=== PATIENT | female | born 1990 | race Caucasian/White ===

== ENCOUNTER 2016-07-22 22:10 | Emergency (ER) | payer OTHER ==
--- NOTE | 2016-07-22 22:43 | ED ---
General Adult HPI - General Chief complaint: Nausea/Vomiting/Diarrhea Stated complaint: 6 wks preg. Vomiting/Dizzy Time Seen by Provider: 07/22/16 22:36 Source: patient, family, RN notes reviewed Mode of arrival: ambulatory Limitations: no limitations - History of Present Illness Initial comments: This is a 25-year-old female who comes in with complaints of vomiting and diarrhea 1 day. Patient's is present in the room also. Patient states she has been constipated for the last few days and today had a bowel movement that was hard, but was followed by diarrhea. Patient denies any hematochezia or hematemesis. Patient states she had an episode of vomiting 2 days ago and also once today. Patient states she is 6 weeks . Patient complains of some abdominal pain and lower back pain. Patient denies any vaginal bleeding. Patient states she has had some vaginal discharge but this is normal for her. Patient also admits to some dysuria. Patient denies any fever/chills, cough, otalgia, sore throat, headache. Patient admits to some mild congestion. Patient states her son has been sick with diarrhea. Patient states she is a current smoker but denies alcohol or drug use. Patient states the only medication she is currently on are vitamins and albuterol inhaler as needed. Patient states she has had 5 pregnancies with 3 live births and one miscarriage. Patient is a A1. Patient states this is her fifth . Patient has had all 3 deliveries via . Patient denies any recent shortness breath, chest pain, numbness, tingling, hematuria, headache, or visual changes, or any other complaints. - Related Data Home Medications Medication Instructions Recorded Confirmed Albuterol Inhaler [Ventolin Hfa 1 puff INHALATION RT-Q6H PRN 07/06/16 07/22/16 Inhaler] Pnv with Ca,No.72/Iron/FA 1 tab PO DAILY 07/22/16 07/22/16 [ Plus Tablet] Allergies Allergy/AdvReac Type Severity Reaction Status Date / Time sumatriptan [From Imitrex] AdvReac Makes Verified 07/22/16 22:23 Migraine Worse/Dizziness sumatriptan succinate AdvReac Makes Verified 07/22/16 22:23 [From Imitrex] Migraine Worse/Dizziness Review of Systems ROS Statement: Those systems with pertinent positive or pertinent negative responses have been documented in the HPI. ROS Other: All systems not noted in ROS Statement are negative. Past Medical History Past Medical History: No Reported History Additional Past Medical History / Comment(s): migraine santos, frequent uti's History of Any Multi-Drug Resistant Organisms: None Reported Date of last positivie culture/infection: 2010 MDRO Source:: foot Past Surgical History: Section Past Psychological History: Anxiety, Depression, Panic Disorder Smoking Status: Current every day smoker Past Alcohol Use History: None Reported Past Drug Use History: None Reported General Exam - General Exam Comments Initial Comments: General: The patient is awake and alert, in no distress, and does not appear acutely ill. Eye: Pupils are equal, round and reactive to light, extra-ocular movements are intact. No nystagmus. There is normal conjunctiva bilaterally. No signs of icterus. Ears: TMs pink and pearly bilaterally with intact cone of light bilaterally. Normal external ear canals. Nose: Nasal turbinates slightly erythematous and edematous but clear of drainage. No tenderness to palpation of the frontal or maxillary sinuses. Mouth and throat: There are moist mucous membranes and no oral lesions. Neck: The neck is supple, there is no tenderness or JVD. Cardiovascular: There is a regular rate and rhythm. No murmur, rub or gallop is appreciated. Respiratory: Lungs are clear to auscultation, respirations are non-labored, breath sounds are equal. No wheezes, stridor, rales, or rhonchi. Gastrointestinal: Mild generalized tenderness to the left upper and lower quadrants. Mild right-sided CVA tenderness. Soft, non-distended, without masses or organomegaly noted. There is no rebound or guarding present. Bowel sounds are unremarkable. Musculoskeletal: Normal ROM, no tenderness. Strength 5/5. Sensation intact. Radial Pulses equal bilaterally 2+. Neurological: A&O x 3. CN II-XII intact, There are no obvious motor or sensory deficits. Coordination appears grossly intact. Speech is normal. Skin: Surgical scars from past C-sections present. Skin is warm and dry and no rashes or lesions are noted. Psychiatric: Cooperative, appropriate mood & affect, normal judgment. Limitations: no limitations External exam: Present: normal external exam. Absent: erythema, swelling, lesions Speculum exam: Present: normal speculum exam (No bleeding present in the vaginal vault.). Absent: erythema, vaginal bleeding (normal vaginal discharge present) By manual exam: Present: adnexal tenderness (left adnexal tenderness). Absent: cervical motion tenderness Course Vital Signs 07/22/16 22:13 Temperature 97 F L Pulse Rate 75 Respiratory 18 Rate Blood Pressure 109/70 O2 Sat by Pulse 98 Oximetry Medical Decision Making - Medical Decision Making This is a 25-year-old female with complaints of vomiting and diarrhea 1 day. Patient is a A1. Patient also complains of lower back pain. Physical exam there is mild generalized tenderness to the left upper and lower quadrants of the abdomen. Abdomen is soft, nondistended, with no guarding or rigidity. Bimanual exam with left adnexal tenderness. Normal speculum exam. No bleeding present in the vaginal vault. Patient is afebrile in the EC. Patient was offered STD testing but refused this stating she gets this done at her regular [facility] appointments. Patient was given fluids in the EC today. Labs and imaging were reviewed. UA negative for UTI but positive for . A transvaginal ultrasound was done and reviewed showing: Evidence of single live intrauterine of 6 weeks and 4 days with heart rate of 110 bpm. The heart rate is probably somewhat low. BREANNA by current ultrasound is 03/14/2017. Read by Dr. Blackwell. Discussed the results with patient. Discussed close follow up with [facility]. Discussed the importance of smoking cessation especially in . Discussed plenty of fluids. Discussed return parameters. Discussed that patient should follow up with PCP in one to 2 days or return to the EC for any worsening symptoms or for any further concerns. Patient was receptive to this plan and patient will be discharged home. I discussed his case with attending physician Dr. Oshea who agrees the plan as stated above. - Lab Data Result diagrams: 07/22/16 23:15 07/22/16 23:15 Lab Results 07/22/16 07/22/16 07/22/16 Range/Units 22:45 22:45 23:15 WBC (3.8-10.6) k/uL RBC (3.80-5.40) m/uL Hgb (11.4-16.0) gm/dL Hct (34.0-46.0) % MCV (80.0-100.0) fL MCH (25.0-35.0) pg MCHC (31.0-37.0) g/dL RDW (11.5-15.5) % Plt Count (150-450) k/uL Neutrophils % % Lymphocytes % % Monocytes % % Eosinophils % % Basophils % % Neutrophils # (1.3-7.7) k/uL Lymphocytes # (1.0-4.8) k/uL Monocytes # (0-1.0) k/uL Eosinophils # (0-0.7) k/uL Basophils # (0-0.2) k/uL Sodium (137-145) mmol/L Potassium (3.5-5.1) mmol/L Chloride (98-107) mmol/L Carbon Dioxide (22-30) mmol/L Anion Gap mmol/L BUN (7-17) mg/dL Creatinine (0.52-1.04) mg/dL Est GFR (MDRD) Af Amer (>60 ml/min/1.73 sqM) Est GFR (MDRD) Non-Af (>60 ml/min/1.73 sqM) Glucose (74-99) mg/dL Calcium (8.4-10.2) mg/dL Total Bilirubin (0.2-1.3) mg/dL AST (14-36) U/L ALT (9-52) U/L Alkaline Phosphatase (38-126) U/L Total Protein (6.3-8.2) g/dL Albumin (3.5-5.0) g/dL HCG, Quant mIU/mL Urine Color Yellow Urine Appearance Clear (Clear) Urine pH 6.0 (5.0-8.0) Ur Specific [place] 1.017 (1.001-1.035) Urine Protein Negative (Negative) Urine Glucose (UA) Negative (Negative) Urine Ketones Negative (Negative) Urine Blood Negative (Negative) Urine Nitrate Negative (Negative) Urine Bilirubin Negative (Negative) Urine Urobilinogen <2.0 (<2.0) mg/dL Ur Leukocyte Esterase Negative (Negative) Urine HCG, Qual Detected (Not Detectd) Blood Type O Positive Blood Type Recheck No 07/22/16 07/22/16 Range/Units 23:15 23:15 WBC 14.2 H (3.8-10.6) k/uL RBC 4.18 (3.80-5.40) m/uL Hgb 12.9 (11.4-16.0) gm/dL Hct 39.9 (34.0-46.0) % MCV 95.3 (80.0-100.0) fL MCH 30.9 (25.0-35.0) pg MCHC 32.5 (31.0-37.0) g/dL RDW 12.6 (11.5-15.5) % Plt Count 271 (150-450) k/uL Neutrophils % 82 % Lymphocytes % 12 % Monocytes % 4 % Eosinophils % 1 % Basophils % 0 % Neutrophils # 11.6 H (1.3-7.7) k/uL Lymphocytes # 1.7 (1.0-4.8) k/uL Monocytes # 0.6 (0-1.0) k/uL Eosinophils # 0.1 (0-0.7) k/uL Basophils # 0.0 (0-0.2) k/uL Sodium 140 (137-145) mmol/L Potassium 4.1 (3.5-5.1) mmol/L Chloride 106 (98-107) mmol/L Carbon Dioxide 23 (22-30) mmol/L Anion Gap 11 mmol/L BUN 15 (7-17) mg/dL Creatinine 0.70 (0.52-1.04) mg/dL Est GFR (MDRD) Af Amer >60 (>60 ml/min/1.73 sqM) Est GFR (MDRD) Non-Af >60 (>60 ml/min/1.73 sqM) Glucose 87 (74-99) mg/dL Calcium 9.1 (8.4-10.2) mg/dL Total Bilirubin 0.3 (0.2-1.3) mg/dL AST 23 (14-36) U/L ALT 40 (9-52) U/L Alkaline Phosphatase 74 (38-126) U/L Total Protein 6.7 (6.3-8.2) g/dL Albumin 4.0 (3.5-5.0) g/dL HCG, Quant 94567.6 mIU/mL Urine Color Urine Appearance (Clear) Urine pH (5.0-8.0) Ur Specific [place] (1.001-1.035) Urine Protein (Negative) Urine Glucose (UA) (Negative) Urine Ketones (Negative) Urine Blood (Negative) Urine Nitrate (Negative) Urine Bilirubin (Negative) Urine Urobilinogen (<2.0) mg/dL Ur Leukocyte Esterase (Negative) Urine HCG, Qual (Not Detectd) Blood Type Blood Type Recheck Disposition Clinical Impression: Nausea and vomiting during , Diarrhea, Disposition: HOME SELF-CARE Condition: Good Instructions: Acute Diarrhea (ED) Additional Instructions: Please follow-up with [facility]. Please stop smoking. Please drink plenty of fluids. Please follow-up with family doctor in the next 2 days of symptoms have not improved. Please return to emergency room if the symptoms increase or worsen or for any other concerns. Referrals: Tin Parson MD [Primary Care Provider] - 1-2 days Time of Disposition: 01:23
[2016-07-22] MEDS ORDERED: SODIUM CHLORIDE 0.9% 1,000 ML IV ONE (22:50)
[2016-07-22 22:59] LABS: Appearance,Urine Clear (Clear); Bilirubin,Urine Negative (Negative); Glucose,Urine (UA) Negative (Negative); Ketones,Urine Negative (Negative); Leukocyte Esterase,Urine Negative (Negative); Nitrite,Urine Negative (Negative); Protein,Urine Negative (Negative); Specific Gravity,Urine 1.017 (1.001-1.035); UA Billing (MACRO vs. MICRO) CHEM; Urobilinogen,Urine <2.0 mg/dL (<2.0)
[2016-07-22 23:31] LABS: Basophils % (A) 0 %; CH 32.1; CHCM 33.9; Eosinophils # (A) 0.1 k/uL (0-0.7); Eosinophils % (A) 1 %; HCT 39.9 % (34.0-46.0); HGB 12.9 gm/dL (11.4-16.0); Luc % (Auto) 1; Lymphocytes # (A) 1.7 k/uL (1.0-4.8); Lymphocytes % (A) 12 %; MCH 30.9 pg (25.0-35.0); MCHC 32.5 g/dL (31.0-37.0); MCV 95.3 fL (80.0-100.0); Mean Platelet Volume 7.7; Monocytes # (A) 0.6 k/uL (0-1.0); Monocytes % (A) 4 %; Neutrophils # (A) 11.6 k/uL (1.3-7.7); Neutrophils % (A) 82 %; RBC 4.18 m/uL (3.80-5.40); RDW 12.6 % (11.5-15.5); WBC 14.2 k/uL (3.8-10.6); WBC (Perox) 14.75
[2016-07-22 23:42] LABS: ALT 40 U/L (9-52); AST 23 U/L (14-36); Alkaline Phosphatase 74 U/L (38-126); Anion Gap 11 mmol/L; Blood Urea Nitrogen 15 mg/dL (7-17); Calcium 9.1 mg/dL (8.4-10.2); Carbon Dioxide 23 mmol/L (22-30); Chloride 106 mmol/L (98-107); Glucose 87 mg/dL (74-99); Non-African American GFR(MDRD) >60 (>60 ml/min/1.73 sqM); Potassium 4.1 mmol/L (3.5-5.1); Sodium 140 mmol/L (137-145); Total Bilirubin 0.3 mg/dL (0.2-1.3); Total Protein 6.7 g/dL (6.3-8.2)
[2016-07-23 00:51] LABS: HCG,Quantitative Serum 65647.6 mIU/mL
--- NOTE | 2016-07-23 01:17 | US ---
EXAMINATION TYPE: US OB <= 14 wk fetus DATE OF EXAM: 07/23/2016 12:50 AM COMPARISON: July 06, 2016 CLINICAL HISTORY: vomiting, dizziness, unknown dates, . EXAM PERFORMED: Transabdominal (TA) EXAM MEASUREMENTS: GESTATIONAL AGE / DATING Dates by First Scan: Too early to determine Dates by Current Scan: (6 weeks/4 days) EDC: 03/14/2017 MATERNAL ANATOMY Uterus: 10.1 x 5.9 x 4.5 cm Right Ovary: 3.5 x2.1 x 1.8 cm Left Ovary: 3.0 x 2.5 x 2.3 cm Post CDS / Adnexa: no free fluid Presence of corpus luteal cyst: left ovary= 2.5 x 1.8 x 2.2 cm Presence of subchorionic bleed: no Presence of two separate gestational sacs: no GESTATION / SURVEY CRL: 0.7 cm (6 weeks/4 days) Yolk Sac (normal less than 6mm): 2.7 mm Heart Rate: 110 bpm Rhythm: Normal, low IUP: Viable IUP Date of LMP: unknown IMPRESSION: 1. Evidence of single live intrauterine of 6 weeks and 4 days with heart rate of 110 bpm. The heart rate is probably somewhat low. BREANNA by current ultrasound is 03/14/2017.
[2016-07-23 01:31] VITALS: BP 114/59; PULSE 69; RESP 16; TEMP 97.8
== END 2016-07-23 01:33 | disposition home or self-care (01) ==
LOC: EC 22:10
DX: O26.891 Other specified pregnancy related conditions, first trimester (principal); O99.331 Smoking (tobacco) complicating pregnancy, first trimester; R11.2 Nausea with vomiting, unspecified; R19.7 Diarrhea, unspecified; M54.5 Low back pain; Z3A.01 Less than 8 weeks gestation of pregnancy; F17.200 Nicotine dependence, unspecified, uncomplicated; Z88.8 Allergy status to other drugs, medicaments and biological substances
CPT/HCPCS: 36415; 76801; 80053; 81003; 81025; 84702; 85025; 86900; 86901; 87086; 96360; 99284

== ENCOUNTER 2016-08-05 15:59 | Emergency (ER) | payer OTHER ==
[2016-08-05 16:12] VITALS: RESP 16
[2016-08-05] MEDS ORDERED: SODIUM CHLORIDE 0.9% 1,000 ML IV ONE (16:43)
--- NOTE | 2016-08-05 16:47 | ED ---
Abdominal Pain HPI - General Chief Complaint: Abdominal Pain Stated Complaint: 9 weeks /Spotting Time Seen by Provider: 08/05/16 16:34 Source: patient, RN notes reviewed Mode of arrival: ambulatory Limitations: no limitations - History of Present Illness Initial Comments: Vision is a 25-year-old female presenting to the with chief complaint of left lower quadrant abdominal pain for approximately 1 day. She reports that she is approximately 9 weeks . Patient reports that she's had a very rough with multiple vomiting episodes. Patient reports she's also had multiple episodes of vomiting and diarrhea for the past 2 days. Patient reports that yesterday she did have some vaginal spotting yesterday. Patient denies any fever or chills. Patient's past medical history significant for multiple urinary tract infections. Patient states that she also has asthma. Patient denies any recent fever, chills, shortness of breath, chest pain, back pain, abdominal pain, nausea vomiting, numbness or tingling, dysuria or hematuria, constipation or diarrhea, headaches or visual changes, or any other current symptoms - Related Data Home Medications Medication Instructions Recorded Confirmed Albuterol Inhaler [Ventolin Hfa 1 puff INHALATION RT-Q6H PRN 07/06/16 08/05/16 Inhaler] Pnv with Ca,No.72/Iron/FA 1 tab PO DAILY 07/22/16 08/05/16 [ Plus Tablet] Previous Rx's Medication Instructions Recorded Metoclopramide [Reglan] 5 mg PO TID 12 Days 08/05/16 Allergies Allergy/AdvReac Type Severity Reaction Status Date / Time sumatriptan [From Imitrex] AdvReac Makes Verified 08/05/16 16:47 Migraine Worse/Dizziness sumatriptan succinate AdvReac Makes Verified 08/05/16 16:47 [From Imitrex] Migraine Worse/Dizziness Review of Systems ROS Statement: Those systems with pertinent positive or pertinent negative responses have been documented in the HPI. ROS Other: All systems not noted in ROS Statement are negative. Past Medical History Past Medical History: No Reported History Additional Past Medical History / Comment(s): migraine santos, frequent uti's History of Any Multi-Drug Resistant Organisms: None Reported Date of last positivie culture/infection: 2010 MDRO Source:: foot Past Surgical History: Section Past Psychological History: Anxiety, Depression, Panic Disorder Smoking Status: Current every day smoker Past Alcohol Use History: None Reported Past Drug Use History: None Reported General Exam - General Exam Comments Initial Comments: Patient is a 25-year-old well-appearing female. She does not appear to be in any acute distress at this time. Limitations: no limitations General appearance: alert, in no apparent distress Head exam: Present: atraumatic, normocephalic, normal inspection Eye exam: Present: normal appearance, PERRL, EOMI. Absent: scleral icterus, conjunctival injection, periorbital swelling ENT exam: Present: normal exam, mucous membranes moist Neck exam: Present: normal inspection. Absent: tenderness, meningismus, lymphadenopathy Respiratory exam: Present: normal lung sounds bilaterally. Absent: respiratory distress, wheezes, rales, rhonchi, stridor Cardiovascular Exam: Present: regular rate, normal rhythm, normal heart sounds. Absent: systolic murmur, diastolic murmur, rubs, gallop, clicks GI/Abdominal exam: Present: soft, tenderness (Patient reports she has left lower quadrant tenderness.), normal bowel sounds. Absent: distended, guarding, rebound, rigid External exam: Present: normal external exam. Absent: erythema, swelling Speculum exam: Present: normal speculum exam, cervical discharge (Patient had mild white purulent cervical discharge. Nothing indicating signs this sexual transmitted infection. Cultures were obtained.). Absent: erythema, vaginal discharge, vaginal bleeding, foreign body By manual exam: Present: normal by manual exam. Absent: cervical motion tenderness, adnexal tenderness, adnexal mass, uterine enlargement, uterine tenderness Extremities exam: Present: normal inspection, full ROM, normal capillary refill. Absent: tenderness, pedal edema, joint swelling, calf tenderness Back exam: Present: normal inspection Neurological exam: Present: alert, oriented X3, CN II-XII intact Psychiatric exam: Present: normal affect, normal mood Skin exam: Present: warm, dry, intact, normal color. Absent: rash Course Vital Signs 08/05/16 08/05/16 16:07 20:15 Temperature 98.2 F 98.3 F Pulse Rate 62 72 Respiratory 16 16 Rate Blood Pressure 152/67 107/68 O2 Sat by Pulse 97 98 Oximetry Medical Decision Making - Medical Decision Making Patient is a 25-year-old female presenting to the with chief complaint of 3 days of vomiting, nausea, and 1 day of left lower quadrant abdominal pain. Patient also reports some spotting yesterday. Patient reports that she does have a history of chronic urinary tract infection she is concerned she has a UTI this time. All labs are reviewed to be negative. Pelvic exam did show some mild discharge however nothing consistent with a sexually transmitted infection. Cultures are obtained. Patient transvaginal ultrasound was obtained. Patient received Reglan for nausea vomiting EC. Patient be discharged with a prescription for Reglan and instructed to follow-up with her [facility] in regards to repeat beta hCG. Patient's O positive. She will also be given a repeat beta hCG. - Lab Data Result diagrams: 08/05/16 17:40 08/05/16 17:40 Lab Results 08/05/16 08/05/16 08/05/16 Range/Units 15:45 17:40 17:40 WBC 8.6 (3.8-10.6) k/uL RBC 4.12 (3.80-5.40) m/uL Hgb 13.0 (11.4-16.0) gm/dL Hct 38.7 (34.0-46.0) % MCV 94.0 (80.0-100.0) fL MCH 31.5 (25.0-35.0) pg MCHC 33.5 (31.0-37.0) g/dL RDW 12.5 (11.5-15.5) % Plt Count 255 (150-450) k/uL Neutrophils % 73 % Lymphocytes % 19 % Monocytes % 5 % Eosinophils % 1 % Basophils % 0 % Neutrophils # 6.3 (1.3-7.7) k/uL Lymphocytes # 1.6 (1.0-4.8) k/uL Monocytes # 0.4 (0-1.0) k/uL Eosinophils # 0.1 (0-0.7) k/uL Basophils # 0.0 (0-0.2) k/uL Sodium (137-145) mmol/L Potassium (3.5-5.1) mmol/L Chloride (98-107) mmol/L Carbon Dioxide (22-30) mmol/L Anion Gap mmol/L BUN (7-17) mg/dL Creatinine (0.52-1.04) mg/dL Est GFR (MDRD) Af Amer (>60 ml/min/1.73 sqM) Est GFR (MDRD) Non-Af (>60 ml/min/1.73 sqM) Glucose (74-99) mg/dL Calcium (8.4-10.2) mg/dL Total Bilirubin (0.2-1.3) mg/dL AST (14-36) U/L ALT (9-52) U/L Alkaline Phosphatase (38-126) U/L Total Protein (6.3-8.2) g/dL Albumin (3.5-5.0) g/dL HCG, Quant mIU/mL Urine Color Urine Appearance (Clear) Urine pH (5.0-8.0) Ur Specific [place] (1.001-1.035) Urine Protein (Negative) Urine Glucose (UA) (Negative) Urine Ketones (Negative) Urine Blood (Negative) Urine Nitrate (Negative) Urine Bilirubin (Negative) Urine Urobilinogen (<2.0) mg/dL Ur Leukocyte Esterase (Negative) Urine RBC (0-5) /hpf Ur Squamous Epith Cells (0-4) /hpf Amorphous Sediment (None) /hpf Urine Bacteria (None) /hpf Urine Mucus (None) /hpf Trichomonas Ag (Rapid) Negative (Negative) Blood Type O Positive Blood Type Recheck No 08/05/16 08/05/16 Range/Units 17:40 17:40 WBC (3.8-10.6) k/uL RBC (3.80-5.40) m/uL Hgb (11.4-16.0) gm/dL Hct (34.0-46.0) % MCV (80.0-100.0) fL MCH (25.0-35.0) pg MCHC (31.0-37.0) g/dL RDW (11.5-15.5) % Plt Count (150-450) k/uL Neutrophils % % Lymphocytes % % Monocytes % % Eosinophils % % Basophils % % Neutrophils # (1.3-7.7) k/uL Lymphocytes # (1.0-4.8) k/uL Monocytes # (0-1.0) k/uL Eosinophils # (0-0.7) k/uL Basophils # (0-0.2) k/uL Sodium 139 (137-145) mmol/L Potassium 4.3 (3.5-5.1) mmol/L Chloride 103 (98-107) mmol/L Carbon Dioxide 26 (22-30) mmol/L Anion Gap 10 mmol/L BUN 11 (7-17) mg/dL Creatinine 0.70 (0.52-1.04) mg/dL Est GFR (MDRD) Af Amer >60 (>60 ml/min/1.73 sqM) Est GFR (MDRD) Non-Af >60 (>60 ml/min/1.73 sqM) Glucose 89 (74-99) mg/dL Calcium 9.1 (8.4-10.2) mg/dL Total Bilirubin 0.3 (0.2-1.3) mg/dL AST 17 (14-36) U/L ALT 26 (9-52) U/L Alkaline Phosphatase 67 (38-126) U/L Total Protein 6.8 (6.3-8.2) g/dL Albumin 3.8 (3.5-5.0) g/dL HCG, Quant 943433.0 mIU/mL Urine Color Yellow Urine Appearance Cloudy H (Clear) Urine pH 6.5 (5.0-8.0) Ur Specific [place] 1.017 (1.001-1.035) Urine Protein Negative (Negative) Urine Glucose (UA) Negative (Negative) Urine Ketones Negative (Negative) Urine Blood Negative (Negative) Urine Nitrate Negative (Negative) Urine Bilirubin Negative (Negative) Urine Urobilinogen <2.0 (<2.0) mg/dL Ur Leukocyte Esterase Negative (Negative) Urine RBC 1 (0-5) /hpf Ur Squamous Epith Cells 11 H (0-4) /hpf Amorphous Sediment Rare H (None) /hpf Urine Bacteria Occasional H (None) /hpf Urine Mucus Rare H (None) /hpf Trichomonas Ag (Rapid) (Negative) Blood Type Blood Type Recheck - Radiology Data Radiology results: report reviewed Patient's transvaginal ultrasound shows a live IUP measuring 8 weeks and 3 days. There is evidence of a corpus luteal cyst in the left ovary measuring 2 x 2 x 2 cm. Disposition Clinical Impression: Nausea and vomiting during , Left ovarian cyst Disposition: HOME SELF-CARE Condition: Good Instructions: Nausea and Vomiting in (ED) Additional Instructions: Patient instructed to follow-up with [facility] in regards to repeat beta hCGs. Patient is to return to the EC if any alarming signs or symptoms occur. Prescriptions: Metoclopramide [Reglan] 5 mg PO TID 12 Days Referrals: Tin Parson MD [Primary Care Provider] - 1-2 days Time of Disposition: 19:37
[2016-08-05 18:13] LABS: Basophils % (A) 0 %; CHCM 34.2; Eosinophils # (A) 0.1 k/uL (0-0.7); Eosinophils % (A) 1 %; HCT 38.7 % (34.0-46.0); HDW 2.21; Luc # (Auto) 0.13; Luc % (Auto) 2; Lymphocytes # (A) 1.6 k/uL (1.0-4.8); Lymphocytes % (A) 19 %; MCH 31.5 pg (25.0-35.0); MCHC 33.5 g/dL (31.0-37.0); Monocytes # (A) 0.4 k/uL (0-1.0); Monocytes % (A) 5 %; Neutrophils # (A) 6.3 k/uL (1.3-7.7); Neutrophils % (A) 73 %; RBC 4.12 m/uL (3.80-5.40); RDW 12.5 % (11.5-15.5); WBC 8.6 k/uL (3.8-10.6); WBC (Perox) 8.62
[2016-08-05 18:16] LABS: ALT 26 U/L (9-52); AST 17 U/L (14-36); Alkaline Phosphatase 67 U/L (38-126); Anion Gap 10 mmol/L; Blood Urea Nitrogen 11 mg/dL (7-17); Calcium 9.1 mg/dL (8.4-10.2); Carbon Dioxide 26 mmol/L (22-30); Chloride 103 mmol/L (98-107); Glucose 89 mg/dL (74-99); Non-African American GFR(MDRD) >60 (>60 ml/min/1.73 sqM); Potassium 4.3 mmol/L (3.5-5.1); Sodium 139 mmol/L (137-145); Total Bilirubin 0.3 mg/dL (0.2-1.3); Total Protein 6.8 g/dL (6.3-8.2)
[2016-08-05 18:34] LABS: Amorphous Sediment,Urine Rare /hpf; Appearance,Urine Cloudy (Clear); Bacteria,Urine Occasional /hpf; Bilirubin,Urine Negative (Negative); Glucose,Urine (UA) Negative (Negative); Ketones,Urine Negative (Negative); Leukocyte Esterase,Urine Negative (Negative); Mucus,Urine Rare /hpf; Nitrite,Urine Negative (Negative); PH, Urine 6.5 (5.0-8.0); Particle Count 15424; Protein,Urine Negative (Negative); RBC,Urine 1 /hpf (0-5); Specific Gravity,Urine 1.017 (1.001-1.035); Squamous Epithelial Cell,Urine 11 /hpf (0-4); UA Billing (MACRO vs. MICRO) MICRO; Urobilinogen,Urine <2.0 mg/dL (<2.0)
[2016-08-05] MEDS ORDERED: METOCLOPRAMIDE 5 MG/ML 2 ML VIAL IVP STA (18:50)
--- NOTE | 2016-08-05 19:48 | US ---
EXAMINATION TYPE: US OB <= 14 wk fetus DATE OF EXAM: 08/05/2016 6:12 PM COMPARISON: on PACS CLINICAL HISTORY: pain, bleeding. EXAM PERFORMED: Transabdominal (TA) EXAM MEASUREMENTS: GESTATIONAL AGE / DATING Dates by First Scan: (8 weeks/4 days) EDC: 03/13/2017 Dates by Current Scan for: (8 weeks/3 days) EDC: 03/14/2017 MATERNAL ANATOMY Uterus: 10.5 x 6.7 x 5.8 cm Right Ovary: 3.2 x 2.0 x 2.1 cm Left Ovary: 3.2 x 2.2 x 2.1 cm Post CDS / Adnexa: no free fluid Presence of corpus luteal cyst: left ovary= 2.3 x 1.8 x 1.5 cm GESTATION / SURVEY CRL: 1.9 cm (8 weeks/3 days) MSD: not measured Yolk Sac (normal less than 6mm): 4.5 mm Heart Rate: 167 bpm Rhythm: Normal IUP: Viable IUP Date of LMP: unknown Beta HcG (if available): not available IMPRESSION: LIVE IUP MEASURING 8 WEEKS 3 DAYS
[2016-08-05 20:18] VITALS: BP 107/68; PULSE 72; TEMP 98.3
== END 2016-08-05 20:18 | disposition home or self-care (01) ==
LOC: EC 15:59
DX: O21.0 Mild hyperemesis gravidarum (principal); Z3A.08 8 weeks gestation of pregnancy; O34.81 Maternal care for other abnormalities of pelvic organs, first trimester; Z88.8 Allergy status to other drugs, medicaments and biological substances; O99.331 Smoking (tobacco) complicating pregnancy, first trimester
CPT/HCPCS: 36415; 86900; 86901; 80053; 87591; 87491; 85025; 81001; 84702; 87808; 87070; 76801; 96374; 96361; 99284; J2765; 87205

== ENCOUNTER 2016-08-09 23:12 | Emergency (ER) | payer OTHER ==
[2016-08-09 23:17] VITALS: BP 145/83; PULSE 80; RESP 20; TEMP 97.8
--- NOTE | 2016-08-09 23:43 | ED ---
Abdominal Pain HPI - General Chief Complaint: Abdominal Pain Stated Complaint: Back Pain Time Seen by Provider: 08/09/16 23:17 Source: patient, RN notes reviewed Mode of arrival: ambulatory Limitations: no limitations - History of Present Illness Initial Comments: 25-year-old female presents to emergency room chief complaint of concern about her . Patient states she was here a few days ago with some back pain. Patient states she continues to have this back pain however she also got her hCG checked lower. Patient is concerned about a miscarriage like an ultrasound to see how she is doing. Patient states her pain as mild it's just like it was before there is no changes or difference. Patient denies any fever chills nausea vomiting. Patient states that she hasn't had any other symptoms at this time. Patient was concerned due to the drop of the hCG and not associated like evaluated.Patient denies any recent fever, chills, shortness of breath, chest pain, abdominal pain, nausea vomiting, numbness or tingling, dysuria or hematuria, constipation or diarrhea, headaches or visual changes, or any other current symptoms. - Related Data Home Medications Medication Instructions Recorded Confirmed Albuterol Inhaler [Ventolin Hfa 1 puff INHALATION RT-Q6H PRN 07/06/16 08/09/16 Inhaler] Previous Rx's Medication Instructions Recorded Metoclopramide [Reglan] 5 mg PO TID 12 Days 08/05/16 Allergies Allergy/AdvReac Type Severity Reaction Status Date / Time sumatriptan [From Imitrex] AdvReac Makes Verified 08/09/16 23:32 Migraine Worse/Dizziness sumatriptan succinate AdvReac Makes Verified 08/09/16 23:32 [From Imitrex] Migraine Worse/Dizziness Review of Systems ROS Statement: Those systems with pertinent positive or pertinent negative responses have been documented in the HPI. ROS Other: All systems not noted in ROS Statement are negative. Past Medical History Past Medical History: No Reported History Additional Past Medical History / Comment(s): migraine santos, frequent uti's History of Any Multi-Drug Resistant Organisms: None Reported Date of last positivie culture/infection: 2010 MDRO Source:: foot Past Surgical History: Section Past Psychological History: Anxiety, Depression, Panic Disorder Smoking Status: Current every day smoker Past Alcohol Use History: None Reported Past Drug Use History: None Reported General Exam - General Exam Comments Initial Comments: General: The patient is awake and alert, in no distress, and does not appear acutely ill. Eye: Pupils are equal, round and reactive to light. Ears, nose, mouth and throat: There are moist mucous membranes. Neck: The neck is supple, there is no tenderness. Cardiovascular: There is a regular rate and rhythm. No murmur, rub or gallop is appreciated. Respiratory: Lungs are clear to auscultation, respirations are non-labored, breath sounds are equal. No wheezes, stridor, rales, or rhonchi. Gastrointestinal: Soft, non-distended, non-tender abdomen without masses or organomegaly noted. There is no rebound or guarding present. No CVA tenderness. Bowel sounds are unremarkable. Back: There is no tenderness to palpation in the midline. There is no obvious deformity. No rashes noted. Musculoskeletal: Normal ROM, no tenderness, There is no pedal edema. There is no calf tenderness or swelling. Sensation intact. Pulses equal bilaterally 2+. Neurological: CN II-XII intact, There are no obvious motor or sensory deficits. Coordination appears grossly intact. Speech is normal. Skin: Skin is warm and dry and no rashes or lesions are noted. Psychiatric: Cooperative, appropriate mood & affect, normal judgment. Limitations: no limitations Course Vital Signs 08/09/16 23:15 Temperature 97.8 F Pulse Rate 80 Respiratory 20 Rate Blood Pressure 145/83 O2 Sat by Pulse 98 Oximetry Medical Decision Making - Medical Decision Making 25-year-old female presents to the emergency department with a chief complaint of concern about a miscarriage. Patient states she is trending down. We did have a long discussion about what this means. We did have a long discussion about fine up with her TRAILER TANK TRUCK DRIVER. Patient is very concerned and tearful on exam. We did do an ultrasound to assess the current fetus. Patient has no vaginal bleeding per her history. Patient would just take pills or so. She states she' ll follow-up with her TRAILER TANK TRUCK DRIVER for additional care. We discussed the comparison follow-up discussed all the patient's questions. She states she understood. She is in agreement with the plan. Patient will be discharged. - Radiology Data Radiology results: report reviewed, image reviewed Disposition Clinical Impression: Threatened miscarriage Disposition: HOME SELF-CARE Condition: Stable Instructions: Threatened Miscarriage (ED) Additional Instructions: Please use medication as discussed. Please follow up with family doctor if symptoms have not improved over the next two days. Please return to the emergency room if your symptoms increase or worsen or for any other concerns. Referrals: Tin Parson MD [Primary Care Provider] - 1-2 days Time of Disposition: 00:08
--- NOTE | 2016-08-10 00:06 | US ---
EXAMINATION TYPE: US OB <= 14 wk fetus DATE OF EXAM: 08/09/2016 11:49 PM COMPARISON: on PACS CLINICAL HISTORY: Pain. Patients states HCG have dropped EXAM PERFORMED: Transabdominal (TA) EXAM MEASUREMENTS: GESTATIONAL AGE / DATING Dates by First Scan: (9 weeks/1 days) EDC: 03/13/2017 Dates by Current Scan for: (9 weeks/0 days) EDC: 03/14/2017 MATERNAL ANATOMY Uterus: 9.6 x 7.1 x 6.9 cm Right Ovary: 2.7 x 1.4 x 1.6 cm Left Ovary: 3.7 x 2.4 x 1.9 cm Post CDS / Adnexa: no free fluid Presence of corpus luteal cyst: left ovary= 2.2 x 1.9 x 1.8 cm Presence of subchorionic bleed: no GESTATION / SURVEY CRL: 2.3 cm (9 weeks/0 days) MSD: not measured Yolk Sac (normal less than 6mm): 4.5 mm Heart Rate: 172 bpm Rhythm: Normal IUP: Viable IUP Date of LMP: not available Beta HcG (if available): not available TECHNOLOGIST IMPRESSION: Live IUP measuring 9 weeks 0 days IMPRESSION: The ultrasound gestational age is 9 weeks. The BREANNA is 03/06/2017. I see no complicating process.
== END 2016-08-10 00:17 | disposition home or self-care (01) ==
LOC: EC 23:12
DX: O20.0 Threatened abortion (principal); Z3A.09 9 weeks gestation of pregnancy; Z88.8 Allergy status to other drugs, medicaments and biological substances
CPT/HCPCS: 36415; 76801; 84702; 99284

== ENCOUNTER → 2016-08-09 | Outpatient (CLI) | payer OTHER | END | disposition home or self-care (01) | LOC: LABWHC1 11:00 | PROVIDERS: ATTEND Physician Assistant Medical | DX: O20.0 Threatened abortion (principal) | CPT/HCPCS: 36415; 84702 ==

== ENCOUNTER 2016-08-30 20:48 | Emergency (ER) | payer OTHER ==
[2016-08-30 20:57] VITALS: TEMP 97.9
[2016-08-30] MEDS ORDERED: ALBUTEROL NEBULIZED 2.5 MG/3 ML INHALATION STA (21:14)
--- NOTE | 2016-08-30 21:30 | ED ---
General Adult HPI - General Chief complaint: Upper Respiratory Infection Stated complaint: JASWINDER Time Seen by Provider: 08/30/16 21:08 Source: patient, RN notes reviewed Mode of arrival: ambulatory Limitations: no limitations - History of Present Illness Initial comments: 25-year-old female presents to the emergency Department chief complaint of cough and shortness of breath. Patient has been continuously for the past few days. Patient does admit to a history of asthma patient does smoke. Patient is currently 13 weeks . Patient was unable to find her inhaler at home. Patient states she just feels very short of breath. Patient denies any fever chills with this. Patient sputum production with the cough. Patient states she just does not seem to be getting any better so she thought that she should be evaluated. Patient denies any chest pain with this patient denies any nausea vomiting patient denies abdominal pain any vaginal bleeding or discharge. Patient denies any recent fever, chills, chest pain, back pain, abdominal pain, nausea vomiting, numbness or tingling, dysuria or hematuria, constipation or diarrhea, headaches or visual changes, or any other current symptoms. - Related Data Previous Rx's Medication Instructions Recorded Albuterol Inhaler [Ventolin Hfa 1 - 2 puff INHALATION Q4-6H PRN #1 08/30/16 Inhaler] inhaler Allergies Allergy/AdvReac Type Severity Reaction Status Date / Time sumatriptan [From Imitrex] AdvReac Makes Verified 08/30/16 21:06 Migraine Worse/Dizziness sumatriptan succinate AdvReac Makes Verified 08/30/16 21:06 [From Imitrex] Migraine Worse/Dizziness Review of Systems ROS Statement: Those systems with pertinent positive or pertinent negative responses have been documented in the HPI. ROS Other: All systems not noted in ROS Statement are negative. Past Medical History Past Medical History: No Reported History Additional Past Medical History / Comment(s): migraine santos, frequent uti's History of Any Multi-Drug Resistant Organisms: None Reported Date of last positivie culture/infection: 2010 MDRO Source:: foot Past Surgical History: Section Past Psychological History: Anxiety, Depression, Panic Disorder Smoking Status: Current every day smoker Past Alcohol Use History: None Reported Past Drug Use History: None Reported General Exam - General Exam Comments Initial Comments: General: The patient is awake and alert, in no distress, and does not appear acutely ill. Eye: Pupils are equal, round and reactive to light, extra-ocular movements are intact; there is normal conjunctiva bilaterally. No signs of icterus. Ears, nose, mouth and throat: There are moist mucous membranes. Neck: The neck is supple, there is no tenderness. Cardiovascular: There is a regular rate and rhythm. No murmur, rub or gallop is appreciated. Respiratory: Lungs are clear to auscultation, respirations are non-labored, breath sounds are equal. No wheezes, stridor, rales, or rhonchi. Back: There is no tenderness to palpation in the midline. There is no obvious deformity. No rashes noted. Musculoskeletal: Normal ROM, no tenderness, There is no pedal edema. There is no calf tenderness or swelling. Sensation intact. Pulses equal bilaterally 2+. Neurological: CN II-XII intact, There are no obvious motor or sensory deficits. Coordination appears grossly intact. Speech is normal. Skin: Skin is warm and dry and no rashes or lesions are noted. Psychiatric: Cooperative, appropriate mood & affect, normal judgment. Limitations: no limitations Course Vital Signs 08/30/16 08/30/16 08/30/16 20:54 21:34 21:49 Temperature 97.9 F Pulse Rate 86 80 86 Respiratory 18 Rate Blood Pressure 114/75 O2 Sat by Pulse 100 Oximetry Medical Decision Making - Medical Decision Making 25-year-old female presents for shortness of breath. Patient does appear to have a diffuse wheeze on exam. Patient was given albuterol breathing treatment even though there is a slight risk in due to the fact patient's wheezing and this needing to be improved. Patient functioning. Patient at this time did improve with the wheezing. Discussed risks benefits to a chest x- ray. At this time is that they will hold off. This time we will set the patient on albuterol inhaler. She denies feeling better after the treatment. We did discuss follow-up with her FINGER BUFFS ASSEMBLER and family care doctor. Return parameters. Patient stated that she understood all her questions have been answered. This time she will be discharged home. Disposition Clinical Impression: Asthma exacerbation Disposition: HOME SELF-CARE Condition: Stable Instructions: Asthma (ED) Additional Instructions: Please use medication as discussed. Please follow up with family doctor if symptoms have not improved over the next two days. Please return to the emergency room if your symptoms increase or worsen or for any other concerns. Prescriptions: Albuterol Inhaler [Ventolin Hfa Inhaler] 1 - 2 puff INHALATION Q4-6H PRN #1 inhaler PRN Reason: Cough Referrals: Tin Parson MD [Primary Care Provider] - 1-2 days Time of Disposition: 21:55
[2016-08-30 22:13] VITALS: BP 116/64; PULSE 89; RESP 20
== END 2016-08-30 22:11 | disposition home or self-care (01) ==
LOC: EC 20:48
DX: O26.891 Other specified pregnancy related conditions, first trimester (principal); Z3A.13 13 weeks gestation of pregnancy; J45.901 Unspecified asthma with (acute) exacerbation; F17.200 Nicotine dependence, unspecified, uncomplicated; Z88.8 Allergy status to other drugs, medicaments and biological substances
CPT/HCPCS: 94640; 99283

== ENCOUNTER 2016-09-14 17:33 | Emergency (ER) | payer OTHER ==
[2016-09-14 17:45] VITALS: BP 116/58; PULSE 68; RESP 18; TEMP 97.9
--- NOTE | 2016-09-14 18:07 | ED ---
General Adult HPI - General Chief complaint: Back Pain/Injury Stated complaint: Back Pain Time Seen by Provider: 09/14/16 17:39 Source: patient, RN notes reviewed Mode of arrival: EMS Limitations: no limitations - History of Present Illness Initial comments: This is a 25-year-old female who presents with right-sided back pain 2 weeks. Patient states she was having some left-sided sciatica pain over the last 2 weeks as well and went to the chiropractor who adjusted her and caused her to have right side back pain. Patient states movement makes the pain worse. Patient is able to ambulate. Patient denies any change in bowel or bladder function or loss of sensation to the saddle area. Patient denies any numbness/ tingling or weakness to the bilateral lower extremities. Patient states she is 15 weeks . Patient denies any abdominal cramping, vaginal bleeding, vaginal discharge or abdominal pain. Patient states pain in right-sided back radiates down the right leg and resembles the pain she had on her left side. Patient denies any injury or fall. Patient denies any recent fever, chills, shortness breath, chest pain, nausea/vomiting/diarrhea, hematuria, headache, or visual changes, or any other complaints. - Related Data Home Medications Medication Instructions Recorded Confirmed Albuterol Inhaler [Ventolin Hfa 2 puff INHALATION Q4H PRN 09/14/16 09/14/16 Inhaler] Allergies Allergy/AdvReac Type Severity Reaction Status Date / Time sumatriptan [From Imitrex] AdvReac Makes Verified 09/14/16 18:05 Migraine Worse/Dizziness sumatriptan succinate AdvReac Makes Verified 09/14/16 18:05 [From Imitrex] Migraine Worse/Dizziness Review of Systems ROS Statement: Those systems with pertinent positive or pertinent negative responses have been documented in the HPI. ROS Other: All systems not noted in ROS Statement are negative. Past Medical History Past Medical History: No Reported History Additional Past Medical History / Comment(s): migraine santos, frequent uti's, preclampsia, gestational diabetes History of Any Multi-Drug Resistant Organisms: None Reported Date of last positivie culture/infection: 2010 MDRO Source:: foot Past Surgical History: Section Past Psychological History: Anxiety, Depression, Panic Disorder Smoking Status: Current every day smoker Past Alcohol Use History: None Reported Past Drug Use History: None Reported General Exam - General Exam Comments Initial Comments: General: The patient is awake and alert, in no distress, and does not appear acutely ill. Neck: The neck is supple, there is no tenderness or JVD. Cardiovascular: There is a regular rate and rhythm. No murmur, rub or gallop is appreciated. Respiratory: Lungs are clear to auscultation, respirations are non-labored, breath sounds are equal. No wheezes, stridor, rales, or rhonchi. Gastrointestinal: Soft, non-distended, non-tender abdomen without masses or organomegaly noted. There is no rebound or guarding present. No CVA tenderness. Bowel sounds are unremarkable. Musculoskeletal: There is tenderness to palpation to the right side paraspinal muscles. Negative straight leg raise. Normal ROM, Strength 5/5. Sensation intact. Posterior tibial pulses equal bilaterally 2+. Capillary refill is normal at less than 2 seconds. Neurological: A&O x 3. CN II-XII intact, There are no obvious motor or sensory deficits. Coordination appears grossly intact. Speech is normal. Skin: Skin is warm and dry and no rashes or lesions are noted. Psychiatric: Cooperative, appropriate mood & affect, normal judgment. Limitations: no limitations Course Vital Signs 09/14/16 17:42 Temperature 97.9 F Pulse Rate 68 Respiratory 18 Rate Blood Pressure 116/58 O2 Sat by Pulse 100 Oximetry Medical Decision Making - Medical Decision Making This is a 25-year-old female presents with right-sided back pain. Patient is currently 15 weeks . On physical exam the pain is reproducible to the right side paraspinal muscles and is worse with movement. Patient does not have any abdominal pain. Negative straight leg raise. I discussed this is most likely muscular back pain. I discussed symptoms of sciatica. I discussed this patient is the only medication available to her is Tylenol. I discussed heating pads to the area warm shower/baths. I discussed return parameters. Discussed the patient is follow-up with her primary care provider in one to 2 days and patient states she has an appointment with her PLASTIC SURGERY ASSISTANT in 3 days. Discussed that patient should return to the [facility] for any worsening symptoms or for any further concerns. Patient was receptive to this plan and patient will be discharged home. Disposition Clinical Impression: Mechanical back pain, Muscle spasm Disposition: HOME SELF-CARE Condition: Good Instructions: Acute Low Back Pain (ED) Additional Instructions: Please use Tylenol for the pain. Please use heat to the area. Please follow-up with family doctor in the next 2 days of symptoms have not improved. Please return to emergency room if the symptoms increase or worsen or for any other concerns. Referrals: None,Stated [Primary Care Provider] - 1-2 days Irlanda Cruz MD [STAFF PHYSICIAN] - 1-2 days Time of Disposition: 18:12
== END 2016-09-14 18:30 | disposition home or self-care (01) ==
LOC: EC 17:33
DX: O99.89 Other specified diseases and conditions complicating pregnancy, childbirth and the puerperium (principal); M62.830 Muscle spasm of back; Z3A.15 15 weeks gestation of pregnancy; F17.200 Nicotine dependence, unspecified, uncomplicated; Z88.8 Allergy status to other drugs, medicaments and biological substances
CPT/HCPCS: 99284

== ENCOUNTER 2016-10-05 01:05 | Emergency (ER) | payer OTHER ==
[2016-10-05] MEDS ORDERED: ACETAMINOPHEN TAB 500 MG TAB PO STA (01:27)
[2016-10-05] MEDS ORDERED: FAMOTIDINE 20 MG TAB PO STA (01:27)
--- NOTE | 2016-10-05 01:27 | ED ---
Abdominal Pain HPI - General Chief Complaint: Abdominal Pain Stated Complaint: 17 weeks,stomach pain Time Seen by Provider: 10/05/16 01:15 Source: patient, RN notes reviewed Mode of arrival: ambulatory Limitations: no limitations - History of Present Illness Initial Comments: 25-year-old female presents emergency department chief complaint abdominal pain. Patient states that her son jumped on her belly a few days ago now she is having abdominal pain. Patient denies any vaginal discharge or drainage. Patient states she's been seen her OB throughout the . Patient states she was concerned when she developed the abdominal pain so she thought she should have the baby checked out. Patient does admit to a mild headache with some acid reflux as well. Patient states that she hasn't had any fever or chills. Patient denies any cough cold runny nose. Patient states she just wanted a shaking was okay with the baby. Patient is denying any other symptoms at this time. Patient denies any recent fever, chills, shortness of breath, chest pain, back pain, nausea vomiting, numbness or tingling, dysuria or hematuria, constipation or diarrhea, visual changes, or any other current symptoms. - Related Data Home Medications Medication Instructions Recorded Confirmed Albuterol Inhaler [Ventolin Hfa 2 puff INHALATION Q4H PRN 09/14/16 10/05/16 Inhaler] Previous Rx's Medication Instructions Recorded Nitrofurantoin Macrocrystal 100 mg PO BID #10 cap 10/05/16 [Macrodantin] Allergies Allergy/AdvReac Type Severity Reaction Status Date / Time sumatriptan [From Imitrex] AdvReac Makes Verified 10/05/16 01:13 Migraine Worse/Dizziness sumatriptan succinate AdvReac Makes Verified 10/05/16 01:13 [From Imitrex] Migraine Worse/Dizziness Review of Systems ROS Statement: Those systems with pertinent positive or pertinent negative responses have been documented in the HPI. ROS Other: All systems not noted in ROS Statement are negative. Past Medical History Past Medical History: No Reported History Additional Past Medical History / Comment(s): migraine santos, frequent uti's History of Any Multi-Drug Resistant Organisms: None Reported Date of last positivie culture/infection: 2010 MDRO Source:: foot Past Surgical History: Section Additional Past Surgical History / Comment(s): c sect x 3 Past Psychological History: Anxiety, Depression, Panic Disorder Smoking Status: Former smoker Past Alcohol Use History: None Reported Past Drug Use History: None Reported General Exam - General Exam Comments Initial Comments: General: The patient is awake and alert, in no distress, and does not appear acutely ill. Eye: Pupils are equal, round and reactive to light, extra-ocular movements are intact; there is normal conjunctiva bilaterally. No signs of icterus. Ears, nose, mouth and throat: There are moist mucous membranes. Neck: The neck is supple, there is no tenderness. Cardiovascular: There is a regular rate and rhythm. No murmur, rub or gallop is appreciated. Respiratory: Lungs are clear to auscultation, respirations are non-labored, breath sounds are equal. No wheezes, stridor, rales, or rhonchi. Gastrointestinal: Soft, non-distended, non-tender abdomen without masses or organomegaly noted. There is no rebound or guarding present. No CVA tenderness. Bowel sounds are unremarkable. Back: There is no tenderness to palpation in the midline. There is no obvious deformity. No rashes noted. Musculoskeletal: Normal ROM, no tenderness, There is no pedal edema. There is no calf tenderness or swelling. Sensation intact. Pulses equal bilaterally 2+. Neurological: CN II-XII intact, There are no obvious motor or sensory deficits. Coordination appears grossly intact. Speech is normal. Skin: Skin is warm and dry and no rashes or lesions are noted. Psychiatric: Cooperative, appropriate mood & affect, normal judgment. Limitations: no limitations External exam: Present: normal external exam Speculum exam: Present: normal speculum exam Course Vital Signs 10/05/16 01:08 Temperature 99.3 F Pulse Rate 98 Respiratory 16 Rate Blood Pressure 123/81 O2 Sat by Pulse 99 Oximetry Medical Decision Making - Medical Decision Making 25-year-old female presents emergency Department chief complaint abdominal pain. There is tenderness under stable. Urine does show suspicion for UTI. Most likely causing the patient's abdominal pain. This time we discussed with nitro. Time. Discussed return questions. He stated that she understood the plan. Patient will be discharged. - Lab Data Lab Results 10/05/16 Range/Units 01:45 Urine Color Light Yellow Urine Appearance Cloudy H (Clear) Urine pH 6.5 (5.0-8.0) Ur Specific [place] 1.009 (1.001-1.035) Urine Protein Negative (Negative) Urine Glucose (UA) Negative (Negative) Urine Ketones Negative (Negative) Urine Blood Negative (Negative) Urine Nitrite Positive H (Negative) Urine Bilirubin Negative (Negative) Urine Urobilinogen <2.0 (<2.0) mg/dL Ur Leukocyte Esterase Trace H (Negative) Urine RBC 1 (0-5) /hpf Urine WBC 9 H (0-5) /hpf Ur Squamous Epith Cells 2 (0-4) /hpf Amorphous Sediment Rare H (None) /hpf Urine Bacteria Few H (None) /hpf Urine Mucus Rare H (None) /hpf Disposition Clinical Impression: UTI (urinary tract infection) Disposition: HOME SELF-CARE Condition: Stable Instructions: Urinary Tract Infection in Women (ED) Additional Instructions: Please use medication as discussed. Please follow up with family doctor if symptoms have not improved over the next two days. Please return to the emergency room if your symptoms increase or worsen or for any other concerns. Prescriptions: Nitrofurantoin Macrocrystal [Macrodantin] 100 mg PO BID #10 cap Referrals: None,Stated [Primary Care Provider] - 1-2 days Irlanda Cruz MD [STAFF PHYSICIAN] - 1-2 days Time of Disposition: 03:01
[2016-10-05 03:00] LABS: Amorphous Sediment,Urine Rare /hpf; Appearance,Urine Cloudy (Clear); Bacteria,Urine Few /hpf; Bilirubin,Urine Negative (Negative); Glucose,Urine (UA) Negative (Negative); Ketones,Urine Negative (Negative); Leukocyte Esterase,Urine Trace (Negative); Mucus,Urine Rare /hpf; Nitrite,Urine Positive (Negative); PH, Urine 6.5 (5.0-8.0); Particle Count 39899; Protein,Urine Negative (Negative); RBC,Urine 1 /hpf (0-5); Specific Gravity,Urine 1.009 (1.001-1.035); Squamous Epithelial Cell,Urine 2 /hpf (0-4); UA Billing (MACRO vs. MICRO) MICRO; Urobilinogen,Urine <2.0 mg/dL (<2.0); WBC,Urine 9 /hpf (0-5)
[2016-10-05] MEDS ORDERED: NITROFURANTOIN MONOHYD/M-CRYST 100 MG CAP PO STA (03:00)
[2016-10-05 03:17] VITALS: BP 100/62; PULSE 90; RESP 18; TEMP 97.7
== END 2016-10-05 03:19 | disposition home or self-care (01) ==
LOC: EC 01:05
DX: O23.42 Unspecified infection of urinary tract in pregnancy, second trimester (principal); O99.89 Other specified diseases and conditions complicating pregnancy, childbirth and the puerperium; R51 Headache; Z3A.17 17 weeks gestation of pregnancy; Z87.891 Personal history of nicotine dependence; Z88.8 Allergy status to other drugs, medicaments and biological substances
CPT/HCPCS: 81001; 87077; 87086; 87186; 99283

== ENCOUNTER 2017-01-02 10:42 | Emergency (ER) | payer OTHER ==
--- NOTE | 2017-01-02 12:29 | ED ---
General Adult HPI - General Chief complaint: Extremity Problem,Nontraumatic Stated complaint: leg pain, Time Seen by Provider: 01/02/17 12:17 Source: patient Mode of arrival: wheelchair Limitations: no limitations - History of Present Illness Initial comments: Patient's a 26-year-old female at 30 weeks presenting with right calf pain. Patient states this started this morning. Patient has not taken anything for the pain. Patient states it's worse with ambulation. Patient has no prior history of DVT/PE. Denies recent surgery/travel. Denies cancer or hemoptysis. Patient denies fever, chills, chest pain, shortness breath, nausea , vomiting, diarrhea, dysuria. Patient does admit to mildly traumatic injury to her right upper calf resulting in a bruise 10 days ago. Patient had an ultrasound at another hospital which was negative for DVT. - Related Data Home Medications Medication Instructions Recorded Confirmed Ibuprofen [Motrin] 200 - 400 mg PO Q6HR PRN 01/02/17 01/02/17 Previous Rx's Medication Instructions Recorded Magnesium Oxide [Mag-Ox] 400 mg PO BID #6 tablet 01/02/17 Allergies Allergy/AdvReac Type Severity Reaction Status Date / Time sumatriptan [From Imitrex] AdvReac Makes Verified 01/02/17 12:20 Migraine Worse/Dizziness sumatriptan succinate AdvReac Makes Verified 01/02/17 12:20 [From Imitrex] Migraine Worse/Dizziness Review of Systems ROS Statement: Those systems with pertinent positive or pertinent negative responses have been documented in the HPI. Constitutional: No fever and no chills. HENT: No congestion, no rhinorrhea and no sore throat. Eyes: No discharge and no redness. Respiratory: No cough and no shortness of breath. Cardiovascular: No chest pain and no palpitations. Gastrointestinal: No nausea, no vomiting, no abdominal pain and no diarrhea. Genitourinary: No dysuria and no hematuria. Musculoskeletal: No back pain and +myalgias. Skin: No pallor and no rash. Neurological: No dizziness and No headaches. ROS Other: All systems not noted in ROS Statement are negative. Past Medical History Past Medical History: No Reported History Additional Past Medical History / Comment(s): migraine santos, frequent uti's History of Any Multi-Drug Resistant Organisms: None Reported Date of last positivie culture/infection: 2010 MDRO Source:: foot Past Surgical History: Section Additional Past Surgical History / Comment(s): c sect x 3 Past Psychological History: Anxiety, Depression, Panic Disorder Smoking Status: Current every day smoker Past Alcohol Use History: None Reported Past Drug Use History: None Reported General Exam - General Exam Comments Initial Comments: Constitutional: Patient appears well-developed and well-nourished. No distress. Head: Normocephalic and atraumatic. Eyes: Conjunctivae and EOM are normal. Right eye exhibits no discharge. Left eye exhibits no discharge. No scleral icterus. Neck: Normal range of motion. Neck supple. Cardiovascular: Normal rate and regular rhythm. No murmur heard. Pulmonary/Chest: Effort normal and breath sounds normal. No respiratory distress. No wheezes. Abdominal: Soft. No distension. There is no tenderness. There is no rebound and no guarding. uterus. Musculoskeletal: Normal range of motion. Patient with bruise to right upper inner thigh. Patient with right calf tenderness worse with dorsiflexion of ankle. Neurological: Patient alert and oriented to person, place, and time. Skin: Skin is warm and dry. Not diaphoretic. Nursing notes and vitals reviewed. Limitations: no limitations Course Vital Signs 01/02/17 01/02/17 01/02/17 10:52 12:45 14:28 Temperature 98.2 F 97.8 F 98.6 F Pulse Rate 97 75 58 L Respiratory 20 18 16 Rate Blood Pressure 115/76 124/58 107/55 O2 Sat by Pulse 99 99 97 Oximetry 01/02/17 15:04 Temperature 98.6 F Pulse Rate 65 Respiratory 18 Rate Blood Pressure 129/78 O2 Sat by Pulse Oximetry - Reevaluation(s) Reevaluation #1: 01/02/17 15:49 Patient ambulatory to the hallway and restroom with calf pain which resolved and improved by the time she was walking back. Patient's magnesium level low and was replaced. Medical Decision Making - Medical Decision Making Patient's a 26-year-old at 30 weeks presenting with right calf pain. Duplex ultrasound was negative. Patient's magnesium was found to be 1.5 and replaced. Patient with improvement of symptoms with ambulation. Patient will be discharged with 3 day prescription for magnesium oxide. Prior to discharge, patient was resting comfortably in bed. Course of stay improved. Denies pain. Discussed physical exam and diagnostic tests with patient. Questions answered and patient is agreeable to discharge with close follow up with Primary Care Physician. Instructed to return to Emergency Department if symptoms worsen. - Lab Data Result diagrams: 01/02/17 13:10 01/02/17 13:10 Lab Results 01/02/17 01/02/17 01/02/17 Range/Units 13:10 13:10 13:10 WBC 11.9 H (3.8-10.6) k/uL RBC 3.69 L (3.80-5.40) m/uL Hgb 11.8 (11.4-16.0) gm/dL Hct 34.9 (34.0-46.0) % MCV 94.6 (80.0-100.0) fL MCH 32.1 (25.0-35.0) pg MCHC 33.9 (31.0-37.0) g/dL RDW 13.5 (11.5-15.5) % Plt Count 221 (150-450) k/uL Neutrophils % 80 % Lymphocytes % 11 % Monocytes % 6 % Eosinophils % 1 % Basophils % 0 % Neutrophils # 9.5 H (1.3-7.7) k/uL Lymphocytes # 1.4 (1.0-4.8) k/uL Monocytes # 0.7 (0-1.0) k/uL Eosinophils # 0.2 (0-0.7) k/uL Basophils # 0.0 (0-0.2) k/uL PT (9.0-12.0) sec INR (<1.1) APTT (22.0-30.0) sec Sodium 136 L (137-145) mmol/L Potassium 4.1 (3.5-5.1) mmol/L Chloride 106 (98-107) mmol/L Carbon Dioxide 22 (22-30) mmol/L Anion Gap 8 mmol/L BUN 10 (7-17) mg/dL Creatinine 0.52 (0.52-1.04) mg/dL Est GFR (MDRD) Af Amer >60 (>60 ml/min/1.73 sqM) Est GFR (MDRD) Non-Af >60 (>60 ml/min/1.73 sqM) Glucose 75 (74-99) mg/dL Calcium 9.1 (8.4-10.2) mg/dL Magnesium 1.5 L (1.6-2.3) mg/dL 01/02/17 Range/Units 13:10 WBC (3.8-10.6) k/uL RBC (3.80-5.40) m/uL Hgb (11.4-16.0) gm/dL Hct (34.0-46.0) % MCV (80.0-100.0) fL MCH (25.0-35.0) pg MCHC (31.0-37.0) g/dL RDW (11.5-15.5) % Plt Count (150-450) k/uL Neutrophils % % Lymphocytes % % Monocytes % % Eosinophils % % Basophils % % Neutrophils # (1.3-7.7) k/uL Lymphocytes # (1.0-4.8) k/uL Monocytes # (0-1.0) k/uL Eosinophils # (0-0.7) k/uL Basophils # (0-0.2) k/uL PT 10.3 (9.0-12.0) sec INR 1.0 (<1.1) APTT 24.4 (22.0-30.0) sec Sodium (137-145) mmol/L Potassium (3.5-5.1) mmol/L Chloride (98-107) mmol/L Carbon Dioxide (22-30) mmol/L Anion Gap mmol/L BUN (7-17) mg/dL Creatinine (0.52-1.04) mg/dL Est GFR (MDRD) Af Amer (>60 ml/min/1.73 sqM) Est GFR (MDRD) Non-Af (>60 ml/min/1.73 sqM) Glucose (74-99) mg/dL Calcium (8.4-10.2) mg/dL Magnesium (1.6-2.3) mg/dL Disposition Clinical Impression: Right calf pain, Hypomagnesemia Disposition: HOME SELF-CARE Condition: Good Prescriptions: Magnesium Oxide [Mag-Ox] 400 mg PO BID #6 tablet Referrals: None,Stated [Primary Care Provider] - 1-2 days
[2017-01-02 13:24] LABS: Basophils % (A) 0 %; CH 32.2; CHCM 34.2; Eosinophils # (A) 0.2 k/uL (0-0.7); Eosinophils % (A) 1 %; HCT 34.9 % (34.0-46.0); HDW 2.67; HGB 11.8 gm/dL (11.4-16.0); Luc # (Auto) 0.18; Luc % (Auto) 2; Lymphocytes # (A) 1.4 k/uL (1.0-4.8); Lymphocytes % (A) 11 %; MCH 32.1 pg (25.0-35.0); MCHC 33.9 g/dL (31.0-37.0); MCV 94.6 fL (80.0-100.0); Mean Platelet Volume 7.6; Monocytes # (A) 0.7 k/uL (0-1.0); Monocytes % (A) 6 %; Neutrophils # (A) 9.5 k/uL (1.3-7.7); Neutrophils % (A) 80 %; RBC 3.69 m/uL (3.80-5.40); RDW 13.5 % (11.5-15.5); WBC 11.9 k/uL (3.8-10.6); WBC (Perox) 12.47
[2017-01-02 13:34] LABS: Anion Gap 8 mmol/L; Blood Urea Nitrogen 10 mg/dL (7-17); Calcium 9.1 mg/dL (8.4-10.2); Carbon Dioxide 22 mmol/L (22-30); Chloride 106 mmol/L (98-107); Glucose 75 mg/dL (74-99); Non-African American GFR(MDRD) >60 (>60 ml/min/1.73 sqM); Potassium 4.1 mmol/L (3.5-5.1); Sodium 136 mmol/L (137-145)
[2017-01-02 13:36] LABS: Partial Thromboplastin Time 24.4 sec (22.0-30.0); Prothrombin Time 10.3 sec (9.0-12.0)
[2017-01-02] MEDS ORDERED: MAGNESIUM OXIDE 400 MG TAB PO STA (14:43)
--- NOTE | 2017-01-02 14:44 | US ---
EXAMINATION TYPE: US venous doppler duplex LE DATE OF EXAM: 01/02/2017 2:17 PM COMPARISON: NONE CLINICAL HISTORY: Pain. Swelling bilateral legs rt >lt SIDE PERFORMED: Bilateral TECHNIQUE: The lower extremity deep venous system is examined utilizing real time linear array sonog brian with graded compression, doppler sonography and color-flow sonography. VESSELS IMAGED: External Iliac Vein (EIV) Common Femoral Vein Deep Femoral Vein Greater Saphenous Vein * Femoral Vein Popliteal Vein Small Saphenous Vein * Proximal Calf Veins (* superficial vessels) Right Leg: Negative for DVT Left Leg: Negative for DVT IMPRESSION: 1. Known ultrasound evidence of deep venous thrombosis bilateral lower extremities.
[2017-01-02 15:07] VITALS: PULSE 65
[2017-01-02 16:06] VITALS: BP 118/55; RESP 16; TEMP 97.8
== END 2017-01-02 16:06 | disposition home or self-care (01) ==
LOC: EC 10:42
DX: O99.89 Other specified diseases and conditions complicating pregnancy, childbirth and the puerperium (principal); O99.283 Endocrine, nutritional and metabolic diseases complicating pregnancy, third trimester; O99.333 Smoking (tobacco) complicating pregnancy, third trimester; M79.661 Pain in right lower leg; E83.42 Hypomagnesemia; F17.200 Nicotine dependence, unspecified, uncomplicated; Z3A.30 30 weeks gestation of pregnancy; Z88.8 Allergy status to other drugs, medicaments and biological substances
CPT/HCPCS: 36415; 80048; 83735; 85025; 85610; 85730; 93970; 99284

== ENCOUNTER → 2017-01-14 | Outpatient (CLI) | payer OTHER ==
--- NOTE | 2017-01-14 11:09 | US ---
EXAMINATION TYPE: US OB anatomy transabd DATE OF EXAM: 01/14/2017 COMPARISON: NONE HISTORY: Z34.80 SUPERVISION OF NORMAL PREG IN MULTIGRAVIDA TECHNIQUE: Transabdominal (TA) EXAM MEASUREMENTS: GESTATIONAL AGE / DATING Physician Established: (31 weeks/5 days) EDC: 03/13/2017 Dates by First Scan: (31 weeks/4 days) EDC: 03/14/2017 Dates by Current Scan for: (31 weeks/0 days) EDC: 03/18/2017 SURVEY IUP: Single PLACENTA: Posterior PREVIA: No previa JADON: 12.6 cm Normal CERVICAL LENGTH (transabdominal: norm > 3.0cm): 3.8 cm BIOMETRY PRESENTATION: Breech LIE: Oblique BPD: 7.9 cm 31 weeks / 5 days HC: 28.9 cm 31 weeks / 6 days AC: 25.7 cm 29 weeks / 6 days FL: 5.8 cm 30 weeks / 4 days ESTIMATED WEIGHT IN GRAMS: 1563 grams ESTIMATED WEIGHT IN LBS/OZS: 3 lbs. 7 oz. WEIGHT PERCENTAGE BASED ON ESTABLISHED DATE: 10.2 % HC/AC: 1.13 Normal FL/AC: 22 Normal HEART RATE: 151 bpm RHYTHM: Normal ANATOMY SEEN (within normal limits): * Lateral Vent (< 1 cm) 0.5 cm * Cisterna Magna (< 1.1 cm) 0.4 cm * Cerebellum (varies with age) 4.3 cm Midline Falx Cavus Septi Pellucidi Stomach Situs Nose / Lips Diaphragm Kidneys (bilateral) Bladder Cord Insert Three Vessel Cord Longitudinal Spine Transverse Spine ANATOMY NOT SEEN: due to advanced age and lie. Choroid Plexus (bilateral) Four Chamber Heart Outflow tracts: LVOT/RVOT Arms (bilateral) Legs (bilateral) IMPRESSION: Single viable intrauterine . Exam limitations.
== END | disposition home or self-care (01) ==
LOC: RADUSWWP 10:10
PROVIDERS: ATTEND Obstetrics & Gynecology
DX: Z34.80 Encounter for supervision of other normal pregnancy, unspecified trimester (principal); Z3A.31 31 weeks gestation of pregnancy
CPT/HCPCS: 76811

== ENCOUNTER 2017-02-01 21:30 | Outpatient (CLI) | payer OTHER ==
[2017-02-01] MEDS: LACTATED RINGERS 1,000 ML IV SCH ×2 (23:03→23:34)
[2017-02-01 23:04] LABS: Appearance,Urine Clear (Clear); Bacteria,Urine Rare /hpf; Bilirubin,Urine Negative (Negative); Glucose,Urine (UA) Negative (Negative); Ketones,Urine Negative (Negative); Leukocyte Esterase,Urine Moderate (Negative); Mucus,Urine Rare /hpf; Nitrite,Urine Negative (Negative); PH, Urine 6.5 (5.0-8.0); Particle Count 2331; Protein,Urine Negative (Negative); RBC,Urine 4 /hpf (0-5); Specific Gravity,Urine 1.008 (1.001-1.035); Squamous Epithelial Cell,Urine 6 /hpf (0-4); UA Billing (MACRO vs. MICRO) MICRO; Urobilinogen,Urine <2.0 mg/dL (<2.0); WBC,Urine 4 /hpf (0-5)
[2017-02-02 00:33] VITALS: BP 142/93; PULSE 75; RESP 16; TEMP 98
--- NOTE | 2017-03-25 11:10 | P.MSEPDOC ---
Presenting Problems - Arrival Data Date of Arrival on Unit: 02/01/17 Time of Arrival on Unit: 21:30 Mode of Transport: Wheelchair - Complaint OB-Reason for Admission/Chief Complaint: Possible Onset of Labor, Observation/ Evaluation Comment: contractions. flushed and sweaty Medical History - Information : 5 Para: 4 Term: 0 : 3 Abortions: Spontaneous or Elective: 1 Number of Living Children: 3 - Gestational Age Expected Date of Delivery: 03/13/17 Gestational Age by BREANNA (wks/days): 41 Weeks and 5 Days - History Complications: Prior , Prior , Smoker Review of Systems - Review of Systems Constitutional: No problems Breast: No problems ENT: No problems Cardiovascular: No problems Respiratory: No problems Gastrointestinal: No problems Genitourinary: No problems Musculoskeletal: No problems Neurological: No problems Skin: No problems Vital Signs - Temperature Temperature: 98.0 F Temperature Source: Oral - Pulse Right Sitting Brachial Pulse Rate: 75 Pulse Assessment Method: Automatic Cuff - Respirations Respiratory Rate: 16 Oxygen Delivery Method: Room Air O2 Sat by Pulse Oximetry: 98 - Blood Pressure Right Arm Sitting Blood Pressure: 142/93 Blood Pressure Mean: 109 Blood Pressure Source: Automatic Cuff Medical Screen Scoring (Pre) - Cervical Exam Dilation: 0 cm = 0 Membranes: Intact - Uterine Contractions Frequency: > 5 minutes apart = 1 Duration: N/A Intensity: N/A - Maternal Vital Signs Maternal Temperature: N/A Maternal Blood Pressure: N/A Signs of Preeclampsia: N/A Maternal Respirations: N/A - Maternal Trauma Maternal Trauma: N/A - Assessment Baseline FHR: 145 Heart Rate - NICHD Category: Category I (Normal) = 0 NST: Reactive Position: N/A Station: N/A - Total Score Total Score (Pre): 1 - Level of Risk Level of Risk: Low (0-5) Physician Notification (Pre) - Physician Notified Physician Notified Date: 02/01/17 Physician Notified Time: 22:30 Physician/Practitioner Notifed:: DR MACIAS New Order Received: Yes - Notification Comment Comment: IV,FFN, UA, AND CERVICAL CHECK ORDERED Medical Screen Scoring (Post) - Cervical Exam Dilation: Exam Deferred Effacement: Exam Deferred Membranes: Intact - Uterine Contractions Frequency: > 5 minutes apart = 1 Duration: > 40 seconds = 2 Intensity: N/A - Maternal Vital Signs Maternal Temperature: N/A Maternal Blood Pressure: N/A Maternal Respirations: N/A - Maternal Trauma Maternal Trauma: N/A - Assessment Heart Rate: 140 Heart Rate - NICHD Category: Category I (Normal) = 0 NST: Reactive Position: N/A Station: N/A - Total Score Total Score (Post): 3 - Post Treatment Level of Risk Post Treatment Level of Risk: Low (0-5) Physician Notification (Post) - Physician Notified Physician Notified Date: 02/02/17 Physician Notified Time: 00:15 Spoke With: DR MACIAS New Order Received: Yes Disposition - Disposition OB Disposition: Discharge to home, Written follow up instructions reviewed Discharge Date: 02/02/17 Discharge Time: 00:37 I agree with the RN Medical Screening Exam: No Physician's MSE Comment: The patient was not the stated gestational age. The remainder of the MSE is accurate. Risk & Benefit of care provided described in d/c instruction: Yes Diagnosis: FALSE LABOR, UNSPECIFIED
== END 2017-02-02 00:37 | disposition home or self-care (01) ==
LOC: FBPOP 21:30
PROVIDERS: ATTEND Obstetrics & Gynecology
DX: O47.9 False labor, unspecified (principal); Z3A.41 41 weeks gestation of pregnancy
CPT/HCPCS: 59025; 96360; 96361; 82731; 81001; G0463; 96365; 99214

== ENCOUNTER 2017-03-30 06:00 | Emergency (ER) | payer OTHER ==
[2017-03-30 06:07] VITALS: TEMP 97
[2017-03-30] MEDS ORDERED: PHENAZOPYRIDINE 100 MG TAB PO STA (06:25)
[2017-03-30 06:37] LABS: Appearance,Urine Cloudy (Clear); Bacteria,Urine Rare /hpf; Bilirubin,Urine Negative (Negative); Glucose,Urine (UA) Negative (Negative); Ketones,Urine Negative (Negative); Leukocyte Esterase,Urine Moderate (Negative); Mucus,Urine Rare /hpf; Nitrite,Urine Negative (Negative); PH, Urine 6.5 (5.0-8.0); Particle Count 172961; Protein,Urine Trace (Negative); RBC,Urine 1 /hpf (0-5); Specific Gravity,Urine 1.016 (1.001-1.035); Squamous Epithelial Cell,Urine 1 /hpf (0-4); UA Billing (MACRO vs. MICRO) MICRO; Urobilinogen,Urine <2.0 mg/dL (<2.0); WBC,Urine 50 /hpf (0-5)
[2017-03-30] MEDS ORDERED: ONDANSETRON 4 MG ODT STARTER PACK 2 TAB BTL PO STA (08:44)
--- NOTE | 2017-03-30 08:47 | ED ---
General Adult HPI - General Chief complaint: Recheck/Abnormal Lab/Rx Stated complaint: Nausea, Back Pain Time Seen by Provider: 03/30/17 08:14 Source: patient, RN notes reviewed, old records reviewed Mode of arrival: ambulatory - History of Present Illness Initial comments: Patient is a 26-year-old female who presents emergency room today with chief complaint of urinary tract infection. She does admit that she was [facility] with a UTI a few days ago and started on Cipro Floxin. She states she's been taking this over the last 2 days has not felt any improvement. She states that she had increased pain last night and became urine earlier this morning to be seen. States feeling nauseated. Patient does admit to dysuria. She denies any complaints or symptoms at this time. Patient denies any recent fever, chills, shortness of breath, chest pain, back pain, abdominal pain, nausea or vomiting, numbness or tingling, dysuria or hematuria, constipation or diarrhea, headaches or visual changes, or any other complaints. - Related Data Home Medications Medication Instructions Recorded Confirmed Ciprofloxacin HCl [Cipro] 250 mg PO Q12HR 03/30/17 03/30/17 Previous Rx's Medication Instructions Recorded Ondansetron Odt [Zofran ODT] 4 mg PO Q8HR PRN #20 tab 03/30/17 Phenazopyridine [Pyridium] 100 mg PO TID 3 Days 03/30/17 Allergies Allergy/AdvReac Type Severity Reaction Status Date / Time sumatriptan [From Imitrex] AdvReac Makes Verified 03/30/17 08:03 Migraine Worse/Dizziness sumatriptan succinate AdvReac Makes Verified 03/30/17 08:03 [From Imitrex] Migraine Worse/Dizziness Review of Systems ROS Statement: Those systems with pertinent positive or pertinent negative responses have been documented in the HPI. ROS Other: All systems not noted in ROS Statement are negative. Past Medical History Past Medical History: No Reported History Additional Past Medical History / Comment(s): migraine santos, frequent uti's History of Any Multi-Drug Resistant Organisms: None Reported Date of last positivie culture/infection: 2010 MDRO Source:: foot Past Surgical History: Section Additional Past Surgical History / Comment(s): c sect x 3 Past Psychological History: Anxiety, Depression, Panic Disorder Smoking Status: Current every day smoker Past Alcohol Use History: None Reported Past Drug Use History: None Reported General Exam - General Exam Comments Initial Comments: General: The patient is awake and alert, in no distress, and does not appear acutely ill. Eye: Pupils are equal, round and reactive to light, extra-ocular movements are intact. No nystagmus. There is normal conjunctiva bilaterally. No signs of icterus. Ears, nose, mouth and throat: There are moist mucous membranes and no oral lesions. Neck: The neck is supple, there is no tenderness or JVD. Cardiovascular: There is a regular rate and rhythm. No murmur, rub or gallop is appreciated. Respiratory: Lungs are clear to auscultation, respirations are non-labored, breath sounds are equal. No wheezes, stridor, rales, or rhonchi. Gastrointestinal: Soft, non-distended, non-tender abdomen without masses or organomegaly noted. There is no rebound or guarding present. No CVA tenderness. Bowel sounds are unremarkable. Musculoskeletal: Normal ROM, no tenderness. Strength 5/5. Sensation intact. Pulses equal bilaterally 2+. Neurological: A&O x 3. CN II-XII intact, There are no obvious motor or sensory deficits. Coordination appears grossly intact. Speech is normal. Skin: Skin is warm and dry and no rashes or lesions are noted. Psychiatric: Cooperative, appropriate mood & affect, normal judgment. Course Vital Signs 03/30/17 06:02 Temperature 97.0 F L Pulse Rate 86 Respiratory 16 Rate Blood Pressure 136/92 O2 Sat by Pulse 100 Oximetry Medical Decision Making - Medical Decision Making Medical records from [facility] were reviewed does show urinary tract infection a urine culture was reviewed and show susceptibility to ciprofloxacin which patient is currently on. Patient will be continued on this antibiotic. Given dose Rocephin here in the emergency room advised close follow family doctor over the next day and return here to the emergency room if any increase or worsen symptoms. She states understanding. - Lab Data Lab Results 03/30/17 Range/Units 06:21 Urine Color Yellow Urine Appearance Cloudy H (Clear) Urine pH 6.5 (5.0-8.0) Ur Specific [place] 1.016 (1.001-1.035) Urine Protein Trace H (Negative) Urine Glucose (UA) Negative (Negative) Urine Ketones Negative (Negative) Urine Blood Small H (Negative) Urine Nitrite Negative (Negative) Urine Bilirubin Negative (Negative) Urine Urobilinogen <2.0 (<2.0) mg/dL Ur Leukocyte Esterase Moderate H (Negative) Urine RBC 1 (0-5) /hpf Urine WBC 50 H (0-5) /hpf Ur Squamous Epith Cells 1 (0-4) /hpf Urine Bacteria Rare H (None) /hpf Urine Mucus Rare H (None) /hpf Disposition Clinical Impression: UTI (urinary tract infection) Disposition: HOME SELF-CARE Condition: Good Instructions: Urinary Tract Infection in Women (ED) Additional Instructions: Please use medication as discussed. Please follow-up with family doctor in the next 2 days of symptoms have not improved. Please return to emergency room if the symptoms increase or worsen or for any other concerns. Prescriptions: Ondansetron Odt [Zofran ODT] 4 mg PO Q8HR PRN #20 tab PRN Reason: Nausea Phenazopyridine [Pyridium] 100 mg PO TID 3 Days Referrals: Kellen Rneee MD [Primary Care Provider] - 1-2 days Time of Disposition: 08:44
[2017-03-30] MEDS ORDERED: cefTRIAXone 1,000 MG VIAL (IM USE) IM STA (09:01)
[2017-03-30 09:03] VITALS: BP 122/74; PULSE 55; RESP 18
== END 2017-03-30 09:24 | disposition home or self-care (01) ==
LOC: EC 06:00
DX: N39.0 Urinary tract infection, site not specified (principal); R11.0 Nausea; F17.200 Nicotine dependence, unspecified, uncomplicated; Z88.8 Allergy status to other drugs, medicaments and biological substances
CPT/HCPCS: 81001; 87086; 99284; 96372; J0696; S0119; 87077; 87186

== ENCOUNTER 2017-06-05 23:32 | Emergency (ER) | payer OTHER ==
[2017-06-05] MEDS ORDERED: IPRATROPIUM-ALBUTEROL 3 ML NEB INHALATION STA (23:45)
--- NOTE | 2017-06-05 23:48 | ED ---
General Adult HPI - General Chief complaint: Shortness of Breath Stated complaint: JASWINDER Time Seen by Provider: 06/05/17 23:42 Source: patient, RN notes reviewed Mode of arrival: ambulatory Limitations: no limitations - History of Present Illness Initial comments: 26-year-old female presents to the emergency department with a chief complaint of shortness of breath. Patient states she has asthma. She states her inhalers not helping and she just feels tight. She's had a cough and congestion. She states she has had a little bit of phlegm bringing up with the cough. She states she's also had and some cramping in the urine. She states she has many UTIs and this feels like this. She denies any vaginal discharge or drainage. They were concerned due to the patient's continued symptoms without that they should be evaluated. Patient denies any recent fever, chills, chest pain, back pain, abdominal pain, nausea vomiting, numbness or tingling, dysuria or hematuria, constipation or diarrhea, headaches or visual changes, or any other current symptoms. - Related Data Home Medications Medication Instructions Recorded Confirmed Ciprofloxacin HCl [Cipro] 250 mg PO Q12HR 03/30/17 03/30/17 Previous Rx's Medication Instructions Recorded Ondansetron Odt [Zofran ODT] 4 mg PO Q8HR PRN #20 tab 03/30/17 Phenazopyridine [Pyridium] 100 mg PO TID 3 Days day 03/30/17 Albuterol Inhaler [Ventolin Hfa 1 - 2 puff INHALATION Q4-6H PRN #1 06/06/17 Inhaler] inhaler predniSONE 50 mg PO DAILY #5 tab 06/06/17 Allergies Allergy/AdvReac Type Severity Reaction Status Date / Time sumatriptan [From Imitrex] AdvReac Makes Verified 03/30/17 08:03 Migraine Worse/Dizziness sumatriptan succinate AdvReac Makes Verified 03/30/17 08:03 [From Imitrex] Migraine Worse/Dizziness Review of Systems ROS Statement: Those systems with pertinent positive or pertinent negative responses have been documented in the HPI. ROS Other: All systems not noted in ROS Statement are negative. Past Medical History Past Medical History: No Reported History Additional Past Medical History / Comment(s): migraine santos, frequent uti's History of Any Multi-Drug Resistant Organisms: None Reported Date of last positivie culture/infection: 2010 MDRO Source:: foot Past Surgical History: Section, Tubal Ligation Additional Past Surgical History / Comment(s): c sect x 3 Past Psychological History: Anxiety, Depression, Panic Disorder Smoking Status: Current every day smoker Past Alcohol Use History: None Reported Past Drug Use History: None Reported General Exam - General Exam Comments Initial Comments: General: The patient is awake and alert, in no distress, and does not appear acutely ill. Eye: Pupils are equal, round and reactive to light, extra-ocular movements are intact; there is normal conjunctiva bilaterally. No signs of icterus. Ears, nose, mouth and throat: There are moist mucous membranes. Neck: The neck is supple, there is no tenderness. Cardiovascular: There is a regular rate and rhythm. No murmur, rub or gallop is appreciated. Respiratory: Lungs are clear to auscultation, respirations are non-labored, breath sounds are equal but diminished. No wheezes, stridor, rales, or rhonchi. Gastrointestinal: Soft, non-distended, non-tender abdomen without masses or organomegaly noted. There is no rebound or guarding present. No CVA tenderness. Bowel sounds are unremarkable. Back: There is no tenderness to palpation in the midline. There is no obvious deformity. No rashes noted. Musculoskeletal: Normal ROM, no tenderness, There is no pedal edema. There is no calf tenderness or swelling. Sensation intact. Pulses equal bilaterally 2+. Neurological: CN II-XII intact, There are no obvious motor or sensory deficits. Coordination appears grossly intact. Speech is normal. Skin: Skin is warm and dry and no rashes or lesions are noted. Psychiatric: Cooperative, appropriate mood & affect, normal judgment. Limitations: no limitations Course Vital Signs 06/05/17 06/05/17 06/06/17 23:33 23:58 00:04 Temperature 98.2 F Pulse Rate 74 72 74 Respiratory 18 18 18 Rate Blood Pressure 190/80 O2 Sat by Pulse 100 Oximetry Medical Decision Making - Medical Decision Making 26 yo female presents to the emergency department with a chief complaint of concern for UTI and shortness of breath. At this time patient has been reevaluated feeling much better. At this time the patient will be transferred from for bronchitis. Urine is negative. We discussed follow-up return parameters all questions. The patient stated that she understood and she is in agreement plan. All questions have been answered. She will be discharged. - Lab Data Lab Results 06/05/17 06/05/17 Range/Units 23:50 23:50 Urine Color Yellow Urine Appearance Clear (Clear) Urine pH 6.0 (5.0-8.0) Ur Specific [place] 1.019 (1.001-1.035) Urine Protein Trace H (Negative) Urine Glucose (UA) Negative (Negative) Urine Ketones Negative (Negative) Urine Blood Negative (Negative) Urine Nitrite Negative (Negative) Urine Bilirubin Negative (Negative) Urine Urobilinogen <2.0 (<2.0) mg/dL Ur Leukocyte Esterase Negative (Negative) Urine HCG, Qual Not Detected (Not Detectd) - Radiology Data Radiology results: report reviewed, image reviewed Disposition Clinical Impression: Acute bronchitis Disposition: HOME SELF-CARE Condition: Stable Instructions: Acute Bronchitis (ED) Additional Instructions: Please use medication as discussed. Please follow up with family doctor if symptoms have not improved over the next two days. Please return to the emergency room if your symptoms increase or worsen or for any other concerns. Prescriptions: Albuterol Inhaler [Ventolin Hfa Inhaler] 1 - 2 puff INHALATION Q4-6H PRN #1 inhaler PRN Reason: Cough predniSONE 50 mg PO DAILY #5 tab Referrals: Kellen Renee MD [Primary Care Provider] - 1-2 days Time of Disposition: 00:57
[2017-06-06 00:26] LABS: Appearance,Urine Clear (Clear); Bilirubin,Urine Negative (Negative); Glucose,Urine (UA) Negative (Negative); Ketones,Urine Negative (Negative); Leukocyte Esterase,Urine Negative (Negative); Nitrite,Urine Negative (Negative); Protein,Urine Trace (Negative); Specific Gravity,Urine 1.019 (1.001-1.035); UA Billing (MACRO vs. MICRO) CHEM; Urobilinogen,Urine <2.0 mg/dL (<2.0)
--- NOTE | 2017-06-06 00:36 | XR ---
EXAMINATION TYPE: XR chest 2V DATE OF EXAM: 06/06/2017 COMPARISON: 07/05/2016 HISTORY: Cough TECHNIQUE: Frontal and lateral views of the chest are obtained. FINDINGS: Heart and mediastinum are normal. Lungs are clear. Diaphragm is normal. Bony thorax appear s normal. IMPRESSION: Normal chest. No change.
[2017-06-06 01:05] VITALS: BP 99/55; PULSE 83; RESP 16; TEMP 97
== END 2017-06-06 01:05 | disposition home or self-care (01) ==
LOC: EC 23:32
DX: J20.9 Acute bronchitis, unspecified (principal); F17.200 Nicotine dependence, unspecified, uncomplicated; Z88.8 Allergy status to other drugs, medicaments and biological substances
CPT/HCPCS: 71020; 81003; 81025; 87086; 94640; 99285

== ENCOUNTER → 2018-03-12 | Outpatient (CLI) | payer OTHER | END | disposition home or self-care (01) | LOC: LABMAIN 22:32 | PROVIDERS: ATTEND Family Medicine | DX: K52.9 Noninfective gastroenteritis and colitis, unspecified (principal) | CPT/HCPCS: 36415; 82272; 87045; 87046; 87177; 87207; 87209; 87324; 87329 ==

== ENCOUNTER 2018-05-01 06:24 | Emergency (ER) | payer OTHER ==
[2018-05-01 06:31] VITALS: BP 115/80; PULSE 79; RESP 16; TEMP 98
--- NOTE | 2018-05-01 07:22 | ED ---
General Adult HPI - General Chief complaint: Recheck/Abnormal Lab/Rx Stated complaint: Sore throat, rash Time Seen by Provider: 05/01/18 07:10 Source: patient, RN notes reviewed Mode of arrival: ambulatory Limitations: no limitations - History of Present Illness Initial comments: 27-year-old female presented emergency department for multiple complaints. This includes a rash, sore throat left eye drainage. Patient states started over the last 2 days. Patient states she is sick with nasal congestion. Patient additionally has a sore throat at this time. Patient also states her left eye has been crusting in the morning, purulent drainage. Patient states that there is no visual changes no trauma. Patient states that she has fine itchy rash on her extremities. She states it's worse when she gets warm. Patient has not tried taking any [id number] cough and cold medications. - Related Data Home Medications Medication Instructions Recorded Confirmed Ciprofloxacin HCl [Cipro] 250 mg PO Q12HR 03/30/17 03/30/17 Previous Rx's Medication Instructions Recorded Ondansetron Odt [Zofran ODT] 4 mg PO Q8HR PRN #20 tab 03/30/17 Phenazopyridine [Pyridium] 100 mg PO TID 3 Days day 03/30/17 Albuterol Inhaler [Ventolin Hfa 1 - 2 puff INHALATION Q4-6H PRN #1 06/06/17 Inhaler] inhaler predniSONE 50 mg PO DAILY #5 tab 06/06/17 Amoxicillin 500 mg PO Q8H #30 capsule 05/01/18 Permethrin 5% Cream [Elimite] 1 applic TOPICAL ONCE #60 gram 05/01/18 Tobramycin [Tobrex 0.3% Oph Soln] 1 drop LEFT EYE Q4HR #5 ml 05/01/18 Allergies Allergy/AdvReac Type Severity Reaction Status Date / Time sumatriptan [From Imitrex] AdvReac Makes Verified 05/01/18 06:31 Migraine Worse/Dizziness sumatriptan succinate AdvReac Makes Verified 05/01/18 06:31 [From Imitrex] Migraine Worse/Dizziness Review of Systems ROS Statement: Those systems with pertinent positive or pertinent negative responses have been documented in the HPI. ROS Other: All systems not noted in ROS Statement are negative. Past Medical History Past Medical History: No Reported History Additional Past Medical History / Comment(s): migraine santos, frequent uti's History of Any Multi-Drug Resistant Organisms: None Reported Date of last positivie culture/infection: 2010 MDRO Source:: foot Past Surgical History: Section, Tubal Ligation Additional Past Surgical History / Comment(s): c sect x 3 Past Psychological History: Anxiety, Depression, Panic Disorder Smoking Status: Current every day smoker Past Alcohol Use History: None Reported Past Drug Use History: None Reported General Exam Limitations: no limitations General appearance: alert, in no apparent distress Head exam: Present: atraumatic, normocephalic, normal inspection Eye exam: Present: PERRL, EOMI, conjunctival injection (Left). Absent: normal appearance, scleral icterus, periorbital swelling ENT exam: Present: mucous membranes moist, TM's normal bilaterally, normal external ear exam. Absent: normal oropharynx (Erythematous) Neck exam: Present: normal inspection, full ROM. Absent: tenderness, meningismus, lymphadenopathy Respiratory exam: Present: normal lung sounds bilaterally. Absent: respiratory distress, wheezes, rales, rhonchi, stridor Cardiovascular Exam: Present: regular rate, normal rhythm, normal heart sounds. Absent: systolic murmur, diastolic murmur, rubs, gallop, clicks Course Vital Signs 05/01/18 06:27 Temperature 98 F Pulse Rate 79 Respiratory 16 Rate Blood Pressure 115/80 O2 Sat by Pulse 99 Oximetry Medical Decision Making - Medical Decision Making 27-year-old female presented for multiple complaints. Patient has clinical strep pharyngitis, conjunctivitis of left eye. Patient we treated with amoxicillin, and eyedrops for her left eye. Patient also has rash which resembles scabies leg. Patient we given prednisone cream. Return parameters were discussed. Disposition Clinical Impression: Conjunctivitis, Acute pharyngitis, Pruritic rash Disposition: HOME SELF-CARE Condition: Stable Instructions: Conjunctivitis (ED) Additional Instructions: Please return to the Emergency Department if symptoms worsen or any other concerns. Prescriptions: Amoxicillin 500 mg PO Q8H #30 capsule Permethrin 5% Cream [Elimite] 1 applic TOPICAL ONCE #60 gram Tobramycin [Tobrex 0.3% Ophth Soln] 1 drop LEFT EYE Q4HR #5 ml Is patient prescribed a controlled substance at d/c from ED?: No Referrals: Kellen Renee MD [Primary Care Provider] - 1-2 days Time of Disposition: 07:22
== END 2018-05-01 07:30 | disposition home or self-care (01) ==
LOC: EC 06:24
DX: J02.0 Streptococcal pharyngitis (principal); L29.9 Pruritus, unspecified; H10.9 Unspecified conjunctivitis; F17.200 Nicotine dependence, unspecified, uncomplicated; Z88.8 Allergy status to other drugs, medicaments and biological substances
CPT/HCPCS: 99282

== ENCOUNTER 2019-07-27 16:25 | Emergency (ER) | payer OTHER ==
[2019-07-27 17:09] VITALS: BP 129/91; PULSE 98; RESP 18; TEMP 98.6
== END 2019-07-27 17:29 | disposition left against medical advice (07) ==
LOC: EC 16:25
DX: M54.5 Low back pain (principal); R11.0 Nausea; Z53.21 Procedure and treatment not carried out due to patient leaving prior to being seen by health care provider
CPT/HCPCS: 99499

== ENCOUNTER 2019-07-27 20:47 | Emergency (ER) | payer OTHER ==
[2019-07-27] MEDS: SODIUM CHLORIDE 0.9% 500 ML 500 ML IV SCH ×2 (21:54→22:49)
[2019-07-27 22:02] LABS: Basophils # (A) 0.1 k/uL (0-0.2); Basophils % (A) 1 %; Eosinophils # (A) 0.1 k/uL (0-0.7); Eosinophils % (A) 1 %; HCT 38.2 % (34.0-46.0); HGB 12.5 gm/dL (11.4-16.0); Lymphocytes # (A) 0.6 k/uL (1.0-4.8); Lymphocytes % (A) 6 %; MCH 30.4 pg (25.0-35.0); MCHC 32.8 g/dL (31.0-37.0); MCV 92.7 fL (80.0-100.0); Mean Platelet Volume 7.4; Monocytes # (A) 0.3 k/uL (0-1.0); Monocytes % (A) 3 %; Neutrophils # (A) 8.1 k/uL (1.3-7.7); Neutrophils % (A) 88 %; Platelet Count 272 k/uL (150-450); RBC 4.12 m/uL (3.80-5.40); RDW 12.6 % (11.5-15.5); WBC 9.2 k/uL (3.8-10.6)
[2019-07-27 22:10] LABS: Appearance,Urine Cloudy (Clear); Bacteria,Urine Occasional /hpf; Bilirubin,Urine Negative (Negative); Blood,Urine Small (Negative); Color,Urine Yellow; Glucose,Urine (UA) Negative (Negative); Ketones,Urine Negative (Negative); Leukocyte Esterase,Urine Large (Negative); Mucus,Urine Rare /hpf; Nitrite,Urine Positive (Negative); Protein,Urine 1+ (Negative); RBC,Urine 29 /hpf (0-5); Specific Gravity,Urine 1.019 (1.001-1.035); Squamous Epithelial Cell,Urine 2 /hpf (0-4); Urobilinogen,Urine <2.0 mg/dL (<2.0); WBC,Urine >182 /hpf (0-5)
[2019-07-27 22:12] LABS: ALT 38 U/L (4-34); African American GFR (CKD) >90 (>60 ml/min/1.73 sqM); Anion Gap 9 mmol/L; Blood Urea Nitrogen 12 mg/dL (7-17); Calcium 8.4 mg/dL (8.4-10.2); Carbon Dioxide 24 mmol/L (22-30); Chloride 105 mmol/L (98-107); Glucose 92 mg/dL (74-99); Non-African American GFR(CKD) >90 (>60 ml/min/1.73 sqM); Partial Thromboplastin Time 24.2 sec (22.0-30.0); Prothrombin Time 10.8 sec (9.0-12.0); Sodium 138 mmol/L (137-145); Total Bilirubin 0.9 mg/dL (0.2-1.3); Total Protein 7.4 g/dL (6.3-8.2)
[2019-07-27 22:27] LABS: AST 34 U/L (14-36); Alkaline Phosphatase 77 U/L (38-126); Potassium 4.5 mmol/L (3.5-5.1)
[2019-07-27] MEDS ORDERED: KETOROLAC 30 MG/ML 1 ML VIAL IVP STA (22:44)
--- NOTE | 2019-07-27 22:47 | CT ---
EXAMINATION TYPE: CT abdomen pelvis wo con DATE OF EXAM: 07/27/2019 COMPARISON: None HISTORY: Left sided flank pain. CT DLP: 1048.4 mGycm Automated exposure control for dose reduction was used. Multiple axial sections were obtained from the diaphragm to the floor the pelvis without contrast. Lung bases are clear. There is no pleural effusion. Heart size is normal. Liver spleen pancreas gallbladder appear normal. Bile ducts are not dilated. There is no adrenal mass. Kidneys have normal size and contour. There is no evidence of a ureteral ca lculus. I see no renal calculus. Ureters are top normal in size. Bladder distends smoothly. There is no free fluid in the pelvis. Uterus is anteverted. There is no in guinal hernia. There is no mesenteric edema. There is no ascites or free air. There is no sign of a b owel obstruction. Appendix is not definitely seen. There is no sign of thickened appendix. Lumbar spi ne is intact. Bony pelvis is intact. IMPRESSION: Negative CT scan of the abdomen pelvis. No renal stone. There is very mild fullness of the ureters bu t no ureteral calculus seen.
[2019-07-27 23:17] VITALS: BP 111/59; PULSE 79; RESP 16; TEMP 97.7
[2019-07-27] MEDS ORDERED: ONDANSETRON 4 MG ODT STARTER PACK 2 TAB BTL PO STA (23:26)
[2019-07-27] MEDS ORDERED: CEPHALEXIN 500MG STARTER PACK 4 CAP BTL PO STA (23:26)
[2019-07-27] MEDS ORDERED: ACET/COD 300 MG/30 MG STARTER PACK 6 TAB BTL PO STA (23:26)
--- NOTE | 2019-07-27 23:27 | ED ---
General Adult HPI - General Chief complaint: Back Pain/Injury Stated complaint: Kidney Infection Time Seen by Provider: 07/27/19 21:11 Source: patient, RN notes reviewed, old records reviewed Mode of arrival: ambulatory Limitations: no limitations - History of Present Illness Initial comments: 28-year-old female patient past history of migraine headache disorder, recurrent urinary tract infections presents to ED from urgent care. Patient reports that she has been having left flank pain bleach she has a urinary tract infection possible left kidney infection. Patient is also history of renal calculi. Patient was seen at urgent care course she is diagnosed the urinary tract infection. Patient was administered 2 g Rocephin intramuscularly. During administration Rocephin patient reportedly then had a vasovagal episode. Patient was then transferred to emergency department. On arrival in ED patient complains of left flank pain, patient reports that she was in her left flank pain is causing her to have a mild frontal lobe headache. Denies worst headache of life, denies red flag symptoms, denies any complaints at this time. Systemic: Pt denies fatigue, fever/chills, rash. Pt denies weakness, night sweats, weight loss. Neuro: Pt denies headache, visual disturbances, syncope or pre-syncope. HEENT: Pt denies ocular discharge or irritation, otalgia, rhinorrhea, pharyngitis or notable lymphadenopathy. Cardiopulmonary: Pt denies chest pain, SOB, heart palpitations, dyspnea on exertion. Abdominal/GI: Pt denies abdominal pain, n/v/d. MSK: Pt denies myalgia, loss of strength or function in extremities. Neuro: Pt denies new onset weakness, paresthesias. - Related Data Previous Rx's Medication Instructions Recorded Cephalexin [Keflex] 500 mg PO Q6HR 10 Days #40 cap 07/27/19 Allergies Allergy/AdvReac Type Severity Reaction Status Date / Time morphine Allergy Rash/Hives Verified 07/27/19 20:58 sumatriptan [From Imitrex] AdvReac Makes Verified 07/27/19 20:58 Migraine Worse/Dizziness sumatriptan succinate AdvReac Makes Verified 07/27/19 20:58 [From Imitrex] Migraine Worse/Dizziness Review of Systems ROS Statement: Those systems with pertinent positive or pertinent negative responses have been documented in the HPI. ROS Other: All systems not noted in ROS Statement are negative. 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 HEENT: NC/AT, trachea midline, neck supple, no lymphadenopathy. Posterior pharynx non erythematous, without exudates. External ears appear normal, without discharge. Mucous membranes moist. Eyes PERRLA, EOM intact. There is no scleral icterus. No pallor noted. Cardiopulmonary: RRR, no murmurs, rubs or gallops, no JVD noted. Lungs CTAB in anterior and posterior beavers. No peripheral edema. Abdominal exam: Abdomen soft and non-distended. Abdomen CVA tenderness positive. To be tenderness negative.. Bowel sounds active in LLQ. No hepatosplenomegaly. No ecchymosis Neuro: CN II-XII intact. No nuchal rigidity. No raccon eyes, no alexander sign, no hemotympanum. No cervical spinal tenderness. MSK: No posterior calf tenderness bilaterally, homans sign negative bilaterally. Posterior tibialis and radial pulse +2 bilaterally. Sensation intact in upper and lower extremities. Full active ROM in upper and lower extremities, 5/5 stregnth. Limitations: no limitations Course Vital Signs 07/27/19 07/27/19 07/27/19 20:51 21:58 23:14 Temperature 99.2 F 98.6 F 97.7 F Pulse Rate 90 65 79 Respiratory 16 18 16 Rate Blood Pressure 113/62 111/59 O2 Sat by Pulse 96 96 96 Oximetry Medical Decision Making - Medical Decision Making 28-year-old female patient past history of migraine headache disorder, recurrent urinary tract infections presents to ED from urgent care. Patient reports that she has been having left flank pain bleach she has a urinary tract infection possible left kidney infection. Patient is also history of renal calculi. Patient was seen at urgent care course she is diagnosed the urinary tract infection. Patient was administered 2 g Rocephin intramuscularly. During administration Rocephin patient reportedly then had a vasovagal episode. Patient was then transferred to emergency department. On arrival in ED patient complains of left flank pain, patient reports that she was in her left flank pain is causing her to have a mild frontal lobe headache. Denies worst headache of life, denies red flag symptoms, denies any complaints at this time. Patient vital signs are stable, afebrile. Physical exam displayed mild left CVA tende rness. Neurologic exam was within normal limits. Laboratory investigations are overall unimpressive. No leukocytosis. Lactate acid 1.0. UA was negative for urinary tract infection. Nitrite positive. Small amount of blood. Large leukocyte esterase. CT of the pelvis displayed negative computed tomography scan, no stone, mild fullness of the ureters no ureteral calculi seen. Patient administered analgesia, reports that headache resolved. Felling improved. Patient discharged with Keflex, with close outpatient follow-up with primary care provider and return precautions. Case discussed with Dr. Ramires. - Lab Data Result diagrams: 07/27/19 21:48 07/27/19 21:48 Lab Results 07/27/19 07/27/19 07/27/19 Range/Units 21:36 21:36 21:48 WBC 9.2 (3.8-10.6) k/uL RBC 4.12 (3.80-5.40) m/uL Hgb 12.5 (11.4-16.0) gm/dL Hct 38.2 (34.0-46.0) % MCV 92.7 (80.0-100.0) fL MCH 30.4 (25.0-35.0) pg MCHC 32.8 (31.0-37.0) g/dL RDW 12.6 (11.5-15.5) % Plt Count 272 (150-450) k/uL Neutrophils % 88 % Lymphocytes % 6 % Monocytes % 3 % Eosinophils % 1 % Basophils % 1 % Neutrophils # 8.1 H (1.3-7.7) k/uL Lymphocytes # 0.6 L (1.0-4.8) k/uL Monocytes # 0.3 (0-1.0) k/uL Eosinophils # 0.1 (0-0.7) k/uL Basophils # 0.1 (0-0.2) k/uL PT (9.0-12.0) sec INR (<1.2) APTT (22.0-30.0) sec Sodium (137-145) mmol/L Potassium (3.5-5.1) mmol/L Chloride (98-107) mmol/L Carbon Dioxide (22-30) mmol/L Anion Gap mmol/L BUN (7-17) mg/dL Creatinine (0.52-1.04) mg/dL Est GFR (CKD-EPI)AfAm (>60 ml/min/1.73 sqM) Est GFR (CKD-EPI)NonAf (>60 ml/min/1.73 sqM) Glucose (74-99) mg/dL Plasma Lactic Acid Sergey (0.7-2.0) mmol/L Calcium (8.4-10.2) mg/dL Total Bilirubin (0.2-1.3) mg/dL AST (14-36) U/L ALT (4-34) U/L Alkaline Phosphatase (38-126) U/L Total Protein (6.3-8.2) g/dL Albumin (3.5-5.0) g/dL Urine Color Yellow Urine Appearance Cloudy H (Clear) Urine pH 7.0 (5.0-8.0) Ur Specific [place] 1.019 (1.001-1.035) Urine Protein 1+ H (Negative) Urine Glucose (UA) Negative (Negative) Urine Ketones Negative (Negative) Urine Blood Small H (Negative) Urine Nitrite Positive H (Negative) Urine Bilirubin Negative (Negative) Urine Urobilinogen <2.0 (<2.0) mg/dL Ur Leukocyte Esterase Large H (Negative) Urine RBC 29 H (0-5) /hpf Urine WBC >182 H (0-5) /hpf Urine WBC Clumps Many H (None) /hpf Ur Squamous Epith Cells 2 (0-4) /hpf Urine Bacteria Occasional H (None) /hpf Urine Mucus Rare H (None) /hpf Urine HCG, Qual Not Detected (Not Detectd) 07/27/19 07/27/19 07/27/19 Range/Units 21:48 21:48 21:48 WBC (3.8-10.6) k/uL RBC (3.80-5.40) m/uL Hgb (11.4-16.0) gm/dL Hct (34.0-46.0) % MCV (80.0-100.0) fL MCH (25.0-35.0) pg MCHC (31.0-37.0) g/dL RDW (11.5-15.5) % Plt Count (150-450) k/uL Neutrophils % % Lymphocytes % % Monocytes % % Eosinophils % % Basophils % % Neutrophils # (1.3-7.7) k/uL Lymphocytes # (1.0-4.8) k/uL Monocytes # (0-1.0) k/uL Eosinophils # (0-0.7) k/uL Basophils # (0-0.2) k/uL PT 10.8 (9.0-12.0) sec INR 1.0 (<1.2) APTT 24.2 (22.0-30.0) sec Sodium 138 (137-145) mmol/L Potassium 4.5 (3.5-5.1) mmol/L Chloride 105 (98-107) mmol/L Carbon Dioxide 24 (22-30) mmol/L Anion Gap 9 mmol/L BUN 12 (7-17) mg/dL Creatinine 0.85 (0.52-1.04) mg/dL Est GFR (CKD-EPI)AfAm >90 (>60 ml/min/1.73 sqM) Est GFR (CKD-EPI)NonAf >90 (>60 ml/min/1.73 sqM) Glucose 92 (74-99) mg/dL Plasma Lactic Acid Sergey 1.0 (0.7-2.0) mmol/L Calcium 8.4 (8.4-10.2) mg/dL Total Bilirubin 0.9 (0.2-1.3) mg/dL AST 34 (14-36) U/L ALT 38 H (4-34) U/L Alkaline Phosphatase 77 (38-126) U/L Total Protein 7.4 (6.3-8.2) g/dL Albumin 4.0 (3.5-5.0) g/dL Urine Color Urine Appearance (Clear) Urine pH (5.0-8.0) Ur Specific [place] (1.001-1.035) Urine Protein (Negative) Urine Glucose (UA) (Negative) Urine Ketones (Negative) Urine Blood (Negative) Urine Nitrite (Negative) Urine Bilirubin (Negative) Urine Urobilinogen (<2.0) mg/dL Ur Leukocyte Esterase (Negative) Urine RBC (0-5) /hpf Urine WBC (0-5) /hpf Urine WBC Clumps (None) /hpf Ur Squamous Epith Cells (0-4) /hpf Urine Bacteria (None) /hpf Urine Mucus (None) /hpf Urine HCG, Qual (Not Detectd) - EKG Data -: EKG Interpreted by Me (and Dr Holm) EKG Comments: Intergrade 3, peripheral 160, QRS 88, QT/QTC 38 since 455. Normal sinus rhythm, no concern for acute ischemia at this time. Disposition Clinical Impression: UTI (urinary tract infection) Disposition: HOME SELF-CARE Condition: Stable Instructions (If sedation given, give patient instructions): Urinary Tract Infection in Women (ED) Additional Instructions: Follow-up with primary care provider tomorrow. Take medications as instructed. Return to ER if condition worsens. Prescriptions: Cephalexin [Keflex] 500 mg PO Q6HR 10 Days #40 cap Is patient prescribed a controlled substance at d/c from ED?: No Referrals: Kellen Renee MD [Primary Care Provider] - 1-2 days
== END 2019-07-27 23:41 | disposition home or self-care (01) ==
LOC: EC 20:47
DX: N39.0 Urinary tract infection, site not specified (principal); R51 Headache; Z87.891 Personal history of nicotine dependence; Z88.5 Allergy status to narcotic agent; Z88.8 Allergy status to other drugs, medicaments and biological substances; Z86.69 Personal history of other diseases of the nervous system and sense organs; Z87.442 Personal history of urinary calculi
CPT/HCPCS: 36415; 93005; 80053; 83605; 85025; 85610; 85730; 81001; 81025; 87040; 87086; 87077; 87186; 74176; 99285; 96374; J1885; S0119

== ENCOUNTER 2020-03-01 22:54 | Emergency (ER) | payer OTHER ==
[2020-03-01 23:05] VITALS: RESP 18; TEMP 98.2
[2020-03-01] MEDS ORDERED: ONDANSETRON 4 MG/2 ML VIAL IVP STA (23:30)
[2020-03-01] MEDS ORDERED: SODIUM CHLORIDE 0.9% 1,000 ML IV STA (23:30)
[2020-03-01] MEDS ORDERED: HYDROmorphone 1 MG/ML 1 ML SYRINGE IVP STA (23:30)
[2020-03-01 23:56] LABS: Basophils % (A) 0 %; Eosinophils # (A) 0.1 k/uL (0-0.7); Eosinophils % (A) 1 %; HCT 43.5 % (34.0-46.0); Lymphocytes # (A) 3.6 k/uL (1.0-4.8); Lymphocytes % (A) 38 %; MCH 29.4 pg (25.0-35.0); MCHC 32.3 g/dL (31.0-37.0); Mean Platelet Volume 7.7; Monocytes # (A) 0.5 k/uL (0-1.0); Monocytes % (A) 5 %; Neutrophils # (A) 5.3 k/uL (1.3-7.7); Neutrophils % (A) 56 %; Platelet Count 269 k/uL (150-450); RBC 4.78 m/uL (3.80-5.40); RDW 13.7 % (11.5-15.5); WBC 9.6 k/uL (3.8-10.6)
[2020-03-02 00:05] LABS: ALT 32 U/L (4-34); AST 31 U/L (14-36); African American GFR (CKD) >90 (>60 ml/min/1.73 sqM); Albumin 4.6 g/dL (3.5-5.0); Alkaline Phosphatase 71 U/L (38-126); Amylase 63 U/L (30-110); Anion Gap 7 mmol/L; Blood Urea Nitrogen 14 mg/dL (7-17); Calcium 9.7 mg/dL (8.4-10.2); Carbon Dioxide 24 mmol/L (22-30); Chloride 105 mmol/L (98-107); Glucose 102 mg/dL (74-99); Non-African American GFR(CKD) >90 (>60 ml/min/1.73 sqM); Potassium 4.6 mmol/L (3.5-5.1); Sodium 136 mmol/L (137-145); Total Bilirubin 0.4 mg/dL (0.2-1.3); Total Protein 7.6 g/dL (6.3-8.2)
[2020-03-02 00:06] LABS: Prothrombin Time 10.6 sec (9.0-12.0)
[2020-03-02 00:07] LABS: Appearance,Urine Slightly Cloudy (Clear); Bilirubin,Urine Negative (Negative); Blood,Urine Large (Negative); Color,Urine Yellow; Glucose,Urine (UA) Negative (Negative); Ketones,Urine Negative (Negative); Leukocyte Esterase,Urine Negative (Negative); Mucus,Urine Rare /hpf; Nitrite,Urine Negative (Negative); Protein,Urine Negative (Negative); RBC,Urine 11 /hpf (0-5); Specific Gravity,Urine 1.015 (1.001-1.035); Squamous Epithelial Cell,Urine 18 /hpf (0-4); Urobilinogen,Urine <2.0 mg/dL (<2.0); WBC,Urine 4 /hpf (0-5)
--- NOTE | 2020-03-02 00:08 | ED ---
Abdominal Pain HPI - General Chief Complaint: Abdominal Pain Stated Complaint: Abd pain Time Seen by Provider: 03/01/20 23:18 Source: patient Mode of arrival: ambulatory Limitations: no limitations - History of Present Illness Initial Comments: 29-year-old female patient presents to the emergency department today for evaluation of midepigastric right upper quadrant abdominal pain. Patient states she's had the pain for the last 4 days. States the pain is intense cramping type pain. States it feels like someone is punching her stabbing her in the ab domen. States the pain is in the right mid back as well. States she has been nauseated but has had no episodes of vomiting. States she's having normal bowel movements. States she was diagnosed with the urinary tract infection yesterday when she was seen at [facility] for the same symptoms. She denies any fever or chills with this. She states she has had multiple C- sections but no other abdominal surgeries. Denies current chance of . Denies alcohol or drug use. Patient denies any recent rash, cough, shortness of breath, chest pain, numbness, tingling, dizziness, weakness, hematuria, dysuria, urinary urgency, urinary frequency, headache, visual changes, or any other complaints. - Related Data Previous Rx's Medication Instructions Recorded Cephalexin [Keflex] 500 mg PO Q6HR 14 Days #56 cap 07/27/19 Allergies Allergy/AdvReac Type Severity Reaction Status Date / Time morphine Allergy Rash/Hives Verified 03/01/20 23:06 sumatriptan [From Imitrex] AdvReac Makes Verified 03/01/20 23:06 Migraine Worse/Dizziness sumatriptan succinate AdvReac Makes Verified 03/01/20 23:06 [From Imitrex] Migraine Worse/Dizziness Review of Systems ROS Statement: Those systems with pertinent positive or pertinent negative responses have been documented in the HPI. ROS Other: All systems not noted in ROS Statement are negative. 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, "spongey kidney," eclampsia, History of Any Multi-Drug Resistant Organisms: None Reported Date of last positivie culture/infection: 2010 MDRO Source:: foot Past Surgical History: Section, Tubal Ligation Additional Past Surgical History / Comment(s): c sect x 4 Past Psychological History: Anxiety, Depression, Panic Disorder, PTSD Smoking Status: Never smoker Past Alcohol Use History: None Reported Past Drug Use History: None Reported General Exam Limitations: no limitations General appearance: alert, in no apparent distress, other (This is a well- developed, well-nourished adult female patient in no acute distress. Vital signs upon presentation are temperature 98.2F, pulse 94, respirations 18, blood pressure 120/74, pulse ox 98% on room air.) Eye exam: Present: normal appearance, PERRL, EOMI. Absent: scleral icterus, conjunctival injection, periorbital swelling ENT exam: Present: normal exam, normal oropharynx, mucous membranes moist Respiratory exam: Present: normal lung sounds bilaterally. Absent: respiratory distress, wheezes, rales, rhonchi, stridor Cardiovascular Exam: Present: regular rate, normal rhythm, normal heart sounds. Absent: systolic murmur, diastolic murmur, rubs, gallop, clicks GI/Abdominal exam: Present: soft, tenderness (Midepigastric right upper quadrant tenderness), normal bowel sounds. Absent: distended, guarding, rebound, rigid Neurological exam: Present: alert, oriented X3, CN II-XII intact Psychiatric exam: Present: normal affect, normal mood Skin exam: Present: warm, dry, intact, normal color. Absent: rash Course Vital Signs 03/01/20 03/02/20 23:00 01:25 Temperature 98.2 F Pulse Rate 94 75 Respiratory 18 18 Rate Blood Pressure 120/74 132/83 O2 Sat by Pulse 98 97 Oximetry Medical Decision Making - Medical Decision Making 29-year-old female patient presents to the emergency department today for evaluation of right upper quadrant and midepigastric abdominal pain. Physical examination did reveal tenderness over the midepigastric right upper quadrant regions. Labs reviewed and were unremarkable. Normal liver function, normal bilirubin, normal lipase. Ultrasound of the right upper quadrant was obtained and did show enlarged common bile duct with no sign of gallstones, gallbladder appears normal. I did review results from [facility]'s visit last evening, CT of the abdomen showed no acute abdominal process. We did discuss all results and findings. She'll be discharged to follow-up with her primary care physician for recheck in 1-2 days. She is instructed to discuss outpatient HIDA scan and possible upper GI endoscopy for further evaluation of her pain. She is given nausea medication and pain medication to go home with. Return parameters were discussed in detail. She verbalizes understanding and agrees with this plan. - Lab Data Result diagrams: 03/01/20 23:37 03/01/20 23:37 Lab Results 03/01/20 03/01/20 03/01/20 Range/Units 23:37 23:37 23:37 WBC 9.6 (3.8-10.6) k/uL RBC 4.78 (3.80-5.40) m/uL Hgb 14.0 (11.4-16.0) gm/dL Hct 43.5 (34.0-46.0) % MCV 91.0 (80.0-100.0) fL MCH 29.4 (25.0-35.0) pg MCHC 32.3 (31.0-37.0) g/dL RDW 13.7 (11.5-15.5) % Plt Count 269 (150-450) k/uL Neutrophils % 56 % Lymphocytes % 38 % Monocytes % 5 % Eosinophils % 1 % Basophils % 0 % Neutrophils # 5.3 (1.3-7.7) k/uL Lymphocytes # 3.6 (1.0-4.8) k/uL Monocytes # 0.5 (0-1.0) k/uL Eosinophils # 0.1 (0-0.7) k/uL Basophils # 0.0 (0-0.2) k/uL PT 10.6 (9.0-12.0) sec INR 1.0 (<1.2) APTT 25.0 (22.0-30.0) sec Sodium (137-145) mmol/L Potassium (3.5-5.1) mmol/L Chloride (98-107) mmol/L Carbon Dioxide (22-30) mmol/L Anion Gap mmol/L BUN (7-17) mg/dL Creatinine (0.52-1.04) mg/dL Est GFR (CKD-EPI)AfAm (>60 ml/min/1.73 sqM) Est GFR (CKD-EPI)NonAf (>60 ml/min/1.73 sqM) Glucose (74-99) mg/dL Plasma Lactic Acid Sergey (0.7-2.0) mmol/L Calcium (8.4-10.2) mg/dL Total Bilirubin (0.2-1.3) mg/dL AST (14-36) U/L ALT (4-34) U/L Alkaline Phosphatase (38-126) U/L Total Protein (6.3-8.2) g/dL Albumin (3.5-5.0) g/dL Amylase (30-110) U/L Lipase (23-300) U/L Urine Color Yellow Urine Appearance Slightly Cloudy H (Clear) Urine pH 6.0 (5.0-8.0) Ur Specific [place] 1.015 (1.001-1.035) Urine Protein Negative (Negative) Urine Glucose (UA) Negative (Negative) Urine Ketones Negative (Negative) Urine Blood Large H (Negative) Urine Nitrite Negative (Negative) Urine Bilirubin Negative (Negative) Urine Urobilinogen <2.0 (<2.0) mg/dL Ur Leukocyte Esterase Negative (Negative) Urine RBC 11 H (0-5) /hpf Urine WBC 4 (0-5) /hpf Ur Squamous Epith Cells 18 H (0-4) /hpf Urine Mucus Rare H (None) /hpf Urine HCG, Qual (Not Detectd) 03/01/20 03/01/20 03/01/20 Range/Units 23:37 23:37 23:37 WBC (3.8-10.6) k/uL RBC (3.80-5.40) m/uL Hgb (11.4-16.0) gm/dL Hct (34.0-46.0) % MCV (80.0-100.0) fL MCH (25.0-35.0) pg MCHC (31.0-37.0) g/dL RDW (11.5-15.5) % Plt Count (150-450) k/uL Neutrophils % % Lymphocytes % % Monocytes % % Eosinophils % % Basophils % % Neutrophils # (1.3-7.7) k/uL Lymphocytes # (1.0-4.8) k/uL Monocytes # (0-1.0) k/uL Eosinophils # (0-0.7) k/uL Basophils # (0-0.2) k/uL PT (9.0-12.0) sec INR (<1.2) APTT (22.0-30.0) sec Sodium 136 L (137-145) mmol/L Potassium 4.6 (3.5-5.1) mmol/L Chloride 105 (98-107) mmol/L Carbon Dioxide 24 (22-30) mmol/L Anion Gap 7 mmol/L BUN 14 (7-17) mg/dL Creatinine 0.80 (0.52-1.04) mg/dL Est GFR (CKD-EPI)AfAm >90 (>60 ml/min/1.73 sqM) Est GFR (CKD-EPI)NonAf >90 (>60 ml/min/1.73 sqM) Glucose 102 H (74-99) mg/dL Plasma Lactic Acid Sergey 1.4 (0.7-2.0) mmol/L Calcium 9.7 (8.4-10.2) mg/dL Total Bilirubin 0.4 (0.2-1.3) mg/dL AST 31 (14-36) U/L ALT 32 (4-34) U/L Alkaline Phosphatase 71 (38-126) U/L Total Protein 7.6 (6.3-8.2) g/dL Albumin 4.6 (3.5-5.0) g/dL Amylase 63 (30-110) U/L Lipase 219 (23-300) U/L Urine Color Urine Appearance (Clear) Urine pH (5.0-8.0) Ur Specific [place] (1.001-1.035) Urine Protein (Negative) Urine Glucose (UA) (Negative) Urine Ketones (Negative) Urine Blood (Negative) Urine Nitrite (Negative) Urine Bilirubin (Negative) Urine Urobilinogen (<2.0) mg/dL Ur Leukocyte Esterase (Negative) Urine RBC (0-5) /hpf Urine WBC (0-5) /hpf Ur Squamous Epith Cells (0-4) /hpf Urine Mucus (None) /hpf Urine HCG, Qual Not Detected (Not Detectd) - Radiology Data Radiology results: report reviewed, image reviewed Ultrasound of the right upper quadrant abdomen was obtained. Report was reviewed in its entirety. Impression by Dr. Resendez shows increased echogenicity in the liver suggestive of fatty infiltration. Large, bile duct. This could relate to gallbladder dysfunction. No gallstones. Disposition Clinical Impression: Abdominal pain Disposition: HOME SELF-CARE Condition: Good Instructions (If sedation given, give patient instructions): Low Fat Diet (ED), Abdominal Pain (ED) Additional Instructions: Take medication as directed. Follow up with your primary care physician for recheck on Tuesday. Discuss outpatient HIDA scan to further evaluate the function of your gallbladder. Return to the emergency department immediately for any new, worsening, or concerning symptoms. Is patient prescribed a controlled substance at d/c from ED?: No Referrals: Kellen Renee MD [Primary Care Provider] - 1-2 days Time of Disposition: 01:04
--- NOTE | 2020-03-02 00:34 | US ---
EXAMINATION TYPE: US abdomen limited DATE OF EXAM: 03/02/2020 COMPARISON: CT 07/27/2019 CLINICAL HISTORY: RUQ pain. EXAM MEASUREMENTS: Liver Length: 18.3 cm Gallbladder Wall: 0.2 cm CBD: 1.0 cm Right Kidney: 11.2 x 4.0 x 4.0 cm Pancreas: Obscured by bowel gas Liver: Enlarged. heterogeneous Gallbladder: wnl Evidence for sonographic Gomez's sign: No CBD: Dilated Right Kidney: No hydronephrosis or masses seen IMPRESSION: Increased echogenicity in the liver suggestive of fatty infiltration. Large common bile duct. This co uld relate to gallbladder dysfunction. No gallstones.
[2020-03-02] MEDS ORDERED: ACET/COD 300 MG/30 MG STARTER PACK 6 TAB BTL PO STA (01:02)
[2020-03-02] MEDS ORDERED: ONDANSETRON 4 MG ODT STARTER PACK 2 TAB BTL PO STA (01:03)
[2020-03-02] MEDS ORDERED: HYDROmorphone 1 MG/ML 1 ML SYRINGE IVP STA (01:08)
[2020-03-02 01:42] VITALS: BP 132/83; PULSE 75
== END 2020-03-02 01:30 | disposition home or self-care (01) ==
LOC: EC 22:54
DX: R10.13 Epigastric pain (principal); R10.11 Right upper quadrant pain; M54.5 Low back pain; R11.0 Nausea; Z88.5 Allergy status to narcotic agent; Z88.8 Allergy status to other drugs, medicaments and biological substances
CPT/HCPCS: 36415; 80053; 82150; 83605; 83690; 85025; 85610; 85730; 81001; 81025; 76705; 99284; 96374; 96375; 96376; 96361; J2405; J1170 ×2; S0119

== ENCOUNTER 2020-03-03 07:52 | Observation (INO) | payer OTHER ==
[2020-03-03] MEDS ORDERED: HYDROmorphone 0.5 MG/0.5 ML SYRINGE IVP STA (08:11)
--- NOTE | 2020-03-03 08:11 | ED ---
General Adult HPI - General Stated complaint: Abd Pain Time Seen by Provider: 03/03/20 07:56 Source: patient, EMS Mode of arrival: EMS - History of Present Illness Initial comments: Dictation was produced using [employer] dictation software. please excuse any grammatical, word or spelling errors. This patient was cared for during a federal and state declared state of emergency secondary to Covid 19 Chief Complaint: 29-year-old male presents with right upper quadrant abdominal pain History of Present Illness: 29-year-old female she was seen here in emergency department yesterday. Patient reports that she's been having abdominal symptoms for the last 3-4 days. She describes the pain as sharp stabbing crampy abdominal pain to the epigastric and right upper quadrant area. She was seen in the emergency department yesterday where she had workup done. Allegedly patient was at [facility] where she had a computed tomography scan was performed and was found to be unremarkable. She was transferred to our facility for further care. Yesterday she had workup done showed mildly dilated common bile duct dilatation. There is also increased echogenicity of the liver suggestive of fatty infiltration. Patient was discharged with plan to have further workup with primary care physician. Patient states that she got up for work and felt fine. Last night she had dinner no significant adverse effects. While she was at work she began having pain symptoms as described. EMS was called patient is brought to the emergency department. Patient is given fentanyl and Toradol en route to the emergency department. She reports that she does have some nausea but no vomiting. Denies any diarrhea. No constitutional symptoms. The ROS documented in this emergency department record has been reviewed and confirmed by me. Those systems with pertinent positive or negative responses have been documented in the HPI. All other systems are other negative and/or noncontributory. PHYSICAL EXAM: General Impression: Alert and oriented x3, not in acute distress HEENT: Normocephalic atraumatic, extra-ocular movements intact, pupils equal and reactive to light bilaterally, mucous membranes moist. Cardiovascular: Heart regular rate and rhythm Chest: Able to complete full sentences, no retractions, no tachypnea Abdomen: abdomen soft, tenderness to palpation right upper quadrant, non- distended, no organomegaly Musculoskeletal: Pulses present and equal in all extremities, no peripheral edema Motor: no focal deficits noted Neurological: CN II-XII grossly intact, no focal motor or sensory deficits noted Skin: Intact with no visualized rashes Psych: Normal affect and mood ED course: 29-year-old female presents with abdominal pain. This is her second visit in the last 48 hours. Signs upon arrival are within acceptable limits. Patient is in mild acute distress. Chart review was performed. Patient had an ultrasound done yesterday showed biliary dilatation. At that time there is no findings to suggest acute cholecystitis. Laboratory evaluation obtained. CBC unremarkable. No leukocytosis. Metabolic panel is negative. Delta Bilirubin slightly elevated at 0.3. Liver enzymes are negative. Urinalysis negative. Urine is negative. Patient reevaluated at bedside and found to be in stable medical condition. Patient will be admitted to observation with consultation to GI. - Related Data Previous Rx's Medication Instructions Recorded Cephalexin [Keflex] 500 mg PO Q6HR 14 Days #56 cap 07/27/19 Allergies Allergy/AdvReac Type Severity Reaction Status Date / Time morphine Allergy Rash/Hives Verified 03/03/20 08:49 sumatriptan [From Imitrex] AdvReac Makes Verified 03/03/20 08:49 Migraine Worse/Dizziness sumatriptan succinate AdvReac Makes Verified 03/03/20 08:49 [From Imitrex] Migraine Worse/Dizziness Review of Systems ROS Statement: Those systems with pertinent positive or pertinent negative responses have been documented in the HPI. ROS Other: All systems not noted in ROS Statement are negative. 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, "spongey kidney," eclampsia, History of Any Multi-Drug Resistant Organisms: None Reported Date of last positivie culture/infection: 2010 MDRO Source:: foot Past Surgical History: Section, Tubal Ligation Additional Past Surgical History / Comment(s): c sect x 4 Past Psychological History: Anxiety, Depression, Panic Disorder, PTSD Smoking Status: Never smoker Past Alcohol Use History: None Reported Past Drug Use History: None Reported Course Vital Signs 03/03/20 03/03/20 07:53 08:30 Temperature 97.5 F L Pulse Rate 74 83 Respiratory 18 18 Rate Blood Pressure 124/100 129/81 O2 Sat by Pulse 100 99 Oximetry Medical Decision Making - Lab Data Result diagrams: 03/03/20 08:13 08/17/20 08:13 Lab Results 03/03/20 03/03/20 03/03/20 Range/Units 08:13 08:13 08:13 WBC 9.5 (3.8-10.6) k/uL RBC 4.57 (3.80-5.40) m/uL Hgb 13.5 (11.4-16.0) gm/dL Hct 41.2 (34.0-46.0) % MCV 90.3 (80.0-100.0) fL MCH 29.5 (25.0-35.0) pg MCHC 32.7 (31.0-37.0) g/dL RDW 13.7 (11.5-15.5) % Plt Count 250 (150-450) k/uL Neutrophils % 77 % Lymphocytes % 19 % Monocytes % 3 % Eosinophils % 1 % Basophils % 0 % Neutrophils # 7.4 (1.3-7.7) k/uL Lymphocytes # 1.8 (1.0-4.8) k/uL Monocytes # 0.3 (0-1.0) k/uL Eosinophils # 0.1 (0-0.7) k/uL Basophils # 0.0 (0-0.2) k/uL Sodium 136 L (137-145) mmol/L Potassium 5.0 (3.5-5.1) mmol/L Chloride 105 (98-107) mmol/L Carbon Dioxide 25 (22-30) mmol/L Anion Gap 6 mmol/L BUN 14 (7-17) mg/dL Creatinine 0.83 (0.52-1.04) mg/dL Est GFR (CKD-EPI)AfAm >90 (>60 ml/min/1.73 sqM) Est GFR (CKD-EPI)NonAf >90 (>60 ml/min/1.73 sqM) Glucose 96 (74-99) mg/dL Calcium 9.4 (8.4-10.2) mg/dL Total Bilirubin 0.4 (0.2-1.3) mg/dL Conjugated Bilirubin 0.0 (0.0-0.3) mg/dL Unconjugated Bilirubin 0.1 (0.0-1.1) mg/dL Delta Bilirubin 0.3 H (0.0-0.2) mg/dL AST 28 (14-36) U/L ALT 33 (4-34) U/L Alkaline Phosphatase 80 (38-126) U/L Total Protein 7.5 (6.3-8.2) g/dL Albumin 4.6 (3.5-5.0) g/dL Lipase 127 (23-300) U/L Urine Color Urine Appearance (Clear) Urine pH (5.0-8.0) Ur Specific [place] (1.001-1.035) Urine Protein (Negative) Urine Glucose (UA) (Negative) Urine Ketones (Negative) Urine Blood (Negative) Urine Nitrite (Negative) Urine Bilirubin (Negative) Urine Urobilinogen (<2.0) mg/dL Ur Leukocyte Esterase (Negative) Urine RBC (0-5) /hpf Urine WBC (0-5) /hpf Ur Squamous Epith Cells (0-4) /hpf Urine Bacteria (None) /hpf Urine Mucus (None) /hpf Urine HCG, Qual Not Detected (Not Detectd) 03/03/20 Range/Units 08:13 WBC (3.8-10.6) k/uL RBC (3.80-5.40) m/uL Hgb (11.4-16.0) gm/dL Hct (34.0-46.0) % MCV (80.0-100.0) fL MCH (25.0-35.0) pg MCHC (31.0-37.0) g/dL RDW (11.5-15.5) % Plt Count (150-450) k/uL Neutrophils % % Lymphocytes % % Monocytes % % Eosinophils % % Basophils % % Neutrophils # (1.3-7.7) k/uL Lymphocytes # (1.0-4.8) k/uL Monocytes # (0-1.0) k/uL Eosinophils # (0-0.7) k/uL Basophils # (0-0.2) k/uL Sodium (137-145) mmol/L Potassium (3.5-5.1) mmol/L Chloride (98-107) mmol/L Carbon Dioxide (22-30) mmol/L Anion Gap mmol/L BUN (7-17) mg/dL Creatinine (0.52-1.04) mg/dL Est GFR (CKD-EPI)AfAm (>60 ml/min/1.73 sqM) Est GFR (CKD-EPI)NonAf (>60 ml/min/1.73 sqM) Glucose (74-99) mg/dL Calcium (8.4-10.2) mg/dL Total Bilirubin (0.2-1.3) mg/dL Conjugated Bilirubin (0.0-0.3) mg/dL Unconjugated Bilirubin (0.0-1.1) mg/dL Delta Bilirubin (0.0-0.2) mg/dL AST (14-36) U/L ALT (4-34) U/L Alkaline Phosphatase (38-126) U/L Total Protein (6.3-8.2) g/dL Albumin (3.5-5.0) g/dL Lipase (23-300) U/L Urine Color Yellow Urine Appearance Clear (Clear) Urine pH 6.0 (5.0-8.0) Ur Specific [place] 1.020 (1.001-1.035) Urine Protein Negative (Negative) Urine Glucose (UA) Negative (Negative) Urine Ketones Negative (Negative) Urine Blood Small (Negative) Urine Nitrite Negative (Negative) Urine Bilirubin Negative (Negative) Urine Urobilinogen <2.0 (<2.0) mg/dL Ur Leukocyte Esterase Negative (Negative) Urine RBC 2 (0-5) /hpf Urine WBC 2 (0-5) /hpf Ur Squamous Epith Cells 2 (0-4) /hpf Urine Bacteria Rare H (None) /hpf Urine Mucus Rare H (None) /hpf Urine HCG, Qual (Not Detectd) Disposition Clinical Impression: Abdominal pain Disposition: ADMITTED IP TO THIS HOSP Condition: Fair Referrals: Kellen Renee MD [Primary Care Provider] - 1-2 days Decision Time: 08:56
[2020-03-03 08:33] LABS: Basophils % (A) 0 %; Eosinophils # (A) 0.1 k/uL (0-0.7); Eosinophils % (A) 1 %; HCT 41.2 % (34.0-46.0); HGB 13.5 gm/dL (11.4-16.0); Lymphocytes # (A) 1.8 k/uL (1.0-4.8); Lymphocytes % (A) 19 %; MCH 29.5 pg (25.0-35.0); MCHC 32.7 g/dL (31.0-37.0); MCV 90.3 fL (80.0-100.0); Mean Platelet Volume 7.4; Monocytes # (A) 0.3 k/uL (0-1.0); Monocytes % (A) 3 %; Neutrophils # (A) 7.4 k/uL (1.3-7.7); Neutrophils % (A) 77 %; Platelet Count 250 k/uL (150-450); RBC 4.57 m/uL (3.80-5.40); RDW 13.7 % (11.5-15.5); WBC 9.5 k/uL (3.8-10.6)
[2020-03-03 08:40] LABS: Bacteria,Urine Rare /hpf; Mucus,Urine Rare /hpf; RBC,Urine 2 /hpf (0-5); Squamous Epithelial Cell,Urine 2 /hpf (0-4); WBC,Urine 2 /hpf (0-5)
[2020-03-03 08:41] LABS: ALT 33 U/L (4-34); AST 28 U/L (14-36); African American GFR (CKD) >90 (>60 ml/min/1.73 sqM); Albumin 4.6 g/dL (3.5-5.0); Alkaline Phosphatase 80 U/L (38-126); Anion Gap 6 mmol/L; Bilirubin, Delta 0.3 mg/dL (0.0-0.2); Bilirubin,Unconjugated 0.1 mg/dL (0.0-1.1); Blood Urea Nitrogen 14 mg/dL (7-17); Calcium 9.4 mg/dL (8.4-10.2); Carbon Dioxide 25 mmol/L (22-30); Chloride 105 mmol/L (98-107); Glucose 96 mg/dL (74-99); Lipase 127 U/L (23-300); Non-African American GFR(CKD) >90 (>60 ml/min/1.73 sqM); Sodium 136 mmol/L (137-145); Total Bilirubin 0.4 mg/dL (0.2-1.3); Total Protein 7.5 g/dL (6.3-8.2)
[2020-03-03] MEDS ORDERED: NALOXONE 0.4 MG/ML 1 ML VIAL IV PRN (08:54)
[2020-03-03 09:02] LABS: Appearance,Urine Clear (Clear); Color,Urine Yellow; Glucose,Urine (UA) Negative (Negative); Protein,Urine Negative (Negative)
[2020-03-03 09:03] LABS: Bilirubin,Urine Negative (Negative); Blood,Urine Small (Negative); Ketones,Urine Negative (Negative); Urobilinogen,Urine <2.0 mg/dL (<2.0)
[2020-03-03 09:04] LABS: Leukocyte Esterase,Urine Negative (Negative); Nitrite,Urine Negative (Negative)
[2020-03-03] MEDS: SODIUM CHLORIDE 0.9% 1,000 ML IV SCH (09:17)
[2020-03-03] MEDS: HYDROmorphone 0.5 MG/0.5 ML SYRINGE IVP PRN ×3 (09:55→22:05)
[2020-03-03] MEDS: ONDANSETRON 4 MG/2 ML VIAL IVP PRN ×2 (10:41→22:04)
[2020-03-03] MEDS ORDERED: HYDROmorphone 1 MG/ML 1 ML SYRINGE IVP STA ×2 (12:28→17:57)
[2020-03-03] MEDS: diphenhydrAMINE 25 MG CAP PO PRN ×2 (13:48→22:50)
--- NOTE | 2020-03-03 14:47 | P.HPIM ---
History of Present Illness This is a pleasant 49 years old female with past medical history of seizure, asthma, history of kidney stone and pyelonephritis, fatty liver. She is a patient of Dr. mack Patient presents because of right upper quadrant abdominal pain started about 5 days ago that more severe about 2 days ago, she went to [facility] where th ey diagnosed with UTI however her pain has not resolved since decided to come to the hospital. Patient is about 7-8/10 in severity that lactic current pain associated with nausea and vomiting today. Pain is worse with eating. Patient also complained from constipation for 2 weeks. She denies any menstrual problems. She denies smoking, alcohol or illicit drugs however she states. She came to ER yesterday for similar complaint. Abdominal ultrasound showed fatty infiltration of the liver and large common bile duct which could be related to gallbladder dysfunction. No gallstone Vital signs stable. Labs including CBC, BMP, Liver enzymes and urine drug screen are unremarkable Dilaudid pain medication and normal insulin at 110 mL/h Review of Systems CONSTITUTIONAL: No fever, no malaise, no fatigue. HEENT: No recent visual problems or hearing problems. Denied any sore throat. CARDIOVASCULAR: No orthopnea, PND, no palpitations, no syncope. PULMONARY: No shortness of breath, no cough, no hemoptysis. GASTROINTESTINAL: No diarrhea, Normoactive bowel sounds. NEUROLOGICAL: No headaches, no weakness, no numbness. HEMATOLOGICAL: Denies any bleeding or petechiae. GENITOURINARY: Denies any burning micturition, frequency, or urgency. MUSCULOSKELETAL/RHEUMATOLOGICAL: Denies any joint pain, swelling, or any muscle pain. ENDOCRINE: Denies any polyuria or polydipsia. 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 History of Any Multi-Drug Resistant Organisms: None Reported Date of last positivie culture/infection: 2010 MDRO Source:: foot Past Surgical History: Section, Tubal Ligation Additional Past Surgical History / Comment(s): c sect x 4 Past Anesthesia/Blood Transfusion Reactions: No Reported Reaction Smoking Status: Former smoker, Vaper - Past Family History Father Family Medical History: Cancer, COPD, Hypertension Additional Family Medical History / Comment(s): Lung cancer Mother Family Medical History: COPD, Renal Disease, Seizure Disorder Additional Family Medical History / Comment(s): bronchitis, back problems. Medications and Allergies Home Medications Medication Instructions Recorded Confirmed Type Acetaminophen-Codeine 300-30mg 1 tab PO Q6H PRN 03/03/20 03/03/20 History [Tylenol w/codeine #3] Aspirin EC [Ecotrin Low Dose] 81 mg PO DAILY 03/03/20 03/03/20 History Allergies Allergy/AdvReac Type Severity Reaction Status Date / Time morphine Allergy Rash/Hives Verified 03/03/20 08:49 sumatriptan [From Imitrex] AdvReac Makes Verified 03/03/20 08:49 Migraine Worse/Dizziness sumatriptan succinate AdvReac Makes Verified 03/03/20 08:49 [From Imitrex] Migraine Worse/Dizziness Physical Exam Vitals: Vital Signs Temp Pulse Pulse Resp BP BP Pulse Ox 03/03/20 13:26 97.8 F 74 16 123/76 97 03/03/20 12:12 62 18 125/82 99 03/03/20 11:30 62 18 118/66 100 03/03/20 08:30 83 18 129/81 99 03/03/20 07:53 97.5 F L 74 18 124/100 100 Intake and Output 03/02/20 03/03/20 03/03/20 22:59 06:59 14:59 Intake Total 1000 Balance 1000 Intake: Amount of Fluid Infused ( 1000 ml) Other: Voiding Method Toilet Weight 77.111 kg GENERAL: The patient is alert and oriented x3, not in any acute distress. Well developed, well nourished. HEENT: Pupils are round and equally reacting to light. EOMI. No scleral icterus. No conjunctival pallor. Normocephalic, atraumatic. No pharyngeal erythema. No thyromegaly. CARDIOVASCULAR: S1 and S2 present. No murmurs, rubs, or gallops. PULMONARY: Chest is clear to auscultation, no wheezing or crackles. -ABDOMEN: Soft, RUQ tenderness, no rebound tenderness, Gomez sign is negative, nondistended, normoactive bowel sounds. No palpable organomegaly. MUSCULOSKELETAL: No joint swelling or deformity. EXTREMITIES: No cyanosis, clubbing, or pedal edema. NEUROLOGICAL: Gross neurological examination did not reveal any focal deficits. SKIN: No rashes. No petechiae Results CBC & Chem 7: 03/03/20 08:13 03/03/20 08:13 Labs: Abnormal Lab Results - Last 24 Hours (Table) 03/03/20 03/03/20 Range/Units 08:13 08:13 Sodium 136 L (137-145) mmol/L Delta Bilirubin 0.3 H (0.0-0.2) mg/dL Urine Bacteria Rare H (None) /hpf Urine Mucus Rare H (None) /hpf Thrombosis Risk Factor Assmnt - Choose All That Apply Any of the Below Risk Factors Present?: Yes Each Factor Represents 1 point: Obesity (BMI >25) Other Risk Factors: No Other congenital or acquired thrombophilia - If yes, enter type in comment: No Thrombosis Risk Factor Assessment Total Risk Factor Score: 1 Thrombosis Risk Factor Assessment Level: Low Risk Assessment and Plan Assessment: Right upper quadrant abdominal pain, dilated common bile duct Chronic seizure History of kidney stone and polynephritis Fatty liver Chronic asthma Plan: This is a pleasant 29 years old female who presents with abdominal pain and dilated bile duct. Continue with pain medication, IV fluid. GI consult. HIDA scan is ordered. Follow-up the results Labs and medication were reviewed.. Continue same treatment. Continue with symptomatic treatment. Resume home medication. Monitor lytes and vitals. DVT and GI prophylaxis. Further recommendations of the clinical course of the pat ient DVT prophylaxis: Subcutaneous heparin GI Prophylaxis: Pepcid PT/OT: Pending Prognosis is guarded
[2020-03-03] MEDS: KETOROLAC 15 MG/ML 1 ML VIAL IVP PRN (15:59)
[2020-03-03] MEDS ORDERED: KETOROLAC 15 MG/ML 1 ML VIAL IVP STA (17:56)
[2020-03-03] MEDS ORDERED: KETOROLAC 15 MG/ML 1 ML VIAL IVP SCH (18:00)
--- NOTE | 2020-03-03 20:53 | CONS ---
CONSULTATION DATE OF DICTATION: 03/03/2020 REASON FOR CONSULTATION: Epigastric pain. HISTORY OF PRESENT ILLNESS: The patient is a 29-year-old pleasant white female who came to the emergency room complaining of severe epigastric pain for the last 7 to 8 days' duration. The pain is mostly in the epigastric area radiating to the right upper quadrant area. She went to [facility] 4 days ago and was diagnosed with UTI and was discharged home. She subsequently came back to [facility] with worsening abdominal pain associated with nausea, vomiting. She was given some PPIs and was discharged home. She came back again today complaining of worsening symptoms, had 2 episodes of emesis. She was admitted to the hospital for further evaluation. The patient stated that she did have a CT of the abdomen and pelvis done at [facility] a week ago that was unremarkable. She did have an ultrasound of the right upper quadrant done this morning that showed evidence of mild fatty liver and slightly dilated common bile duct but no evidence of gallstones. She denies any prior history of peptic ulcer disease. Denies any recent NSAID use. PAST MEDICAL HISTORY: Asthma, fatty liver disease, history of seizure disorder. PAST SURGICAL HISTORY: Multiple UTIs, , tubal ligation. SOCIAL HISTORY: Former smoker. No alcohol use. FAMILY HISTORY: Father with COPD and hypertension and lung cancer. Mother has seizure disorder and current kidney disease. MEDICATIONS: Medications at home include Tylenol p.r.n., Ecotrin. ALLERGIES: MORPHINE, IMITREX. REVIEW OF SYSTEMS: CARDIOPULMONARY: No chest pain or shortness of breath. GENITOURINARY: No dysuria or hematuria. MUSCULOSKELETAL: Chronic lower back pain. NEUROLOGY: Chronic headaches. ENT/VISION: Unremarkable. CONSTITUTIONAL: No recent weight loss. No fever, chills, night sweats. HEMATOLOGY: Unremarkable. PSYCHIATRY: Unremarkable. ENDOCRINE: Unremarkable. PHYSICAL EXAMINATION: She appears comfortable. No apparent distress. Vital signs are stable. Blood pressure is 144/100, pulse rate 74, temperature 98. HEENT examination unremarkable. Conjunctivae pink. Sclerae anicteric. Oral cavity no lesions. NECK: No JVD or lymph node enlargement. CHEST: Clear to auscultation. HEART: Regular rate and rhythm. ABDOMEN: Soft. There was tenderness in the epigastric area. Very minimal tenderness in the right upper quadrant area. Rest of the abdomen was benign. Bowel sounds are positive. EXTREMITIES: No pedal edema. SKIN: No rashes. NEUROLOGIC: Alert and oriented x3. No focal deficits. LABS: Labs done in the emergency room showed WBC 9.5, hemoglobin 13.5, platelets normal. Basic metabolic panel is within normal limits. AST and ALT are 28 and 33, respectively. T-bilirubin and alkaline phosphatase are normal. IMPRESSION: Epigastric pain for the last one week's duration. She has intermittent episodes of nausea and vomiting, has been to the emergency room at [facility] and according to the patient, CT of the abdomen and pelvis was unremarkable. She did have ultrasound of the gallbladder done yesterday morning that showed evidence of no gallstones and mildly slightly dilated CBD. Possibility of upper GI pathology needs to be considered. Cannot rule out chronic cholecystitis. RECOMMENDATIONS: 1. Continue with Protonix 40 mg daily. 2. Antiemetics as needed. 3. Start her on a clear liquid diet. 4. Will proceed with an upper endoscopy tomorrow. I discussed with the patient risks, benefits and complications of the procedure, and she is agreeable to it. Thank you for this consultation. MMODL / IJN: [id number] /
--- NOTE | 2020-03-03 21:48 | NM ---
EXAMINATION TYPE: NM hepatobiliary w CCK DATE OF EXAM: 03/03/2020 COMPARISON: NONE HISTORY: Right upper quadrant pain TECHNIQUE: After the intravenous administration of 4.8 mCi Tc 99m Mebrofenin hepatobiliary scintigrap hy is performed. Immediate images post injection. FINDINGS: There is satisfactory initial accumulation of tracer by the liver. The gallbladder is visualized wit hin 28 minutes. The small bowel activity is noted within 10 minutes. At one hour CCK was administer ed, patient was injected with 1.5 mcg of Kinevac, and gallbladder ejection fraction is calculated at 81 %, in the normal range. Therefore there is no scintigraphic evidence of cystic or common bile dean t obstruction to suggest acute cholecystitis or gallbladder dyskinesia. There is no focal liver defect. IMPRESSION: Normal hepatobiliary scan. Normal gallbladder ejection fraction.
[2020-03-04] MEDS: SODIUM CHLORIDE 0.9% 1,000 ML IV SCH ×3 (00:42→10:15)
[2020-03-04] MEDS: HYDROmorphone 0.5 MG/0.5 ML SYRINGE IVP PRN ×3 (02:00→11:03)
[2020-03-04] MEDS: HEPARIN SODIUM,PORCINE 5,000 UNIT/ML 1 ML VIAL SQ SCH ×2 (07:28→21:00)
[2020-03-04] MEDS: ONDANSETRON 4 MG/2 ML VIAL IVP PRN ×3 (07:35→22:18)
[2020-03-04] MEDS ORDERED: HYDROmorphone 1 MG/ML 1 ML SYRINGE IVP STA (07:38)
[2020-03-04 08:45] LABS: HCG,Qualitative Serum Not Detected
[2020-03-04 08:53] LABS: African American GFR (CKD) >90 (>60 ml/min/1.73 sqM); Anion Gap 5 mmol/L; Blood Urea Nitrogen 11 mg/dL (7-17); Calcium 8.4 mg/dL (8.4-10.2); Carbon Dioxide 23 mmol/L (22-30); Chloride 109 mmol/L (98-107); Glucose 91 mg/dL (74-99); Non-African American GFR(CKD) >90 (>60 ml/min/1.73 sqM); Potassium 4.5 mmol/L (3.5-5.1); Sodium 137 mmol/L (137-145)
[2020-03-04] MEDS ORDERED: FAMOTIDINE 20 MG/2 ML VIAL IV SCH (09:00)
[2020-03-04] MEDS: diphenhydrAMINE 25 MG CAP PO PRN ×2 (09:05→15:36)
[2020-03-04] MEDS: KETOROLAC 15 MG/ML 1 ML VIAL IVP PRN ×2 (11:51→19:26)
[2020-03-04] MEDS ORDERED: ONDANSETRON 4 MG/2 ML VIAL IVP STA (11:53)
--- NOTE | 2020-03-04 12:19 | P.PN ---
Subjective This is a pleasant 49 years old female with past medical history of seizure, asthma, history of kidney stone and pyelonephritis, fatty liver. She is a patient of Dr. mack Patient presents because of right upper quadrant abdominal pain started about 5 days ago that more severe about 2 days ago, she went to [facility] where they diagnosed with UTI however her pain has not resolved since decided to come to the hospital. Patient is about 7-8/10 in severity that lactic current pain associated with nausea and vomiting today. Pain is worse with eating. Patient also complained from constipation for 2 weeks. She denies any menstrual problems. She denies smoking, alcohol or illicit drugs however she states. She came to ER yesterday for similar complaint. Abdominal ultrasound showed fatty infiltration of the liver and large common bile duct which could be related to gallbladder dysfunction. No gallstone Vital signs stable. Labs including CBC, BMP, Liver enzymes and urine drug screen are unremarkable Dilaudid pain medication and normal insulin at 110 mL/h 03/04/2020 Patient is still complaining of from RUQ pain and tenderness, she is asking for more pain medication on Dilaudid was increased to 1 mg every 3 hours. Also Zofran is provided for her nausea. Patient is passing gases but no bowel movement. Patient had a negative HIDA scan. Patient is scheduled for EGD today by GI team We will keep following Review of Systems CONSTITUTIONAL: No fever, no malaise, no fatigue. HEENT: No recent visual problems or hearing problems. Denied any sore throat. CARDIOVASCULAR: No orthopnea, PND, no palpitations, no syncope. PULMONARY: No shortness of breath, no cough, no hemoptysis. GASTROINTESTINAL: No diarrhea, Normoactive bowel sounds. NEUROLOGICAL: No headaches, no weakness, no numbness. HEMATOLOGICAL: Denies any bleeding or petechiae. GENITOURINARY: Denies any burning micturition, frequency, or urgency. MUSCULOSKELETAL/RHEUMATOLOGICAL: Denies any joint pain, swelling, or any muscle pain. ENDOCRINE: Denies any polyuria or polydipsia. Active Medication List Diphenhydramine HCl (Benadryl) 25 mg PO TID PRN PRN Reason: Itching Last Admin: 03/04/20 09:05 Dose: 25 mg Documented by: Admin: 03/03/20 22:50 Dose: 25 mg Documented by: Admin: 03/03/20 13:48 Dose: 25 mg Documented by: NUBIA Famotidine (Pepcid) 20 mg IV Q12HR [facility] Last Admin: 03/04/20 07:33 Dose: 20 mg Documented by: JORGE Heparin Sodium (Porcine) (Heparin) 5,000 unit SQ Q12HR [facility] Last Admin: 03/04/20 07:28 Dose: Not Given Documented by: JORGE Non-Admin Reason: egd Hydromorphone HCl (Dilaudid) 1 mg IVP Q3HR PRN PRN Reason: Moderate Pain Sodium Chloride (Saline 0.9%) 1,000 mls @ 110 mls/hr IV .Q9H6M [facility] Last Admin: 03/04/20 10:15 Dose: 110 mls/hr Documented by: Admin: 03/04/20 03:16 Dose: Not Given Documented by: MOON Non-Admin Reason: infusing Admin: 03/04/20 00:42 Dose: Not Given Documented by: MOON Non-Admin Reason: infusing Admin: 03/03/20 09:17 Dose: 110 mls/hr Documented by: JEFFREY Ketorolac Tromethamine (Toradol) 15 mg IVP Q6HR PRN PRN Reason: Pain Stop: 03/06/20 15:45 Last Admin: 03/04/20 11:51 Dose: 15 mg Documented by: Admin: 03/03/20 15:59 Dose: 15 mg Documented by: NUBIA Naloxone HCl (Narcan) 0.2 mg IV Q2M PRN PRN Reason: Opioid Reversal Ondansetron HCl (Zofran) 4 mg IVP Q8HR PRN PRN Reason: Nausea And Vomiting Last Admin: 03/04/20 07:35 Dose: 4 mg Documented by: Admin: 03/03/20 22:04 Dose: 4 mg Documented by: Admin: 03/03/20 10:41 Dose: 4 mg Documented by: JEFFREY Discontinued Medications Hydromorphone HCl (Dilaudid) 0.5 mg IVP ONCE STA Stop: 03/03/20 08:12 Last Admin: 03/03/20 08:26 Dose: 0.5 mg Documented by: JEFFREY Hydromorphone HCl (Dilaudid) 0.5 mg IVP Q3HR PRN PRN Reason: Moderate Pain Last Admin: 03/04/20 11:03 Dose: 0.5 mg Documented by: Admin: 03/04/20 06:39 Dose: 0.5 mg Documented by: Admin: 03/04/20 02:00 Dose: 0.5 mg Documented by: Admin: 03/03/20 22:05 Dose: 0.5 mg Documented by: Admin: 03/03/20 11:30 Dose: 0.5 mg Documented by: Admin: 03/03/20 09:55 Dose: 0.5 mg Documented by: JEFFREY Hydromorphone HCl (Dilaudid) 1 mg IVP ONCE STA Stop: 03/03/20 12:29 Last Admin: 03/03/20 12:32 Dose: 1 mg Documented by: DANILO Hydromorphone HCl (Dilaudid) 1 mg IVP ONCE STA Stop: 03/03/20 17:58 Last Admin: 03/03/20 21:39 Dose: 1 mg Documented by: MOON Hydromorphone HCl (Dilaudid) 1 mg IVP ONCE STA Stop: 03/04/20 07:39 Last Admin: 03/04/20 07:45 Dose: 1 mg Documented by: JORGE Ketorolac Tromethamine (Toradol) 15 mg IVP Q6HR [facility] Stop: 03/06/20 15:45 Ketorolac Tromethamine (Toradol) 15 mg IVP ONCE STA Stop: 03/03/20 17:57 Last Admin: 03/03/20 18:31 Dose: 15 mg Documented by: NUBIA Ondansetron HCl (Zofran) 4 mg IVP ONCE STA Stop: 03/04/20 11:54 Last Admin: 03/04/20 12:07 Dose: Not Given Documented by: JORGE Non-Admin Reason: dc Objective - Vital Signs Vital signs: Vital Signs Temp 98.1 F 03/04/20 07:40 Pulse 77 03/04/20 07:40 Resp 14 03/04/20 07:40 BP 112/77 03/04/20 07:40 Pulse Ox 99 03/04/20 07:40 Intake & Output 03/03/20 03/04/20 03/04/20 18:59 06:59 18:59 Intake Total 1000 500 Balance 1000 500 Weight 77.111 kg Intake: Amount of Fluid Infused ( 1000 ml) Intake, IV Titration 500 Amount Sodium Chloride 0.9% 1, 500 000 ml @ 110 mls/hr IV . Q9H6M [facility] Rx#:[id number] Other: Voiding Method Toilet Toilet # Voids 1 2 - Exam GENERAL: The patient is alert and oriented x3, not in any acute distress. Well developed, well nourished. HEENT: Pupils are round and equally reacting to light. EOMI. No scleral icterus. No conjunctival pallor. Normocephalic, atraumatic. No pharyngeal erythema. No thyromegaly. CARDIOVASCULAR: S1 and S2 present. No murmurs, rubs, or gallops. PULMONARY: Chest is clear to auscultation, no wheezing or crackles. -ABDOMEN: Soft, right upper quadrant abdominal pain and below her right breast, nondistended, normoactive bowel sounds. No palpable organomegaly. MUSCULOSKELETAL: No joint swelling or deformity. EXTREMITIES: No cyanosis, clubbing, or pedal edema. NEUROLOGICAL: Gross neurological examination did not reveal any focal deficits. SKIN: No rashes. no petechiae. - Labs CBC & Chem 7: 03/03/20 08:13 03/04/20 08:05 Labs: Abnormal Lab Results - Last 24 Hours (Table) 03/04/20 Range/Units 08:05 Chloride 109 H (98-107) mmol/L Assessment and Plan Assessment: Right upper quadrant abdominal pain, dilated common bile duct Chronic seizure History of kidney stone and polynephritis Fatty liver Chronic asthma Plan: This is a pleasant 29 years old female who presents with abdominal pain and dilated bile duct. Continue with pain medication, IV fluid. GI consult. Follow-up the results. Patient is going for EGD Labs and medication were reviewed.. Continue same treatment. Continue with symptomatic treatment. Resume home medication. Monitor lytes and vitals. DVT and GI prophylaxis. Further recommendations of the clinical course of the patient DVT prophylaxis: Subcutaneous heparin GI Prophylaxis: Pepcid Prognosis is guarded
[2020-03-04] MEDS ORDERED: MIDAZOLAM 2 MG/2 ML VIAL ONE (12:24)
[2020-03-04] MEDS ORDERED: PROPOFOL 10 MG/ML 20 ML VIAL IV ONE (12:24)
[2020-03-04] MEDS ORDERED: LACTATED RINGERS 1,000 ML IV ONE (12:26)
--- NOTE | 2020-03-04 12:36 | P.PCN ---
Date of Procedure: 03/04/20 Procedure(s) Performed: BRIEF HISTORY: Patient is a 29-year-old, pleasant, female scheduled for an upper endoscopy as a part of evaluation of severe epigastric and right upper quadrant abdominal pain for the last 1 week duration. Ultrasound of the gallbladder and HIDA scan was negative. She is scheduled for an upper endoscopy to rule out peptic. PROCEDURE PERFORMED: Esophagogastroduodenoscopy with biopsy. PREOPERATIVE DIAGNOSIS: Severe epigastric pain for 1 week duration. IV sedation per anesthesia. PROCEDURE: After informed consent was obtained, the patient was brought into the endoscopy unit. IV sedation was administered by Anesthesia under continuous monitoring. Initially the Olympus GIF-140 video endoscope was inserted into the mouth. Esophagus intubated without any difficulty. It was gradually advanced into the stomach and duodenum and carefully examined. The bulb and the second p art of the duodenum appeared normal. The scope at this time was withdrawn to the stomach, adequately insufflated with air, and upon careful examination, mucosa of the antrum, had mild gastritis and biopsies were done from this area. There was moderate amount of retained food in the stomach suggestive of gastroparesis. The visualized portions of the body, cardia and the fundus appeared normal. The scope was then withdrawn into the esophagus. The GE junction was located at 39 cm from the incisors. It was a small hiatal hernia noted. There were linear erosions in the distal esophagus with exudates consistent with LA grade B reflux esophagitis. Rest of esophagus appeared normal and the patient tolerated the procedure well. IMPRESSION: 1. Erosions with exudate in the distal esophagus consistent with LA grade B reflux esophagitis. 2. Retained food in the stomach suggestive of gastroparesis. 3. Mild antral gastritis 4. Small hiatal hernia RECOMMENDATIONS: The findings of this examination were discussed with the patient . She was advised to follow with the biopsy results. She will continue with Protonix 40 mg twice daily, recommended small frequent meals. Follow antireflux measures..
[2020-03-04] MEDS: HYDROmorphone 1 MG/ML 1 ML SYRINGE IVP PRN ×3 (14:31→21:00)
[2020-03-04] MEDS ORDERED: SUCRALFATE 1 GM TAB PO STA (20:21)
[2020-03-04] MEDS: PANTOPRAZOLE 40 MG/10 ML VIAL IVP SCH (20:59)
[2020-03-05] MEDS: diphenhydrAMINE 25 MG CAP PO PRN (00:21)
[2020-03-05] MEDS: HYDROmorphone 1 MG/ML 1 ML SYRINGE IVP PRN ×4 (00:21→09:28)
[2020-03-05] MEDS: SODIUM CHLORIDE 0.9% 1,000 ML IV SCH ×2 (02:45→06:38)
[2020-03-05] MEDS: HEPARIN SODIUM,PORCINE 5,000 UNIT/ML 1 ML VIAL SQ SCH (08:01)
[2020-03-05] MEDS: PANTOPRAZOLE 40 MG/10 ML VIAL IVP SCH (08:01)
[2020-03-05 08:07] VITALS: BP 110/66; PULSE 66; RESP 12
[2020-03-05 08:13] VITALS: TEMP 98.2
[2020-03-05] MEDS ORDERED: HYDROcodone/APAP 10-325MG 1 EACH TAB PO PRN (11:41)
[2020-03-05] MEDS ORDERED: METOCLOPRAMIDE 5 MG TAB PO SCH (12:30)
--- NOTE | 2020-03-05 22:53 | P.DS ---
Providers Date of admission: 03/05/20 09:22 Attending physician: Baljeet Wood MD Consults: 03/03/20 08:55 Consult Physician Routine Consulting Provider: Pratibha Leone Consult Reason/Comments: abdominal pain Do you want consulting provider notified?: Yes Primary care physician: Kellen Renee Hospital Course: Diagnoses: Right upper quadrant abdominal pain, status post EGD: Erosion with with exudate consistent with LA grade B esophagitis and gastroparesis Chronic seizure History of kidney stone and polynephritis Fatty liver Chronic asthma Hospital course: This is a pleasant 49 years old female with past medical history of seizure, asthma, history of kidney stone and pyelonephritis, fatty liver. She is a patient of Dr. mack Patient presents because of right upper quadrant abdominal pain . She's been evaluated by GI team and she underwent EGD on 03/04/20: Erosions with exudate in the distal esophagus consistent with LA grade B reflux esophagitis and Retained food in the stomach suggestive of gastroparesis. Patient was treated with Dilaudid, and switch to oral [place] [address] mg, and Reglan for her nausea vomiting and patient tolerated diet well although she has some pain however she states that Reglan helping her, short course of Carafate is also provided. Patient will be discharged on Protonix twice a day. No other complaint Patient was cleared for discharge by GI team Problems and management plan were discussed with the patient and he verbalized understanding and acceptance Patient was found stable and can be discharged home however he needs follow-up as an outpatient. Patient was instructed to follow up with PCP Dr. mack within one week and patient agrees. Patient agrees with the appointment of Dr. Leone on 03/20 and states she will follow up Gen: patient is a AAOx3, no distress CVS: S1-S2, RRR, no murmur Lungs: B/L CTA, no wheezing -Abdomen: soft, no distention, mild epigastric tenderness, positive bowel sounds Extremity: no leg edema or induration Time spent more than 35 minutes Patient Condition at Discharge: Fair Plan - Discharge Summary Discharge Rx Participant: No New Discharge Prescriptions: New Pantoprazole Sodium [Protonix] 20 mg PO BID #60 tablet. Metoclopramide HCl [Reglan] 5 mg PO TID PRN #10 tablet PRN Reason: Nausea And Vomiting HYDROcodone/APAP 10-325MG [[place] 10-325] 1 each PO Q6H PRN 3 Days #12 tab PRN Reason: Pain Sucralfate [Carafate] 1 gm PO BID 3 Days #60 ml Continue Aspirin EC [Ecotrin Low Dose] 81 mg PO DAILY Acetaminophen-Codeine 300-30mg [Tylenol w/codeine #3] 1 tab PO Q6H PRN PRN Reason: Pain Discharge Medication List Acetaminophen-Codeine 300-30mg [Tylenol w/codeine #3] 1 tab PO Q6H PRN 03/03/20 [History] Aspirin EC [Ecotrin Low Dose] 81 mg PO DAILY 03/03/20 [History] HYDROcodone/APAP 10-325MG [[place] 10-325] 1 each PO Q6H PRN 3 Days #12 tab 03/05/20 [Rx] Metoclopramide HCl [Reglan] 5 mg PO TID PRN #10 tablet 03/05/20 [Rx] Pantoprazole Sodium [Protonix] 20 mg PO BID #60 tablet. 03/05/20 [Rx] Sucralfate [Carafate] 1 gm PO BID 3 Days #60 ml 03/05/20 [Rx] Follow up Appointment(s)/Referral(s): Pratibha Leone MD [STAFF PHYSICIAN] - 03/20/20 8:45 am Kellen Renee MD [Primary Care Provider] - 1-2 days Patient Instructions/Handouts: Gastritis (DC) Activity/Diet/Wound Care/Special Instructions: Patient home meds in med room Discharge/Stand Alone Forms: Work/School Release, Work/Release Restrictions Form Discharge Disposition: HOME SELF-CARE
== END 2020-03-05 13:28 | disposition home or self-care (01) ==
LOC: EC 07:52 → 1SOBS 08:54 → INTOOBSV 03-05 09:22 → OBSVTOIN 03-05 09:22 → UNDODISIN 03-05 13:28
PROVIDERS: ADMIT Internal Medicine; ATTEND Internal Medicine
PROC: 0DB78ZX Excision of Stomach, Pylorus, Via Natural or Artificial Opening Endoscopic, Diagnostic (ICD-10-PCS; principal; 2020-03-04 07:45)
DX: K21.0 Gastro-esophageal reflux disease with esophagitis (principal); K31.84 Gastroparesis; K29.50 Unspecified chronic gastritis without bleeding; K83.8 Other specified diseases of biliary tract; K44.9 Diaphragmatic hernia without obstruction or gangrene; G40.509 Epileptic seizures related to external causes, not intractable, without status epilepticus; K76.0 Fatty (change of) liver, not elsewhere classified; J45.909 Unspecified asthma, uncomplicated; G43.909 Migraine, unspecified, not intractable, without status migrainosus; F41.0 Panic disorder [episodic paroxysmal anxiety]; F43.10 Post-traumatic stress disorder, unspecified; F32.9 Major depressive disorder, single episode, unspecified; K59.00 Constipation, unspecified; H52.203 Unspecified astigmatism, bilateral; E66.9 Obesity, unspecified; Z68.29 Body mass index [BMI] 29.0-29.9, adult; Z79.82 Long term (current) use of aspirin; Z79.891 Long term (current) use of opiate analgesic; Z88.5 Allergy status to narcotic agent; Z88.8 Allergy status to other drugs, medicaments and biological substances; Z87.891 Personal history of nicotine dependence; Z87.442 Personal history of urinary calculi; Z87.440 Personal history of urinary (tract) infections; Z86.32 Personal history of gestational diabetes; Z98.891 History of uterine scar from previous surgery; Z87.59 Personal history of other complications of pregnancy, childbirth and the puerperium; Z87.01 Personal history of pneumonia (recurrent); Z98.51 Tubal ligation status; Z80.1 Family history of malignant neoplasm of trachea, bronchus and lung; Z82.0 Family history of epilepsy and other diseases of the nervous system; Z82.5 Family history of asthma and other chronic lower respiratory diseases; Z82.49 Family history of ischemic heart disease and other diseases of the circulatory system; Z84.1 Family history of disorders of kidney and ureter
CPT/HCPCS: 96361 ×2; 96375 ×3; 96376 ×3; 96374; 99285; 36415; 88305; 80053; 80048; 82248; 83690; 85025; 81001; 81025; 84703; 78227; 43239; G0378 ×3; A9537; J2250; J1644 ×2; J2405 ×2; J2805; J1170 ×5; J1885 ×2; J2704; C9113 ×2

== ENCOUNTER 2020-03-06 12:30 | Inpatient (IN) | payer OTHER ==
--- NOTE | 2020-03-06 12:59 | ED ---
Abdominal Pain HPI - General Chief Complaint: Abdominal Pain Stated Complaint: Abdominal Pain Time Seen by Provider: 03/06/20 12:43 Source: patient, RN notes reviewed, old records reviewed Mode of arrival: ambulatory Limitations: no limitations - History of Present Illness Initial Comments: This is a 29-year-old female DF for evaluation patient presents today for evaluation of abdominal pain. Multiple ER visits the last few days her same pain. Patient also had a recent inpatient hospitalization for same pain. No fevers no nausea no vomiting decreased appetite. MD Complaint: abdominal pain -: days(s) Location: periumbilical, epigastric Radiation: epigastric Migration to: no migration Severity: moderate Severity scale (1-10): 4 Quality: cramping, aching Consistency: constant Improves With: nothing Worsens With: nothing Associated Symptoms: nausea Treatments Prior to Arrival: prescription analgesics - Related Data Home Medications Medication Instructions Recorded Confirmed Acetaminophen-Codeine 300-30mg 1 tab PO Q6H PRN 03/03/20 03/06/20 [Tylenol w/codeine #3] Aspirin EC [Ecotrin Low Dose] 81 mg PO DAILY 03/03/20 03/06/20 HYDROcodone/APAP 10-325MG [[place] 1 tab PO Q6H PRN 03/06/20 03/06/20 10-325] Previous Rx's Medication Instructions Recorded Metoclopramide HCl [Reglan] 5 mg PO TID PRN #10 tablet 03/05/20 Pantoprazole Sodium [Protonix] 20 mg PO BID #60 tablet. 03/05/20 Sucralfate [Carafate] 1 gm PO BID 3 Days #60 ml 03/05/20 Allergies Allergy/AdvReac Type Severity Reaction Status Date / Time morphine Allergy Rash/Hives Verified 03/06/20 14:08 sumatriptan [From Imitrex] AdvReac Makes Verified 03/06/20 14:08 Migraine Worse/Dizziness sumatriptan succinate AdvReac Makes Verified 03/06/20 14:08 [From Imitrex] Migraine Worse/Dizziness Review of Systems ROS Statement: Those systems with pertinent positive or pertinent negative responses have been documented in the HPI. ROS Other: All systems not noted in ROS Statement are negative. 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 History of Any Multi-Drug Resistant Organisms: None Reported Date of last positivie culture/infection: 2010 MDRO Source:: foot Past Surgical History: Section, Tubal Ligation Additional Past Surgical History / Comment(s): c sect x 4 Past Anesthesia/Blood Transfusion Reactions: No Reported Reaction Past Psychological History: Anxiety, Bipolar, Depression, Panic Disorder, PTSD Smoking Status: Former smoker, Vaper Past Alcohol Use History: None Reported Past Drug Use History: None Reported - Past Family History Father Family Medical History: Cancer, COPD, Hypertension Additional Family Medical History / Comment(s): Lung cancer Mother Family Medical History: COPD, Renal Disease, Seizure Disorder Additional Family Medical History / Comment(s): bronchitis, back problems. General Exam Limitations: no limitations General appearance: alert, in no apparent distress Head exam: Present: atraumatic, normocephalic, normal inspection Eye exam: Present: normal appearance, PERRL, EOMI. Absent: scleral icterus, conjunctival injection, periorbital swelling ENT exam: Present: normal exam, mucous membranes moist Neck exam: Present: normal inspection. Absent: tenderness, meningismus, lymphadenopathy Respiratory exam: Present: normal lung sounds bilaterally. Absent: respiratory distress, wheezes, rales, rhonchi, stridor Cardiovascular Exam: Present: regular rate, normal rhythm, normal heart sounds. Absent: systolic murmur, diastolic murmur, rubs, gallop, clicks GI/Abdominal exam: Present: soft, normal bowel sounds. Absent: distended, tenderness, guarding, rebound, rigid Extremities exam: Present: normal inspection, full ROM, normal capillary refill. Absent: tenderness, pedal edema, joint swelling, calf tenderness Back exam: Present: normal inspection Neurological exam: Present: alert, oriented X3, CN II-XII intact Psychiatric exam: Present: normal affect, normal mood Skin exam: Present: warm, dry, intact, normal color. Absent: rash Course Vital Signs 03/06/20 12:36 Temperature 98 F Pulse Rate 89 Respiratory 18 Rate Blood Pressure 119/86 O2 Sat by Pulse 98 Oximetry - Reevaluation(s) Reevaluation #1: 03/06/20 12:59 Medical records reviewed as well as inpatient hospitalization prior ER visits this month Reevaluation #2: 03/06/20 15:20 Patient still crying in the room with severe abdominal pain - Consultations Consultation #1: Spoke with [facility] agrees to admit this patient Medical Decision Making - Medical Decision Making 29 female persistent abdominal pain nausea and vomiting. Unable tolerate oral intake patient be admitted for recurrent GI evaluation - Lab Data Result diagrams: 03/06/20 13:58 03/06/20 13:58 Lab Results 03/06/20 03/06/20 03/06/20 Range/Units 13:58 13:58 13:58 WBC 10.5 (3.8-10.6) k/uL RBC 4.98 (3.80-5.40) m/uL Hgb 14.6 (11.4-16.0) gm/dL Hct 45.0 (34.0-46.0) % MCV 90.3 (80.0-100.0) fL MCH 29.3 (25.0-35.0) pg MCHC 32.5 (31.0-37.0) g/dL RDW 13.7 (11.5-15.5) % Plt Count 307 (150-450) k/uL Neutrophils % 54 % Lymphocytes % 40 % Monocytes % 4 % Eosinophils % 0 % Basophils % 1 % Neutrophils # 5.7 (1.3-7.7) k/uL Lymphocytes # 4.2 (1.0-4.8) k/uL Monocytes # 0.4 (0-1.0) k/uL Eosinophils # 0.0 (0-0.7) k/uL Basophils # 0.1 (0-0.2) k/uL Sodium 136 L (137-145) mmol/L Potassium 4.6 (3.5-5.1) mmol/L Chloride 101 (98-107) mmol/L Carbon Dioxide 25 (22-30) mmol/L Anion Gap 10 mmol/L BUN 14 (7-17) mg/dL Creatinine 0.85 (0.52-1.04) mg/dL Est GFR (CKD-EPI)AfAm >90 (>60 ml/min/1.73 sqM) Est GFR (CKD-EPI)NonAf >90 (>60 ml/min/1.73 sqM) Glucose 113 H (74-99) mg/dL Plasma Lactic Acid Sergey 1.8 (0.7-2.0) mmol/L Calcium 9.6 (8.4-10.2) mg/dL Total Bilirubin 0.6 (0.2-1.3) mg/dL AST 34 (14-36) U/L ALT 26 (4-34) U/L Alkaline Phosphatase 79 (38-126) U/L Creatine Kinase 78 (30-135) U/L Total Protein 7.9 (6.3-8.2) g/dL Albumin 4.8 (3.5-5.0) g/dL Amylase 102 (30-110) U/L Lipase 82 (23-300) U/L Urine Color Urine Appearance (Clear) Urine pH (5.0-8.0) Ur Specific Orange (1.001-1.035) Urine Protein (Negative) Urine Glucose (UA) (Negative) Urine Ketones (Negative) Urine Blood (Negative) Urine Nitrite (Negative) Urine Bilirubin (Negative) Urine Urobilinogen (<2.0) mg/dL Ur Leukocyte Esterase (Negative) Urine RBC (0-5) /hpf Urine WBC (0-5) /hpf Ur Squamous Epith Cells (0-4) /hpf Urine Mucus (None) /hpf 03/06/20 Range/Units 14:29 WBC (3.8-10.6) k/uL RBC (3.80-5.40) m/uL Hgb (11.4-16.0) gm/dL Hct (34.0-46.0) % MCV (80.0-100.0) fL MCH (25.0-35.0) pg MCHC (31.0-37.0) g/dL RDW (11.5-15.5) % Plt Count (150-450) k/uL Neutrophils % % Lymphocytes % % Monocytes % % Eosinophils % % Basophils % % Neutrophils # (1.3-7.7) k/uL Lymphocytes # (1.0-4.8) k/uL Monocytes # (0-1.0) k/uL Eosinophils # (0-0.7) k/uL Basophils # (0-0.2) k/uL Sodium (137-145) mmol/L Potassium (3.5-5.1) mmol/L Chloride (98-107) mmol/L Carbon Dioxide (22-30) mmol/L Anion Gap mmol/L BUN (7-17) mg/dL Creatinine (0.52-1.04) mg/dL Est GFR (CKD-EPI)AfAm (>60 ml/min/1.73 sqM) Est GFR (CKD-EPI)NonAf (>60 ml/min/1.73 sqM) Glucose (74-99) mg/dL Plasma Lactic Acid Sergey (0.7-2.0) mmol/L Calcium (8.4-10.2) mg/dL Total Bilirubin (0.2-1.3) mg/dL AST (14-36) U/L ALT (4-34) U/L Alkaline Phosphatase (38-126) U/L Creatine Kinase (30-135) U/L Total Protein (6.3-8.2) g/dL Albumin (3.5-5.0) g/dL Amylase (30-110) U/L Lipase (23-300) U/L Urine Color Light Yellow Urine Appearance Cloudy H (Clear) Urine pH 6.5 (5.0-8.0) Ur Specific Orange 1.026 (1.001-1.035) Urine Protein Negative (Negative) Urine Glucose (UA) Negative (Negative) Urine Ketones Negative (Negative) Urine Blood Negative (Negative) Urine Nitrite Negative (Negative) Urine Bilirubin Negative (Negative) Urine Urobilinogen <2.0 (<2.0) mg/dL Ur Leukocyte Esterase Small H (Negative) Urine RBC 2 (0-5) /hpf Urine WBC 2 (0-5) /hpf Ur Squamous Epith Cells 15 H (0-4) /hpf Urine Mucus Rare H (None) /hpf - Radiology Data Radiology results: report reviewed (CT head and pelvis shows colitis duodenitis), image reviewed Disposition Clinical Impression: Abdominal pain, Abdominal colic, Colitis Disposition: ADMITTED IP TO THIS [facility] Condition: Good Is patient prescribed a controlled substance at d/c from ED?: No Referrals: Kellen Renee MD [Primary Care Provider] - 1-2 days
[2020-03-06] MEDS ORDERED: SODIUM CHLORIDE 0.9% 1,000 ML IV STA ×2 (13:28)
[2020-03-06] MEDS ORDERED: ONDANSETRON 4 MG/2 ML VIAL IVP STA (13:28)
[2020-03-06] MEDS ORDERED: HYDROmorphone 1 MG/ML 1 ML SYRINGE IVP STA ×2 (13:28→15:14)
[2020-03-06] MEDS ORDERED: PANTOPRAZOLE 40 MG/10 ML VIAL IVP STA (13:28)
[2020-03-06] MEDS ORDERED: MAG HYDROX/AL HYDROX/SIMETH 30 ML, HYOSCYAMINE ELIXIR 10 ML, LIDOCAINE VISCOUS 2% 10 ML PO STA ×3 (13:29)
[2020-03-06 14:12] LABS: Basophils # (A) 0.1 k/uL (0-0.2); Basophils % (A) 1 %; Eosinophils % (A) 0 %; HGB 14.6 gm/dL (11.4-16.0); Lymphocytes # (A) 4.2 k/uL (1.0-4.8); Lymphocytes % (A) 40 %; MCH 29.3 pg (25.0-35.0); MCHC 32.5 g/dL (31.0-37.0); MCV 90.3 fL (80.0-100.0); Mean Platelet Volume 7.6; Monocytes # (A) 0.4 k/uL (0-1.0); Monocytes % (A) 4 %; Neutrophils # (A) 5.7 k/uL (1.3-7.7); Neutrophils % (A) 54 %; Platelet Count 307 k/uL (150-450); RBC 4.98 m/uL (3.80-5.40); RDW 13.7 % (11.5-15.5); WBC 10.5 k/uL (3.8-10.6)
[2020-03-06 14:37] LABS: ALT 26 U/L (4-34); AST 34 U/L (14-36); African American GFR (CKD) >90 (>60 ml/min/1.73 sqM); Albumin 4.8 g/dL (3.5-5.0); Alkaline Phosphatase 79 U/L (38-126); Amylase 102 U/L (30-110); Anion Gap 10 mmol/L; Blood Urea Nitrogen 14 mg/dL (7-17); Calcium 9.6 mg/dL (8.4-10.2); Carbon Dioxide 25 mmol/L (22-30); Chloride 101 mmol/L (98-107); Creatine Kinase 78 U/L (30-135); Glucose 113 mg/dL (74-99); Non-African American GFR(CKD) >90 (>60 ml/min/1.73 sqM); Potassium 4.6 mmol/L (3.5-5.1); Sodium 136 mmol/L (137-145); Total Bilirubin 0.6 mg/dL (0.2-1.3); Total Protein 7.9 g/dL (6.3-8.2)
--- NOTE | 2020-03-06 14:39 | CT ---
EXAMINATION TYPE: CT abdomen pelvis w con DATE OF EXAM: 03/06/2020 HISTORY: Right lower quadrant pain. CT DLP: 1224.6mGycm Automated Exposure Control for Dose Reduction was Utilized. CONTRAST: CT scan of the abdomen and pelvis is performed without oral but with IV Contrast, patient injected wi th 100 mL of Isovue 300. COMPARISON: CT abdomen and pelvis July 27, 2019. FINDINGS: LUNG BASES: No significant abnormality is appreciated. LIVER/GB: Liver remains heterogeneously low dense consistent with diffuse fatty infiltration seen bet ter on prior noncontrast CT. PANCREAS: No significant abnormality is seen. SPLEEN: No significant abnormality is seen. ADRENALS: No significant abnormality is seen. KIDNEYS: Symmetric cortical medullary uptake and excretion from both kidneys without hydronephrosis i dentified bilaterally. Subcentimeter low dense lesion anterior left kidney mid to lower pole level de layed axial image 29 is too small to further characterize presumed benign. BOWEL: Slightly suboptimal study without enteric contrast. Stomach is poorly distended and thus subop timally evaluated. No suspicious small or large bowel dilatation is seen. There is moderate amount of fecal prominence in the transverse and left colon. Correlate for stasis. Cecum is slightly low lying in the anterior right upper pelvis. Terminal ileum seen best on coronal i mage 40 shows mild to moderate wall thickening and mild mucosal enhancement. There is small bowel fec es sign noted proximal to this axial image 58. Superior to the terminal ileum and the right colon elena ws focal moderate to severe concentric wall thickening seen best coronal image 43. More mild to moder ate wall thickening in the rest of the right colon to level of hepatic flexure is noted. Normal or ab normal Appendix not distinctly seen from base of cecum. Inferior to the base there is prominent broad ligament noted. UTERUS/ADNEXA: Anteverted uterus. LYMPH NODES: No greater than 1cm abdominal or pelvic lymph nodes are appreciated. OSSEOUS STRUCTURES: No significant abnormality is seen. OTHER: No significant additional abnormality is seen. IMPRESSION: Normal or abnormal appendix is not clearly seen on this or prior study. Suspect appendix is surgically absent. There is suspicious wall thickening involving the terminal ileum and the right colon above the terminal ileum. Given patient's symptoms of right lower quadrant pain a moderate ente rocolitis is suspected. Differential includes infectious, inflammatory, and ischemic etiologies. In p atient of this age Crohn's disease needs to BE strongly considered.
[2020-03-06 14:43] LABS: Appearance,Urine Cloudy (Clear); Bilirubin,Urine Negative (Negative); Blood,Urine Negative (Negative); Color,Urine Light Yellow; Glucose,Urine (UA) Negative (Negative); Ketones,Urine Negative (Negative); Leukocyte Esterase,Urine Small (Negative); Mucus,Urine Rare /hpf; Nitrite,Urine Negative (Negative); PH, Urine 6.5 (5.0-8.0); Protein,Urine Negative (Negative); RBC,Urine 2 /hpf (0-5); Specific Gravity,Urine 1.026 (1.001-1.035); Squamous Epithelial Cell,Urine 15 /hpf (0-4); Urobilinogen,Urine <2.0 mg/dL (<2.0); WBC,Urine 2 /hpf (0-5)
[2020-03-06] MEDS ORDERED: diphenhydrAMINE 50 MG/ML 1 ML VIAL IVP STA (15:14)
[2020-03-06] MEDS ORDERED: METOCLOPRAMIDE 5 MG/ML 2 ML VIAL IVP STA (15:14)
[2020-03-06] MEDS: KETOROLAC 15 MG/ML 1 ML VIAL IVP SCH ×2 (17:36→23:16)
[2020-03-06] MEDS: METOCLOPRAMIDE 5 MG/ML 2 ML VIAL IVP SCH ×2 (17:36→23:17)
[2020-03-06] MEDS ORDERED: Acetaminophen-Codeine 300-30mg TAB PO PRN (19:13)
[2020-03-06] MEDS ORDERED: ACETAMINOPHEN TAB 500 MG TAB PO PRN (19:14)
[2020-03-06] MEDS ORDERED: TEMAZEPAM 15 MG CAP PO PRN (19:14)
[2020-03-06] MEDS: HYDROmorphone 1 MG/ML 1 ML SYRINGE IVP PRN (20:13)
[2020-03-06] MEDS: HEPARIN SODIUM,PORCINE 5,000 UNIT/ML 1 ML VIAL SQ SCH (20:14)
[2020-03-06] MEDS: SODIUM CHLORIDE 0.9% 1,000 ML IV SCH (20:14)
[2020-03-06] MEDS: metroNIDAZOLE-NS PMX 500 MG in SALINE 1 100ML.BAG IVPB SCH (20:54)
[2020-03-06] MEDS: SUCRALFATE 1 GM TAB PO SCH (20:55)
--- NOTE | 2020-03-06 21:59 | HP ---
HISTORY AND PHYSICAL DATE OF SERVICE: 03/06/2020 CHIEF COMPLAINT: Abdominal pain. HISTORY OF PRESENT ILLNESS: This 29-year-old woman with a past medical history of multiple medical problems, including asthma, history of liver disease, history of pneumonia, history of seizures, multiple UTIs, pyelonephritis, spongy kidney, anxiety, bipolar, depression, panic disorder, PTSD, being followed by Dr. Kellen Renee in the outpatient setting, is complaining of abdominal pain. Multiple ER visits in the last few days. Abdominal pain is mostly in the right upper quadrant and right side of the abdomen. The CT scan of the abdomen and pelvis was done today which showed evidence of possible mild enterocolitis and some thickening of the terminal ileum suggestive of Crohn's disease. The patient said she had diarrhea a few weeks ago but subsequently is constipated. There is no history of any fever, rigor or chills. No history of headache, loss of consciousness, seizures. PAST MEDICAL HISTORY: History of asthma, liver disease, pneumonia, renal disorder, seizure disorder, multiple UTIs. HOME MEDICATIONS: Carafate 1 gram b.i.d., Protonix, Reglan, hydrocodone, aspirin, Tylenol. Doses are reviewed. ALLERGIES: MORPHINE, SUMATRIPTAN. FAMILY HISTORY: History of COPD, cancer, hypertension, lung cancer. SOCIAL HISTORY: Previous history of smoking. No current smoking or alcohol intake. REVIEW OF SYSTEMS: ENT: No diminished hearing. No diminished vision. CARDIOVASCULAR SYSTEM: No angina, palpitations. RESPIRATORY SYSTEM: No cough, hemoptysis. GI: As mentioned earlier. : No dysuria or retention. NERVOUS SYSTEM: No numbness, weakness. ALLERGY/IMMUNOLOGY: No asthma, hayfever. MUSCULOSKELETAL: As mentioned earlier. HEMATOLOGY/ONCOLOGY: No history of anemia. ENDOCRINE: No history of diabetes, hypothyroidism. CONSTITUTIONAL: As mentioned earlier. DERMATOLOGY: Negative. RHEUMATOLOGY: Negative. PSYCHIATRY: As mentioned earlier. PHYSICAL EXAMINATION: Patient is alert and oriented x3. Pulse 69, blood pressure 139/78, respiration 16, temperature 98 degrees, pulse ox 98% on room air. HEENT: Conjunctivae normal. NECK: No jugular venous distention. CARDIOVASCULAR SYSTEM: S1, S2 muffled. RESPIRATORY SYSTEM: Breath sounds diminished at the bases. A few rhonchi. No crackles. ABDOMEN: Soft. Mild diffuse tenderness present. No guarding or rigidity. No mass palpable. Bowel sounds present. No ascites. LEGS: No edema. No swelling. NERVOUS SYSTEM: Higher functions as mentioned earlier. Moves all 4 limbs. No focal motor or sensory deficit. LYMPHATICS: No lymph node palpable in neck, axillae or groin. SKIN: No ulcer, rash, bleeding. JOINTS: No active deforming arthropathy. LABS: CBC within normal limits. Sodium 136. Glucose 113. UA noted. ASSESSMENT: 1. Diffuse abdominal pain with possible enterocolitis. Rule out Crohn's disease with thickening of the terminal ileum. 2. Hyponatremia. 3. Increased random blood sugar. 4. History of asthma, chronic, intermittent. 5. History of chronic liver disease. 6. Pneumonia. 7. History of renal disease. 8. History of seizure disorder. 9. Multiple urinary tract infections. 10.History of pyelonephritis. 11.History of spongy kidneys. 12.History of catatonic seizure. 13.History of bilateral astigmatism. 14.History of anxiety, bipolar depression, panic disorder, post-traumatic stress disorder. 15.History of nicotine dependence and vaping. RECOMMENDATIONS AND DISCUSSION: In this 29-year-old woman who presented with multiple complex medical issues, we will monitor the patient closely, continue the current medications, continue symptomatic treatment. Will initiate broad-spectrum IV antibiotics. Gastroenterology consultation. Symptomatic treatment for the pain. Guarded prognosis because of multiple complex medical issues. Resume the home medications. Further recommendations to follow. A copy of this dictation is being forwarded to Dr. Kellen Renee, who is the primary physician. MMODL / IJN: [id number] /
[2020-03-06] MEDS: LEVOFLOXACIN 500MG-D5W PMX 500 MG in DEXTROSE/WATER 1 100ML.BAG IVPB SCH (22:22)
[2020-03-07] MEDS: HYDROmorphone 1 MG/ML 1 ML SYRINGE IVP PRN ×5 (01:18→20:14)
[2020-03-07] MEDS: ONDANSETRON 4 MG/2 ML VIAL IVP PRN ×2 (01:54→08:52)
[2020-03-07] MEDS: metroNIDAZOLE-NS PMX 500 MG in SALINE 1 100ML.BAG IVPB SCH ×3 (03:12→20:29)
[2020-03-07] MEDS: KETOROLAC 15 MG/ML 1 ML VIAL IVP SCH ×4 (05:51→23:26)
[2020-03-07] MEDS: METOCLOPRAMIDE 5 MG/ML 2 ML VIAL IVP SCH ×4 (05:52→23:26)
[2020-03-07] MEDS: HEPARIN SODIUM,PORCINE 5,000 UNIT/ML 1 ML VIAL SQ SCH ×2 (08:51→20:13)
[2020-03-07] MEDS: SODIUM CHLORIDE 0.9% 1,000 ML IV SCH ×2 (08:52→21:42)
[2020-03-07] MEDS: SUCRALFATE 1 GM TAB PO SCH ×2 (08:52→20:13)
[2020-03-07] MEDS ORDERED: PANTOPRAZOLE 40 MG/10 ML VIAL IVP SCH (09:00)
[2020-03-07] MEDS: ASPIRIN 81 MG PO SCH (09:04)
[2020-03-07 09:29] LABS: Basophils % (A) 0 %; Eosinophils % (A) 1 %; HCT 36.4 % (34.0-46.0); HGB 11.7 gm/dL (11.4-16.0); Lymphocytes # (A) 1.5 k/uL (1.0-4.8); Lymphocytes % (A) 36 %; MCH 29.4 pg (25.0-35.0); MCHC 32.3 g/dL (31.0-37.0); MCV 91.2 fL (80.0-100.0); Mean Platelet Volume 7.7; Monocytes # (A) 0.3 k/uL (0-1.0); Monocytes % (A) 7 %; Neutrophils # (A) 2.3 k/uL (1.3-7.7); Neutrophils % (A) 55 %; Platelet Count 201 k/uL (150-450); RBC 3.99 m/uL (3.80-5.40); WBC 4.1 k/uL (3.8-10.6)
--- NOTE | 2020-03-07 11:50 | US ---
EXAMINATION TYPE: US gallbladder DATE OF EXAM: 03/07/2020 COMPARISON: NONE CLINICAL HISTORY: RUQ pain, epigastric pain. EXAM MEASUREMENTS: Liver Length: 17 cm Gallbladder Wall: .2 cm CBD: .4 cm Right Kidney: 10.5 x 3.7 x 4.0 cm Pancreas: wnl Liver: wnl Gallbladder: wnl Evidence for sonographic Gomez's sign: CBD: wnl Right Kidney: wnl IMPRESSION: No distinct abnormality appreciated.
[2020-03-07 12:03] LABS: Erythrocyte Sedimentation Rate 14 mm/hr (0-20)
--- NOTE | 2020-03-07 17:00 | P.PN ---
Subjective Progress Note Date: 03/07/20 Principal diagnosis: Continue colitis possible Crohn's disease Hyponatremia 29-year-old female DF for evaluation patient presents today for evaluation of abdominal pain. Multiple ER visits the last few days her same pain. Patient also had a recent inpatient hospitalization for same pain. No fevers no nausea no vomiting decreased appetite. Objective - Vital Signs Vital signs: Vital Signs Temp 98.3 F 03/07/20 09:00 Pulse 59 L 03/07/20 09:00 Resp 18 03/07/20 09:00 BP 99/53 03/07/20 09:00 Pulse Ox 98 03/07/20 09:00 Intake & Output 03/06/20 03/07/20 03/07/20 18:59 06:59 18:59 Intake Total 100 Balance 100 Weight 81.647 kg Intake: Intake, IV Titration 100 Amount metroNIDAZOLE-NS PMX 500 100 mg In Saline 1 100ml.bag @ 100 mls/hr IVPB Q8H ADELINA Rx#:[id number] Other: Voiding Method Toilet Toilet # Voids 1 1 # Bowel Movements 1 1 - Exam - Constitutional General appearance: Present: average body habitus, cooperative, no acute distress - EENT Eyes: Present: anicteric sclerae, EOMI, PERRLA, normal appearance ENT: Present: hearing grossly normal, normal oropharynx Ears: bilateral: normal - Neck Neck: Present: normal ROM. Absent: lymphadenopathy, rigidity, thyromegaly Carotids: negative: bruit present Thyroid: bilateral: normal size, negative: enlarged, nodule - Respiratory Respiratory: bilateral: CTA, negative: rales, rhonchi, wheezing - Cardiovascular Rhythm: regular Heart sounds: normal: S1, S2 Abnormal Heart Sounds: Absent: systolic murmur, diastolic murmur - Gastrointestinal General gastrointestinal: Present: normal bowel sounds, soft. Absent: disten ded, organomegaly, tenderness - Genitourinary Genitourinary Comment(s): deferred - Integumentary Integumentary: Present: normal turgor. Absent: jaundiced, rash, ulcer - Neurologic Neurologic: Present: CNII-XII intact. Absent: focal deficits - Musculoskeletal Musculoskeletal: Present: gait normal, strength equal bilaterally - Psychiatric Psychiatric: Present: A&O x's 3, appropriate affect, intact judgment & insight - Labs CBC & Chem 7: 03/07/20 08:36 03/06/20 13:58 Labs: Abnormal Lab Results - Last 24 Hours (Table) 03/06/20 03/06/20 03/07/20 Range/Units 13:58 14:29 08:36 Sodium 136 L (137-145) mmol/L Glucose 113 H (74-99) mg/dL C-Reactive Protein 19.4 H (<10.0) mg/L Urine Appearance Cloudy H (Clear) Ur Leukocyte Esterase Small H (Negative) Ur Squamous Epith Cells 15 H (0-4) /hpf Urine Mucus Rare H (None) /hpf Assessment and Plan Assessment: 1. Possible enterocolitis; rule out Crohn's disease - Patient remains on broad-spectrum IV antibiotics in form of IV Flagyl and levofloxacin; GI is following patient and ordered abdominal ultrasound - Continue with supportive care; patient started on clear liquid diet and advance as tolerated 2. Hyponatremia; continue with normal saline at rate of 75 mL an hour; monitor electrolytes 3. Hyperglycemia; resolved; monitor Accu-Cheks every before meals and at bedtim e as needed 4. Seizure disorder; currently not on any antiseizure medications 5. Chronic intermittent asthma; not in exacerbation DVT prophylaxis; SCDs CODE STATUS; full code
[2020-03-07] MEDS: PANTOPRAZOLE 40 MG/10 ML VIAL IVP SCH (20:13)
[2020-03-07] MEDS: LEVOFLOXACIN 500MG-D5W PMX 500 MG in DEXTROSE/WATER 1 100ML.BAG IVPB SCH (21:41)
--- NOTE | 2020-03-07 21:53 | CONS ---
CONSULTATION DATE OF SERVICE: 03/07/2020 REQUESTING PHYSICIAN: Dr. Renee. REASON FOR CONSULTATION: Abdominal pain, diarrhea. HISTORY OF PRESENT ILLNESS: The patient is a 29-year-old pleasant white female who was admitted to the hospital 5 days ago with severe epigastric and right upper quadrant abdominal pain, on and off for the last 2 weeks duration. She was seen on consultation. She had an upper endoscopy done on March 04 by pa that showed severe reflux esophagitis with multiple erosions with exudates in the distal esophagus. Subsequently, has been on Protonix 40 mg twice daily and was discharged home. She did have a CT of the abdomen as well as ultrasound of the abdomen done during last hospitalization including a HIDA scan that were all negative. She went home. She continued to have persistent symptoms. The pain continued to progressively get worse. She started having diarrhea with 6-7 loose watery bowel movements yesterday and one this morning. Symptoms worsened and so she came back to the emergency room. She had another CT of the abdomen and pelvis done yesterday that shows some nonspecific thickening of the terminal ileum and in the right colon suspicious for infectious colitis and inflammatory bowel disease. She was presently started on empiric antibiotics. She denies any fever, chills, night sweats. PAST MEDICAL HISTORY: Significant for gastroesophageal reflux disease, seizure disorder and recurrent UTI. MEDICATIONS: Carafate, Protonix, Reglan, Hydrocodone, aspirin and Tylenol. ALLERGIES: MORPHINE and SUMATRIPTAN. SOCIAL HISTORY: No history of smoking. No alcohol use. FAMILY HISTORY: Mother has COPD. Father has hypertension and cancer. REVIEW OF SYSTEMS: CARDIOPULMONARY: No chest pain, no shortness of breath. GENITOURINARY: No dysuria or hematuria. MUSCULOSKELETAL unremarkable. SKIN unremarkable. ENDOCRINE unremarkable. NEUROLOGY unremarkable. ENT/VISION: Unremarkable. CONSTITUTIONAL: No recent weight loss. No fever, chills, night sweats. PHYSICAL EXAMINATION: She appears comfortable. No apparent distress. VITAL SIGNS: Stable. Blood pressure is 123/89, pulse 82 per minute. Afebrile. HEENT examination unremarkable. Conjunctivae pink. Sclerae anicteric. Oral cavity no lesions. NECK: No JVD or lymph node enlargement. CHEST was clear to auscultation. HEART: Regular rate and rhythm. ABDOMEN: Soft tenderness in the epigastric and right upper quadrant area. Lower abdominal was benign. EXTREMITIES no pedal edema. SKIN no rashes. NEUROLOGIC: Alert and oriented x3. No focal deficits. LABS: Labs done at the time of admission to the hospital: 4.1, hemoglobin 11.7, platelets normal. Basic metabolic panel is yesterday was less than 5. Today it is 9.4. Urinalysis is noted. IMPRESSION: This is a lady who was admitted to the hospital with right upper quadrant abdominal pain on and off for the last 2 weeks duration. MMODL / IJN: [id number] /
--- NOTE | 2020-03-07 21:53 | CONS ---
CONSULTATION ADDENDUM: IMPRESSION: This lady presented to the hospital with severe epigastric right upper quadrant abdominal pain on and off for the last 2 weeks' duration, was just hospitalized last week and had an upper endoscopy done by me 2 days ago that showed severe reflux esophagitis. Presently on Protonix 40 mg twice daily. Still remains symptomatic. Ultrasound of the abdomen, HIDA scan, they were all negative. Repeat CT scan during this hospitalization shows some thickening of the colon and terminal ileum suspicious for IBD versus infectious colitis. RECOMMENDATIONS: 1. Start on clear liquid diet. 2. Continue empiric antibiotics with Levaquin and Flagyl. 3. Stool studies. 4. Clear liquid diet. 5. We will follow with you closely. Thank you for this consultation. MMSIRIA / ELIZABETHN: [id number] /
[2020-03-08] MEDS: HYDROmorphone 1 MG/ML 1 ML SYRINGE IVP PRN ×5 (00:30→20:05)
[2020-03-08] MEDS: ONDANSETRON 4 MG/2 ML VIAL IVP PRN ×4 (02:10→21:20)
[2020-03-08] MEDS: diphenhydrAMINE 50 MG/ML 1 ML VIAL IVP PRN ×2 (03:03→09:40)
[2020-03-08] MEDS: metroNIDAZOLE-NS PMX 500 MG in SALINE 1 100ML.BAG IVPB SCH ×3 (03:03→20:05)
[2020-03-08] MEDS: METOCLOPRAMIDE 5 MG/ML 2 ML VIAL IVP SCH ×4 (05:42→23:00)
[2020-03-08] MEDS: KETOROLAC 15 MG/ML 1 ML VIAL IVP SCH ×4 (05:43→23:00)
[2020-03-08 06:02] LABS: Basophils % (A) 0 %; Eosinophils % (A) 1 %; HCT 37.6 % (34.0-46.0); HGB 11.9 gm/dL (11.4-16.0); Lymphocytes # (A) 2.2 k/uL (1.0-4.8); Lymphocytes % (A) 46 %; MCH 29.3 pg (25.0-35.0); MCHC 31.7 g/dL (31.0-37.0); MCV 92.3 fL (80.0-100.0); Mean Platelet Volume 7.4; Monocytes # (A) 0.4 k/uL (0-1.0); Monocytes % (A) 8 %; Neutrophils # (A) 2.1 k/uL (1.3-7.7); Neutrophils % (A) 44 %; Platelet Count 250 k/uL (150-450); RBC 4.07 m/uL (3.80-5.40); RDW 13.6 % (11.5-15.5); WBC 4.9 k/uL (3.8-10.6)
[2020-03-08 06:25] LABS: African American GFR (CKD) >90 (>60 ml/min/1.73 sqM); Anion Gap 5 mmol/L; Blood Urea Nitrogen 9 mg/dL (7-17); Calcium 8.5 mg/dL (8.4-10.2); Carbon Dioxide 24 mmol/L (22-30); Chloride 106 mmol/L (98-107); Glucose 89 mg/dL (74-99); Non-African American GFR(CKD) >90 (>60 ml/min/1.73 sqM); Potassium 4.1 mmol/L (3.5-5.1); Sodium 135 mmol/L (137-145)
[2020-03-08] MEDS: SUCRALFATE 1 GM TAB PO SCH ×2 (08:00→20:04)
[2020-03-08] MEDS: ASPIRIN 81 MG PO SCH (08:00)
[2020-03-08] MEDS: HEPARIN SODIUM,PORCINE 5,000 UNIT/ML 1 ML VIAL SQ SCH ×2 (08:00→20:04)
[2020-03-08] MEDS: PANTOPRAZOLE 40 MG/10 ML VIAL IVP SCH ×2 (08:00→20:05)
--- NOTE | 2020-03-08 15:01 | PN ---
PROGRESS NOTE DATE OF SERVICE: 03/08/2020 INTERVAL HISTORY: Patient is a 29-year-old pleasant white female admitted to the hospital yesterday with severe persistent abdominal pain and diarrhea. Last night she had about 4 bowel movements. Stool studies were requested. Occult blood was positive. C difficile was negative. On empiric antibiotics with Levaquin and Flagyl for possible acute colitis. CT of the abdomen showed thickening of the terminal ileum and thickening of the right colon. Possibility of IBD could not be excluded. She still remains symptomatic. She had an upper endoscopy done 5 days ago that showed severe reflux esophagitis and remains on Protonix 40 mg twice daily. PHYSICAL EXAMINATION: She appears comfortable. VITAL SIGNS: Stable. Blood pressure 112/76, pulse rate 72, temperature. HEENT: Examination unremarkable. Conjunctivae are pink. Sclerae anicteric. Oral cavity no lesions. NECK: No JVD. No lymph node enlargement. CHEST: Clear to auscultation. HEART: Regular rate and rhythm. ABDOMEN: Soft. There was tenderness in the epigastric area, right upper quadrant area and right lower quadrant area. EXTREMITIES: No pedal edema. NEUROLOGIC: Alert and oriented x3. No focal deficits. LABS: WBC 4.9, hemoglobin 11.9, platelets normal. Basic metabolic panel is within normal limits. Stool C difficile is negative. Occult blood positive. IMPRESSION: 1. Persistent diffuse abdominal pain mostly in the epigastric and right upper quadrant area now radiating to the right lower quadrant area. CT scan showing thickening of the terminal ileum and right colon. On empiric antibiotics with Levaquin and Flagyl and still remains symptomatic. 2. Severe gastroesophageal reflux disease noted on recent upper endoscopy 4 days ago. RECOMMENDATIONS: 1. Continue empiric antibiotics. 2. Continue with a clear liquid diet. 3. If her symptoms do not improve, we will consider colonoscopy during this hospitalization with intubation of the terminal ileum. The plan was discussed with the patient and she is agreeable to it. Thank you for this consultation. MMODL / IJN: [id number] /
--- NOTE | 2020-03-08 16:22 | P.PN ---
Subjective Progress Note Date: 03/08/20 Principal diagnosis: Continue colitis possible Crohn's disease Hyponatremia 29-year-old female DF for evaluation patient presents today for evaluation of abdominal pain. Multiple ER visits the last few days her same pain. Patient also had a recent inpatient hospitalization for same pain. No fevers no nausea no vomiting decreased appetite. 03/08/2020 Patient is seen and evaluated in room at bedside; continues to complain of abdominal pain even on clear liquid diet Vital signs and labs are reviewed and are stable with a WBC stable at 4.9 and hemoglobin of 11.9; stool occult blood is positive; patient has been reevaluated by GI with possible recommendation for a colonoscopy if patient remains unchanged Objective - Vital Signs Vital signs: Vital Signs Temp 98.7 F 03/08/20 07:51 Pulse 72 03/08/20 07:51 Resp 16 03/08/20 07:51 BP 112/76 03/08/20 07:51 Pulse Ox 96 03/08/20 07:51 Intake & Output 03/07/20 03/08/20 03/08/20 18:59 06:59 18:59 Intake Total 1050 420 Balance 1050 420 Intake: Oral 1050 420 Other: Voiding Method Toilet Toilet Toilet # Voids 1 1 # Bowel Movements 1 1 - Exam - Constitutional General appearance: Present: average body habitus, cooperative, no acute dist ress - EENT Eyes: Present: anicteric sclerae, EOMI, PERRLA, normal appearance ENT: Present: hearing grossly normal, normal oropharynx Ears: bilateral: normal - Neck Neck: Present: normal ROM. Absent: lymphadenopathy, rigidity, thyromegaly Carotids: negative: bruit present Thyroid: bilateral: normal size, negative: enlarged, nodule - Respiratory Respiratory: bilateral: CTA, negative: rales, rhonchi, wheezing - Cardiovascular Rhythm: regular Heart sounds: normal: S1, S2 Abnormal Heart Sounds: Absent: systolic murmur, diastolic murmur - Gastrointestinal General gastrointestinal: Present: normal bowel sounds, soft. Absent: distended, organomegaly, tenderness - Genitourinary Genitourinary Comment(s): deferred - Integumentary Integumentary: Present: normal turgor. Absent: jaundiced, rash, ulcer - Neurologic Neurologic: Present: CNII-XII intact. Absent: focal deficits - Musculoskeletal Musculoskeletal: Present: gait normal, strength equal bilaterally - Psychiatric Psychiatric: Present: A&O x's 3, appropriate affect, intact judgment & insight - Labs CBC & Chem 7: 03/08/20 05:29 03/08/20 05:29 Labs: Abnormal Lab Results - Last 24 Hours (Table) 03/07/20 03/07/20 03/08/20 Range/Units 08:36 20:20 05:29 Sodium 135 L (137-145) mmol/L C-Reactive Protein 19.4 H (<10.0) mg/L Stool Occult Blood Positive H (Negative) Assessment and Plan Assessment: 1. Possible enterocolitis; rule out Crohn's disease - Patient remains on broad-spectrum IV antibiotics in form of IV Flagyl and levofloxacin; GI is following patient and ordered abdominal ultrasound - Continue with supportive care; patient started on clear liquid diet and advance as tolerated 2. Hyponatremia; continue with normal saline at rate of 75 mL an hour; monitor electrolytes 3. Hyperglycemia; resolved; monitor Accu-Cheks every before meals and at bedtime as needed 4. Seizure disorder; currently not on any antiseizure medications 5. Chronic intermittent asthma; not in exacerbation DVT prophylaxis; SCDs CODE STATUS; full code
[2020-03-08] MEDS: SODIUM CHLORIDE 0.9% 1,000 ML IV SCH ×2 (18:41→19:46)
[2020-03-08] MEDS: LEVOFLOXACIN 500MG-D5W PMX 500 MG in DEXTROSE/WATER 1 100ML.BAG IVPB SCH (21:19)
[2020-03-09] MEDS: HYDROmorphone 1 MG/ML 1 ML SYRINGE IVP PRN ×5 (00:16→20:37)
[2020-03-09] MEDS: metroNIDAZOLE-NS PMX 500 MG in SALINE 1 100ML.BAG IVPB SCH ×3 (03:45→21:50)
[2020-03-09] MEDS: KETOROLAC 15 MG/ML 1 ML VIAL IVP SCH ×2 (05:08→11:37)
[2020-03-09] MEDS: METOCLOPRAMIDE 5 MG/ML 2 ML VIAL IVP SCH ×4 (05:09→23:34)
[2020-03-09] MEDS: HEPARIN SODIUM,PORCINE 5,000 UNIT/ML 1 ML VIAL SQ SCH ×2 (09:18→20:36)
[2020-03-09] MEDS: PANTOPRAZOLE 40 MG/10 ML VIAL IVP SCH (09:18)
[2020-03-09] MEDS: SUCRALFATE 1 GM TAB PO SCH ×2 (09:18→20:39)
[2020-03-09] MEDS: ASPIRIN 81 MG PO SCH (09:18)
[2020-03-09] MEDS: ONDANSETRON 4 MG/2 ML VIAL IVP PRN ×2 (10:20→16:45)
--- NOTE | 2020-03-09 14:43 | PN ---
PROGRESS NOTE DATE OF SERVICE: 03/09/2020 The patient is a 29-year-old pleasant white female admitted to the hospital with severe abdominal pain for the last three weeks duration. She has been hospitalized last week, had an upper endoscopy done that showed severe esophagitis. Was sent home on Protonix 40 mg twice daily. She came back three days later with worsening abdominal pain. Now she has been having intermittent diarrhea. She had 3-4 loose watery bowel movements two days ago. Stool studies positive for occult blood and stool lactoferrin was positive. C difficile toxin is negative. CT scan showed thickening of the terminal ileum and right colon. Empiric antibiotics were initiated. She continues to remain symptomatic, continues to have persistent epigastric right-sided abdominal pain. PHYSICAL EXAMINATION: Appears comfortable. Vital signs are stable. Blood pressure 116/79, pulse rate 70, temperature 98. HEENT examination unremarkable. Conjunctivae pink. Sclerae anicteric. Oral cavity no lesions. NECK: No JVD. No lymph node enlargement. CHEST was clear to auscultation. HEART: Regular rate and rhythm. ABDOMEN: Soft. Bowel sounds are positive. Tenderness in the epigastric area and the right lower quadrant area. EXTREMITIES: No pedal edema. SKIN: No rashes. NEUROLOGIC: Alert and oriented x3. No focal deficits. LABS: WBC 4.9, hemoglobin 11.9, platelets normal. Basic metabolic panel is within normal limits. IMPRESSION: Persistent abdominal pain mostly in the epigastric area, right lower quadrant area for the last three weeks duration. Recent hospitalization with an upper endoscopy last week showed severe esophagitis. Was started on Protonix 40 mg twice daily. Still remains symptomatic. Presently admitted to the hospital with right-sided abdominal pain and CT scan showing thickening of the terminal ileum and right colon. She is on empiric antibiotics with Levaquin and Flagyl and still remains symptomatic. CRP was slightly elevated at 19.4. Rule out possibility of inflammatory bowel disease. RECOMMENDATIONS: 1. Continue antibiotics. 2. Continue with a clear liquid diet. 3. We will proceed with a colonoscopy with terminal ileal intubation to evaluate for inflammatory bowel disease. The plan was discussed with the patient she is agreeable to it. Thank you for this consultation. MMPACOL / ELIZABETHN: [id number] /
--- NOTE | 2020-03-09 15:18 | P.PN ---
Subjective Progress Note Date: 03/09/20 Principal diagnosis: Continue colitis possible Crohn's disease Hyponatremia 29-year-old female DF for evaluation patient presents today for evaluation of abdominal pain. Multiple ER visits the last few days her same pain. Patient also had a recent inpatient hospitalization for same pain. No fevers no nausea no vomiting decreased appetite. 03/08/2020 Patient is seen and evaluated in room at bedside; continues to complain of abdominal pain even on clear liquid diet Vital signs and labs are reviewed and are stable with a WBC stable at 4.9 and hemoglobin of 11.9; stool occult blood is positive; patient has been reevaluated by GI with possible recommendation for a colonoscopy if patient remains unchanged 03/09/2020 Patient continues to complain of nausea and vomiting; no episodes of bloody diarrhea; continues to require IV Dilaudid which according to patient runs out within an hour Vital signs are stable; Lab review reveals a positive stool occult blood and positive lactoferrin; C. diff toxin is negative; CT of abdomen shows thickening of the terminal ileum and right colon; GI is following and patient remains on empiric antibiotic therapy; planning to continue with clear liquid diet and proceed with colonoscopy with terminal ileum intubation to evaluate for inflammatory bowel disease Objective - Vital Signs Vital signs: Vital Signs Temp 98.4 F 03/09/20 02:28 Pulse 63 03/09/20 02:28 Resp 15 03/09/20 02:28 BP 115/72 03/09/20 02:28 Pulse Ox 96 03/09/20 02:28 Intake & Output 03/08/20 03/09/20 03/09/20 18:59 06:59 18:59 Intake Total 420 200 Balance 420 200 Intake: Oral 420 Other 200 Other: Voiding Method Toilet Toilet # Voids 1 1 - Exam - Constitutional General appearance: Present: average body habitus, cooperative, no acute distress - EENT Eyes: Present: anicteric sclerae, EOMI, PERRLA, normal appearance ENT: Present: hearing grossly normal, normal oropharynx Ears: bilateral: normal - Neck Neck: Present: normal ROM. Absent: lymphadenopathy, rigidity, thyromegaly Carotids: negative: bruit present Thyroid: bilateral: normal size, negative: enlarged, nodule - Respiratory Respiratory: bilateral: CTA, negative: rales, rhonchi, wheezing - Cardiovascular Rhythm: regular Heart sounds: normal: S1, S2 Abnormal Heart Sounds: Absent: systolic murmur, diastolic murmur - Gastrointestinal General gastrointestinal: Present: normal bowel sounds, soft. Absent: distended, organomegaly, tenderness - Genitourinary Genitourinary Comment(s): deferred - Integumentary Integumentary: Present: normal turgor. Absent: jaundiced, rash, ulcer - Neurologic Neurologic: Present: CNII-XII intact. Absent: focal deficits - Musculoskeletal Musculoskeletal: Present: gait normal, strength equal bilaterally - Psychiatric Psychiatric: Present: A&O x's 3, appropriate affect, intact judgment & insight - Labs CBC & Chem 7: 03/08/20 05:29 03/08/20 05:29 Labs: Abnormal Lab Results - Last 24 Hours (Table) 03/07/20 Range/Units 20:20 Stool Lactoferrin POSITIVE H (NEGATIVE) Microbiology - Last 24 Hours (Table) 03/07/20 20:20 Stool Culture - Preliminary Stool Assessment and Plan Assessment: 1. Possible enterocolitis; rule out Crohn's disease - Patient remains on broad-spectrum IV antibiotics in form of IV Flagyl and levofloxacin; GI is following patient and ordered abdominal ultrasound - Continue with supportive care; patient started on clear liquid diet and advance as tolerated 2. Hyponatremia; continue with normal saline at rate of 75 mL an hour; monitor electrolytes 3. Hyperglycemia; resolved; monitor Accu-Cheks every before meals and at bedtime as needed 4. Seizure disorder; currently not on any antiseizure medications 5. Chronic intermittent asthma; not in exacerbation DVT prophylaxis; SCDs CODE STATUS; full code
[2020-03-09] MEDS: SODIUM CHLORIDE 0.9% 1,000 ML IV SCH (15:23)
[2020-03-09] MEDS ORDERED: PEG 3350-NA SULF,BICARB,CL/KCL 4,000 ML BOTTLE PO ONE (17:00)
[2020-03-09] MEDS: HYDROcodone/APAP 10-325MG 1 EACH TAB PO PRN ×2 (17:41→23:34)
[2020-03-09] MEDS: LEVOFLOXACIN 500MG-D5W PMX 500 MG in DEXTROSE/WATER 1 100ML.BAG IVPB SCH (20:36)
[2020-03-09] MEDS: PANTOPRAZOLE 40 MG TABLET PO SCH (20:36)
[2020-03-10] MEDS: HYDROmorphone 1 MG/ML 1 ML SYRINGE IVP PRN ×3 (01:07→10:53)
[2020-03-10] MEDS: ALPRAZolam 0.25 MG TAB PO PRN ×2 (01:17→12:04)
[2020-03-10] MEDS: SODIUM CHLORIDE 0.9% 1,000 ML IV SCH ×2 (03:50→17:26)
[2020-03-10] MEDS: METOCLOPRAMIDE 5 MG/ML 2 ML VIAL IVP SCH ×2 (04:59→10:54)
[2020-03-10] MEDS: metroNIDAZOLE-NS PMX 500 MG in SALINE 1 100ML.BAG IVPB SCH ×2 (05:31→11:54)
[2020-03-10 06:42] LABS: African American GFR (CKD) >90 (>60 ml/min/1.73 sqM); Anion Gap 6 mmol/L; Blood Urea Nitrogen 3 mg/dL (7-17); Calcium 8.7 mg/dL (8.4-10.2); Carbon Dioxide 25 mmol/L (22-30); Chloride 105 mmol/L (98-107); Glucose 90 mg/dL (74-99); Non-African American GFR(CKD) >90 (>60 ml/min/1.73 sqM); Potassium 4.4 mmol/L (3.5-5.1); Sodium 136 mmol/L (137-145)
[2020-03-10] MEDS: HEPARIN SODIUM,PORCINE 5,000 UNIT/ML 1 ML VIAL SQ SCH (07:29)
[2020-03-10] MEDS: ASPIRIN 81 MG PO SCH (07:29)
[2020-03-10] MEDS: HYDROcodone/APAP 10-325MG 1 EACH TAB PO PRN (07:30)
[2020-03-10] MEDS: ONDANSETRON 4 MG/2 ML VIAL IVP PRN (07:30)
[2020-03-10] MEDS: SUCRALFATE 1 GM TAB PO SCH (07:30)
[2020-03-10] MEDS: PANTOPRAZOLE 40 MG TABLET PO SCH (07:30)
[2020-03-10 07:32] VITALS: RESP 16
[2020-03-10] MEDS ORDERED: PROPOFOL 10 MG/ML 50 ML VIAL IV ONE (13:02)
[2020-03-10] MEDS ORDERED: IV FLUID CONTINUATION 1,000 ML IV ONE ×2 (13:02)
[2020-03-10] MEDS ORDERED: SODIUM CHLORIDE 0.9% 500 ML 500 ML IV ONE ×2 (13:39)
--- NOTE | 2020-03-10 13:49 | P.PCN ---
Date of Procedure: 03/10/20 Description of Procedure: BRIEF HISTORY: Patient is a 29-year-old female who presented to the hospital with abdominal pain. Pain is present for 3 weeks' duration. EGD on last hospitalization showed severe esophagitis and she was started on Protonix therapy. Computed tomography scan of the abdomen showed thickening of terminal ileum and right colon and she was started on antibiotic therapy. Slightly elevated CRP at 19.4. PROCEDURE PERFORMED: Colonoscopy with biopsies. PREOPERATIVE DIAGNOSIS: Abdominal pain, abnormal computed tomography scan of the abdomen, diarrhea. ESTIMATED BLOOD LOSS: Minimal. IV sedation per Anesthesia. PROCEDURE: After informed consent was obtained, the patient, was brought into the endoscopy unit. IV sedation was administered by Anesthesia under continuous monitoring. Digital rectal examination was normal. Initially the Olympus CF-190 flexible video colonoscope was then inserted in the rectum, gradually advanced into the cecum without any difficulty. Careful examination was performed as the scope was gradually being withdrawn. Ileocecal valve and the appendiceal orifice were visualized and appeared normal. The terminal ileum was intubated with only mild erythema noted with no ulcerations seen and was biopsied. Prep was good. Mucosa of the cecum, ascending colon, transverse colon, descending colon, sigmoid colon, and rectum appeared normal, except for 1 diminutive superficial 5 mm ulcer in the proximal descending colon, with random biopsies taken of the right colon, transverse colon, left colon and rectum. Retroflexion was performed in the rectum and no lesions were seen. The patient tolerated the procedure well. IMPRESSION: Mild ileitis with no ulcers noted, biopsied. 1 superficial descending colon ulcer. Otherwise normal-appearing colon from rectum to cecum with random biopsies taken of the right colon, transverse colon, left colon and rectum to rule out IBD. RECOMMENDATIONS: Findings of this examination were discussed with the patient. Okay to resume diet, low fiber low lactose. Continue antibiotic therapy. Await pathology from biopsies. Patient will need follow-up after discharge to review symptoms and pathology with the gastroenterology service.
[2020-03-10 14:46] VITALS: BP 113/71; PULSE 69; TEMP 97.9
--- NOTE | 2020-03-10 15:35 | P.DS ---
Providers Date of admission: 03/08/20 10:28 Expected date of discharge: 03/10/20 Attending physician: Karu Carias Consults: 03/06/20 15:13 Consult Physician Routine Consulting Provider: Pratibha Leone Consult Reason/Comments: known Do you want consulting provider notified?: Yes [facility] Course: Final diagnosis Possible enterocolitis, rule out Crohn's disease Hyponatremia, improved Hyperglycemia, resolved Seizure disorder Chronic intermittent asthma without acute exacerbation DVT prophylaxis Full code Discharge disposition Patient is being discharged in a stable condition with guarded prognosis to home. Patient will follow-up with Dr. Renee in the outpatient setting upon discharge. Patient will also follow-up with Dr. Cook in the outpatient setting for results. Patient will continue on oral antibiotics in the form of Levaquin 500 mg daily along with Flagyl 500 mg 3 times daily for the next 7 days. Patient will also continue on Protonix twice daily. Total time taken is greater than 35 minutes. History of present illness This is a 29-year-old female who was recently admitted with abdominal discomfort and was being closely monitored. Patient has been evaluated in the ER over the last few days with the same issues. Patient was seen and evaluated by GI and originally underwent EGD. Patient today underwent colonoscopy showing mild ileitis with no ulcers noticed and biopsies obtained, one superficial descending colon ulcer, otherwise normal-appearing colon from the rectum to the cecum with multiple random biopsies taken of the right colon, transverse colon, left colon and rectum to rule out IBD. Patient will be following up with GI in the outpatient setting in 10 days to 2 weeks for results. Patient was initiated on Levaquin and Flagyl and will continue on oral antibiotics in the form of Levaquin and Flagyl for the next one week. Patient will also continue on Protonix twice daily until follow-up. Patient instructed to resume low fiber low lactose diet and advance slowly as tolerated. Currently no reports of chest pain, shortness of breath, or palpitations. Patient is afebrile. No reports of nausea or vomiting and patient is tolerating diet. Patient will be discharged home today. Guarded prognosis due to multiple recent readmissions. On exam vital signs are stable. Temp is 97.9F, pulse is 69, respirations are 16, blood pressure is 113/71, oxygen saturation is 98% on room air. Cardio S1, S2 are muffled. Respiratory system shows diminished breath sounds at the bases with no wheezing or rhonchi noted. Abdomen is soft and with some mild tenderness noted. Nervous system shows no focal deficits. Please refer to medication reconciliation sheet for a list of medications. Patient Condition at Discharge: Good Plan - Discharge Summary New Discharge Prescriptions: New metroNIDAZOLE [Flagyl] 500 mg PO TID 7 Days #21 tab Levofloxacin [Levaquin] 500 mg PO DAILY 7 Days #7 tab Pantoprazole [Protonix] 40 mg PO BID 30 Days #60 tablet.dr Continue Aspirin EC [Ecotrin Low Dose] 81 mg PO DAILY Acetaminophen-Codeine 300-30mg [Tylenol w/codeine #3] 1 tab PO Q6H PRN PRN Reason: Pain Metoclopramide HCl [Reglan] 5 mg PO TID PRN #10 tablet PRN Reason: Nausea And Vomiting Sucralfate [Carafate] 1 gm PO BID 3 Days #60 ml HYDROcodone/APAP 10-325MG [[place] 10-325] 1 tab PO Q6H PRN PRN Reason: Pain Discontinued Pantoprazole Sodium [Protonix] 20 mg PO BID #60 tablet.dr Discharge Medication List Acetaminophen-Codeine 300-30mg [Tylenol w/codeine #3] 1 tab PO Q6H PRN 03/03/20 [History] Aspirin EC [Ecotrin Low Dose] 81 mg PO DAILY 03/03/20 [History] Metoclopramide HCl [Reglan] 5 mg PO TID PRN #10 tablet 03/05/20 [Rx] Sucralfate [Carafate] 1 gm PO BID 3 Days #60 ml 03/05/20 [Rx] HYDROcodone/APAP 10-325MG [[place] 10-325] 1 tab PO Q6H PRN 03/06/20 [History] Levofloxacin [Levaquin] 500 mg PO DAILY 7 Days #7 tab 03/10/20 [Rx] Pantoprazole [Protonix] 40 mg PO BID 30 Days #60 tablet. 03/10/20 [Rx] metroNIDAZOLE [Flagyl] 500 mg PO TID 7 Days #21 tab 03/10/20 [Rx] Follow up Appointment(s)/Referral(s): Kellen Renee MD [Primary Care Provider] - 1-2 days Hunter Cook MD [STAFF PHYSICIAN] - 2 Weeks Activity/Diet/Wound Care/Special Instructions: Activity Limited until follow-up follow-up with primary care provider upon discharge Continue current diet low fiber and advance slowly as tolerated after 3-4 days Encourage fluids and rest Continue with antibiotics for 1 week until finished Follow-up with GI in the outpatient setting in 10 days to 2 weeks for biopsy results Discharge Disposition: HOME SELF-CARE
--- NOTE | 2020-03-14 12:58 | CDI ---
Documentation Clarification Form Date: 03/14/20 From: Irlanda Hunt Phone: If you have a question about this query, please contact Tiesha Rothman Obstetrics Specialist at [phone] between 8am and 5pm. Admit Date: 03/08/20 Discharge Date:03/10/20 Patient Name: Nallely Viramontes Visit Number: [id number] ATTENTION: The Clinical Documentation Specialists (CDI) and [facility] Coding Staff appreciate your assistance in clarifying documentation. Please respond to the clarification below the line at the bottom and electronically sign. The CDI & [facility] Coding staff will review the response and follow-up if needed. Please note: Queries are made part of the Legal Health Record. If you have any questions, please contact the author of this message via ITS. Dear Dr. Jv richardson final diagnosis of the pathology report states: A. Terminal ileum, biopsy: mild acute ileitis with features suggestive of chronicity. B. Right colon, biopsy: benign colonic mucosa without histopathologic abnormality. C. Transverse colon, biopsy: benign colonic mucosa without histopathologic abnormality.. D. Left Colon, biopsy: benign colonic mucosa withouth histopathologic abnormality. E. Rectum, biopsy: benign colonic mucosa without histopathologic abnormality. Documentation states: Final diagnosis in the discharge summary: possible enterocolitis, rule out Crohn's disease Patient history/risk factors: GERD, Fatty liver, Seizure disorder Clinical Indicators: Abdominal pain, constipation CT Abdomen: Suspicious wall thickening involvoing the terminal ileum and the right colon above the terminal ileum. Given patient's symptoms of right lower quadrant pain a moderate enterocolitis is suspected. Differential includes infectious, inflammatory, and ischemic etiologies. In patient of this age Crohn's disease needs to be strongly considered. Treatment: Clear liquid diet, empiric IV Levaquin and IV Flagyl Consult: Dr. Leone documented - repeat CT scan during this hospitalization shows some thickening of the colon and terminal ileum suspicious for IBD versus infectious colitis In your professional opinion, can you clarify the following? Crohn's Ruled In (please specify location): Crohn's Ruled Out Other (please specify) Unable to determine Unable to determine MTDD
== END 2020-03-10 18:12 | disposition home or self-care (01) | DRG 386 ==
LOC: EC 12:30 → 1SOBS 15:13 → OBSVTOIN 03-08 10:28
PROVIDERS: ADMIT Hospitalist; ATTEND Hospitalist
PROC: 0DBF8ZX Excision of Right Large Intestine, Via Natural or Artificial Opening Endoscopic, Diagnostic (ICD-10-PCS; principal; 2020-03-10 07:45)
DX: K50.90 Crohn's disease, unspecified, without complications (principal); E87.1 Hypo-osmolality and hyponatremia; K63.3 Ulcer of intestine; K52.9 Noninfective gastroenteritis and colitis, unspecified; K76.0 Fatty (change of) liver, not elsewhere classified; F41.0 Panic disorder [episodic paroxysmal anxiety]; F31.9 Bipolar disorder, unspecified; F43.10 Post-traumatic stress disorder, unspecified; G40.909 Epilepsy, unspecified, not intractable, without status epilepticus; J45.20 Mild intermittent asthma, uncomplicated; K21.0 Gastro-esophageal reflux disease with esophagitis; K59.00 Constipation, unspecified; R73.9 Hyperglycemia, unspecified; N28.9 Disorder of kidney and ureter, unspecified; H52.209 Unspecified astigmatism, unspecified eye; Z79.82 Long term (current) use of aspirin; Z79.899 Other long term (current) drug therapy; Z88.5 Allergy status to narcotic agent; Z88.8 Allergy status to other drugs, medicaments and biological substances; Z87.891 Personal history of nicotine dependence; Z87.01 Personal history of pneumonia (recurrent); Z87.440 Personal history of urinary (tract) infections; Z87.442 Personal history of urinary calculi; Z86.32 Personal history of gestational diabetes; Z98.51 Tubal ligation status; Z98.890 Other specified postprocedural states; Z80.1 Family history of malignant neoplasm of trachea, bronchus and lung; Z82.0 Family history of epilepsy and other diseases of the nervous system; Z82.49 Family history of ischemic heart disease and other diseases of the circulatory system; Z82.5 Family history of asthma and other chronic lower respiratory diseases; Z84.1 Family history of disorders of kidney and ureter
CPT/HCPCS: 36415; 45380; 74177; 76705; 80048; 80053; 81001; 82150; 82272; 82550; 83605; 83630; 83690; 85025; 85652; 86140; 87045; 87046; 87324; 88305; 96361; 96374; 96375; 96376; 99285

== ENCOUNTER 2020-03-23 14:12 | Emergency (ER) | payer OTHER ==
[2020-03-23] MEDS ORDERED: SODIUM CHLORIDE 0.9% 1,000 ML IV STA (14:30)
[2020-03-23] MEDS ORDERED: PANTOPRAZOLE 40 MG/10 ML VIAL IVP STA (14:31)
--- NOTE | 2020-03-23 14:31 | ED ---
Abdominal Pain HPI - General Chief Complaint: Abdominal Pain Stated Complaint: Abd Pain Time Seen by Provider: 03/23/20 14:25 Source: patient Mode of arrival: ambulatory Limitations: no limitations - History of Present Illness Initial Comments: Patient is a 29-year-old female history of gastroparesis and recently diagnosed Crohn's presenting to the emergency department with a chief complaint of epigastric abdominal pain. Patient states she was admitted in the hospital recently and had multiple scans along with upper and lower GI scope. It was determined the patient has Crohn disease. Patient reports she was treated for her symptoms and discharged. Patient reports that yesterday she developed epigastric abdominal pain which is typical for her during her flareups of Crohn's. Patient also reports 1 episode of diarrhea. States she's not been able to eat any food today. She does report nausea but no vomiting. Denies any hematuria, hematochezia or melena. Denies any night sweats fevers or chills. Denies any chest pain or shortness of breath. Denies urinary or vaginal symptoms. - Related Data Home Medications Medication Instructions Recorded Confirmed Acetaminophen-Codeine 300-30mg 1 tab PO Q6H PRN 03/03/20 03/06/20 [Tylenol w/codeine #3] Aspirin EC [Ecotrin Low Dose] 81 mg PO DAILY 03/03/20 03/06/20 HYDROcodone/APAP 10-325MG [[place] 1 tab PO Q6H PRN 03/06/20 03/06/20 10-325] Previous Rx's Medication Instructions Recorded Metoclopramide HCl [Reglan] 5 mg PO TID PRN #10 tablet 03/05/20 Sucralfate [Carafate] 1 gm PO BID 3 Days #60 ml 03/05/20 Levofloxacin [Levaquin] 500 mg PO DAILY 7 Days #7 tab 03/10/20 Pantoprazole [Protonix] 40 mg PO BID 30 Days #60 tablet. 03/10/20 metroNIDAZOLE [Flagyl] 500 mg PO TID 7 Days #21 tab 03/10/20 Ondansetron Odt [Zofran Odt] 4 mg PO Q8HR PRN #20 tab 03/23/20 Allergies Allergy/AdvReac Type Severity Reaction Status Date / Time morphine Allergy Rash/Hives Verified 03/23/20 14:21 apple AdvReac Intermediate Itching Verified 03/23/20 14:21 adhesive tape AdvReac Mild Itching Verified 03/23/20 14:21 sumatriptan [From Imitrex] AdvReac Makes Verified 03/23/20 14:21 Migraine Worse/Dizziness sumatriptan succinate AdvReac Makes Verified 03/23/20 14:21 [From Imitrex] Migraine Worse/Dizziness Review of Systems ROS Statement: Those systems with pertinent positive or pertinent negative responses have been documented in the HPI. ROS Other: All systems not noted in ROS Statement are negative. 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 History of Any Multi-Drug Resistant Organisms: None Reported Date of last positivie culture/infection: 2010 MDRO Source:: foot Past Surgical History: Section, Tubal Ligation Additional Past Surgical History / Comment(s): c sect x 4 Past Anesthesia/Blood Transfusion Reactions: No Reported Reaction Past Psychological History: Anxiety, Bipolar, Depression, Panic Disorder, PTSD Smoking Status: Former smoker, Vaper Past Alcohol Use History: None Reported Past Drug Use History: None Reported - Past Family History Father Family Medical History: Cancer, COPD, Hypertension Additional Family Medical History / Comment(s): Lung cancer Mother Family Medical History: COPD, Renal Disease, Seizure Disorder Additional Family Medical History / Comment(s): bronchitis, back problems. General Exam Limitations: no limitations General appearance: alert, in no apparent distress, obese Head exam: Present: atraumatic, normocephalic, normal inspection Eye exam: Present: normal appearance, PERRL, EOMI Pupils: Present: normal accommodation ENT exam: Present: normal exam, normal oropharynx, mucous membranes moist, TM's normal bilaterally, normal external ear exam Neck exam: Present: normal inspection, full ROM. Absent: tenderness Respiratory exam: Present: normal lung sounds bilaterally. Absent: respiratory distress, wheezes, rales Cardiovascular Exam: Present: regular rate, normal rhythm, normal heart sounds GI/Abdominal exam: Present: soft, tenderness (Epigastric tenderness), normal bowel sounds. Absent: distended, guarding, rebound, rigid Extremities exam: Present: normal inspection, full ROM. Absent: tenderness Back exam: Present: normal inspection, full ROM. Absent: tenderness, CVA tenderness (R), CVA tenderness (L) Neurological exam: Present: alert, oriented X3, normal gait Psychiatric exam: Present: normal affect, normal mood Skin exam: Present: warm, dry, intact, normal color Course Vital Signs 03/23/20 03/23/20 03/23/20 14:19 17:08 17:25 Temperature 98.3 F 98.0 F Pulse Rate 80 87 Respiratory 18 16 Rate Blood Pressure 149/93 155/109 126/99 O2 Sat by Pulse 100 99 Oximetry Medical Decision Making - Medical Decision Making Patient is 29-year-old female with history of recently diagnosed Crohn's a gastroparesis presenting to the emergency department with chief complaint of epigastric abdominal pain. She states this is her typical therapy and is only looking for symptomatically control. On exam patient does have some epigastric abdominal pain. Patient was given antiemetics, IV fluids and analgesia. Reevaluation patient reports improvement in her symptoms. CBC CMP and UA are unremarkable. Patient is not , tubal ligation. Patient is requesting Zofran to go home with and she was given 20 tablets. Patient also given Tylenol 3 starter pack. I do not drive or operative heavy machinery when taking medication. Strict return parameters were thoroughly discussed the patient was understanding agreeable. Case discussed with physician. - Lab Data Result diagrams: 03/23/20 15:30 03/23/20 15:30 Lab Results 03/23/20 03/23/20 03/23/20 Range/Units 15:30 15:30 15:30 WBC 9.1 (3.8-10.6) k/uL RBC 4.83 (3.80-5.40) m/uL Hgb 14.2 (11.4-16.0) gm/dL Hct 43.2 (34.0-46.0) % MCV 89.3 (80.0-100.0) fL MCH 29.3 (25.0-35.0) pg MCHC 32.8 (31.0-37.0) g/dL RDW 14.0 (11.5-15.5) % Plt Count 354 (150-450) k/uL Neutrophils % 56 % Lymphocytes % 37 % Monocytes % 5 % Eosinophils % 1 % Basophils % 1 % Neutrophils # 5.1 (1.3-7.7) k/uL Lymphocytes # 3.3 (1.0-4.8) k/uL Monocytes # 0.4 (0-1.0) k/uL Eosinophils # 0.1 (0-0.7) k/uL Basophils # 0.1 (0-0.2) k/uL Sodium 139 (137-145) mmol/L Potassium 4.2 (3.5-5.1) mmol/L Chloride 104 (98-107) mmol/L Carbon Dioxide 24 (22-30) mmol/L Anion Gap 11 mmol/L BUN 7 (7-17) mg/dL Creatinine 0.89 (0.52-1.04) mg/dL Est GFR (CKD-EPI)AfAm >90 (>60 ml/min/1.73 sqM) Est GFR (CKD-EPI)NonAf 88 (>60 ml/min/1.73 sqM) Glucose 91 (74-99) mg/dL Calcium 10.0 (8.4-10.2) mg/dL Total Bilirubin 0.8 (0.2-1.3) mg/dL AST 28 (14-36) U/L ALT 25 (4-34) U/L Alkaline Phosphatase 76 (38-126) U/L Total Protein 7.9 (6.3-8.2) g/dL Albumin 4.8 (3.5-5.0) g/dL Amylase 63 (30-110) U/L Lipase 94 (23-300) U/L Urine Color Yellow Urine Appearance Cloudy H (Clear) Urine pH 6.0 (5.0-8.0) Ur Specific [place] 1.021 (1.001-1.035) Urine Protein Trace H (Negative) Urine Glucose (UA) Negative (Negative) Urine Ketones Negative (Negative) Urine Blood Trace H (Negative) Urine Nitrite Negative (Negative) Urine Bilirubin Negative (Negative) Urine Urobilinogen <2.0 (<2.0) mg/dL Ur Leukocyte Esterase Negative (Negative) Urine RBC 3 (0-5) /hpf Urine WBC 3 (0-5) /hpf Ur Squamous Epith Cells 5 H (0-4) /hpf Urine Mucus Many H (None) /hpf - EKG Data EKG Comments: Sinus arrhythmia. A regular rate 73, ME 154, QRS 92, QTC 451. Disposition Clinical Impression: Abdominal pain Disposition: HOME SELF-CARE Condition: Good Instructions (If sedation given, give patient instructions): Abdominal Pain (ED) Additional Instructions: Follow with her primary care physician. Return to emergency department if symptoms worsen. Prescriptions: Ondansetron Odt [Zofran Odt] 4 mg PO Q8HR PRN #20 tab PRN Reason: Nausea Is patient prescribed a controlled substance at d/c from ED?: No Referrals: Klelen Renee MD [Primary Care Provider] - 1-2 days Time of Disposition: 16:51
[2020-03-23] MEDS ORDERED: ONDANSETRON 4 MG/2 ML VIAL IVP STA (14:37)
[2020-03-23] MEDS ORDERED: HYDROmorphone 1 MG/ML 1 ML SYRINGE IVP STA (14:37)
[2020-03-23] MEDS ORDERED: MAG HYDROX/AL HYDROX/SIMETH 30 ML, HYOSCYAMINE ELIXIR 10 ML, LIDOCAINE VISCOUS 2% 10 ML PO STA ×3 (14:37)
[2020-03-23 15:53] LABS: Basophils # (A) 0.1 k/uL (0-0.2); Basophils % (A) 1 %; Eosinophils # (A) 0.1 k/uL (0-0.7); Eosinophils % (A) 1 %; HCT 43.2 % (34.0-46.0); HGB 14.2 gm/dL (11.4-16.0); Lymphocytes # (A) 3.3 k/uL (1.0-4.8); Lymphocytes % (A) 37 %; MCH 29.3 pg (25.0-35.0); MCHC 32.8 g/dL (31.0-37.0); MCV 89.3 fL (80.0-100.0); Mean Platelet Volume 7.6; Monocytes # (A) 0.4 k/uL (0-1.0); Monocytes % (A) 5 %; Neutrophils # (A) 5.1 k/uL (1.3-7.7); Neutrophils % (A) 56 %; Platelet Count 354 k/uL (150-450); RBC 4.83 m/uL (3.80-5.40); WBC 9.1 k/uL (3.8-10.6)
[2020-03-23 16:02] LABS: ALT 25 U/L (4-34); AST 28 U/L (14-36); African American GFR (CKD) >90 (>60 ml/min/1.73 sqM); Albumin 4.8 g/dL (3.5-5.0); Alkaline Phosphatase 76 U/L (38-126); Amylase 63 U/L (30-110); Anion Gap 11 mmol/L; Appearance,Urine Cloudy (Clear); Bilirubin,Urine Negative (Negative); Blood Urea Nitrogen 7 mg/dL (7-17); Blood,Urine Trace (Negative); Carbon Dioxide 24 mmol/L (22-30); Chloride 104 mmol/L (98-107); Color,Urine Yellow; Glucose 91 mg/dL (74-99); Glucose,Urine (UA) Negative (Negative); Ketones,Urine Negative (Negative); Leukocyte Esterase,Urine Negative (Negative); Mucus,Urine Many /hpf; Nitrite,Urine Negative (Negative); Non-African American GFR(CKD) 88 (>60 ml/min/1.73 sqM); Potassium 4.2 mmol/L (3.5-5.1); Protein,Urine Trace (Negative); RBC,Urine 3 /hpf (0-5); Sodium 139 mmol/L (137-145); Specific Gravity,Urine 1.021 (1.001-1.035); Squamous Epithelial Cell,Urine 5 /hpf (0-4); Total Bilirubin 0.8 mg/dL (0.2-1.3); Total Protein 7.9 g/dL (6.3-8.2); Urobilinogen,Urine <2.0 mg/dL (<2.0); WBC,Urine 3 /hpf (0-5)
[2020-03-23] MEDS ORDERED: HYDROmorphone 0.5 MG/0.5 ML SYRINGE IVP STA (16:50)
[2020-03-23] MEDS ORDERED: ACET/COD 300 MG/30 MG STARTER PACK 6 TAB BTL PO STA (16:50)
[2020-03-23 17:10] VITALS: PULSE 87; RESP 16; TEMP 98
[2020-03-23 17:26] VITALS: BP 126/99
== END 2020-03-23 17:25 | disposition home or self-care (01) ==
LOC: EC 14:12
DX: R10.13 Epigastric pain (principal); Z79.82 Long term (current) use of aspirin; Z88.5 Allergy status to narcotic agent; Z91.048 Other nonmedicinal substance allergy status; Z91.018 Allergy to other foods; Z88.8 Allergy status to other drugs, medicaments and biological substances; Z87.891 Personal history of nicotine dependence; Z98.51 Tubal ligation status
CPT/HCPCS: 36415; 93005; 80053; 82150; 83690; 85025; 81001; 99284; 96374; 96375 ×2; 96376; 96361; J2405; J1170 ×2; C9113

== ENCOUNTER 2020-03-23 20:49 | Emergency (ER) | payer OTHER ==
[2020-03-23 21:22] VITALS: RESP 16
[2020-03-23] MEDS ORDERED: SODIUM CHLORIDE 0.9% 1,000 ML IV STA (21:28)
[2020-03-23] MEDS ORDERED: LORazepam 2 MG/ML INJ IV STA (21:28)
[2020-03-23 21:54] LABS: Basophils % (A) 0 %; Eosinophils # (A) 0.1 k/uL (0-0.7); Eosinophils % (A) 1 %; HCT 39.1 % (34.0-46.0); HGB 12.7 gm/dL (11.4-16.0); Lymphocytes # (A) 3.5 k/uL (1.0-4.8); Lymphocytes % (A) 37 %; MCH 29.2 pg (25.0-35.0); MCHC 32.5 g/dL (31.0-37.0); MCV 89.9 fL (80.0-100.0); Mean Platelet Volume 7.6; Monocytes # (A) 0.5 k/uL (0-1.0); Monocytes % (A) 5 %; Neutrophils # (A) 5.3 k/uL (1.3-7.7); Neutrophils % (A) 56 %; Platelet Count 343 k/uL (150-450); RBC 4.35 m/uL (3.80-5.40); RDW 13.9 % (11.5-15.5); WBC 9.5 k/uL (3.8-10.6)
[2020-03-23 22:04] LABS: ALT 20 U/L (4-34); AST 25 U/L (14-36); African American GFR (CKD) >90 (>60 ml/min/1.73 sqM); Albumin 4.1 g/dL (3.5-5.0); Alcohol <10 mg/dL; Alkaline Phosphatase 59 U/L (38-126); Anion Gap 11 mmol/L; Blood Urea Nitrogen 8 mg/dL (7-17); Calcium 9.1 mg/dL (8.4-10.2); Carbon Dioxide 22 mmol/L (22-30); Chloride 106 mmol/L (98-107); Glucose 98 mg/dL (74-99); Non-African American GFR(CKD) 82 (>60 ml/min/1.73 sqM); Potassium 3.7 mmol/L (3.5-5.1); Sodium 139 mmol/L (137-145); Total Bilirubin 0.5 mg/dL (0.2-1.3); Total Protein 6.8 g/dL (6.3-8.2)
--- NOTE | 2020-03-23 22:18 | ED ---
General Adult HPI - General Chief complaint: Neuro Symptoms/Deficit Stated complaint: Seizure Time Seen by Provider: 03/23/20 21:27 Source: patient, EMS Mode of arrival: EMS Limitations: no limitations - History of Present Illness Initial comments: Nallely is a 29-year-old female who was seen earlier today for intractable abdominal pain secondary to Crohn's. Patient returns to the ER this evening reporting that due to the stress of the pain she is having seizures. She states that she only has seizures when she is stressed out, she does not follow with a neurologist she is not taking any antiepileptic medications. - Related Data Home Medications Medication Instructions Recorded Confirmed Acetaminophen-Codeine 300-30mg 1 tab PO Q6H PRN 03/03/20 03/06/20 [Tylenol w/codeine #3] Aspirin EC [Ecotrin Low Dose] 81 mg PO DAILY 03/03/20 03/06/20 HYDROcodone/APAP 10-325MG [[place] 1 tab PO Q6H PRN 03/06/20 03/06/20 10-325] Previous Rx's Medication Instructions Recorded Metoclopramide HCl [Reglan] 5 mg PO TID PRN #10 tablet 03/05/20 Sucralfate [Carafate] 1 gm PO BID 3 Days #60 ml 03/05/20 Levofloxacin [Levaquin] 500 mg PO DAILY 7 Days #7 tab 03/10/20 Pantoprazole [Protonix] 40 mg PO BID 30 Days #60 tablet. 03/10/20 metroNIDAZOLE [Flagyl] 500 mg PO TID 7 Days #21 tab 03/10/20 Ondansetron Odt [Zofran Odt] 4 mg PO Q8HR PRN #20 tab 03/23/20 Allergies Allergy/AdvReac Type Severity Reaction Status Date / Time morphine Allergy Rash/Hives Verified 03/23/20 14:21 apple AdvReac Intermediate Itching Verified 03/23/20 14:21 adhesive tape AdvReac Mild Itching Verified 03/23/20 14:21 sumatriptan [From Imitrex] AdvReac Makes Verified 03/23/20 14:21 Migraine Worse/Dizziness sumatriptan succinate AdvReac Makes Verified 03/23/20 14:21 [From Imitrex] Migraine Worse/Dizziness Review of Systems ROS Statement: Those systems with pertinent positive or pertinent negative responses have been documented in the HPI. ROS Other: All systems not noted in ROS Statement are negative. 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 History of Any Multi-Drug Resistant Organisms: None Reported Date of last positivie culture/infection: 2010 MDRO Source:: foot Past Surgical History: Section, Tubal Ligation Additional Past Surgical History / Comment(s): c sect x 4 Past Anesthesia/Blood Transfusion Reactions: No Reported Reaction Past Psychological History: Anxiety, Bipolar, Depression, Panic Disorder, PTSD Smoking Status: Former smoker, Vaper Past Alcohol Use History: None Reported Past Drug Use History: None Reported - Past Family History Father Family Medical History: Cancer, COPD, Hypertension Additional Family Medical History / Comment(s): Lung cancer Mother Family Medical History: COPD, Renal Disease, Seizure Disorder Additional Family Medical History / Comment(s): bronchitis, back problems. General Exam - General Exam Comments Initial Comments: Physical Exam GENERAL: Patient is well-developed and well-nourished. Patient is nontoxic and well-hydrated and is in no distress. HENT: Normocephalic, Atraumatic. EYES: PERRL, EOMI PULMONARY: Unlabored respirations. No audible rales rhonchi or wheezing was noted. CARDIOVASCULAR: There is a regular rate and rhythm without any murmurs gallops or rubs. ABDOMEN: Mild tenderness to palpation in all quadrants SKIN: Skin is clear with no lesions or rashes and otherwise unremarkable. : Deferred NEUROLOGIC: Patient is alert and oriented x3. Moving all extremities spontaneously MUSCULOSKELETAL: Normal extremities with adequate strength and full range of motion. No lower extremity swelling or edema. No calf tenderness. PSYCHIATRIC: Normal psychiatric evaluation. Limitations: no limitations Course Vital Signs 03/23/20 21:11 Pulse Rate 68 Respiratory 16 Rate Blood Pressure 122/96 O2 Sat by Pulse 99 Oximetry EKG Findings - EKG Comments: EKG Findings:: EKG was obtained due to seizures, EKG was obtained at 2120, rate is 60 rhythm is sinus with sinus arrhythmia, normal axis, normal intervals [place] 144 QRS 96 Q[address] elevations or depressions no evidence of acute ischemia or infarction Medical Decision Making - Medical Decision Making Is called to the room to evaluate the patient for possible seizure-like activity, upon my arrival the patient was lying in bed not moving not responding vital signs were stable, patient was noted to roll her eyes. As soon as this activity stopped the patient immediately began speaking asking if her dog was okay patient had no postictal period. This is not consistent with typical seizures. Labs were again normal, patient was sitting up comfortably in the emergency department stated that she had abdominal pain, stated that her pain resolved with Dilaudid in the ER earlier she had not taken any Tylenol threes at home. She requesting Dilaudid. I advised the patient she can take her Tylenol threes she is not nauseated or vomiting. At this time patient's comfortable with the plan for discharge home for pain management. - Lab Data Result diagrams: 03/23/20 21:36 03/23/20 21:36 Lab Results 03/23/20 03/23/20 03/23/20 Range/Units 21:36 21:36 21:36 WBC 9.5 (3.8-10.6) k/uL RBC 4.35 (3.80-5.40) m/uL Hgb 12.7 (11.4-16.0) gm/dL Hct 39.1 (34.0-46.0) % MCV 89.9 (80.0-100.0) fL MCH 29.2 (25.0-35.0) pg MCHC 32.5 (31.0-37.0) g/dL RDW 13.9 (11.5-15.5) % Plt Count 343 (150-450) k/uL Neutrophils % 56 % Lymphocytes % 37 % Monocytes % 5 % Eosinophils % 1 % Basophils % 0 % Neutrophils # 5.3 (1.3-7.7) k/uL Lymphocytes # 3.5 (1.0-4.8) k/uL Monocytes # 0.5 (0-1.0) k/uL Eosinophils # 0.1 (0-0.7) k/uL Basophils # 0.0 (0-0.2) k/uL Sodium 139 (137-145) mmol/L Potassium 3.7 (3.5-5.1) mmol/L Chloride 106 (98-107) mmol/L Carbon Dioxide 22 (22-30) mmol/L Anion Gap 11 mmol/L BUN 8 (7-17) mg/dL Creatinine 0.95 (0.52-1.04) mg/dL Est GFR (CKD-EPI)AfAm >90 (>60 ml/min/1.73 sqM) Est GFR (CKD-EPI)NonAf 82 (>60 ml/min/1.73 sqM) Glucose 98 (74-99) mg/dL Calcium 9.1 (8.4-10.2) mg/dL Total Bilirubin 0.5 (0.2-1.3) mg/dL AST 25 (14-36) U/L ALT 20 (4-34) U/L Alkaline Phosphatase 59 (38-126) U/L Total Protein 6.8 (6.3-8.2) g/dL Albumin 4.1 (3.5-5.0) g/dL Urine Color Yellow Urine Appearance Cloudy H (Clear) Urine pH 5.5 (5.0-8.0) Ur Specific [place] 1.026 (1.001-1.035) Urine Protein Trace H (Negative) Urine Glucose (UA) Negative (Negative) Urine Ketones Negative (Negative) Urine Blood Moderate H (Negative) Urine Nitrite Negative (Negative) Urine Bilirubin Negative (Negative) Urine Urobilinogen <2.0 (<2.0) mg/dL Ur Leukocyte Esterase Negative (Negative) Urine RBC 52 H (0-5) /hpf Urine WBC 3 (0-5) /hpf Ur Squamous Epith Cells 35 H (0-4) /hpf Urine Bacteria Rare H (None) /hpf Hyaline Casts 4 H (0-2) /lpf Urine Mucus Many H (None) /hpf Serum Alcohol <10 mg/dL Disposition Clinical Impression: Abdominal pain, Pseudoseizure Disposition: HOME SELF-CARE Condition: Stable Additional Instructions: Take the tylenol #3 for pain Return to the ER for any worsening or development of new or concerning symptoms Is patient prescribed a controlled substance at d/c from ED?: No Referrals: Kellen Renee MD [Primary Care Provider] - 1-2 days
[2020-03-23 23:11] LABS: Appearance,Urine Cloudy (Clear); Bacteria,Urine Rare /hpf; Bilirubin,Urine Negative (Negative); Blood,Urine Moderate (Negative); Color,Urine Yellow; Glucose,Urine (UA) Negative (Negative); Hyaline Casts,Urine 4 /lpf (0-2); Ketones,Urine Negative (Negative); Leukocyte Esterase,Urine Negative (Negative); Mucus,Urine Many /hpf; Nitrite,Urine Negative (Negative); PH, Urine 5.5 (5.0-8.0); Protein,Urine Trace (Negative); RBC,Urine 52 /hpf (0-5); Specific Gravity,Urine 1.026 (1.001-1.035); Squamous Epithelial Cell,Urine 35 /hpf (0-4); Urobilinogen,Urine <2.0 mg/dL (<2.0); WBC,Urine 3 /hpf (0-5)
[2020-03-23 23:18] LABS: Amphetamine Screen,Urine Not Detected (NotDetected); Barbiturate Screen,Urine Not Detected (NotDetected); Benzodiazepines Screen,Urine Not Detected (NotDetected); Cocaine Screen,Urine Not Detected (NotDetected); Methadone Screen, Urine Not Detected (NotDetected); Opiate Screen,Urine Detected (NotDetected); Oxycodone Screen, Urine Not Detected (NotDetected); Phencyclidine Screen,Urine Not Detected (NotDetected); Tricyclic Antidepressant,Urine Not Detected (NotDetected); Urn Cannabinoid Scrn Not Detected (NotDetected)
[2020-03-23 23:19] VITALS: BP 127/81; PULSE 77
== END 2020-03-23 23:11 | disposition home or self-care (01) ==
LOC: EC 20:49
DX: R10.9 Unspecified abdominal pain (principal); G40.89 Other seizures; Z79.82 Long term (current) use of aspirin; Z88.5 Allergy status to narcotic agent; Z91.018 Allergy to other foods; Z91.048 Other nonmedicinal substance allergy status; Z88.8 Allergy status to other drugs, medicaments and biological substances; Z98.51 Tubal ligation status; Z87.891 Personal history of nicotine dependence
CPT/HCPCS: 99284 ×2; 96374 ×2; 96361 ×3; 96376; 96375; 36415; 93005; 80053; 82150; 83690; 85025; 81001; 80306; G0480; J2060; J2405; J1170 ×2; C9113; 80320

== ENCOUNTER 2020-03-25 06:16 | Emergency (ER) | payer OTHER ==
[2020-03-25 06:23] VITALS: BP 139/91; PULSE 88; RESP 18; TEMP 98.4
[2020-03-25] MEDS ORDERED: SODIUM CHLORIDE 0.9% 1,000 ML IV STA (06:42)
[2020-03-25 07:04] LABS: Basophils % (A) 0 %; Eosinophils # (A) 0.1 k/uL (0-0.7); Eosinophils % (A) 1 %; HCT 38.4 % (34.0-46.0); HGB 12.5 gm/dL (11.4-16.0); Lymphocytes % (A) 34 %; MCH 29.3 pg (25.0-35.0); MCHC 32.5 g/dL (31.0-37.0); Mean Platelet Volume 7.5; Monocytes # (A) 0.4 k/uL (0-1.0); Monocytes % (A) 6 %; Neutrophils # (A) 3.4 k/uL (1.3-7.7); Neutrophils % (A) 57 %; Platelet Count 307 k/uL (150-450); RBC 4.27 m/uL (3.80-5.40); WBC 5.9 k/uL (3.8-10.6)
--- NOTE | 2020-03-25 07:07 | ED ---
General Adult HPI - General Chief complaint: Seizure Stated complaint: Abd pain, seizure Time Seen by Provider: 03/25/20 06:31 Source: patient, RN notes reviewed Mode of arrival: ambulatory Limitations: no limitations - History of Present Illness Initial comments: 29-year-old female presents emergency Department with chief complaint of chronic abdominal pain, stress-induced seizures. Patient had multiple conversations and recent ER visits for similar complaints. Patient states not worse it's been. She states she just ongoing. She doesn't appointment tomorrow with her PCP. Patient scheduled for MRI and then the month. Patient that she's had c olonoscopies by Dr. Leone. Patient states that she's they are working her up for possible Crohn's. Patient does take multiple medications for GERD and an EGD recently which showed evidence of gastritis type changes. Patient was continued on Protonix. Patient has fever, chills, change in bowel habits including diarrhea constipation melena or hematochezia. Patient denies any dysuria hematuria denies any chance . - Related Data Home Medications Medication Instructions Recorded Confirmed Acetaminophen-Codeine 300-30mg 1 tab PO Q6H PRN 03/03/20 03/06/20 [Tylenol w/codeine #3] Aspirin EC [Ecotrin Low Dose] 81 mg PO DAILY 03/03/20 03/06/20 HYDROcodone/APAP 10-325MG [[place] 1 tab PO Q6H PRN 03/06/20 03/06/20 10-325] Previous Rx's Medication Instructions Recorded Metoclopramide HCl [Reglan] 5 mg PO TID PRN #10 tablet 03/05/20 Sucralfate [Carafate] 1 gm PO BID 3 Days #60 ml 03/05/20 Levofloxacin [Levaquin] 500 mg PO DAILY 7 Days #7 tab 03/10/20 Pantoprazole [Protonix] 40 mg PO BID 30 Days #60 tablet. 03/10/20 metroNIDAZOLE [Flagyl] 500 mg PO TID 7 Days #21 tab 03/10/20 Ondansetron Odt [Zofran Odt] 4 mg PO Q8HR PRN #20 tab 03/23/20 Allergies Allergy/AdvReac Type Severity Reaction Status Date / Time morphine Allergy Rash/Hives Verified 03/25/20 06:22 apple AdvReac Intermediate Itching Verified 03/25/20 06:22 adhesive tape AdvReac Mild Itching Verified 03/25/20 06:22 sumatriptan [From Imitrex] AdvReac Makes Verified 03/25/20 06:22 Migraine Worse/Dizziness sumatriptan succinate AdvReac Makes Verified 03/25/20 06:22 [From Imitrex] Migraine Worse/Dizziness Review of Systems ROS Statement: Those systems with pertinent positive or pertinent negative responses have been documented in the HPI. ROS Other: All systems not noted in ROS Statement are negative. 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 History of Any Multi-Drug Resistant Organisms: None Reported Date of last positivie culture/infection: 2010 MDRO Source:: foot Past Surgical History: Section, Tubal Ligation Additional Past Surgical History / Comment(s): c sect x 4 Past Anesthesia/Blood Transfusion Reactions: No Reported Reaction Past Psychological History: Anxiety, Bipolar, Depression, Panic Disorder, PTSD Smoking Status: Former smoker, Vaper Past Alcohol Use History: None Reported Past Drug Use History: None Reported - Past Family History Father Family Medical History: Cancer, COPD, Hypertension Additional Family Medical History / Comment(s): Lung cancer Mother Family Medical History: COPD, Renal Disease, Seizure Disorder Additional Family Medical History / Comment(s): bronchitis, back problems. General Exam Limitations: no limitations General appearance: alert, in no apparent distress Head exam: Present: atraumatic, normocephalic, normal inspection Neck exam: Present: normal inspection. Absent: tenderness, meningismus, lymphadenopathy Respiratory exam: Present: normal lung sounds bilaterally. Absent: respiratory distress, wheezes, rales, rhonchi, stridor Cardiovascular Exam: Present: regular rate, normal rhythm, normal heart sounds. Absent: systolic murmur, diastolic murmur, rubs, gallop, clicks GI/Abdominal exam: Present: soft, tenderness (Mild to moderate mid abdominal tenderness), normal bowel sounds. Absent: distended, guarding, rebound, rigid Back exam: Absent: CVA tenderness (R), CVA tenderness (L) Neurological exam: Present: alert, oriented X3 Skin exam: Present: warm, dry, intact, normal color. Absent: rash Course Vital Signs 03/25/20 06:21 Temperature 98.4 F Pulse Rate 88 Respiratory 18 Rate Blood Pressure 139/91 O2 Sat by Pulse 98 Oximetry Medical Decision Making - Medical Decision Making Patient's stated that she does not want to be here if she is not intact Dilaudid for her chronic abdominal pain. Patient is requesting to leave against advice as she just needs pain meds. - Lab Data Result diagrams: 03/25/20 06:50 03/25/20 06:50 Lab Results 03/25/20 03/25/20 Range/Units 06:50 06:50 WBC 5.9 (3.8-10.6) k/uL RBC 4.27 (3.80-5.40) m/uL Hgb 12.5 (11.4-16.0) gm/dL Hct 38.4 (34.0-46.0) % MCV 90.0 (80.0-100.0) fL MCH 29.3 (25.0-35.0) pg MCHC 32.5 (31.0-37.0) g/dL RDW 14.0 (11.5-15.5) % Plt Count 307 (150-450) k/uL Neutrophils % 57 % Lymphocytes % 34 % Monocytes % 6 % Eosinophils % 1 % Basophils % 0 % Neutrophils # 3.4 (1.3-7.7) k/uL Lymphocytes # 2.0 (1.0-4.8) k/uL Monocytes # 0.4 (0-1.0) k/uL Eosinophils # 0.1 (0-0.7) k/uL Basophils # 0.0 (0-0.2) k/uL Sodium 139 (137-145) mmol/L Potassium 3.8 (3.5-5.1) mmol/L Chloride 103 (98-107) mmol/L Carbon Dioxide 25 (22-30) mmol/L Anion Gap 11 mmol/L BUN 9 (7-17) mg/dL Creatinine 0.94 (0.52-1.04) mg/dL Est GFR (CKD-EPI)AfAm >90 (>60 ml/min/1.73 sqM) Est GFR (CKD-EPI)NonAf 82 (>60 ml/min/1.73 sqM) Glucose 95 (74-99) mg/dL Calcium 9.4 (8.4-10.2) mg/dL Total Bilirubin 0.4 (0.2-1.3) mg/dL AST 25 (14-36) U/L ALT 21 (4-34) U/L Alkaline Phosphatase 71 (38-126) U/L Total Protein 7.1 (6.3-8.2) g/dL Albumin 4.3 (3.5-5.0) g/dL Disposition Clinical Impression: Chronic abdominal pain Disposition: Left Against Medical Advice Referrals: Kellen Renee MD [Primary Care Provider] - 1-2 days
[2020-03-25 07:18] LABS: ALT 21 U/L (4-34); AST 25 U/L (14-36); African American GFR (CKD) >90 (>60 ml/min/1.73 sqM); Albumin 4.3 g/dL (3.5-5.0); Alkaline Phosphatase 71 U/L (38-126); Anion Gap 11 mmol/L; Blood Urea Nitrogen 9 mg/dL (7-17); Calcium 9.4 mg/dL (8.4-10.2); Carbon Dioxide 25 mmol/L (22-30); Chloride 103 mmol/L (98-107); Glucose 95 mg/dL (74-99); Non-African American GFR(CKD) 82 (>60 ml/min/1.73 sqM); Potassium 3.8 mmol/L (3.5-5.1); Sodium 139 mmol/L (137-145); Total Bilirubin 0.4 mg/dL (0.2-1.3); Total Protein 7.1 g/dL (6.3-8.2)
[2020-03-25] MEDS ORDERED: ONDANSETRON 4 MG/2 ML VIAL IVP STA (07:31)
[2020-03-25] MEDS ORDERED: ACETAMINOPHEN TAB 325 MG TAB PO STA (07:31)
== END 2020-03-25 07:48 | disposition left against medical advice (07) ==
LOC: EC 06:16
DX: G89.29 Other chronic pain (principal); R10.9 Unspecified abdominal pain; Z79.82 Long term (current) use of aspirin; Z88.5 Allergy status to narcotic agent; Z91.018 Allergy to other foods; Z91.048 Other nonmedicinal substance allergy status; Z88.8 Allergy status to other drugs, medicaments and biological substances; Z87.891 Personal history of nicotine dependence; Z98.51 Tubal ligation status; Z53.29 Procedure and treatment not carried out because of patient's decision for other reasons
CPT/HCPCS: 36415; 93005; 80053; 85025; 99284; 96374; 96361; J2405

== ENCOUNTER 2020-03-27 22:54 | Emergency (ER) | payer OTHER ==
[2020-03-27 22:59] VITALS: RESP 18
[2020-03-27] MEDS ORDERED: LORazepam 1 MG TAB PO STA (23:30)
[2020-03-27] MEDS ORDERED: IBUPROFEN 800 MG TAB PO STA (23:31)
[2020-03-27] MEDS ORDERED: levETIRAcetam 500 MG TAB PO STA (23:57)
[2020-03-27 23:59] LABS: Basophils # (A) 0.1 k/uL (0-0.2); Basophils % (A) 1 %; Eosinophils # (A) 0.1 k/uL (0-0.7); Eosinophils % (A) 1 %; HCT 38.7 % (34.0-46.0); HGB 12.7 gm/dL (11.4-16.0); Lymphocytes # (A) 3.4 k/uL (1.0-4.8); Lymphocytes % (A) 41 %; MCHC 32.8 g/dL (31.0-37.0); MCV 88.4 fL (80.0-100.0); Mean Platelet Volume 7.6; Monocytes # (A) 0.5 k/uL (0-1.0); Monocytes % (A) 5 %; Neutrophils # (A) 4.2 k/uL (1.3-7.7); Neutrophils % (A) 51 %; Platelet Count 306 k/uL (150-450); RBC 4.38 m/uL (3.80-5.40); WBC 8.3 k/uL (3.8-10.6)
[2020-03-28 00:08] LABS: ALT 17 U/L (4-34); AST 21 U/L (14-36); African American GFR (CKD) >90 (>60 ml/min/1.73 sqM); Albumin 4.4 g/dL (3.5-5.0); Alkaline Phosphatase 79 U/L (38-126); Anion Gap 9 mmol/L; Blood Urea Nitrogen 18 mg/dL (7-17); Calcium 9.4 mg/dL (8.4-10.2); Carbon Dioxide 25 mmol/L (22-30); Chloride 103 mmol/L (98-107); Glucose 96 mg/dL (74-99); Non-African American GFR(CKD) 86 (>60 ml/min/1.73 sqM); Potassium 4.1 mmol/L (3.5-5.1); Sodium 137 mmol/L (137-145); Total Bilirubin 0.2 mg/dL (0.2-1.3); Total Protein 7.3 g/dL (6.3-8.2)
--- NOTE | 2020-03-28 00:46 | ED ---
Seizure HPI - General Chief Complaint: Seizure Stated Complaint: anxiety Time Seen by Provider: 03/27/20 22:59 Source: patient, EMS Mode of arrival: EMS Limitations: no limitations - History of Present Illness Initial Comments: This patient is 29-year-old woman with history of seizure disorder who presents for evaluation after she had a seizure at home. Patient states that she had not been on anticonvulsant medication hasn't been a while since her previous seizure. She states that she feels like she is back at her baseline other than having some generalized aches and pains related to seizure. MD Complaint: seizure -: hour(s) Description of Episode: tonic-clonic movement Witnessed: no Trauma: No Seizure History: known seizure disorder Place: home Possible Precipitating Event: none Associated Symptoms: denies other symptoms Treatments Prior to Arrival: none - Related Data Home Medications Medication Instructions Recorded Confirmed Acetaminophen-Codeine 300-30mg 1 tab PO Q6H PRN 03/03/20 03/06/20 [Tylenol w/codeine #3] Aspirin EC [Ecotrin Low Dose] 81 mg PO DAILY 03/03/20 03/06/20 HYDROcodone/APAP 10-325MG [[place] 1 tab PO Q6H PRN 03/06/20 03/06/20 10-325] Previous Rx's Medication Instructions Recorded Metoclopramide HCl [Reglan] 5 mg PO TID PRN #10 tablet 03/05/20 Sucralfate [Carafate] 1 gm PO BID 3 Days #60 ml 03/05/20 Levofloxacin [Levaquin] 500 mg PO DAILY 7 Days #7 tab 03/10/20 Pantoprazole [Protonix] 40 mg PO BID 30 Days #60 tablet. 03/10/20 metroNIDAZOLE [Flagyl] 500 mg PO TID 7 Days #21 tab 03/10/20 Ondansetron Odt [Zofran Odt] 4 mg PO Q8HR PRN #20 tab 03/23/20 LORazepam [Ativan] 1 mg PO BID PRN 3 Days #8 tab 03/28/20 Allergies Allergy/AdvReac Type Severity Reaction Status Date / Time morphine Allergy Rash/Hives Verified 03/27/20 23:00 apple AdvReac Intermediate Itching Verified 03/27/20 23:00 adhesive tape AdvReac Mild Itching Verified 03/27/20 23:00 sumatriptan [From Imitrex] AdvReac Makes Verified 03/27/20 23:00 Migraine Worse/Dizziness sumatriptan succinate AdvReac Makes Verified 03/27/20 23:00 [From Imitrex] Migraine Worse/Dizziness Review of Systems ROS Statement: Those systems with pertinent positive or pertinent negative responses have been documented in the HPI. ROS Other: All systems not noted in ROS Statement are negative. Constitutional: Denies: fever, chills, weakness Eyes: Denies: eye pain, vision change Respiratory: Denies: cough, dyspnea Cardiovascular: Denies: chest pain, orthopnea, edema, syncope Gastrointestinal: Denies: abdominal pain, vomiting, diarrhea Genitourinary: Denies: dysuria, hematuria Musculoskeletal: Reports: as per HPI, myalgia Skin: Denies: rash Neurological: Denies: headache, weakness, numbness Past Medical History Past Medical History: Asthma, Eye Disorder, Liver Disease, Pneumonia, Renal Disease, Seizure Disorder Additional Past Medical History / Comment(s): Multiple UTIs, pyelonephritis, "spongy" kidney, nephrolithiasis-passed stone on her own, recently told she has a fatty liver, 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 History of Any Multi-Drug Resistant Organisms: None Reported Date of last positivie culture/infection: 2010 MDRO Source:: foot Past Surgical History: Section, Tubal Ligation Additional Past Surgical History / Comment(s): c sect x 4 Past Anesthesia/Blood Transfusion Reactions: No Reported Reaction Past Psychological History: Anxiety, Bipolar, Depression, Panic Disorder, PTSD Smoking Status: Former smoker, Vaper Past Alcohol Use History: None Reported Past Drug Use History: None Reported - Past Family History Father Family Medical History: Cancer, COPD, Hypertension Additional Family Medical History / Comment(s): Lung cancer Mother Family Medical History: COPD, Renal Disease, Seizure Disorder Additional Family Medical History / Comment(s): bronchitis, back problems. General Exam Limitations: no limitations General appearance: alert, in no apparent distress Head exam: Present: atraumatic, normocephalic Eye exam: Present: normal appearance. Absent: scleral icterus, conjunctival injection Neck exam: Present: normal inspection, full ROM. Absent: tenderness Respiratory exam: Present: normal lung sounds bilaterally. Absent: respiratory distress, wheezes, rales, rhonchi, stridor Cardiovascular Exam: Present: regular rate, normal rhythm, normal heart sounds GI/Abdominal exam: Present: soft. Absent: distended, tenderness, guarding, rebound, rigid Extremities exam: Present: normal inspection, normal capillary refill. Absent: pedal edema, calf tenderness Back exam: Present: normal inspection. Absent: CVA tenderness (R), CVA tenderness (L) Neurological exam: Present: alert, oriented X3, CN II-XII intact. Absent: motor sensory deficit Skin exam: Present: warm, dry, intact, normal color. Absent: rash Course Vital Signs 03/27/20 03/28/20 22:57 01:17 Temperature 98 F 98.9 F Pulse Rate 61 52 L Respiratory 18 18 Rate Blood Pressure 109/71 111/69 O2 Sat by Pulse 98 97 Oximetry Medical Decision Making - Lab Data Result diagrams: 03/27/20 23:53 03/27/20 23:53 Lab Results 03/27/20 03/27/20 03/27/20 Range/Units 23:53 23:53 23:53 WBC 8.3 (3.8-10.6) k/uL RBC 4.38 (3.80-5.40) m/uL Hgb 12.7 (11.4-16.0) gm/dL Hct 38.7 (34.0-46.0) % MCV 88.4 (80.0-100.0) fL MCH 29.0 (25.0-35.0) pg MCHC 32.8 (31.0-37.0) g/dL RDW 14.0 (11.5-15.5) % Plt Count 306 (150-450) k/uL Neutrophils % 51 % Lymphocytes % 41 % Monocytes % 5 % Eosinophils % 1 % Basophils % 1 % Neutrophils # 4.2 (1.3-7.7) k/uL Lymphocytes # 3.4 (1.0-4.8) k/uL Monocytes # 0.5 (0-1.0) k/uL Eosinophils # 0.1 (0-0.7) k/uL Basophils # 0.1 (0-0.2) k/uL Sodium 137 (137-145) mmol/L Potassium 4.1 (3.5-5.1) mmol/L Chloride 103 (98-107) mmol/L Carbon Dioxide 25 (22-30) mmol/L Anion Gap 9 mmol/L BUN 18 H (7-17) mg/dL Creatinine 0.91 (0.52-1.04) mg/dL Est GFR (CKD-EPI)AfAm >90 (>60 ml/min/1.73 sqM) Est GFR (CKD-EPI)NonAf 86 (>60 ml/min/1.73 sqM) Glucose 96 (74-99) mg/dL Calcium 9.4 (8.4-10.2) mg/dL Total Bilirubin 0.2 (0.2-1.3) mg/dL AST 21 (14-36) U/L ALT 17 (4-34) U/L Alkaline Phosphatase 79 (38-126) U/L Total Protein 7.3 (6.3-8.2) g/dL Albumin 4.4 (3.5-5.0) g/dL Levetiracetam 16.6 (3.0-60.0) ug/mL Disposition Clinical Impression: Generalized seizure Disposition: HOME SELF-CARE Condition: Good Instructions (If sedation given, give patient instructions): Recurrent Seizures in Adults (ED) Prescriptions: LORazepam [Ativan] 1 mg PO BID PRN 3 Days #8 tab PRN Reason: Agitation Or Acute Anxiety Is patient prescribed a controlled substance at d/c from ED?: Yes When asked, does pt state using other controlled substances?: No If prescribed controlled substance>3 days was MAPS reviewed?: Prescribed <3 Days Referrals: Kellen Renee MD [Primary Care Provider] - 1-2 days
[2020-03-28] MEDS ORDERED: HYDROcodone/APAP 5-325MG 1 EACH TAB PO STA (00:51)
[2020-03-28 01:19] VITALS: BP 111/69; PULSE 52; TEMP 98.9
== END 2020-03-28 01:17 | disposition home or self-care (01) ==
LOC: EC 22:54
DX: G40.909 Epilepsy, unspecified, not intractable, without status epilepticus (principal); Z79.82 Long term (current) use of aspirin; Z88.5 Allergy status to narcotic agent; Z91.018 Allergy to other foods; Z91.048 Other nonmedicinal substance allergy status; Z88.8 Allergy status to other drugs, medicaments and biological substances; Z87.891 Personal history of nicotine dependence
CPT/HCPCS: 36415; 80053; 80177; 85025; 99284

== ENCOUNTER 2020-04-02 22:41 | Emergency (ER) | payer OTHER ==
[2020-04-02 22:51] VITALS: TEMP 98.1
[2020-04-02 22:54] LABS: Glucose,Whole Blood 92 mg/dL (75-99)
--- NOTE | 2020-04-02 22:55 | ED ---
Abdominal Pain HPI - General Chief Complaint: Abdominal Pain Stated Complaint: ABD PAIN Time Seen by Provider: 04/02/20 22:53 Source: patient, RN notes reviewed, old records reviewed Limitations: no limitations - History of Present Illness Initial Comments: This is a 29-year-old female DF multiple complaints, patient won't our facility. Patient presents for evaluation of just diffuse abdominal pain body pain nausea vomiting history of seizures having seizures. Patient has no significant recent travel history no sick contacts does admit to GI evaluation coming up this week with like to keep that appointment. Patient states she is his medication over feel better help with nausea MD Complaint: abdominal pain, other (Nausea vomiting) -: hour(s) Location: epigastric, suprapubic Radiation: epigastric, suprapubic Severity: moderate Severity scale (1-10): 4 Quality: stabbing, aching Consistency: intermittent, colicky Improves With: vomiting Worsens With: nothing Associated Symptoms: nausea, vomiting, diarrhea, other (History of seizures) - Related Data Home Medications Medication Instructions Recorded Confirmed Acetaminophen-Codeine 300-30mg 1 tab PO Q6H PRN 03/03/20 03/06/20 [Tylenol w/codeine #3] Aspirin EC [Ecotrin Low Dose] 81 mg PO DAILY 03/03/20 03/06/20 HYDROcodone/APAP 10-325MG [[place] 1 tab PO Q6H PRN 03/06/20 03/06/20 10-325] Previous Rx's Medication Instructions Recorded Metoclopramide HCl [Reglan] 5 mg PO TID PRN #10 tablet 03/05/20 Sucralfate [Carafate] 1 gm PO BID 3 Days #60 ml 03/05/20 Levofloxacin [Levaquin] 500 mg PO DAILY 7 Days #7 tab 03/10/20 Pantoprazole [Protonix] 40 mg PO BID 30 Days #60 tablet. 03/10/20 metroNIDAZOLE [Flagyl] 500 mg PO TID 7 Days #21 tab 03/10/20 Ondansetron Odt [Zofran Odt] 4 mg PO Q8HR PRN #20 tab 03/23/20 LORazepam [Ativan] 1 mg PO BID PRN 3 Days #8 tab 03/28/20 Allergies Allergy/AdvReac Type Severity Reaction Status Date / Time morphine Allergy Rash/Hives Verified 04/02/20 22:51 apple AdvReac Intermediate Itching Verified 04/02/20 22:51 adhesive tape AdvReac Mild Itching Verified 04/02/20 22:51 sumatriptan [From Imitrex] AdvReac Makes Verified 04/02/20 22:51 Migraine Worse/Dizziness sumatriptan succinate AdvReac Makes Verified 04/02/20 22:51 [From Imitrex] Migraine Worse/Dizziness Review of Systems ROS Statement: Those systems with pertinent positive or pertinent negative responses have been documented in the HPI. ROS Other: All systems not noted in ROS Statement are negative. 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 History of Any Multi-Drug Resistant Organisms: None Reported Date of last positivie culture/infection: 2010 MDRO Source:: foot Past Surgical History: Section, Tubal Ligation Additional Past Surgical History / Comment(s): c sect x 4 Past Anesthesia/Blood Transfusion Reactions: No Reported Reaction Past Psychological History: Anxiety, Bipolar, Depression, Panic Disorder, PTSD Smoking Status: Former smoker, Vaper Past Alcohol Use History: None Reported Past Drug Use History: None Reported - Past Family History Father Family Medical History: Cancer, COPD, Hypertension Additional Family Medical History / Comment(s): Lung cancer Mother Family Medical History: COPD, Renal Disease, Seizure Disorder Additional Family Medical History / Comment(s): bronchitis, back problems. General Exam General appearance: alert, in no apparent distress Head exam: Present: atraumatic, normocephalic, normal inspection Eye exam: Present: normal appearance, PERRL, EOMI. Absent: scleral icterus, c onjunctival injection, periorbital swelling ENT exam: Present: normal exam, mucous membranes moist Neck exam: Present: normal inspection. Absent: tenderness, meningismus, lymphadenopathy Respiratory exam: Present: normal lung sounds bilaterally. Absent: respiratory distress, wheezes, rales, rhonchi, stridor Cardiovascular Exam: Present: regular rate, normal rhythm, normal heart sounds. Absent: systolic murmur, diastolic murmur, rubs, gallop, clicks GI/Abdominal exam: Present: soft, normal bowel sounds. Absent: distended, tenderness, guarding, rebound, rigid Extremities exam: Present: normal inspection, full ROM, normal capillary refill. Absent: tenderness, pedal edema, joint swelling, calf tenderness Back exam: Present: normal inspection Neurological exam: Present: alert, oriented X3, CN II-XII intact Psychiatric exam: Present: normal affect, normal mood Skin exam: Present: warm, dry, intact, normal color. Absent: rash Course Vital Signs 04/02/20 22:46 Temperature 98.1 F Pulse Rate 87 Respiratory 18 Rate Blood Pressure 121/86 O2 Sat by Pulse 98 Oximetry - Reevaluation(s) Reevaluation #1: 04/03/20 00:03 Medical records reviewed Reevaluation #2: 04/03/20 00:03 Patient resting comfortably feeling much improved Reevaluation #3: 04/03/20 00:03 Patient did tolerate night dose of seizure medications here in the ER Medical Decision Making - Medical Decision Making 29 female to the ER for nausea vomiting abdominal pain and overall diffuse pain. Patient will be discharged home with symptoms are improved - Lab Data Lab Results 04/02/20 Range/Units 22:51 POC Glucose (mg/dL) 92 (75-99) mg/dL POC Glu Care Nurse Rn ID Jennie Leonardo Disposition Clinical Impression: Abdominal colic, Colitis, Chronic abdominal pain Disposition: HOME SELF-CARE Condition: Good Instructions (If sedation given, give patient instructions): Abdominal Pain (ED) Is patient prescribed a controlled substance at d/c from ED?: No Referrals: Kellen Renee MD [Primary Care Provider] - 1-2 days
[2020-04-02] MEDS ORDERED: ONDANSETRON ODT 4 MG TAB PO STA (23:15)
[2020-04-02] MEDS ORDERED: LORazepam 2 MG/ML INJ IM STA (23:15)
[2020-04-02] MEDS ORDERED: HYDROmorphone 1 MG/ML 1 ML SYRINGE IM STA (23:15)
[2020-04-02] MEDS ORDERED: ONDANSETRON 4 MG ODT STARTER PACK 2 TAB BTL PO STA (23:15)
[2020-04-03 01:49] VITALS: BP 135/87; PULSE 90; RESP 16
== END 2020-04-03 01:50 | disposition home or self-care (01) ==
LOC: EC 22:41
DX: K52.9 Noninfective gastroenteritis and colitis, unspecified (principal); G89.29 Other chronic pain; R10.9 Unspecified abdominal pain; R56.9 Unspecified convulsions; Z79.82 Long term (current) use of aspirin; Z88.5 Allergy status to narcotic agent; Z91.048 Other nonmedicinal substance allergy status; Z88.8 Allergy status to other drugs, medicaments and biological substances; Z87.442 Personal history of urinary calculi; Z87.891 Personal history of nicotine dependence
CPT/HCPCS: 36415; 96372 ×2; 99284; J2060; J1170; S0119

== ENCOUNTER 2020-04-08 11:34 | Emergency (ER) | payer OTHER ==
[2020-04-08 11:41] VITALS: TEMP 98.1
[2020-04-08] MEDS ORDERED: SODIUM CHLORIDE 0.9% 1,000 ML IV STA (12:06)
[2020-04-08] MEDS ORDERED: ONDANSETRON 4 MG/2 ML VIAL IVP STA (12:06)
[2020-04-08] MEDS ORDERED: ACETAMINOPHEN TAB 325 MG TAB PO STA (12:06)
[2020-04-08 12:34] VITALS: RESP 16
--- NOTE | 2020-04-08 12:37 | ED ---
Abdominal Pain HPI - General Chief Complaint: Abdominal Pain Stated Complaint: Abd Pain Time Seen by Provider: 04/08/20 11:38 Source: patient, RN notes reviewed Mode of arrival: EMS Limitations: no limitations - History of Present Illness Initial Comments: This is a 29-year-old female presents emergency Department chief complaint of abdominal pain this is chronic in nature. Patient has seen PCP has had multiple ER visits hospitalization and sees GI currently. Patient states she's been referred to pain management her primary care physician will not write her pain meds. Patient states that she has stress-induced seizures if she does not get pain meds. Patient states that she needs Dilaudid for her abdominal pain. Patient denies any rectal bleeding, diarrhea or constipation. She has had some nausea and slight headache no focal weakness no blurred vision no photophobia no head injury. - Related Data Home Medications Medication Instructions Recorded Confirmed Acetaminophen-Codeine 300-30mg 1 tab PO Q6H PRN 03/03/20 03/06/20 [Tylenol w/codeine #3] Aspirin EC [Ecotrin Low Dose] 81 mg PO DAILY 03/03/20 03/06/20 HYDROcodone/APAP 10-325MG [[place] 1 tab PO Q6H PRN 03/06/20 03/06/20 10-325] Previous Rx's Medication Instructions Recorded Metoclopramide HCl [Reglan] 5 mg PO TID PRN #10 tablet 03/05/20 Sucralfate [Carafate] 1 gm PO BID 3 Days #60 ml 03/05/20 Levofloxacin [Levaquin] 500 mg PO DAILY 7 Days #7 tab 03/10/20 Pantoprazole [Protonix] 40 mg PO BID 30 Days #60 tablet. 03/10/20 metroNIDAZOLE [Flagyl] 500 mg PO TID 7 Days #21 tab 03/10/20 Ondansetron Odt [Zofran Odt] 4 mg PO Q8HR PRN #20 tab 03/23/20 LORazepam [Ativan] 1 mg PO BID PRN 3 Days #8 tab 03/28/20 Allergies Allergy/AdvReac Type Severity Reaction Status Date / Time morphine Allergy Rash/Hives Verified 04/02/20 22:51 apple AdvReac Intermediate Itching Verified 04/02/20 22:51 adhesive tape AdvReac Mild Itching Verified 04/02/20 22:51 sumatriptan [From Imitrex] AdvReac Makes Verified 04/02/20 22:51 Migraine Worse/Dizziness sumatriptan succinate AdvReac Makes Verified 04/02/20 22:51 [From Imitrex] Migraine Worse/Dizziness Review of Systems ROS Statement: Those systems with pertinent positive or pertinent negative responses have been documented in the HPI. ROS Other: All systems not noted in ROS Statement are negative. 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 History of Any Multi-Drug Resistant Organisms: None Reported Date of last positivie culture/infection: 2010 MDRO Source:: foot Past Surgical History: Section, Tubal Ligation Additional Past Surgical History / Comment(s): c sect x 4 Past Anesthesia/Blood Transfusion Reactions: No Reported Reaction Past Psychological History: Anxiety, Bipolar, Depression, Panic Disorder, PTSD Smoking Status: Former smoker, Vaper Past Alcohol Use History: None Reported Past Drug Use History: None Reported - Past Family History Father Family Medical History: Cancer, COPD, Hypertension Additional Family Medical History / Comment(s): Lung cancer Mother Family Medical History: COPD, Renal Disease, Seizure Disorder Additional Family Medical History / Comment(s): bronchitis, back problems. General Exam Limitations: no limitations General appearance: alert, in no apparent distress Head exam: Present: atraumatic, normocephalic, normal inspection Eye exam: Present: normal appearance, PERRL, EOMI. Absent: scleral icterus, conjunctival injection, periorbital swelling ENT exam: Present: normal exam, normal oropharynx, mucous membranes moist Neck exam: Present: normal inspection, full ROM. Absent: tenderness, meningis mus, lymphadenopathy Respiratory exam: Present: normal lung sounds bilaterally. Absent: respiratory distress, wheezes, rales, rhonchi, stridor Cardiovascular Exam: Present: regular rate, normal rhythm, normal heart sounds. Absent: systolic murmur, diastolic murmur, rubs, gallop, clicks GI/Abdominal exam: Present: soft, tenderness (Mild upper abdominal pain, epigastric region), normal bowel sounds. Absent: distended, guarding, rebound, rigid Back exam: Present: full ROM. Absent: tenderness, CVA tenderness (R), CVA tenderness (L) Neurological exam: Present: alert, oriented X3 Skin exam: Present: warm, dry, intact, normal color. Absent: rash Course Vital Signs 04/08/20 04/08/20 11:37 12:34 Temperature 98.1 F Pulse Rate 86 61 Respiratory 18 16 Rate Blood Pressure 135/92 123/90 O2 Sat by Pulse 98 100 Oximetry Medical Decision Making - Medical Decision Making This a 29-year-old female well-known presented for chronic issues. Patient's labs unremarkable she does have some noted hematuria related to her menstrual cycle. Patient has follow-up. Patient has been referred to pain management for pain meds. She is instructed that she has to see pain management for her pain meds. Her vitals are stable and she'll be discharged in stable condition. - Lab Data Result diagrams: 04/08/20 12:20 04/08/20 12:20 Lab Results 04/08/20 04/08/20 04/08/20 Range/Units 12:20 12:20 12:20 WBC 6.5 (3.8-10.6) k/uL RBC 4.24 (3.80-5.40) m/uL Hgb 12.5 (11.4-16.0) gm/dL Hct 37.5 (34.0-46.0) % MCV 88.3 (80.0-100.0) fL MCH 29.5 (25.0-35.0) pg MCHC 33.4 (31.0-37.0) g/dL RDW 14.0 (11.5-15.5) % Plt Count 276 (150-450) k/uL Neutrophils % 63 % Lymphocytes % 29 % Monocytes % 5 % Eosinophils % 1 % Basophils % 0 % Neutrophils # 4.1 (1.3-7.7) k/uL Lymphocytes # 1.9 (1.0-4.8) k/uL Monocytes # 0.3 (0-1.0) k/uL Eosinophils # 0.1 (0-0.7) k/uL Basophils # 0.0 (0-0.2) k/uL Sodium 140 (137-145) mmol/L Potassium 3.9 (3.5-5.1) mmol/L Chloride 108 H (98-107) mmol/L Carbon Dioxide 25 (22-30) mmol/L Anion Gap 7 mmol/L BUN 13 (7-17) mg/dL Creatinine 0.89 (0.52-1.04) mg/dL Est GFR (CKD-EPI)AfAm >90 (>60 ml/min/1.73 sqM) Est GFR (CKD-EPI)NonAf 88 (>60 ml/min/1.73 sqM) Glucose 94 (74-99) mg/dL Plasma Lactic Acid Serge[place] (0.7-2.0) mmol/L Calcium 9.2 (8.4-10.2) mg/dL Total Bilirubin 0.4 (0.2-1.3) mg/dL AST 22 (14-36) U/L ALT 14 (4-34) U/L Alkaline Phosphatase 66 (38-126) U/L Total Protein 7.1 (6.3-8.2) g/dL Albumin 4.3 (3.5-5.0) g/dL Amylase 65 (30-110) U/L Lipase 97 (23-300) U/L Urine Color Yellow Urine Appearance Clear (Clear) Urine pH 6.0 (5.0-8.0) Ur Specific [place] 1.030 (1.001-1.035) Urine Protein Trace H (Negative) Urine Glucose (UA) Negative (Negative) Urine Ketones Negative (Negative) Urine Blood Moderate H (Negative) Urine Nitrite Negative (Negative) Urine Bilirubin Negative (Negative) Urine Urobilinogen <2.0 (<2.0) mg/dL Ur Leukocyte Esterase Negative (Negative) Urine RBC 75 H (0-5) /hpf Urine WBC 2 (0-5) /hpf Ur Squamous Epith Cells 1 (0-4) /hpf Urine Mucus Occasional H (None) /hpf 04/08/20 Range/Units 12:20 WBC (3.8-10.6) k/uL RBC (3.80-5.40) m/uL Hgb (11.4-16.0) gm/dL Hct (34.0-46.0) % MCV (80.0-100.0) fL MCH (25.0-35.0) pg MCHC (31.0-37.0) g/dL RDW (11.5-15.5) % Plt Count (150-450) k/uL Neutrophils % % Lymphocytes % % Monocytes % % Eosinophils % % Basophils % % Neutrophils # (1.3-7.7) k/uL Lymphocytes # (1.0-4.8) k/uL Monocytes # (0-1.0) k/uL Eosinophils # (0-0.7) k/uL Basophils # (0-0.2) k/uL Sodium (137-145) mmol/L Potassium (3.5-5.1) mmol/L Chloride (98-107) mmol/L Carbon Dioxide (22-30) mmol/L Anion Gap mmol/L BUN (7-17) mg/dL Creatinine (0.52-1.04) mg/dL Est GFR (CKD-EPI)AfAm (>60 ml/min/1.73 sqM) Est GFR (CKD-EPI)NonAf (>60 ml/min/1.73 sqM) Glucose (74-99) mg/dL Plasma Lactic Acid Sergey 0.8 (0.7-2.0) mmol/L Calcium (8.4-10.2) mg/dL Total Bilirubin (0.2-1.3) mg/dL AST (14-36) U/L ALT (4-34) U/L Alkaline Phosphatase (38-126) U/L Total Protein (6.3-8.2) g/dL Albumin (3.5-5.0) g/dL Amylase (30-110) U/L Lipase (23-300) U/L Urine Color Urine Appearance (Clear) Urine pH (5.0-8.0) Ur Specific [place] (1.001-1.035) Urine Protein (Negative) Urine Glucose (UA) (Negative) Urine Ketones (Negative) Urine Blood (Negative) Urine Nitrite (Negative) Urine Bilirubin (Negative) Urine Urobilinogen (<2.0) mg/dL Ur Leukocyte Esterase (Negative) Urine RBC (0-5) /hpf Urine WBC (0-5) /hpf Ur Squamous Epith Cells (0-4) /hpf Urine Mucus (None) /hpf Disposition Clinical Impression: Chronic abdominal pain Disposition: HOME SELF-CARE Condition: Stable Instructions (If sedation given, give patient instructions): Abdominal Pain (ED) Additional Instructions: Please return to the Emergency Department if symptoms worsen or any other concerns. Is patient prescribed a controlled substance at d/c from ED?: No Referrals: Kellen Renee MD [Primary Care Provider] - 1-2 days Time of Disposition: 13:18
[2020-04-08 12:55] LABS: Basophils % (A) 0 %; Eosinophils # (A) 0.1 k/uL (0-0.7); Eosinophils % (A) 1 %; HCT 37.5 % (34.0-46.0); HGB 12.5 gm/dL (11.4-16.0); Lymphocytes # (A) 1.9 k/uL (1.0-4.8); Lymphocytes % (A) 29 %; MCH 29.5 pg (25.0-35.0); MCHC 33.4 g/dL (31.0-37.0); MCV 88.3 fL (80.0-100.0); Mean Platelet Volume 7.2; Monocytes # (A) 0.3 k/uL (0-1.0); Monocytes % (A) 5 %; Neutrophils # (A) 4.1 k/uL (1.3-7.7); Neutrophils % (A) 63 %; Platelet Count 276 k/uL (150-450); RBC 4.24 m/uL (3.80-5.40); WBC 6.5 k/uL (3.8-10.6)
[2020-04-08 13:04] LABS: ALT 14 U/L (4-34); AST 22 U/L (14-36); African American GFR (CKD) >90 (>60 ml/min/1.73 sqM); Albumin 4.3 g/dL (3.5-5.0); Alkaline Phosphatase 66 U/L (38-126); Amylase 65 U/L (30-110); Anion Gap 7 mmol/L; Blood Urea Nitrogen 13 mg/dL (7-17); Calcium 9.2 mg/dL (8.4-10.2); Carbon Dioxide 25 mmol/L (22-30); Chloride 108 mmol/L (98-107); Glucose 94 mg/dL (74-99); Lipase 97 U/L (23-300); Non-African American GFR(CKD) 88 (>60 ml/min/1.73 sqM); Potassium 3.9 mmol/L (3.5-5.1); Sodium 140 mmol/L (137-145); Total Bilirubin 0.4 mg/dL (0.2-1.3); Total Protein 7.1 g/dL (6.3-8.2)
[2020-04-08 13:12] LABS: Appearance,Urine Clear (Clear); Bilirubin,Urine Negative (Negative); Blood,Urine Moderate (Negative); Color,Urine Yellow; Glucose,Urine (UA) Negative (Negative); Ketones,Urine Negative (Negative); Leukocyte Esterase,Urine Negative (Negative); Mucus,Urine Occasional /hpf; Nitrite,Urine Negative (Negative); Protein,Urine Trace (Negative); RBC,Urine 75 /hpf (0-5); Squamous Epithelial Cell,Urine 1 /hpf (0-4); Urobilinogen,Urine <2.0 mg/dL (<2.0); WBC,Urine 2 /hpf (0-5)
[2020-04-08] MEDS ORDERED: diphenhydrAMINE 50 MG/ML 1 ML VIAL IVP STA (13:16)
[2020-04-08] MEDS ORDERED: KETOROLAC 15 MG/ML 1 ML VIAL IVP STA (13:16)
[2020-04-08 13:40] VITALS: BP 125/80; PULSE 80
== END 2020-04-08 13:43 | disposition home or self-care (01) ==
LOC: EC 11:34
DX: G89.29 Other chronic pain (principal); R10.9 Unspecified abdominal pain; R31.9 Hematuria, unspecified; R11.0 Nausea; R51 Headache; Z79.82 Long term (current) use of aspirin; Z88.5 Allergy status to narcotic agent; Z91.018 Allergy to other foods; Z91.048 Other nonmedicinal substance allergy status; Z88.8 Allergy status to other drugs, medicaments and biological substances; Z86.69 Personal history of other diseases of the nervous system and sense organs; Z87.19 Personal history of other diseases of the digestive system; Z87.442 Personal history of urinary calculi; Z87.891 Personal history of nicotine dependence
CPT/HCPCS: 36415; 80053; 82150; 83605; 83690; 85025; 81001; 99284; 96374; 96375 ×2; 96361; J1200; J2405; J1885

== ENCOUNTER → 2020-04-22 | Outpatient (CLI) | payer OTHER | END | disposition home or self-care (01) | LOC: LABWHC1 12:56 | PROVIDERS: ATTEND Nurse Practitioner | DX: K52.9 Noninfective gastroenteritis and colitis, unspecified (principal) | CPT/HCPCS: 36415; 85652; 86140 ==

== ENCOUNTER 2020-04-26 15:11 | Observation (INO) | payer OTHER ==
--- NOTE | 2020-04-26 15:22 | ED ---
General Adult HPI - General Chief complaint: Seizure Stated complaint: Seizure Time Seen by Provider: 04/26/20 15:13 Source: patient, EMS Mode of arrival: EMS Limitations: no limitations - History of Present Illness Initial comments: Patient presents the ED by ambulance for evaluation. Patient states that she has a history of a seizure disorder, and she states that she typically has 2-3 seizures per day. Patient states that her seizures are stress induced. Patient states that she has been under a lot of stress recently, and she states that she has had about 5 seizures today. She reports that her seizures lasted for about 3 minutes each today, and she describes them as generalized tonic-clonic seizures. She states that her last seizure was just prior to ambulance arrival today. Patient states that she fell during one of her seizures today, and she is unsure of head injury, but she states that she has a bifrontal/bitemporal headache currently. Patient is also complaining of having central abdominal pain for the past several months. Patient states that she has had upper and lower endoscopies, and she states that she is seeing a pipe supervisor who is concerned that she may have Crohn's disease. Patient also admits to feeling so mewhat nauseated today. Patient states that she takes Keppra for her seizures, and she denies missing any doses or medication noncompliance. Patient denies fever or chills, focal numbness/weakness/neuro deficit, visual changes, speech difficulty, neck/back/extremity pain, chest pain, dyspnea, cough or cold symptoms, palpitations, vomiting or diarrhea, bloody or melanotic stool, dysuria or urinary symptoms, or any other symptoms or complaints. - Related Data Home Medications Medication Instructions Recorded Confirmed Aspirin EC [Ecotrin Low Dose] 81 mg PO DAILY 03/03/20 04/26/20 Butalb/APAP/Caff 50-325-40Mg 1 tab PO Q4H PRN 04/26/20 04/26/20 [Fioricet 50-325-40] Dicyclomine [Bentyl] 20 mg PO QID 04/26/20 04/26/20 Omeprazole 20 mg PO AC-BID 04/26/20 04/26/20 Ondansetron Odt [Zofran Odt] 4 mg PO Q8H PRN 04/26/20 04/26/20 Sucralfate [Carafate] 1 gm PO QID PRN 04/26/20 04/26/20 busPIRone HCl [Buspar] 10 mg PO BID 04/26/20 04/26/20 hydrOXYzine pamoate [hydrOXYzine 25 mg PO HS PRN 04/26/20 04/26/20 PAMOATE] levETIRAcetam [Keppra] 750 mg PO BID 04/26/20 04/26/20 Allergies Allergy/AdvReac Type Severity Reaction Status Date / Time morphine Allergy Rash/Hives Verified 04/02/20 22:51 apple AdvReac Intermediate Itching Verified 04/02/20 22:51 adhesive tape AdvReac Mild Itching Verified 04/02/20 22:51 sumatriptan [From Imitrex] AdvReac Makes Verified 04/02/20 22:51 Migraine Worse/Dizziness sumatriptan succinate AdvReac Makes Verified 04/02/20 22:51 [From Imitrex] Migraine Worse/Dizziness Review of Systems ROS Statement: Those systems with pertinent positive or pertinent negative responses have been documented in the HPI. ROS Other: All systems not noted in ROS Statement are negative. 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 History of Any Multi-Drug Resistant Organisms: None Reported Date of last positivie culture/infection: 2010 MDRO Source:: foot Past Surgical History: Section, Tubal Ligation Additional Past Surgical History / Comment(s): c sect x 4 Past Anesthesia/Blood Transfusion Reactions: No Reported Reaction Past Psychological History: Anxiety, Bipolar, Depression, Panic Disorder, PTSD Smoking Status: Former smoker, Vaper Past Alcohol Use History: None Reported Past Drug Use History: None Reported - Past Family History Father Family Medical History: Cancer, COPD, Hypertension Additional Family Medical History / Comment(s): Lung cancer Mother Family Medical History: COPD, Renal Disease, Seizure Disorder Additional Family Medical History / Comment(s): bronchitis, back problems. General Exam Limitations: no limitations General appearance: alert, in no apparent distress Head exam: Present: atraumatic, normocephalic Eye exam: Present: normal appearance, PERRL, EOMI ENT exam: Present: normal oropharynx, mucous membranes moist, TM's normal bilaterally Neck exam: Present: full ROM, other (Trachea is in midline; no nuchal rigidity or meningeal signs are present on exam). Absent: tenderness, meningismus Respiratory exam: Present: normal lung sounds bilaterally. Absent: respiratory distress, wheezes, rales, rhonchi, stridor Cardiovascular Exam: Present: regular rate, normal rhythm, normal heart sounds, other (Normal radial pulses bilaterally) GI/Abdominal exam: Present: soft, normal bowel sounds, other (Mild epigastric and periumbilical tenderness). Absent: distended, guarding, rebound Extremities exam: Present: full ROM. Absent: tenderness, pedal edema, calf tenderness Back exam: Absent: tenderness Neurological exam: Present: alert, oriented X3, CN II-XII intact. Absent: motor sensory deficit Psychiatric exam: Present: anxious Skin exam: Present: warm, dry, intact, normal color Course Vital Signs 04/26/20 04/26/20 04/26/20 15:16 16:20 17:00 Temperature 98.4 F Pulse Rate 73 Respiratory 18 18 18 Rate Blood Pressure 114/75 O2 Sat by Pulse 99 Oximetry 04/26/20 04/26/20 18:00 19:00 Temperature Pulse Rate 85 80 Respiratory 18 18 Rate Blood Pressure 122/83 O2 Sat by Pulse Oximetry - Reevaluation(s) Reevaluation #1: 04/26/20 18:34 I was notified by ED nursing staff that the patient was having a seizure. On my arrival to the patient's room, the patient was noted to be having what appeared to be a generalized, tonic-clonic seizure. Patient's seizure activity resolved on its own within about a minute or so. Another dose of IV Ativan was ordered and given. 04/26/20 20:06 Case, H&P, test results and ED management thus far were discussed with Dr. Marcelo (neurology). She recommends giving the patient Keppra 500 mg IV in the ED and increasing the patient's Keppra dose to 1000mg PO BID. She also recommends hospital admission for observation. She has no further recommendations at this time. 04/26/20 20:13 Case, H&P, test results, ED management and my discussion with Dr. Marcelo as above were discussed with NELLY Douglass. He accepts hospital admission on behalf of himself and Dr. Hernandez. He has no further recommendations at this time. EKG Findings - EKG Comments: EKG Findings:: Normal sinus rhythm, ventricular rate of 62 bpm, no ectopy, normal CT and QRS intervals, normal QT interval, normal axis, no ST or T-wave abnormality Medical Decision Making - Medical Decision Making Will admit the patient to the hospital for monitoring giving multiple seizure episodes today. Patient has a normal neurological exam. Patient's head CT and labs are unremarkable. - Lab Data Result diagrams: 04/26/20 16:31 04/26/20 16:31 Lab Results 04/26/20 04/26/20 Range/Units 16:31 16:31 WBC 6.9 (3.8-10.6) k/uL RBC 4.47 (3.80-5.40) m/uL Hgb 13.7 (11.4-16.0) gm/dL Hct 40.2 (34.0-46.0) % MCV 90.0 (80.0-100.0) fL MCH 30.6 (25.0-35.0) pg MCHC 34.0 (31.0-37.0) g/dL RDW 14.0 (11.5-15.5) % Plt Count 280 (150-450) k/uL Neutrophils % 64 % Lymphocytes % 29 % Monocytes % 4 % Eosinophils % 1 % Basophils % 0 % Neutrophils # 4.4 (1.3-7.7) k/uL Lymphocytes # 2.0 (1.0-4.8) k/uL Monocytes # 0.3 (0-1.0) k/uL Eosinophils # 0.1 (0-0.7) k/uL Basophils # 0.0 (0-0.2) k/uL Sodium 137 (137-145) mmol/L Potassium 4.8 (3.5-5.1) mmol/L Chloride 107 (98-107) mmol/L Carbon Dioxide 22 (22-30) mmol/L Anion Gap 8 mmol/L BUN 15 (7-17) mg/dL Creatinine 0.98 (0.52-1.04) mg/dL Est GFR (CKD-EPI)AfAm >90 (>60 ml/min/1.73 sqM) Est GFR (CKD-EPI)NonAf 78 (>60 ml/min/1.73 sqM) Glucose 102 H (74-99) mg/dL Calcium 9.3 (8.4-10.2) mg/dL Total Bilirubin 0.7 (0.2-1.3) mg/dL AST 30 (14-36) U/L ALT 14 (4-34) U/L Alkaline Phosphatase 68 (38-126) U/L Total Protein 7.8 (6.3-8.2) g/dL Albumin 4.7 (3.5-5.0) g/dL Lipase 101 (23-300) U/L HCG, Qual Not Detected - Radiology Data Radiology results: report reviewed (Noncontrast CT head is negative) Disposition Clinical Impression: Generalized seizure, Headache, Chronic abdominal pain Disposition: ADMITTED IP TO THIS [facility] Condition: Stable Is patient prescribed a controlled substance at d/c from ED?: No [facility] - 1-2 days Time of Disposition: 20:15
[2020-04-26] MEDS ORDERED: LORazepam 2 MG/ML INJ IV STA ×2 (15:27→18:33)
[2020-04-26] MEDS ORDERED: SODIUM CHLORIDE 0.9% 1,000 ML IV STA (15:27)
[2020-04-26 16:36] LABS: Basophils % (A) 0 %; Eosinophils # (A) 0.1 k/uL (0-0.7); Eosinophils % (A) 1 %; HCT 40.2 % (34.0-46.0); HGB 13.7 gm/dL (11.4-16.0); Lymphocytes % (A) 29 %; MCH 30.6 pg (25.0-35.0); Mean Platelet Volume 7.5; Monocytes # (A) 0.3 k/uL (0-1.0); Monocytes % (A) 4 %; Neutrophils # (A) 4.4 k/uL (1.3-7.7); Neutrophils % (A) 64 %; Platelet Count 280 k/uL (150-450); RBC 4.47 m/uL (3.80-5.40); WBC 6.9 k/uL (3.8-10.6)
[2020-04-26 16:59] LABS: HCG,Qualitative Serum Not Detected
[2020-04-26 17:00] LABS: ALT 14 U/L (4-34); AST 30 U/L (14-36); African American GFR (CKD) >90 (>60 ml/min/1.73 sqM); Albumin 4.7 g/dL (3.5-5.0); Alkaline Phosphatase 68 U/L (38-126); Anion Gap 8 mmol/L; Blood Urea Nitrogen 15 mg/dL (7-17); Calcium 9.3 mg/dL (8.4-10.2); Carbon Dioxide 22 mmol/L (22-30); Chloride 107 mmol/L (98-107); Glucose 102 mg/dL (74-99); Lipase 101 U/L (23-300); Non-African American GFR(CKD) 78 (>60 ml/min/1.73 sqM); Potassium 4.8 mmol/L (3.5-5.1); Sodium 137 mmol/L (137-145); Total Bilirubin 0.7 mg/dL (0.2-1.3); Total Protein 7.8 g/dL (6.3-8.2)
[2020-04-26] MEDS ORDERED: ACETAMINOPHEN TAB 500 MG TAB PO STA (18:18)
--- NOTE | 2020-04-26 18:25 | CT ---
EXAMINATION TYPE: CT brain wo con DATE OF EXAM: 04/26/2020 COMPARISON: None HISTORY: Seizure activity, headache and posible head injury. CT DLP: 1096.4 mGycm Automated exposure control for dose reduction was used. Ventricles have normal size. There is no mass effect nor midline shift. There is no sign of intracran ial hemorrhage. The calvarium is intact. There is no evidence of cerebral edema. IMPRESSION: Negative unenhanced head CT scan.
[2020-04-26] MEDS ORDERED: KETOROLAC 15 MG/ML 1 ML VIAL IVP STA (18:43)
[2020-04-26] MEDS ORDERED: levETIRAcetam IV 500 MG in SODIUM CHLORIDE 0.9% 100 ML IVPB STA (20:12)
[2020-04-26] MEDS: levETIRAcetam 500 MG TAB PO SCH (21:32)
[2020-04-27] MEDS: HYDROcodone/APAP 5-325MG 1 EACH TAB PO PRN ×3 (00:17→13:57)
[2020-04-27] MEDS ORDERED: hydrOXYzine pamoate 25 MG CAP PO PRN (01:13)
[2020-04-27] MEDS ORDERED: SUCRALFATE 1 GM TAB PO PRN (01:13)
[2020-04-27] MEDS: ONDANSETRON 4 MG/2 ML VIAL IVP PRN ×2 (01:37→11:07)
[2020-04-27] MEDS: LORazepam 2 MG/ML INJ IV PRN ×5 (02:15→18:44)
[2020-04-27 06:58] LABS: Basophils % (A) 0 %; Eosinophils # (A) 0.1 k/uL (0-0.7); Eosinophils % (A) 1 %; HCT 37.4 % (34.0-46.0); HGB 12.3 gm/dL (11.4-16.0); Lymphocytes # (A) 2.6 k/uL (1.0-4.8); Lymphocytes % (A) 44 %; MCH 30.4 pg (25.0-35.0); MCHC 32.9 g/dL (31.0-37.0); MCV 92.4 fL (80.0-100.0); Mean Platelet Volume 7.5; Monocytes # (A) 0.3 k/uL (0-1.0); Monocytes % (A) 5 %; Neutrophils # (A) 2.8 k/uL (1.3-7.7); Neutrophils % (A) 48 %; Platelet Count 232 k/uL (150-450); RBC 4.04 m/uL (3.80-5.40); RDW 14.2 % (11.5-15.5); WBC 5.8 k/uL (3.8-10.6)
[2020-04-27] MEDS: levETIRAcetam 500 MG TAB PO SCH ×2 (08:41→20:31)
[2020-04-27] MEDS: DICYCLOMINE 20 MG TAB PO SCH ×4 (08:42→20:30)
[2020-04-27] MEDS: PANTOPRAZOLE 40 MG TABLET PO SCH (08:42)
[2020-04-27] MEDS: busPIRone HCl 10 MG TAB PO SCH ×2 (08:42→20:30)
[2020-04-27] MEDS ORDERED: ASPIRIN 81 MG PO SCH (09:00)
--- NOTE | 2020-04-27 09:06 | P.HPIM ---
History of Present Illness This is a pleasant 29 years old female with past medical history of chronic abdominal pain status post EGD on 03/04/20 showing erosion with exudative consistent with LA grade B esophagitis and gastroparesis, chronic seizure, history of kidney stone and pyelonephritis, fatty liver and a chronic asthma. She is a patient of Dr. mack. Recurrent Patient presents because of Recurrent seizure. Patient states she's been having a seizure frequently over the last month, she was on Keppra 500 mg and increased by her PCP currently Pablo increase her dose to 750 mg twice a day about one week and a half ago, however over the last 2 days she developed for seizures and 5 seizures respectively, patient states that her and grandmother noticed and with this her seizure that lasted about 2-5 minutes associated with shakiness, she states that she wets herself about 4 days ago and he bit her tongue about 4-5 days ago. Patient states that she's been adherent and compliant with taking her Keppra dose She denies smoking, alcohol or illicit drugs She also complains from chronic periumbilical abdominal pain for 3-4 months and she follows up with Dr. Leone for esophagitis and Crohn's disease and as per patient she supposed to get an MRI of the end abdomen and probable intestine with them. She denies current vomiting or nausea however she feels constipated Vitals are stable. Labs including CBC and BMP and liver enzymes are unremarkable. HCG serum is not detected EKG showing normal sinus rhythm at [address] T changes: CT of the brain: Negative head computed tomography scan per radiologist An emergency room she received Ativan 1 mg 2 and Keppra 500 mg 1 and started on Keppra 1000 mg twice daily (at home she was on Keppra 750 mg twice daily) Review of Systems CONSTITUTIONAL: No fever, no malaise, no fatigue. HEENT: No recent visual problems or hearing problems. Denied any sore throat. CARDIOVASCULAR: No orthopnea, PND, no palpitations, no syncope. PULMONARY: No shortness of breath, no cough, no hemoptysis. GASTROINTESTINAL: No diarrhea, no nausea, no vomiting, no abdominal pain. Normoactive bowel sounds. NEUROLOGICAL: No headaches, no weakness, no numbness. HEMATOLOGICAL: Denies any bleeding or petechiae. GENITOURINARY: Denies any burning micturition, frequency, or urgency. MUSCULOSKELETAL/RHEUMATOLOGICAL: Denies any joint pain, swelling, or any muscle pain. ENDOCRINE: Denies any polyuria or polydipsia. Past Medical History Past Medical History: Asthma, Eye Disorder, Liver Disease, Pneumonia, Renal Dis ease, Seizure Disorder Additional Past Medical History / Comment(s): Multiple UTIs, pyelonephritis, "spongy" kidney, nephrolithiasis-passed stone on her own, recently told she has a fatty liver, catatonic seizure/stress induced, bilateral astigmatism, murmur, pt states she alternates between diarrhea/constipation past 1.5 years, gestational diabetes/eclampsia.Gastroparesis History of Any Multi-Drug Resistant Organisms: None Reported Date of last positivie culture/infection: 2010 MDRO Source:: foot Past Surgical History: Section, Tubal Ligation Additional Past Surgical History / Comment(s): c sect x 4 Past Anesthesia/Blood Transfusion Reactions: No Reported Reaction Past Psychological History: Anxiety, Bipolar, Depression, Panic Disorder, PTSD Additional Psychological History / Comment(s): Her 4 children visit at times. Pt is independent. Smoking Status: Former smoker, Vaper Past Alcohol Use History: None Reported Additional Past Alcohol Use History / Comment(s): Pt started smoking in 2017 and quit in 2018-2 ppd, but now vapes daily. Past Drug Use History: None Reported - Past Family History Father Family Medical History: Cancer, COPD, Hypertension Additional Family Medical History / Comment(s): Lung cancer Mother Family Medical History: COPD, Renal Disease, Seizure Disorder Additional Family Medical History / Comment(s): bronchitis, back problems. Psych issues Medications and Allergies Home Medications Medication Instructions Recorded Confirmed Type Aspirin EC [Ecotrin Low Dose] 81 mg PO DAILY 03/03/20 04/26/20 History Butalb/APAP/Caff 50-325-40Mg 1 tab PO Q4H PRN 04/26/20 04/26/20 History [Fioricet 50-325-40] Dicyclomine [Bentyl] 20 mg PO QID 04/26/20 04/26/20 History Omeprazole 20 mg PO AC-BID 04/26/20 04/26/20 History Ondansetron Odt [Zofran Odt] 4 mg PO Q8H PRN 04/26/20 04/26/20 History Sucralfate [Carafate] 1 gm PO QID PRN 04/26/20 04/26/20 History busPIRone HCl [Buspar] 10 mg PO BID 04/26/20 04/26/20 History hydrOXYzine pamoate [hydrOXYzine 25 mg PO HS PRN 04/26/20 04/26/20 History PAMOATE] levETIRAcetam [Keppra] 750 mg PO BID 04/26/20 04/26/20 History Allergies Allergy/AdvReac Type Severity Reaction Status Date / Time morphine Allergy Rash/Hives Verified 04/02/20 22:51 apple AdvReac Intermediate Itching Verified 04/02/20 22:51 adhesive tape AdvReac Mild Itching Verified 04/02/20 22:51 sumatriptan [From Imitrex] AdvReac Makes Verified 04/02/20 22:51 Migraine Worse/Dizziness sumatriptan succinate AdvReac Makes Verified 04/02/20 22:51 [From Imitrex] Migraine Worse/Dizziness Physical Exam Vitals: Vital Signs Temp Pulse Pulse Resp BP BP Pulse Ox 04/27/20 05:00 97.7 F 55 L 17 116/73 100 04/27/20 02:12 70 20 101/66 100 04/27/20 00:00 20 04/26/20 21:47 97.7 F 69 16 127/86 100 04/26/20 21:18 75 18 129/72 97 04/26/20 19:00 80 18 04/26/20 18:00 85 18 122/83 04/26/20 17:00 18 04/26/20 16:20 18 04/26/20 15:16 98.4 F 73 18 114/75 99 Intake and Output 04/26/20 04/27/20 04/27/20 22:59 06:59 14:59 Intake Total 250 0 Balance 250 0 Intake: Oral 250 0 Other: Voiding Method Toilet Bedside Commode # Voids 0 # Bowel Movements 0 Weight 81.647 kg GENERAL: The patient is alert and oriented x3, not in any acute distress. Well developed, well nourished. HEENT: Pupils are round and equally reacting to light. EOMI. No scleral icterus. No conjunctival pallor. Normocephalic, atraumatic. No pharyngeal erythema. No thyromegaly. CARDIOVASCULAR: S1 and S2 present. No murmurs, rubs, or gallops. PULMONARY: Chest is clear to auscultation, no wheezing or crackles. ABDOMEN: Soft, nontender, nondistended, normoactive bowel sounds. No palpable organomegaly. MUSCULOSKELETAL: No joint swelling or deformity. EXTREMITIES: No cyanosis, clubbing, or pedal edema. NEUROLOGICAL: Gross neurological examination did not reveal any focal deficits. SKIN: No rashes. No petechiae Results CBC & Chem 7: 04/27/20 05:48 04/26/20 16:31 Labs: Abnormal Lab Results - Last 24 Hours (Table) 04/26/20 Range/Units 16:31 Glucose 102 H (74-99) mg/dL Thrombosis Risk Factor Assmnt - Choose All That Apply Any of the Below Risk Factors Present?: Yes Each Factor Represents 1 point: Obesity (BMI >25) Other Risk Factors: No Other congenital or acquired thrombophilia - If yes, enter type in comment: No Thrombosis Risk Factor Assessment Total Risk Factor Score: 1 Thrombosis Risk Factor Assessment Level: Low Risk Assessment and Plan Assessment: Breakthrough seizure Crohn's disease with chronic abdominal pain and she follow up with GI as an outpatient Fatty liver Erosion and exudative esophagitis Gastroparesis Chronic asthma History of kidney stone Plan: This is a pleasant 29 years old female who presents with breakthrough seizure, Keppra dose was increased, follow-up with neurology consult. Continue monitor the patient closely Labs and medication were reviewed.. Continue same treatment. Continue with symptomatic treatment. Resume home medication. Monitor lytes and vitals. DVT and GI prophylaxis. Further recommendations depends on the clinical course of the patient DVT prophylaxis: Subcutaneous heparin GI Prophylaxis: Ppi and Carafate Prognosis is guarded
[2020-04-27 09:57] LABS: African American GFR (CKD) 88.2 (60.0-200.0); Albumin 3.8 g/dL (3.80-4.90); Albumin/Globulin Ratio 1.81 (1.60-3.17); Anion Gap 6.3 mmol/L (4.00-12.00); Calcium 8.7 mg/dL (8.7-10.3); Carbon Dioxide 23.7 mmol/L (21.6-31.8); Globulin 2.1 g/dL (1.6-3.3); Non-African American GFR(CKD) 76.1 (60.0-200.0); Potassium 4.1 mmol/L (3.5-5.5); Total Bilirubin 0.1 mg/dL (0.2-1.2); Total Protein 5.9 g/dL (6.2-8.2)
[2020-04-27] MEDS ORDERED: KETOROLAC 15 MG/ML 1 ML VIAL IVP PRN (11:29)
[2020-04-27] MEDS ORDERED: ACETAMINOPHEN TAB 325 MG TAB PO PRN (11:31)
[2020-04-27] MEDS: KETOROLAC 15 MG/ML 1 ML VIAL IVP PRN ×2 (16:33→20:42)
[2020-04-27] MEDS ORDERED: LACOSAMIDE IV 100 MG in SODIUM CHLORIDE 0.9% 50 ML IVPB STA (19:10)
--- NOTE | 2020-04-27 19:53 | P.CNNES ---
History of Present Illness Consult date: 04/27/20 Chief complaint: seizures History of Present Illness: The patient is a 29-year-old female who is seen in neurologic consultation on April 27, 2020 via teleneurology. The patient reports that she has been having increasing seizures over the past couple of months because of increased stress. She says that her seizures are "stress-induced". She says "I am not epileptic". She apparently is taking Keppra for her seizures. She says the dose was recently increased to 750 mg twice daily. It has provided no benefit. Patient denies missing any of her doses of medication. Patient reports typically having 2-3 seizures per day. On the day of presentation to the emergency department, the patient reportedly had 5 seizures. Patient reports being in the hospital for approximately one week, one and half months ago because of abdominal pain. She has been worked up with colonoscopies and reports that her warp scouring vat tender believe she has Crohn's disease. In regards to her seizures, the patient reports that she occasionally will bite her tongue with a seizure. She occasionally loses control of her bladder. She says, "last week I shit myself". In regards to an aura, the patient reports feeling lightheaded, headache and weakness. She also reports a "scared" feeling. She does not always have an aura with each seizure. The patient reports she was told by her grandmother, that she had staring spells back to the age of 8. The spells reportedly lasted for 4-5 minutes. The patient denies a history of concussion and closed head injury. The patient does take medication for seizure prevention. She denies taking any medication for anxiety and stress. She does report being scheduled to have a tele-health visit with a psychologist through [facility], on Tuesday. The patient reports being under a great deal of stress. She has been experiencing a lot of pain as well. The patient reports difficulty with her memory. Past Medical History Past Medical History: Asthma, Eye Disorder, Liver Disease, Pneumonia, Renal Disease, Seizure Disorder Additional Past Medical History / Comment(s): Multiple UTIs, pyelonephritis, "spongy" kidney, nephrolithiasis-passed stone on her own, recently told she has a fatty liver, catatonic seizure/stress induced, bilateral astigmatism, murmur, pt states she alternates between diarrhea/constipation past 1.5 years, gestatio nal diabetes/eclampsia.Gastroparesis History of Any Multi-Drug Resistant Organisms: None Reported Date of last positivie culture/infection: 2010 MDRO Source:: foot Past Surgical History: Section, Tubal Ligation Additional Past Surgical History / Comment(s): c sect x 4 Past Anesthesia/Blood Transfusion Reactions: No Reported Reaction Past Psychological History: Anxiety, Bipolar, Depression, Panic Disorder, PTSD Additional Psychological History / Comment(s): Her 4 children visit at times. Pt is independent. Smoking Status: Former smoker, Vaper Past Alcohol Use History: None Reported Additional Past Alcohol Use History / Comment(s): Pt started smoking in 2017 and quit in 2018-2 ppd, but now vapes daily. Past Drug Use History: None Reported - Past Family History Father Family Medical History: Cancer, COPD, Hypertension Additional Family Medical History / Comment(s): Lung cancer Mother Family Medical History: COPD, Renal Disease, Seizure Disorder Additional Family Medical History / Comment(s): bronchitis, back problems. Psych issues Medications and Allergies Home Medications Medication Instructions Recorded Confirmed Type Aspirin EC [Ecotrin Low Dose] 81 mg PO DAILY 03/03/20 04/26/20 History Butalb/APAP/Caff 50-325-40Mg 1 tab PO Q4H PRN 04/26/20 04/26/20 History [Fioricet 50-325-40] Dicyclomine [Bentyl] 20 mg PO QID 04/26/20 04/26/20 History Omeprazole 20 mg PO AC-BID 04/26/20 04/26/20 History Ondansetron Odt [Zofran Odt] 4 mg PO Q8H PRN 04/26/20 04/26/20 History Sucralfate [Carafate] 1 gm PO QID PRN 04/26/20 04/26/20 History busPIRone HCl [Buspar] 10 mg PO BID 04/26/20 04/26/20 History hydrOXYzine pamoate [hydrOXYzine 25 mg PO HS PRN 04/26/20 04/26/20 History PAMOATE] levETIRAcetam [Keppra] 750 mg PO BID 04/26/20 04/26/20 History Allergies Allergy/AdvReac Type Severity Reaction Status Date / Time morphine Allergy Rash/Hives Verified 04/02/20 22:51 apple AdvReac Intermediate Itching Verified 04/02/20 22:51 adhesive tape AdvReac Mild Itching Verified 04/02/20 22:51 sumatriptan [From Imitrex] AdvReac Makes Verified 04/02/20 22:51 Migraine Worse/Dizziness sumatriptan succinate AdvReac Makes Verified 04/02/20 22:51 [From Imitrex] Migraine Worse/Dizziness Physical Examination - Vital Signs Vital Signs: Vital Signs Temp Pulse Pulse Resp BP BP Pulse Ox 04/27/20 13:18 98.2 F 72 16 125/55 96 04/27/20 05:00 97.7 F 55 L 17 116/73 100 04/27/20 02:12 70 20 101/66 100 04/27/20 00:00 20 04/26/20 21:47 97.7 F 69 16 127/86 100 04/26/20 21:18 75 18 129/72 97 04/26/20 19:00 80 18 04/26/20 18:00 85 18 122/83 04/26/20 17:00 18 04/26/20 16:20 18 04/26/20 15:16 98.4 F 73 18 114/75 99 Intake and Output 04/26/20 04/27/20 04/27/20 22:59 06:59 14:59 Intake Total 250 0 Balance 250 0 Intake: Oral 250 0 Other: Voiding Method Toilet Toilet Bedside Commode Bedside Commode # Voids 0 # Bowel Movements 0 Weight 81.647 kg Gen.: The patient is reclining in the bed. She is in intensive care unit for closer monitoring. She reportedly had seizures earlier in the day and was moved to the ICU. The patient is well-nourished, well-developed and in no acute distress. Her service dog is present on the bed HEENT: Head is atraumatic, normocephalic. Fundus not visualized. There is no scleral icterus. Mucous membranes are moist Neck: Supple Heart: Regular rate and rhythm Extremities: Without edema Neurological examination Mental status: The patient becomes quite tearful when asked about the day of the week. Patient reports that it is Tuesday, April 26. She becomes upset when she is told that it is April 27. Speech is clear Cranial nerves: Pupils are equal, 4 mm round and reactive to light. Visual beavers are full to confrontation. Extraocular movements are intact. There is no nystagmus. Facial sensation is intact. There is no facial asymmetry. Hearing is grossly intact. Uvula and palate are midline. Shoulder shrug is symmetric. Tongue protrudes midline. Motor: Strength is 5/5 in the bilateral upper extremities. There is questionable decreased strength in left lower extremity. Sensation: Patient reports decreased temperature sensation in the right lower extremity. Light touch is intact throughout. Coordination: Finger to nose and rapid alternating movements are intact. Deep tendon reflexes: 1+/4+ throughout Results - Laboratory Findings CBC and BMP: 04/27/20 05:48 04/27/20 05:48 Abnormal Lab Findings: Abnormal Labs 04/26/20 04/27/20 16:31 05:48 Glucose 102 H Total Bilirubin 0.1 L Total Protein 5.9 L Assessment and Plan Assessment: 1. Break thru seizures/pseudoseizures, per patient-"stress-induced seizures" 2. Chronic pain Plan: 1. EEG 2. Consider transfer to [facility] for admission to the inpatient EEG/video monitoring unit for further diagnostic workup Time with Patient: Greater than 30 (spent 40 minutes with patient via teleneurology)
[2020-04-28] MEDS ORDERED: LORazepam 1 MG TAB PO PRN (02:58)
[2020-04-28] MEDS: HYDROcodone/APAP 5-325MG 1 EACH TAB PO PRN (03:01)
[2020-04-28 04:41] VITALS: TEMP 97.9
[2020-04-28] MEDS: PANTOPRAZOLE 40 MG TABLET PO SCH (06:51)
[2020-04-28 07:14] VITALS: BP 112/70; PULSE 90; RESP 16
[2020-04-28] MEDS ORDERED: HEPARIN SODIUM,PORCINE 5,000 UNIT/ML 1 ML VIAL SQ SCH (09:00)
[2020-04-28] MEDS ORDERED: LACOSAMIDE 50 MG TABLET PO SCH (09:00)
--- NOTE | 2020-04-28 11:58 | P.DS ---
Providers Date of admission: 04/28/20 07:18 Attending physician: Ruchi Hernandez Consults: 04/26/20 20:08 Consult Physician Urgent Consulting Provider: Deysi Marcelo Consult Reason/Comments: Seizures Do you want consulting provider notified?: Already Contacted 04/27/20 13:01 Consult Physician Routine Consulting Provider: [place] Consult Reason/Comments: ICU management Do you want consulting provider notified?: Already Contacted Primary care physician: [facility] Course: Please note this is not a discharge summary as patient left AMA diagnoses: Breakthrough seizure Crohn's disease with chronic abdominal pain and she follow up with GI as an outpatient Fatty liver Erosion and exudative esophagitis Gastroparesis Chronic asthma History of kidney stone Hospital course: Please refer for H&P for more details Patient was admitted for breakthrough seizures and recurrent seizures, her Keppra dose was increased to 1000 mg and started on the implant by neurology with recommendation for video/EEG, this morning before rounding on the patient patient would not let her service dog at bedside to be muscles to stop working or risking biting one of the staff, it looks like she was upset with the staff and decided to leave AMA, please refer to nurses note for more details Patient left AMA before I have a chance to talk to her. Risk of leaving him A are explained to her by staff as per report Based upon my evaluation from yesterday patient has capacity to make medical decision, she is alert awake and oriented to time, place and person and she is aware to the surrounding and to her diagnosis and management plan. Patient Condition at Discharge: Stable Plan - Discharge Summary New Discharge Prescriptions: No Action Aspirin EC [Ecotrin Low Dose] 81 mg PO DAILY levETIRAcetam [Keppra] 750 mg PO BID hydrOXYzine pamoate [hydrOXYzine PAMOATE] 25 mg PO HS PRN PRN Reason: Anxiety Dicyclomine [Bentyl] 20 mg PO QID busPIRone HCl [Buspar] 10 mg PO BID Butalb/APAP/Caff 50-325-40Mg [Fioricet 50-325-40] 1 tab PO Q4H PRN PRN Reason: Migraine Headache Sucralfate [Carafate] 1 gm PO QID PRN PRN Reason: Gi Upset Omeprazole 20 mg PO AC-BID Ondansetron Odt [Zofran Odt] 4 mg PO Q8H PRN PRN Reason: Nausea Discharge Medication List Aspirin EC [Ecotrin Low Dose] 81 mg PO DAILY 03/03/20 [History] Butalb/APAP/Caff 50-325-40Mg [Fioricet 50-325-40] 1 tab PO Q4H PRN 04/26/20 [History] Dicyclomine [Bentyl] 20 mg PO QID 04/26/20 [History] Omeprazole 20 mg PO AC-BID 04/26/20 [History] Ondansetron Odt [Zofran Odt] 4 mg PO Q8H PRN 04/26/20 [History] Sucralfate [Carafate] 1 gm PO QID PRN 04/26/20 [History] busPIRone HCl [Buspar] 10 mg PO BID 04/26/20 [History] hydrOXYzine pamoate [hydrOXYzine PAMOATE] 25 mg PO HS PRN 04/26/20 [History] levETIRAcetam [Keppra] 750 mg PO BID 04/26/20 [History] Follow up Appointment(s)/Ref[facility] - [facility]-2 days Discharge Disposition: Left Against Medical Advice
== END 2020-04-28 08:31 | disposition left against medical advice (07) ==
LOC: EC 15:11 → 6NMEDSUR 20:16 → 2SICU 04-27 13:24 → INTOOBSV 04-28 07:18 → OBSVTOIN 04-28 07:18 → UNDODISIN 04-28 08:31
PROVIDERS: ADMIT Internal Medicine; ATTEND Internal Medicine
DX: G40.909 Epilepsy, unspecified, not intractable, without status epilepticus (principal); Z53.29 Procedure and treatment not carried out because of patient's decision for other reasons; K50.90 Crohn's disease, unspecified, without complications; G89.29 Other chronic pain; R10.9 Unspecified abdominal pain; K76.0 Fatty (change of) liver, not elsewhere classified; K22.10 Ulcer of esophagus without bleeding; K31.84 Gastroparesis; J45.909 Unspecified asthma, uncomplicated; Z87.440 Personal history of urinary (tract) infections; Z53.21 Procedure and treatment not carried out due to patient leaving prior to being seen by health care provider; Z87.01 Personal history of pneumonia (recurrent); Z87.442 Personal history of urinary calculi; K59.00 Constipation, unspecified; F31.9 Bipolar disorder, unspecified; F43.10 Post-traumatic stress disorder, unspecified; F41.0 Panic disorder [episodic paroxysmal anxiety]; Z87.891 Personal history of nicotine dependence; Z79.82 Long term (current) use of aspirin; Z79.899 Other long term (current) drug therapy; Z88.5 Allergy status to narcotic agent; Z88.8 Allergy status to other drugs, medicaments and biological substances; Z91.018 Allergy to other foods; Z91.048 Other nonmedicinal substance allergy status; E66.9 Obesity, unspecified; Z68.30 Body mass index [BMI] 30.0-30.9, adult; Z82.49 Family history of ischemic heart disease and other diseases of the circulatory system; Z82.5 Family history of asthma and other chronic lower respiratory diseases; Z82.0 Family history of epilepsy and other diseases of the nervous system; Z80.1 Family history of malignant neoplasm of trachea, bronchus and lung; Z81.8 Family history of other mental and behavioral disorders
CPT/HCPCS: 96376 ×3; 96375 ×2; 96361; 96365; 99285; 36415; 93005; 80053 ×2; 83690; 85025 ×2; 84703; 70450; G0378 ×4; J2060 ×2; J2405; J1953; J1885 ×2; C9254

== ENCOUNTER 2020-06-03 15:18 | Emergency (ER) | payer OTHER ==
[2020-06-03 15:44] VITALS: RESP 12; TEMP 97.9
[2020-06-03] MEDS ORDERED: SODIUM CHLORIDE 0.9% 500 ML 500 ML IV STA (15:46)
--- NOTE | 2020-06-03 16:09 | ED ---
General Adult HPI - General Chief complaint: Seizure Stated complaint: Seizure Time Seen by Provider: 06/03/20 15:36 Source: patient, EMS, RN notes reviewed, old records reviewed Mode of arrival: EMS - History of Present Illness Initial comments: 29-year-old female with seizure disorder currently on Keppra presenting for evaluation of seizure at the waiting room of her neurologist office. She was transported by EMS. She states her baseline seizure frequency is approximately 4 seizures daily. She is planning to follow with [facility] regarding this seizure frequency. Cheese on Keppra 2000 mg daily. She has been compliant with her medication. States no recent changes in seizure medication. No focal numbness or weakness. No vomiting. She denies fever but states she has had some hot and cold spells. - Related Data Home Medications Medication Instructions Recorded Confirmed Aspirin EC [Ecotrin Low Dose] 81 mg PO DAILY 03/03/20 04/26/20 Butalb/APAP/Caff 50-325-40Mg 1 tab PO Q4H PRN 04/26/20 04/26/20 [Fioricet 50-325-40] Dicyclomine [Bentyl] 20 mg PO QID 04/26/20 04/26/20 Omeprazole 20 mg PO AC-BID 04/26/20 04/26/20 Ondansetron Odt [Zofran Odt] 4 mg PO Q8H PRN 04/26/20 04/26/20 Sucralfate [Carafate] 1 gm PO QID PRN 04/26/20 04/26/20 busPIRone HCl [Buspar] 10 mg PO BID 04/26/20 04/26/20 hydrOXYzine pamoate [hydrOXYzine 25 mg PO HS PRN 04/26/20 04/26/20 PAMOATE] levETIRAcetam [Keppra] 750 mg PO BID 04/26/20 04/26/20 Allergies Allergy/AdvReac Type Severity Reaction Status Date / Time morphine Allergy Rash/Hives Verified 04/02/20 22:51 apple AdvReac Intermediate Itching Verified 04/02/20 22:51 adhesive tape AdvReac Mild Itching Verified 04/02/20 22:51 sumatriptan [From Imitrex] AdvReac Makes Verified 04/02/20 22:51 Migraine Worse/Dizziness sumatriptan succinate AdvReac Makes Verified 04/02/20 22:51 [From Imitrex] Migraine Worse/Dizziness Review of Systems ROS Statement: Those systems with pertinent positive or pertinent negative responses have been documented in the HPI. ROS Other: All systems not noted in ROS Statement are negative. Past Medical History Past Medical History: Asthma, Eye Disorder, Liver Disease, Pneumonia, Renal Disease, Seizure Disorder Additional Past Medical History / Comment(s): Multiple UTIs, pyelonephritis, "spongy" kidney, nephrolithiasis-passed stone on her own, recently told she has a fatty liver, catatonic seizure/stress induced, bilateral astigmatism, murmur, pt states she alternates between diarrhea/constipation past 1.5 years, ges tational diabetes/eclampsia.Gastroparesis History of Any Multi-Drug Resistant Organisms: None Reported Date of last positivie culture/infection: 2010 MDRO Source:: foot Past Surgical History: Section, Tubal Ligation Additional Past Surgical History / Comment(s): c sect x 4 Past Anesthesia/Blood Transfusion Reactions: No Reported Reaction Past Psychological History: Anxiety, Bipolar, Depression, Panic Disorder, PTSD Smoking Status: Former smoker, Vaper Past Alcohol Use History: None Reported Past Drug Use History: None Reported - Past Family History Father Family Medical History: Cancer, COPD, Hypertension Additional Family Medical History / Comment(s): Lung cancer Mother Family Medical History: COPD, Renal Disease, Seizure Disorder Additional Family Medical History / Comment(s): bronchitis, back problems. Psych issues General Exam General appearance: alert, in no apparent distress Head exam: Present: atraumatic, normocephalic Eye exam: Present: normal appearance, PERRL ENT exam: Present: normal exam Neck exam: Present: normal inspection. Absent: tenderness, meningismus Respiratory exam: Present: normal lung sounds bilaterally. Absent: respiratory distress, wheezes Cardiovascular Exam: Present: regular rate, normal rhythm GI/Abdominal exam: Present: soft. Absent: distended, tenderness, guarding, rebound Extremities exam: Present: normal inspection, normal capillary refill. Absent: pedal edema Neurological exam: Present: alert, oriented X3, CN II-XII intact. Absent: motor sensory deficit Psychiatric exam: Present: normal affect, normal mood Skin exam: Present: warm, dry, intact Course Vital Signs 06/03/20 15:29 Temperature 97.9 F Pulse Rate 84 Respiratory 12 Rate Blood Pressure 131/90 O2 Sat by Pulse 98 Oximetry - Reevaluation(s) Reevaluation #1: 06/03/20 16:51 Urinalysis does have greater than 182 red cells, patient currently on her menstrual cycle EKG Findings - EKG Comments: EKG Findings:: EKG: Normal sinus rhythm, rate of 79, NJ interval 156, QRS duration 84, QTC 440, artifact in the lateral precordial leads, no ST segment elevation. Medical Decision Making - Medical Decision Making 29-year-old female with recurrent seizure. Patient does have good neurology follow-up. She has a nonfocal exam stable vitals. She is in sinus rhythm. She has a normal CBC, normal electrolytes. Patient was at her neurologist office when this occurred today. He is aware of her seizure frequency and she can continue to follow up as an outpatient. - Lab Data Result diagrams: 06/03/20 15:58 06/03/20 15:58 Lab Results 06/03/20 06/03/20 06/03/20 Range/Units 15:58 15:58 15:58 WBC 5.3 (3.8-10.6) k/uL RBC 4.17 (3.80-5.40) m/uL Hgb 13.1 (11.4-16.0) gm/dL Hct 38.1 (34.0-46.0) % MCV 91.3 (80.0-100.0) fL MCH 31.3 (25.0-35.0) pg MCHC 34.3 (31.0-37.0) g/dL RDW 13.6 (11.5-15.5) % Plt Count 277 (150-450) k/uL MPV 7.9 Neutrophils % 61 % Lymphocytes % 31 % Monocytes % 5 % Eosinophils % 1 % Basophils % 1 % Neutrophils # 3.2 (1.3-7.7) k/uL Lymphocytes # 1.6 (1.0-4.8) k/uL Monocytes # 0.3 (0-1.0) k/uL Eosinophils # 0.1 (0-0.7) k/uL Basophils # 0.0 (0-0.2) k/uL Sodium 138 (137-145) mmol/L Potassium 5.0 (3.5-5.1) mmol/L Chloride 109 H (98-107) mmol/L Carbon Dioxide 23 (22-30) mmol/L Anion Gap 6 mmol/L BUN 11 (7-17) mg/dL Creatinine 0.82 (0.52-1.04) mg/dL Est GFR (CKD-EPI)AfAm >90 (>60 ml/min/1.73 sqM) Est GFR (CKD-EPI)NonAf >90 (>60 ml/min/1.73 sqM) Glucose 102 H (74-99) mg/dL Calcium 8.9 (8.4-10.2) mg/dL Magnesium 1.9 (1.6-2.3) mg/dL Total Bilirubin 1.1 (0.2-1.3) mg/dL AST 37 H (14-36) U/L ALT 13 (4-34) U/L Alkaline Phosphatase 77 (38-126) U/L Total Protein 7.8 (6.3-8.2) g/dL Albumin 4.4 (3.5-5.0) g/dL Urine Color Yellow Urine Appearance Clear (Clear) Urine pH 6.0 (5.0-8.0) Ur Specific [place] 1.019 (1.001-1.035) Urine Protein Trace H (Negative) Urine Glucose (UA) Negative (Negative) Urine Ketones Negative (Negative) Urine Blood Moderate H (Negative) Urine Nitrite Negative (Negative) Urine Bilirubin Negative (Negative) Urine Urobilinogen <2.0 (<2.0) mg/dL Ur Leukocyte Esterase Negative (Negative) Urine RBC >182 H (0-5) /hpf Urine WBC 4 (0-5) /hpf Ur Squamous Epith Cells <1 (0-4) /hpf Urine Mucus Rare H (None) /hpf Disposition Clinical Impression: Generalized seizure Disposition: HOME SELF-CARE Condition: Fair Instructions (If sedation given, give patient instructions): Recurrent Seizures in Adults (ED) Is patient prescribed a controlled substance at d/c from ED?: No Referrals: Kellen Renee MD [Primary Care Provider] - 1-2 days Leopoldo Mac MD [STAFF PHYSICIAN] - 1-2 days Time of Disposition: 16:52
[2020-06-03 16:10] LABS: Basophils % (A) 1 %; Eosinophils # (A) 0.1 k/uL (0-0.7); Eosinophils % (A) 1 %; HCT 38.1 % (34.0-46.0); HGB 13.1 gm/dL (11.4-16.0); Lymphocytes # (A) 1.6 k/uL (1.0-4.8); Lymphocytes % (A) 31 %; MCH 31.3 pg (25.0-35.0); MCHC 34.3 g/dL (31.0-37.0); MCV 91.3 fL (80.0-100.0); Mean Platelet Volume 7.9; Monocytes # (A) 0.3 k/uL (0-1.0); Monocytes % (A) 5 %; Neutrophils # (A) 3.2 k/uL (1.3-7.7); Neutrophils % (A) 61 %; Platelet Count 277 k/uL (150-450); RBC 4.17 m/uL (3.80-5.40); RDW 13.6 % (11.5-15.5); WBC 5.3 k/uL (3.8-10.6)
[2020-06-03 16:21] LABS: ALT 13 U/L (4-34); AST 37 U/L (14-36); African American GFR (CKD) >90 (>60 ml/min/1.73 sqM); Albumin 4.4 g/dL (3.5-5.0); Alkaline Phosphatase 77 U/L (38-126); Anion Gap 6 mmol/L; Blood Urea Nitrogen 11 mg/dL (7-17); Calcium 8.9 mg/dL (8.4-10.2); Carbon Dioxide 23 mmol/L (22-30); Chloride 109 mmol/L (98-107); Glucose 102 mg/dL (74-99); Magnesium 1.9 mg/dL (1.6-2.3); Non-African American GFR(CKD) >90 (>60 ml/min/1.73 sqM); Sodium 138 mmol/L (137-145); Total Bilirubin 1.1 mg/dL (0.2-1.3); Total Protein 7.8 g/dL (6.3-8.2)
[2020-06-03 16:38] LABS: Appearance,Urine Clear (Clear); Bilirubin,Urine Negative (Negative); Blood,Urine Moderate (Negative); Color,Urine Yellow; Glucose,Urine (UA) Negative (Negative); Ketones,Urine Negative (Negative); Leukocyte Esterase,Urine Negative (Negative); Mucus,Urine Rare /hpf; Nitrite,Urine Negative (Negative); Protein,Urine Trace (Negative); RBC,Urine >182 /hpf (0-5); Specific Gravity,Urine 1.019 (1.001-1.035); Squamous Epithelial Cell,Urine <1 /hpf (0-4); Urobilinogen,Urine <2.0 mg/dL (<2.0); WBC,Urine 4 /hpf (0-5)
[2020-06-03 17:22] VITALS: BP 121/85; PULSE 61
== END 2020-06-03 17:31 | disposition home or self-care (01) ==
LOC: EC 15:18
DX: G40.909 Epilepsy, unspecified, not intractable, without status epilepticus (principal); F41.9 Anxiety disorder, unspecified; J45.909 Unspecified asthma, uncomplicated; F31.9 Bipolar disorder, unspecified; F41.0 Panic disorder [episodic paroxysmal anxiety]; F43.10 Post-traumatic stress disorder, unspecified; Z79.899 Other long term (current) drug therapy; Z88.5 Allergy status to narcotic agent; Z88.8 Allergy status to other drugs, medicaments and biological substances; Z91.018 Allergy to other foods; Z87.891 Personal history of nicotine dependence
CPT/HCPCS: 36415; 80053; 81001; 83735; 85025; 93005; 96360; 99284

== ENCOUNTER 2020-06-24 20:53 | Emergency (ER) | payer OTHER ==
[2020-06-24 21:11] VITALS: TEMP 98.2
[2020-06-24] MEDS ORDERED: KETOROLAC 15 MG/ML 1 ML VIAL IVP STA (21:19)
[2020-06-24] MEDS ORDERED: SODIUM CHLORIDE 0.9% 1,000 ML IV STA (21:19)
[2020-06-24] MEDS ORDERED: ONDANSETRON 4 MG/2 ML VIAL IVP STA (21:20)
--- NOTE | 2020-06-24 22:03 | ED ---
Seizure HPI - General Chief Complaint: Seizure Stated Complaint: headache Time Seen by Provider: 06/24/20 21:06 Source: patient, police Mode of arrival: EMS Limitations: no limitations - History of Present Illness Initial Comments: Patient is a 29-year-old female, history of epilepsy, presenting to the emergency department via EMS after having a headache, feeling nauseous and increased drowsiness after multiple seizures today. She states she does have multiple seizures throughout the day, this is normal for her. She does take Keppra and did take her normal dose today. Patient denies any alcohol or any other drug use today. She states she does also have a history of headaches and did take migraine medicine today, she does not feel like it helping. She also feels like she's had a mild panic attack after she came out of her last seizure. She feels like that is starting to get better but she still does not feel herself. She states she has been able to eat and drink as normal today. She does have an appointment in 2 days with her neurologist to go over recent testing. Patient denies being this time. She denies having chest pain, shortness of breath, cough, abdominal pain, no vomiting. She denies any fever or chills. She has no further complaints at this time. Upon arrival to the ER, her vitals are stable. - Related Data Home Medications Medication Instructions Recorded Confirmed Aspirin EC [Ecotrin Low Dose] 81 mg PO BID 03/03/20 06/24/20 Butalb/APAP/Caff 50-325-40Mg 1 tab PO Q4H PRN 04/26/20 06/24/20 [Fioricet 50-325-40] Sucralfate [Carafate] 1 gm PO QID PRN 04/26/20 06/24/20 busPIRone HCl [Buspar] 10 mg PO BID 04/26/20 06/24/20 Amitriptyline HCl [Elavil] 25 mg PO HS 06/03/20 06/24/20 PARoxetine HCL 20 mg PO DAILY 06/03/20 06/24/20 Pantoprazole Sodium [Protonix] 40 mg PO BID 06/03/20 06/24/20 levETIRAcetam [Keppra] 1,000 mg PO BID 06/03/20 06/24/20 NIFEdipine [Procardia] 10 mg PO DAILY 06/24/20 06/24/20 Ondansetron [Zofran] 4 mg PO Q8HR PRN 06/24/20 06/24/20 Allergies Allergy/AdvReac Type Severity Reaction Status Date / Time morphine Allergy Rash/Hives Verified 06/24/20 21:48 apple AdvReac Intermediate Itching Verified 06/24/20 21:48 adhesive tape AdvReac Mild Itching Verified 06/24/20 21:48 sumatriptan [From Imitrex] AdvReac Makes Verified 06/24/20 21:48 Migraine Worse/Dizziness sumatriptan succinate AdvReac Makes Verified 06/24/20 21:48 [From Imitrex] Migraine Worse/Dizziness Review of Systems ROS Statement: Those systems with pertinent positive or pertinent negative responses have been documented in the HPI. ROS Other: All systems not noted in ROS Statement are negative. Past Medical History Past Medical History: Asthma, Eye Disorder, Liver Disease, Pneumonia, Renal Disease, Seizure Disorder Additional Past Medical History / Comment(s): Multiple UTIs, pyelonephritis, "spongy" kidney, nephrolithiasis-passed stone on her own, recently told she has a fatty liver, catatonic seizure/stress induced, bilateral astigmatism, murmur, pt states she alternates between diarrhea/constipation past 1.5 years, gestational diabetes/eclampsia.Gastroparesis History of Any Multi-Drug Resistant Organisms: None Reported Date of last positivie culture/infection: 2010 MDRO Source:: foot Past Surgical History: Section, Tubal Ligation Additional Past Surgical History / Comment(s): c sect x 4 Past Anesthesia/Blood Transfusion Reactions: No Reported Reaction Past Psychological History: Anxiety, Bipolar, Depression, Panic Disorder, PTSD Smoking Status: Former smoker, Vaper Past Alcohol Use History: None Reported Past Drug Use History: None Reported - Past Family History Father Family Medical History: Cancer, COPD, Hypertension Additional Family Medical History / Comment(s): Lung cancer Mother Family Medical History: COPD, Renal Disease, Seizure Disorder Additional Family Medical History / Comment(s): bronchitis, back problems. Psych issues General Exam - General Exam Comments Initial Comments: GENERAL: Patient is well-developed and well-nourished. Patient is nontoxic and in no acute distress. HEAD: Atraumatic, normocephalic. EYES: Pupils equal round and reactive to light, extraocular movements intact, sclera anicteric, conjunctiva are normal. Eyelids were unremarkable. ENT: TMs normal, nares patent, oropharynx clear without exudates. Moist mucous membranes. NECK: Normal range of motion, supple without lymphadenopathy or JVD. LUNGS: Unlabored respirations. Breath sounds clear to auscultation bilaterally and equal. No wheezes rales or rhonchi. HEART: Regular rate and rhythm without murmurs, rubs or gallops. ABDOMEN: Soft, nontender, normoactive bowel sounds. No guarding, no rebound. No masses appreciated. : Deferred MUSCULOSKELETAL: Normal extremities with adequate strength and normal range of motion, no pitting or edema. No clubbing or cyanosis. NEUROLOGICAL: Patient is alert and oriented x 3. Motor and sensory are also intact. Cranial nerves II through XII grossly intact. Symmetrical smile. Normal speech, normal gait. PSYCH: Normal mood, normal affect. SKIN: Warm, Dry, normal turgor, no rashes or lesions noted. Limitations: no limitations Course Vital Signs 06/24/20 06/24/20 06/24/20 21:08 22:26 23:44 Temperature 98.2 F Pulse Rate 78 58 L 56 L Respiratory 18 16 15 Rate Blood Pressure 134/100 137/80 125/86 O2 Sat by Pulse 98 98 97 Oximetry Medical Decision Making - Medical Decision Making Patient is a 29-year-old female with history of epilepsy, presenting after recurrent seizures today, headache and nausea. Her vital signs are stable upon arrival. Her exam is unremarkable, no acute neural deficits. Labs show no acute process, she was given some fluids, Ativan and Toradol as well as some Zofran. She has been resting comfortably in the ER, no further seizures. I discussed these findings with the patient. She is stable for discharge. She has an appointment with her neurologist in 2 days. Return parameters were discussed with the patient she verbalized understanding. Case discussed with Dr. Sales. - Lab Data Result diagrams: 06/24/20 22:03 06/24/20 22:03 Lab Results 06/24/20 06/24/20 Range/Units 22:03 22:03 WBC 7.3 (3.8-10.6) k/uL RBC 3.99 (3.80-5.40) m/uL Hgb 12.8 (11.4-16.0) gm/dL Hct 36.2 (34.0-46.0) % MCV 90.7 (80.0-100.0) fL MCH 32.0 (25.0-35.0) pg MCHC 35.3 (31.0-37.0) g/dL RDW 13.2 (11.5-15.5) % Plt Count 290 (150-450) k/uL MPV 7.2 Neutrophils % 46 % Lymphocytes % 45 % Monocytes % 6 % Eosinophils % 1 % Basophils % 0 % Neutrophils # 3.4 (1.3-7.7) k/uL Lymphocytes # 3.3 (1.0-4.8) k/uL Monocytes # 0.4 (0-1.0) k/uL Eosinophils # 0.1 (0-0.7) k/uL Basophils # 0.0 (0-0.2) k/uL Sodium 137 (137-145) mmol/L Potassium 4.1 (3.5-5.1) mmol/L Chloride 108 H (98-107) mmol/L Carbon Dioxide 24 (22-30) mmol/L Anion Gap 5 mmol/L BUN 15 (7-17) mg/dL Creatinine 0.80 (0.52-1.04) mg/dL Est GFR (CKD-EPI)AfAm >90 (>60 ml/min/1.73 sqM) Est GFR (CKD-EPI)NonAf >90 (>60 ml/min/1.73 sqM) Glucose 95 (74-99) mg/dL Calcium 8.8 (8.4-10.2) mg/dL Total Bilirubin 0.1 L (0.2-1.3) mg/dL AST 24 (14-36) U/L ALT 19 (4-34) U/L Alkaline Phosphatase 96 (38-126) U/L Total Protein 6.9 (6.3-8.2) g/dL Albumin 3.9 (3.5-5.0) g/dL - EKG Data EKG Comments: Normal sinus rhythm, anterolateral infarct, age undetermined, similar to previous EKG on 06/03/2020. No signs of acute ischemia at this time. Ventricular rate 64, IL interval 148, QTC 394. Disposition Clinical Impression: Generalized seizure, Headache Disposition: HOME SELF-CARE Condition: Stable Instructions (If sedation given, give patient instructions): Recurrent Seizures in Adults (ED) Additional Instructions: Please return to the Emergency Department if symptoms worsen or any other concerns. Continue with your already prescribed medications. Follow up with your neurologist in 2 days as discussed. Is patient prescribed a controlled substance at d/c from ED?: No Referrals: Kellen Renee MD [Primary Care Provider] - 1-2 days
[2020-06-24] MEDS ORDERED: LORazepam 2 MG/ML INJ IV STA (22:04)
[2020-06-24 22:17] LABS: Basophils % (A) 0 %; Eosinophils # (A) 0.1 k/uL (0-0.7); Eosinophils % (A) 1 %; HCT 36.2 % (34.0-46.0); HGB 12.8 gm/dL (11.4-16.0); Lymphocytes # (A) 3.3 k/uL (1.0-4.8); Lymphocytes % (A) 45 %; MCHC 35.3 g/dL (31.0-37.0); MCV 90.7 fL (80.0-100.0); Mean Platelet Volume 7.2; Monocytes # (A) 0.4 k/uL (0-1.0); Monocytes % (A) 6 %; Neutrophils # (A) 3.4 k/uL (1.3-7.7); Neutrophils % (A) 46 %; Platelet Count 290 k/uL (150-450); RBC 3.99 m/uL (3.80-5.40); RDW 13.2 % (11.5-15.5); WBC 7.3 k/uL (3.8-10.6)
[2020-06-24 22:30] LABS: ALT 19 U/L (4-34); AST 24 U/L (14-36); African American GFR (CKD) >90 (>60 ml/min/1.73 sqM); Albumin 3.9 g/dL (3.5-5.0); Alkaline Phosphatase 96 U/L (38-126); Anion Gap 5 mmol/L; Blood Urea Nitrogen 15 mg/dL (7-17); Calcium 8.8 mg/dL (8.4-10.2); Carbon Dioxide 24 mmol/L (22-30); Chloride 108 mmol/L (98-107); Glucose 95 mg/dL (74-99); Non-African American GFR(CKD) >90 (>60 ml/min/1.73 sqM); Potassium 4.1 mmol/L (3.5-5.1); Sodium 137 mmol/L (137-145); Total Bilirubin 0.1 mg/dL (0.2-1.3); Total Protein 6.9 g/dL (6.3-8.2)
[2020-06-24 23:45] VITALS: BP 125/86; PULSE 56; RESP 15
== END 2020-06-24 23:46 | disposition home or self-care (01) ==
LOC: EC 20:53
DX: G40.909 Epilepsy, unspecified, not intractable, without status epilepticus (principal); R51.9 Headache, unspecified; J45.909 Unspecified asthma, uncomplicated; F41.0 Panic disorder [episodic paroxysmal anxiety]; F31.9 Bipolar disorder, unspecified; Z79.82 Long term (current) use of aspirin; Z79.899 Other long term (current) drug therapy; Z88.5 Allergy status to narcotic agent; Z91.048 Other nonmedicinal substance allergy status; Z91.018 Allergy to other foods
CPT/HCPCS: 36415; 93005; 80053; 85025; 99284; 96374; 96375 ×2; 96361; J2060; J2405; J1885

== ENCOUNTER → 2020-07-08 | Outpatient (CLI) | payer OTHER ==
--- NOTE | 2020-07-17 09:29 | HM ---
24 hours No sustained or nonsustained arrhythmias monitor shows sinus mechanism, heart rates ranging from 45-135 beats a minute average 71 beats a minute Occasional sinus tachycardia Occasional PVCs MTDD
== END | disposition home or self-care (01) ==
LOC: RADECHMAIN 12:00
PROVIDERS: ATTEND Family Medicine
DX: I49.9 Cardiac arrhythmia, unspecified (principal)
CPT/HCPCS: 93225; 93226

== ENCOUNTER 2022-02-10 21:12 | Emergency (ER) | payer MEDICARE, OTHER ==
[2022-02-10 21:19] VITALS: TEMP 98.2
[2022-02-10] MEDS ORDERED: PANTOPRAZOLE 40 MG/10 ML VIAL IVP STA (21:39)
[2022-02-10] MEDS ORDERED: SODIUM CHLORIDE 0.9% 1,000 ML IV STA (21:39)
[2022-02-10] MEDS ORDERED: ONDANSETRON 4 MG/2 ML VIAL IVP STA (21:39)
[2022-02-10] MEDS ORDERED: diphenhydrAMINE 50 MG/ML 1 ML VIAL IVP STA (21:39)
[2022-02-10] MEDS ORDERED: MORPHINE SULFATE 4 MG/ML SYRINGE IV STA (21:39)
[2022-02-10] MEDS ORDERED: KETOROLAC 15 MG/ML 1 ML VIAL IVP STA (21:44)
[2022-02-10 22:06] LABS: Basophils # (A) 0.1 k/uL (0-0.2); Basophils % (A) 1 %; Eosinophils # (A) 0.3 k/uL (0-0.7); Eosinophils % (A) 3 %; HCT 40.5 % (34.0-46.0); Lymphocytes # (A) 2.9 k/uL (1.0-4.8); Lymphocytes % (A) 25 %; MCHC 32.1 g/dL (31.0-37.0); MCV 93.5 fL (80.0-100.0); Monocytes # (A) 0.5 k/uL (0-1.0); Monocytes % (A) 5 %; Neutrophils # (A) 7.7 k/uL (1.3-7.7); Neutrophils % (A) 67 %; Platelet Count 329 k/uL (150-450); RBC 4.33 m/uL (3.80-5.40); WBC 11.6 k/uL (3.8-10.6)
[2022-02-10 22:13] LABS: ALT 35 U/L (4-34); AST 30 U/L (14-36); African American GFR (CKD) 89 (>60 ml/min/1.73 sqM); Albumin 4.5 g/dL (3.5-5.0); Alkaline Phosphatase 79 U/L (38-126); Amylase 70 U/L (30-110); Anion Gap 7 mmol/L; Blood Urea Nitrogen 14 mg/dL (7-17); Calcium 9.5 mg/dL (8.4-10.2); Carbon Dioxide 27 mmol/L (22-30); Chloride 103 mmol/L (98-107); Glucose 97 mg/dL (74-99); Lipase 156 U/L (23-300); Non-African American GFR(CKD) 77 (>60 ml/min/1.73 sqM); Potassium 3.9 mmol/L (3.5-5.1); Sodium 137 mmol/L (137-145); Total Bilirubin 0.1 mg/dL (0.2-1.3); Total Protein 7.4 g/dL (6.3-8.2)
[2022-02-10 22:15] LABS: Appearance,Urine Clear (Clear); Bilirubin,Urine Negative (Negative); Blood,Urine Small (Negative); Color,Urine Yellow; Glucose,Urine (UA) Negative (Negative); Ketones,Urine Negative (Negative); Leukocyte Esterase,Urine Negative (Negative); Mucus,Urine Rare /hpf; Nitrite,Urine Negative (Negative); Protein,Urine Negative (Negative); RBC,Urine 3 /hpf (0-5); Specific Gravity,Urine 1.024 (1.001-1.035); Squamous Epithelial Cell,Urine 3 /hpf (0-4); Urobilinogen,Urine <2.0 mg/dL (<2.0); WBC,Urine 1 /hpf (0-5)
[2022-02-10 22:33] LABS: Partial Thromboplastin Time 24.5 sec (22.0-30.0); Prothrombin Time 10.8 sec (9.0-12.0)
[2022-02-10 22:38] VITALS: RESP 16
--- NOTE | 2022-02-10 23:20 | ED ---
General Adult HPI - General Chief complaint: Abdominal Pain Stated complaint: Abdominal pain Time Seen by Provider: 02/10/22 21:28 Source: patient, RN notes reviewed, old records reviewed Mode of arrival: ambulatory Limitations: no limitations - History of Present Illness Initial comments: Patient is a 31-year-old female with past medical history remarkable for IBS, history of multiple UTIs, who presents emergency Department complaining of abdominal pain. She states is slightly worse, as it has been persistent for the last week or so. Associated with nausea. Associated with diarrhea. This is typical for IBS. She presents today because he does not seem to be improving. His no longer taking her home medications for it. Nurse's nausea but no emesis. Describes the diarrhea as watery and brown. Denies any hematochezia or melena. Denies any dysuria or hematuria. States the pain is primarily over the left side and upper part of her abdomen. States she does have a history of gastroparesis and gastritis as well. Otherwise has been tolerating oral intake. Presents for further evaluation of this time. Is concerned she may have an iss ue with her kidneys. She does have a history of pyelonephritis. - Related Data Previous Rx's Medication Instructions Recorded Dicyclomine [Bentyl] 20 mg PO TID PRN 7 Days #21 tablet 02/10/22 Ondansetron Odt [Zofran Odt] 4 mg PO Q8HR PRN 3 Days #9 tab 02/10/22 Allergies Allergy/AdvReac Type Severity Reaction Status Date / Time morphine Allergy Rash/Hives Verified 02/10/22 22:28 apple AdvReac Intermediate Itching Verified 02/10/22 22:28 adhesive tape AdvReac Mild Itching Verified 02/10/22 22:28 sumatriptan [From Imitrex] AdvReac Makes Verified 02/10/22 22:28 Migraine Worse/Dizziness sumatriptan succinate AdvReac Makes Verified 02/10/22 22:28 [From Imitrex] Migraine Worse/Dizziness Review of Systems ROS Statement: Those systems with pertinent positive or pertinent negative responses have been documented in the HPI. Review of Systems: CONST: Denies fever EYES: Denies blurry vision ENT: Denies nasal congestion C/V: Denies Chest pain RESP: Denies shortness of breath GI: Endorses abdominal pain : Denies dysuria SKIN: Denies rash. MSK: Denies joint pain. NEURO: Denies headache ROS Other: All systems not noted in ROS Statement are negative. Past Medical History Past Medical History: Asthma, Eye Disorder, Liver Disease, Pneumonia, Renal Disease, Seizure Disorder Additional Past Medical History / Comment(s): Multiple UTIs, pyelonephritis, "spongy" kidney, nephrolithiasis-passed stone on her own, recently told she has a fatty liver, catatonic seizure/stress induced, bilateral astigmatism, murmur, pt states she alternates between diarrhea/constipation past 1.5 years, gestational diabetes/eclampsia.Gastroparesis History of Any Multi-Drug Resistant Organisms: None Reported Date of last positivie culture/infection: 2010 MDRO Source:: foot Past Surgical History: Section, Tubal Ligation Additional Past Surgical History / Comment(s): c sect x 4 Past Anesthesia/Blood Transfusion Reactions: No Reported Reaction Past Psychological History: Anxiety, Bipolar, Depression, Panic Disorder, PTSD Smoking Status: Former smoker, Vaper Past Alcohol Use History: None Reported Past Drug Use History: None Reported - Past Family History Father Family Medical History: Cancer, COPD, Hypertension Additional Family Medical History / Comment(s): Lung cancer Mother Family Medical History: COPD, Renal Disease, Seizure Disorder Additional Family Medical History / Comment(s): bronchitis, back problems. Psych issues General Exam - General Exam Comments Initial Comments: General: Appears in no acute distress. HEAD: Normal with no signs of head trauma. EYES: PERRLA, EOMI, conjunctiva normal, no discharge. ENT: Hearing grossly intact, normal oropharynx. RESPIRATORY: Clear breath sounds bilaterally. No wheezes, rales, or rhonchi. C/V: Regular rate and rhythm. S1 and S2 auscultated, no edema, peripheral pulses 2+ and intact throughout ABD: Abdomen is soft, and nondistended. Mildly tender to palpation over the left flank and epigastric region. No guarding. No peritoneal signs. No rebound tenderness. Mild CVA tenderness to percussion over the left side. EXT: Normal range of motion, no obvious deformity SKIN: No rashes or lesions observed on exposed skin. NEURO: Alert and oriented 4. Limitations: no limitations Course Vital Signs 02/10/22 02/10/22 21:17 22:37 Temperature 98.2 F Pulse Rate 90 73 Respiratory 20 16 Rate Blood Pressure 143/97 103/63 O2 Sat by Pulse 99 98 Oximetry Medical Decision Making - Medical Decision Making Based on the patient's presentation and physical exam, I'm concerned for likely chronic causes for her current abdominal pain, as it does seem to be an ongoing issue. However cannot rule out intra-abdominal process that is acute. We'll obtain abdominal laboratory studies, urine studies and provide her with IV analgesia and fluids. She was in agreement this plan. Due to her age, and multiple CT images in the past, I did recommend that we obtain labs for his prior to imaging. She was in agreement this plan. Laboratory studies remarkable for a mild leukocytosis of 11.6. The remainder of her labs are unremarkable. On reevaluation, I spoke with the patient regarding her negative laboratory workup. Symptoms are improved. Pain is resolved. I discussed with her discharge home and is a do not believe that CT imaging is warranted at this t [facility]. She was in agreement this plan. We'll follow up as needed with her GI doctor, and temperature the emergency department his symptoms get worse. She was in agreement this plan. I will provide the patient with a prescription for Elise Shepherd. I instructed the patient to follow up with their PCP in the next 1-3 days. I explained that the patient should return to the emergency department if they experience any worsening symptoms. Strict return precautions were discussed with the patient. The patient expressed understanding of these instructions. I answered all questions that the patient had. The patient was discharged home in good condition with their prescriptions and follow up information. - Lab Data Result diagrams: 02/10/22 21:50 02/10/22 21:50 Lab Results 02/10/22 02/10/22 02/10/22 Range/Units 21:50 21:50 21:50 WBC 11.6 H (3.8-10.6) k/uL RBC 4.33 (3.80-5.40) m/uL Hgb 13.0 (11.4-16.0) gm/dL Hct 40.5 (34.0-46.0) % MCV 93.5 (80.0-100.0) fL MCH 30.0 (25.0-35.0) pg MCHC 32.1 (31.0-37.0) g/dL RDW 14.0 (11.5-15.5) % Plt Count 329 (150-450) k/uL MPV 8.0 Neutrophils % 67 % Lymphocytes % 25 % Monocytes % 5 % Eosinophils % 3 % Basophils % 1 % Neutrophils # 7.7 (1.3-7.7) k/uL Lymphocytes # 2.9 (1.0-4.8) k/uL Monocytes # 0.5 (0-1.0) k/uL Eosinophils # 0.3 (0-0.7) k/uL Basophils # 0.1 (0-0.2) k/uL PT 10.8 (9.0-12.0) sec INR 1.0 (<1.2) APTT 24.5 (22.0-30.0) sec Sodium 137 (137-145) mmol/L Potassium 3.9 (3.5-5.1) mmol/L Chloride 103 (98-107) mmol/L Carbon Dioxide 27 (22-30) mmol/L Anion Gap 7 mmol/L BUN 14 (7-17) mg/dL Creatinine 0.98 (0.52-1.04) mg/dL Est GFR (CKD-EPI)AfAm 89 (>60 ml/min/1.73 sqM) Est GFR (CKD-EPI)NonAf 77 (>60 ml/min/1.73 sqM) Glucose 97 (74-99) mg/dL Plasma Lactic Acid Sergey (0.7-2.0) mmol/L Calcium 9.5 (8.4-10.2) mg/dL Total Bilirubin 0.1 L (0.2-1.3) mg/dL AST 30 (14-36) U/L ALT 35 H (4-34) U/L Alkaline Phosphatase 79 (38-126) U/L Total Protein 7.4 (6.3-8.2) g/dL Albumin 4.5 (3.5-5.0) g/dL Amylase 70 (30-110) U/L Lipase 156 (23-300) U/L HCG, Qual Not Detected Urine Color Urine Appearance (Clear) Urine pH (5.0-8.0) Ur Specific [place] (1.001-1.035) Urine Protein (Negative) Urine Glucose (UA) (Negative) Urine Ketones (Negative) Urine Blood (Negative) Urine Nitrite (Negative) Urine Bilirubin (Negative) Urine Urobilinogen (<2.0) mg/dL Ur Leukocyte Esterase (Negative) Urine RBC (0-5) /hpf Urine WBC (0-5) /hpf Ur Squamous Epith Cells (0-4) /hpf Urine Mucus (None) /hpf 02/10/22 02/10/22 Range/Units 21:50 21:50 WBC (3.8-10.6) k/uL RBC (3.80-5.40) m/uL Hgb (11.4-16.0) gm/dL Hct (34.0-46.0) % MCV (80.0-100.0) fL MCH (25.0-35.0) pg MCHC (31.0-37.0) g/dL RDW (11.5-15.5) % Plt Count (150-450) k/uL MPV Neutrophils % % Lymphocytes % % Monocytes % % Eosinophils % % Basophils % % Neutrophils # (1.3-7.7) k/uL Lymphocytes # (1.0-4.8) k/uL Monocytes # (0-1.0) k/uL Eosinophils # (0-0.7) k/uL Basophils # (0-0.2) k/uL PT (9.0-12.0) sec INR (<1.2) APTT (22.0-30.0) sec Sodium (137-145) mmol/L Potassium (3.5-5.1) mmol/L Chloride (98-107) mmol/L Carbon Dioxide (22-30) mmol/L Anion Gap mmol/L BUN (7-17) mg/dL Creatinine (0.52-1.04) mg/dL Est GFR (CKD-EPI)AfAm (>60 ml/min/1.73 sqM) Est GFR (CKD-EPI)NonAf (>60 ml/min/1.73 sqM) Glucose (74-99) mg/dL Plasma Lactic Acid Sergey 1.2 (0.7-2.0) mmol/L Calcium (8.4-10.2) mg/dL Total Bilirubin (0.2-1.3) mg/dL AST (14-36) U/L ALT (4-34) U/L Alkaline Phosphatase (38-126) U/L Total Protein (6.3-8.2) g/dL Albumin (3.5-5.0) g/dL Amylase (30-110) U/L Lipase (23-300) U/L HCG, Qual Urine Color Yellow Urine Appearance Clear (Clear) Urine pH 6.0 (5.0-8.0) Ur Specific [place] 1.024 (1.001-1.035) Urine Protein Negative (Negative) Urine Glucose (UA) Negative (Negative) Urine Ketones Negative (Negative) Urine Blood Small H (Negative) Urine Nitrite Negative (Negative) Urine Bilirubin Negative (Negative) Urine Urobilinogen <2.0 (<2.0) mg/dL Ur Leukocyte Esterase Negative (Negative) Urine RBC 3 (0-5) /hpf Urine WBC 1 (0-5) /hpf Ur Squamous Epith Cells 3 (0-4) /hpf Urine Mucus Rare H (None) /hpf Disposition Clinical Impression: Abdominal pain of unknown cause, History of IBS, Chronic diarrhea, Chronic abdominal pain Disposition: HOME SELF-CARE Condition: Good Instructions (If sedation given, give patient instructions): Abdominal Pain (ED) Prescriptions: Dicyclomine [Bentyl] 20 mg PO TID PRN 7 Days #21 tablet PRN Reason: Pain Ondansetron Odt [Zofran Odt] 4 mg PO Q8HR PRN 3 Days #9 tab PRN Reason: Nausea Is patient prescribed a controlled substance at d/c from ED?: No Referrals: Kellen Renee MD [Primary Care Provider] - 1-2 days Time of Disposition: 23:00
[2022-02-10 23:29] LABS: HCG,Qualitative Serum Not Detected
[2022-02-10 23:46] VITALS: BP 113/75; PULSE 63
== END 2022-02-10 23:45 | disposition home or self-care (01) ==
LOC: EC 21:12
DX: G89.29 Other chronic pain (principal); R10.12 Left upper quadrant pain; R19.7 Diarrhea, unspecified; R11.0 Nausea; D72.829 Elevated white blood cell count, unspecified; J45.909 Unspecified asthma, uncomplicated; Z91.018 Allergy to other foods; Z91.048 Other nonmedicinal substance allergy status; Z87.19 Personal history of other diseases of the digestive system; Z87.891 Personal history of nicotine dependence; Z88.5 Allergy status to narcotic agent; Z88.8 Allergy status to other drugs, medicaments and biological substances; Z91.09 Other allergy status, other than to drugs and biological substances
CPT/HCPCS: 99284; 96374; 96375; 36415; 80053; 82150; 83605; 83690; 85025; 85610; 85730; 81001; 84703; 96361; J1200; J2405; J1885; C9113

== ENCOUNTER 2022-03-09 10:20 | Emergency (ER) | payer MEDICARE, OTHER ==
[2022-03-09] MEDS ORDERED: SODIUM CHLORIDE 0.9% 1,000 ML IV STA (11:35)
[2022-03-09] MEDS ORDERED: ONDANSETRON 4 MG/2 ML VIAL IVP STA (11:35)
[2022-03-09 12:01] LABS: Basophils % (A) 1 %; Eosinophils # (A) 0.4 k/uL (0-0.7); Eosinophils % (A) 5 %; HCT 41.9 % (34.0-46.0); HGB 14.1 gm/dL (11.4-16.0); Lymphocytes # (A) 2.1 k/uL (1.0-4.8); Lymphocytes % (A) 27 %; MCH 32.1 pg (25.0-35.0); MCHC 33.7 g/dL (31.0-37.0); MCV 95.3 fL (80.0-100.0); Mean Platelet Volume 7.6; Monocytes # (A) 0.4 k/uL (0-1.0); Monocytes % (A) 5 %; Neutrophils # (A) 4.6 k/uL (1.3-7.7); Neutrophils % (A) 61 %; Platelet Count 352 k/uL (150-450); RDW 14.3 % (11.5-15.5); WBC 7.6 k/uL (3.8-10.6)
[2022-03-09 12:12] LABS: Appearance,Urine Cloudy (Clear); Bacteria,Urine Rare /hpf; Bilirubin,Urine Negative (Negative); Blood,Urine Negative (Negative); Color,Urine Yellow; Glucose,Urine (UA) Negative (Negative); Ketones,Urine Negative (Negative); Leukocyte Esterase,Urine Negative (Negative); Mucus,Urine Few /hpf; Nitrite,Urine Negative (Negative); Protein,Urine Trace (Negative); RBC,Urine 5 /hpf (0-5); Specific Gravity,Urine 1.032 (1.001-1.035); Squamous Epithelial Cell,Urine 7 /hpf (0-4); Urobilinogen,Urine <2.0 mg/dL (<2.0); WBC,Urine 9 /hpf (0-5)
[2022-03-09 12:16] LABS: ALT 33 U/L (4-34); AST 33 U/L (14-36); African American GFR (CKD) >90 (>60 ml/min/1.73 sqM); Albumin 4.4 g/dL (3.5-5.0); Alkaline Phosphatase 84 U/L (38-126); Amylase 78 U/L (30-110); Anion Gap 10 mmol/L; Blood Urea Nitrogen 13 mg/dL (7-17); Carbon Dioxide 22 mmol/L (22-30); Chloride 106 mmol/L (98-107); Glucose 93 mg/dL (74-99); Lipase 122 U/L (23-300); Non-African American GFR(CKD) >90 (>60 ml/min/1.73 sqM); Potassium 4.5 mmol/L (3.5-5.1); Sodium 138 mmol/L (137-145); Total Bilirubin 0.4 mg/dL (0.2-1.3); Total Protein 7.6 g/dL (6.3-8.2)
[2022-03-09] MEDS ORDERED: MAG HYDROX/AL HYDROX/SIMETH 30 ML, HYOSCYAMINE ELIXIR 10 ML, LIDOCAINE VISCOUS 2% 10 ML PO STA ×3 (12:36)
[2022-03-09] MEDS ORDERED: FAMOTIDINE 20 MG/2 ML VIAL IV STA (12:36)
--- NOTE | 2022-03-09 13:06 | ED ---
Nausea/Vomiting/Diarrhea HPI - General Chief complaint: Nausea/Vomiting/Diarrhea Stated complaint: vomiting Time Seen by Provider: 03/09/22 11:21 Source: patient Mode of arrival: ambulatory Limitations: no limitations - History of Present Illness Initial comments: Patient is a 31-year-old female presenting with chief complaint of vomiting. Patient states that this morning she had multiple episodes of vomiting. She now admits to a burning sensation in the epigastric region. She states that for the last several days she has had diarrhea. She denies any fever, chills, chest pain, shortness of breath, dysuria, hematuria, urgency, frequency, flank pain, headache, vision or hearing changes. - Related Data Home Medications Medication Instructions Recorded Confirmed Pantoprazole [Protonix] 40 mg PO DAILY 03/09/22 03/09/22 Previous Rx's Medication Instructions Recorded Dicyclomine [Bentyl] 20 mg PO TID PRN 7 Days #21 tablet 02/10/22 Ondansetron Odt [Zofran Odt] 4 mg PO Q8HR PRN 3 Days #9 tab 02/10/22 Hydrocortisone Cream 1 applic TOPICAL BID #28 gm 03/06/22 [Hydrocortisone 1% Cream] Allergies Allergy/AdvReac Type Severity Reaction Status Date / Time morphine Allergy Rash/Hives Verified 03/09/22 13:00 apple AdvReac Intermediate Itching Verified 03/09/22 13:00 adhesive tape AdvReac Mild Itching Verified 03/09/22 13:00 sumatriptan [From Imitrex] AdvReac Makes Verified 03/09/22 13:00 Migraine Worse/Dizziness sumatriptan succinate AdvReac Makes Verified 03/09/22 13:00 [From Imitrex] Migraine Worse/Dizziness Review of Systems ROS Statement: Those systems with pertinent positive or pertinent negative responses have been documented in the HPI. ROS Other: All systems not noted in ROS Statement are negative. Past Medical History Past Medical History: Asthma, Eye Disorder, Liver Disease, Pneumonia, Renal Disease, Seizure Disorder Additional Past Medical History / Comment(s): Multiple UTIs, pyelonephritis, "spongy" kidney, nephrolithiasis-passed stone on her own, recently told she has a fatty liver, catatonic seizure/stress induced, bilateral astigmatism, murmur, pt states she alternates between diarrhea/constipation past 1.5 years, gestational diabetes/eclampsia.Gastroparesis History of Any Multi-Drug Resistant Organisms: None Reported Date of last positivie culture/infection: 2010 MDRO Source:: foot Past Surgical History: Section, Tubal Ligation Additional Past Surgical History / Comment(s): c sect x 4 Past Anesthesia/Blood Transfusion Reactions: No Reported Reaction Past Psychological History: Anxiety, Bipolar, Depression, Panic Disorder, PTSD Smoking Status: Current every day smoker, Vaper Past Alcohol Use History: Occasional Past Drug Use History: Marijuana - Past Family History Father Family Medical History: Cancer, COPD, Hypertension Additional Family Medical History / Comment(s): Lung cancer Mother Family Medical History: COPD, Renal Disease, Seizure Disorder Additional Family Medical History / Comment(s): bronchitis, back problems. Psych issues General Exam Limitations: no limitations General appearance: alert, in no apparent distress Head exam: Present: atraumatic, normocephalic, normal inspection Eye exam: Present: normal appearance, EOMI. Absent: scleral icterus, periorbital swelling Neck exam: Present: normal inspection Respiratory exam: Present: normal lung sounds bilaterally. Absent: respiratory distress, wheezes, rales, rhonchi, stridor Cardiovascular Exam: Present: regular rate, normal rhythm, normal heart sounds. Absent: systolic murmur, diastolic murmur, rubs, gallop, clicks GI/Abdominal exam: Present: soft, tenderness (Diffuse). Absent: distended, guarding, rebound, rigid Neurological exam: Present: alert, oriented X3, CN II-XII intact Psychiatric exam: Present: normal affect, normal mood Skin exam: Present: warm, dry, intact, normal color. Absent: rash Course Vital Signs 03/09/22 03/09/22 10:44 13:40 Temperature 98.2 F 97.8 F Pulse Rate 75 73 Respiratory 16 18 Rate Blood Pressure 121/82 122/81 O2 Sat by Pulse 98 98 Oximetry Medical Decision Making - Medical Decision Making Patient is a 31-year-old female presenting with chief complaint of epigastric pain, nausea, vomiting. Symptoms started this morning. On examination there is some tenderness to palpation. Patient is given GI cocktail, Pepcid, and antiemetics. Lab work and KUB are grossly negative. Patient reports improve ment after medication. She appears stable for discharge with outpatient follow- up at this time. Follow-up with PCP and GI specialist. Report back to ER with any new or worsening symptoms. Discussed return parameters and answered all questions. Patient conveyed verbal understanding and agreed to the plan. I discussed this case with my attending Dr. Washington. - Lab Data Result diagrams: 03/09/22 11:45 03/09/22 11:45 Lab Results 03/09/22 03/09/22 03/09/22 Range/Units 11:45 11:45 11:45 WBC 7.6 (3.8-10.6) k/uL RBC 4.40 (3.80-5.40) m/uL Hgb 14.1 (11.4-16.0) gm/dL Hct 41.9 (34.0-46.0) % MCV 95.3 (80.0-100.0) fL MCH 32.1 (25.0-35.0) pg MCHC 33.7 (31.0-37.0) g/dL RDW 14.3 (11.5-15.5) % Plt Count 352 (150-450) k/uL MPV 7.6 Neutrophils % 61 % Lymphocytes % 27 % Monocytes % 5 % Eosinophils % 5 % Basophils % 1 % Neutrophils # 4.6 (1.3-7.7) k/uL Lymphocytes # 2.1 (1.0-4.8) k/uL Monocytes # 0.4 (0-1.0) k/uL Eosinophils # 0.4 (0-0.7) k/uL Basophils # 0.0 (0-0.2) k/uL Sodium (137-145) mmol/L Potassium (3.5-5.1) mmol/L Chloride (98-107) mmol/L Carbon Dioxide (22-30) mmol/L Anion Gap mmol/L BUN (7-17) mg/dL Creatinine (0.52-1.04) mg/dL Est GFR (CKD-EPI)AfAm (>60 ml/min/1.73 sqM) Est GFR (CKD-EPI)NonAf (>60 ml/min/1.73 sqM) Glucose (74-99) mg/dL Plasma Lactic Acid Sergey (0.7-2.0) mmol/L Calcium (8.4-10.2) mg/dL Total Bilirubin (0.2-1.3) mg/dL AST (14-36) U/L ALT (4-34) U/L Alkaline Phosphatase (38-126) U/L Total Protein (6.3-8.2) g/dL Albumin (3.5-5.0) g/dL Amylase (30-110) U/L Lipase (23-300) U/L Urine Color Yellow Urine Appearance Cloudy H (Clear) Urine pH 6.0 (5.0-8.0) Ur Specific Felicity 1.032 (1.001-1.035) Urine Protein Trace H (Negative) Urine Glucose (UA) Negative (Negative) Urine Ketones Negative (Negative) Urine Blood Negative (Negative) Urine Nitrite Negative (Negative) Urine Bilirubin Negative (Negative) Urine Urobilinogen <2.0 (<2.0) mg/dL Ur Leukocyte Esterase Negative (Negative) Urine RBC 5 (0-5) /hpf Urine WBC 9 H (0-5) /hpf Ur Squamous Epith Cells 7 H (0-4) /hpf Urine Bacteria Rare H (None) /hpf Urine Mucus Few H (None) /hpf Urine HCG, Qual Not Detected (Not Detectd) Coronavirus (PCR) (Not Detectd) 03/09/22 03/09/22 03/09/22 Range/Units 11:45 11:45 11:45 WBC (3.8-10.6) k/uL RBC (3.80-5.40) m/uL Hgb (11.4-16.0) gm/dL Hct (34.0-46.0) % MCV (80.0-100.0) fL MCH (25.0-35.0) pg MCHC (31.0-37.0) g/dL RDW (11.5-15.5) % Plt Count (150-450) k/uL MPV Neutrophils % % Lymphocytes % % Monocytes % % Eosinophils % % Basophils % % Neutrophils # (1.3-7.7) k/uL Lymphocytes # (1.0-4.8) k/uL Monocytes # (0-1.0) k/uL Eosinophils # (0-0.7) k/uL Basophils # (0-0.2) k/uL Sodium 138 (137-145) mmol/L Potassium 4.5 (3.5-5.1) mmol/L Chloride 106 (98-107) mmol/L Carbon Dioxide 22 (22-30) mmol/L Anion Gap 10 mmol/L BUN 13 (7-17) mg/dL Creatinine 0.85 (0.52-1.04) mg/dL Est GFR (CKD-EPI)AfAm >90 (>60 ml/min/1.73 sqM) Est GFR (CKD-EPI)NonAf >90 (>60 ml/min/1.73 sqM) Glucose 93 (74-99) mg/dL Plasma Lactic Acid Sergey 0.9 (0.7-2.0) mmol/L Calcium 9.0 (8.4-10.2) mg/dL Total Bilirubin 0.4 (0.2-1.3) mg/dL AST 33 (14-36) U/L ALT 33 (4-34) U/L Alkaline Phosphatase 84 (38-126) U/L Total Protein 7.6 (6.3-8.2) g/dL Albumin 4.4 (3.5-5.0) g/dL Amylase 78 (30-110) U/L Lipase 122 (23-300) U/L Urine Color Urine Appearance (Clear) Urine pH (5.0-8.0) Ur Specific Felicity (1.001-1.035) Urine Protein (Negative) Urine Glucose (UA) (Negative) Urine Ketones (Negative) Urine Blood (Negative) Urine Nitrite (Negative) Urine Bilirubin (Negative) Urine Urobilinogen (<2.0) mg/dL Ur Leukocyte Esterase (Negative) Urine RBC (0-5) /hpf Urine WBC (0-5) /hpf Ur Squamous Epith Cells (0-4) /hpf Urine Bacteria (None) /hpf Urine Mucus (None) /hpf Urine HCG, Qual (Not Detectd) Coronavirus (PCR) Not Detected (Not Detectd) Disposition Clinical Impression: Gastritis Disposition: HOME SELF-CARE Condition: Good Instructions (If sedation given, give patient instructions): Gastritis (ED), Acute Nausea and Vomiting (ED) Additional Instructions: Follow-up with your PCP and GI specialist in one to 2 days. Report back to ER with any new or worsening symptoms. Is patient prescribed a controlled substance at d/c from ED?: No Referrals: Kellen Renee MD [Primary Care Provider] - 1-2 days Time of Disposition: 14:06
[2022-03-09 13:40] VITALS: BP 122/81; PULSE 73; RESP 18; TEMP 97.8
--- NOTE | 2022-03-09 13:55 | XR ---
EXAMINATION TYPE: XR KUB DATE OF EXAM: 03/09/2022 COMPARISON: CT abdomen pelvis 03/06/2020. HISTORY: Abdominal pain. TECHNIQUE: Single upright KUB view of the abdomen is obtained with 2 radiographs. FINDINGS: Small bowel demonstrates no evidence for dilatation or air fluid levels. Gas and fecal material is seen in non-distended colon. No evidence for pneumoperitoneum. No unusual calcifications. The lung bases are clear. The osseous structures are intact. IMPRESSION: Overall nonobstructive bowel gas pattern.
== END 2022-03-09 14:39 | disposition home or self-care (01) ==
LOC: EC 10:20
DX: K29.70 Gastritis, unspecified, without bleeding (principal); J45.909 Unspecified asthma, uncomplicated; F17.209 Nicotine dependence, unspecified, with unspecified nicotine-induced disorders; Z88.5 Allergy status to narcotic agent; Z91.040 Latex allergy status; Z88.2 Allergy status to sulfonamides
CPT/HCPCS: 36415; 80053; 82150; 83605; 83690; 85025; 81001; 81025; 87635; 74018; 99284; 96374; 96375; 96361; J2405

== ENCOUNTER → 2022-07-07 | Outpatient (CLI) | payer MEDICARE, OTHER ==
[2022-07-07 20:47] LABS: Immunoglobulin E 2.59 IU/mL (0.00-114.00)
[2022-07-08 04:31] LABS: Alternaria alternata IgE <0.10 kU/L; Aspergillus fumagatus IgE <0.10 kU/L; Birch IgE <0.10 kU/L; Cat Epith & Dander IgE <0.10 kU/L; Cladosporian herbarum IgE <0.10 kU/L; Cockroach IgE <0.10 kU/L; Dermato. farinae IgE <0.10 kU/L; Dog Dander IgE <0.10 kU/L; Egg White IgE <0.10 kU/L; Maple (Box Elder) IgE <0.10 kU/L; Oak IgE <0.10 kU/L; Peanut IgE <0.10 kU/L; Ragweed,Common IgE <0.10 kU/L; Shrimp IgE <0.10 kU/L; Soybean IgE <0.10 kU/L
[2022-07-08 16:44] LABS: Beef IgE <0.10 kU/L (<0.10); Beef IgE Class CLASS 0; Crab IgE <0.10 kU/L (<0.10); Crab IgE Class CLASS 0; Pork IgE Class CLASS 0; Salmon IgE <0.10 kU/L (<0.10); Salmon IgE Class CLASS 0
[2022-07-08 16:45] LABS: Apple IgE Class CLASS 0; Chicken IgE Class CLASS 0; Gluten IgE Class CLASS 0; Lobster IgE <0.10 kU/L (<0.10); Lobster IgE Class CLASS 0; Potato IgE <0.10 kU/L (<0.10); Potato IgE Class CLASS 0; Yeast Bakers/Brew IgE <0.10 kU/L (<0.10); Yeast Bakers/Brew IgE Class CLASS 0
[2022-07-08 16:46] LABS: Epicoccum purpurascens Class CLASS 0; Epicoccum purpurascens IgE <0.10 kU/L (<0.10); Johnson Grass IgE Class CLASS 0; Latex IgE Class CLASS 0; Rhizopus nigricans IgE <0.10 kU/L (<0.10); Rhizopus nigricans IgE Class CLASS 0; Timothy Grass IgE <0.10 kU/L (<0.10); Timothy Grass IgE Class CLASS 0
[2022-07-08 16:47] LABS: Aureo. pullulans IgE <0.10 kU/L (<0.10); Aureo. pullulans IgE Class CLASS 0; Avocado Class CLASS 0; Banana IgE Class CLASS 0; Candida albicans IgE Class CLASS 0; Hazelnut IgE <0.10 kU/L (<0.10); Hazelnut IgE Class CLASS 0; Kiwi IgE <0.10 kU/L (<0.10); Kiwi IgE Class CLASS 0; Mucor racemosus IgE <0.10 kU/L (<0.10); Mucor racemosus IgE Class CLASS 0; S.rostrata/Helminth Class CLASS 0; S.rostrata/Helminth IgE <0.10 kU/L (<0.10); Sycamore(Mpl.Lf) IgE <0.10 kU/L (<0.10); Sycamore(Mpl.Lf) IgE Class CLASS 0; Walnut Tree IgE <0.10 kU/L (<0.10); Walnut Tree IgE Class CLASS 0
[2022-07-08 16:48] LABS: Com. Pigweed IgE <0.10 kU/L (<0.10); Com. Pigweed IgE Class CLASS 0; Cottonwood IgE <0.10 kU/L (<0.10); English Plantain IgE Class CLASS 0; Lamb's Quarter IgE <0.10 kU/L (<0.10); Lamb's Quarter IgE Class CLASS 0; White Ash IgE Class CLASS 0
== END | disposition home or self-care (01) ==
LOC: LABWHC1 13:15
PROVIDERS: ATTEND Otolaryngology
DX: J30.89 Other allergic rhinitis (principal)
CPT/HCPCS: 36415; 82785; 86001; 86003

== ENCOUNTER 2022-07-20 04:14 | Emergency (ER) | payer MEDICARE, OTHER ==
[2022-07-20 04:20] VITALS: RESP 18
[2022-07-20] MEDS ORDERED: SODIUM CHLORIDE 0.9% 1,000 ML IV STA ×2 (04:29)
[2022-07-20] MEDS ORDERED: ONDANSETRON 4 MG/2 ML VIAL IVP STA (04:29)
--- NOTE | 2022-07-20 04:30 | ED ---
Nausea/Vomiting/Diarrhea HPI - General Chief complaint: Nausea/Vomiting/Diarrhea Stated complaint: Vomiting, Headache, Body aches Time Seen by Provider: 07/20/22 04:29 Source: patient, RN notes reviewed, old records reviewed Mode of arrival: ambulatory Limitations: no limitations - History of Present Illness Initial comments: This is a 31-year-old female with vomiting lower back pain bodyaches body pains positive nausea positive vomiting positive diarrhea not feeling well. No known significant sick contacts no known significant travel history. No prior history of similar pain MD complaint: nausea, vomiting, diarrhea, abdominal pain -: days(s) Description of Vomiting: food contents, watery Description of Diarrhea: water, mucous Associated Abdominal Pain: Yes Location: diffuse Radiation: none Severity: moderate Severity scale (1-10): 4 Quality: cramping, aching Consistency: intermittent Improves with: none Worsens with: none Associated Symptoms: loss of appetite, nausea/vomiting, weakness - Related Data Home Medications Medication Instructions Recorded Confirmed Pantoprazole [Protonix] 40 mg PO DAILY 03/09/22 03/09/22 Previous Rx's Medication Instructions Recorded Dicyclomine [Bentyl] 20 mg PO TID PRN 7 Days #21 tablet 02/10/22 Ondansetron Odt [Zofran Odt] 4 mg PO Q8HR PRN 3 Days #9 tab 02/10/22 Hydrocortisone Cream 1 applic TOPICAL BID #28 gm 03/06/22 [Hydrocortisone 1% Cream] Allergies Allergy/AdvReac Type Severity Reaction Status Date / Time coconut Allergy Unknown Verified 07/20/22 04:21 morphine Allergy Rash/Hives Verified 07/20/22 04:15 apple AdvReac Intermediate Itching Verified 07/20/22 04:15 adhesive tape AdvReac Mild Itching Verified 07/20/22 04:15 sumatriptan [From Imitrex] AdvReac Makes Verified 07/20/22 04:15 Migraine Worse/Dizziness sumatriptan succinate AdvReac Makes Verified 07/20/22 04:15 [From Imitrex] Migraine Worse/Dizziness Review of Systems ROS Statement: Those systems with pertinent positive or pertinent negative responses have been documented in the HPI. ROS Other: All systems not noted in ROS Statement are negative. Past Medical History Past Medical History: Asthma, Eye Disorder, Liver Disease, Pneumonia, Renal Disease, Seizure Disorder Additional Past Medical History / Comment(s): Multiple UTIs, pyelonephritis, "spongy" kidney, nephrolithiasis-passed stone on her own, recently told she has a fatty liver, catatonic seizure/stress induced, bilateral astigmatism, murmur, pt states she alternates between diarrhea/constipation past 1.5 years, gestational diabetes/eclampsia.Gastroparesis History of Any Multi-Drug Resistant Organisms: None Reported Date of last positivie culture/infection: 2010 MDRO Source:: foot Past Surgical History: Section, Tubal Ligation Additional Past Surgical History / Comment(s): c sect x 4 Past Anesthesia/Blood Transfusion Reactions: No Reported Reaction Past Psychological History: Anxiety, Bipolar, Depression, Panic Disorder, PTSD Smoking Status: Current every day smoker, Vaper Past Alcohol Use History: Occasional Past Drug Use History: Marijuana - Past Family History Father Family Medical History: Cancer, COPD, Hypertension Additional Family Medical History / Comment(s): Lung cancer Mother Family Medical History: COPD, Renal Disease, Seizure Disorder Additional Family Medical History / Comment(s): bronchitis, back problems. Psych issues General Exam Limitations: no limitations General appearance: alert, in no apparent distress Head exam: Present: atraumatic, normocephalic, normal inspection Eye exam: Present: normal appearance, PERRL, EOMI. Absent: scleral icterus, conjunctival injection, periorbital swelling ENT exam: Present: normal exam, mucous membranes moist Neck exam: Present: normal inspection. Absent: tenderness, meningismus, lymphad enopathy Respiratory exam: Present: normal lung sounds bilaterally. Absent: respiratory distress, wheezes, rales, rhonchi, stridor Cardiovascular Exam: Present: regular rate, normal rhythm, normal heart sounds. Absent: systolic murmur, diastolic murmur, rubs, gallop, clicks GI/Abdominal exam: Present: soft, normal bowel sounds. Absent: distended, tenderness, guarding, rebound, rigid Extremities exam: Present: normal inspection, full ROM, normal capillary refill. Absent: tenderness, pedal edema, joint swelling, calf tenderness Back exam: Present: normal inspection Neurological exam: Present: alert, oriented X3, CN II-XII intact Psychiatric exam: Present: normal affect, normal mood Skin exam: Present: warm, dry, intact, normal color. Absent: rash Course Vital Signs 07/20/22 07/20/22 04:16 07:45 Temperature 98.2 F 98 F Pulse Rate 103 H 71 Respiratory 18 18 Rate Blood Pressure 156/105 132/71 O2 Sat by Pulse 98 98 Oximetry - Reevaluation(s) Reevaluation #1: 07/20/22 Medical records reviewed Reevaluation #2: 07/20/22 Patient informed results and questions answered Reevaluation #3: 07/20/22 Patient has improvement in symptoms here in the ER Reevaluation #4: 07/20/22 Differential Abdominal Pain Women: Appendicitis, Cholecystitis, diverticulosis, ischemic bowel, pancreatitis, hepatitis, UTI, gastroenteritis, AAA, incarcerated hernia, bowel obstruction, constipation, inflammatory bowel, hepatitis, peptic ulcer disease, splenic infarction, perforated viscus, vulvitis, ovarian torsion, PID, kidney stone, placenta abruption, this is not meant to be an all-inclusive list Reevaluation #5: 07/20/22 Was pt. sent in by a medical professional or institution? @ -no Did you speak to anyone other than the patient for history? @ -no Did you review nursing and triage notes? @ -agree Were old charts reviewed? @ -no Differential Diagnosis? @ -no EKG interpreted by me (3pts min.)? @ -[none] X-rays interpreted by me (1pt min.)? @ -[none] CT interpreted by me (1pt min.)? @ -[none] U/S interpreted by me (1pt. min.)? @ -[none] What testing was considered but not performed? (CT, X-rays, U/S, labs)? Why? @ no What meds were considered but not given? Why? @ -[none] Did you discuss the management of the patient with other professionals? @ -no Did you reconcile home meds? @ -[none] Was smoking cessation discussed for >3mins.? @ -[none] Was critical care preformed (if so, how long)? @ -[none] Were there social determinants of health that impacted care today? How? (Homelessness, low income, unemployed, alcoholism, drug addiction, transportation, low edu. Level, literacy, decrease access to med. care, penitentiary, rehab)? @ -no Was there de-escalation of care discussed even if they declined? (Discuss DNR or withdrawal of care, Hospice)? @ -no What co-morbidities impacted this encounter? (DM, HTN, Smoking, COPD, CAD, Cancer, CVA, Hep., AIDS, mental health diagnosis, sleep apnea, morbid obesity)? @ -no Was patient admitted / discharged? @ -dc Undiagnosed new problem with uncertain prognosis? @ -[none] Drug Therapy requiring intensive monitoring for toxicity (Heparin, Nitro, Insulin, Cardizem)? @ -[none] Were any procedures done? @ -[none] Diagnosis/symptom? @ -[default] Acute, or Chronic, or Acute on Chronic? @ -[default] Uncomplicated (without systemic symptoms) or Complicated (systemic symptoms)? @ -[default] Side effects of treatment? @ -[none] Exacerbation, Progression, or Severe Exacerbation] @ -[no] Poses a threat to life or bodily function? @ -[no] Medical Decision Making - Medical Decision Making 31 female of nausea vomiting diarrhea or abdominal pain. Symptoms improved, patient is in no distress. Patient feels well and can be discharged home - Lab Data Result diagrams: 07/20/22 05:46 07/20/22 05:46 Lab Results 07/20/22 07/20/22 07/20/22 Range/Units 05:46 05:46 05:46 WBC 6.7 (3.8-10.6) k/uL RBC 3.84 (3.80-5.40) m/uL Hgb 12.2 (11.4-16.0) gm/dL Hct 35.1 (34.0-46.0) % MCV 91.5 (80.0-100.0) fL MCH 31.8 (25.0-35.0) pg MCHC 34.8 (31.0-37.0) g/dL RDW 13.5 (11.5-15.5) % Plt Count 284 (150-450) k/uL MPV 7.7 Neutrophils % 84 % Lymphocytes % 8 % Monocytes % 5 % Eosinophils % 1 % Basophils % 0 % Neutrophils # 5.6 (1.3-7.7) k/uL Lymphocytes # 0.6 L (1.0-4.8) k/uL Monocytes # 0.4 (0-1.0) k/uL Eosinophils # 0.1 (0-0.7) k/uL Basophils # 0.0 (0-0.2) k/uL Sodium 137 (137-145) mmol/L Potassium 4.1 (3.5-5.1) mmol/L Chloride 106 (98-107) mmol/L Carbon Dioxide 24 (22-30) mmol/L Anion Gap 7 mmol/L BUN 16 (7-17) mg/dL Creatinine 0.92 (0.52-1.04) mg/dL Est GFR (CKD-EPI)AfAm >90 (>60 ml/min/1.73 sqM) Est GFR (CKD-EPI)NonAf 84 (>60 ml/min/1.73 sqM) Glucose 98 (74-99) mg/dL Calcium 8.5 (8.4-10.2) mg/dL Phosphorus 3.5 (2.5-4.5) mg/dL Magnesium 1.8 (1.6-2.3) mg/dL Total Bilirubin 0.4 (0.2-1.3) mg/dL AST 30 (14-36) U/L ALT 31 (4-34) U/L Alkaline Phosphatase 67 (38-126) U/L Troponin I (0.000-0.034) ng/mL Total Protein 6.9 (6.3-8.2) g/dL Albumin 4.1 (3.5-5.0) g/dL Lipase 63 (23-300) U/L Urine Color Urine Appearance (Clear) Urine pH (5.0-8.0) Ur Specific Wirt (1.001-1.035) Urine Protein (Negative) Urine Glucose (UA) (Negative) Urine Ketones (Negative) Urine Blood (Negative) Urine Nitrite (Negative) Urine Bilirubin (Negative) Urine Urobilinogen (<2.0) mg/dL Ur Leukocyte Esterase (Negative) Urine RBC (0-5) /hpf Urine WBC (0-5) /hpf Ur Squamous Epith Cells (0-4) /hpf Urine Mucus (None) /hpf Influenza Type A RNA Not Detected (Not Detectd) Influenza Type B (PCR) Not Detected (Not Detectd) 07/20/22 07/20/22 Range/Units 05:46 05:46 WBC (3.8-10.6) k/uL RBC (3.80-5.40) m/uL Hgb (11.4-16.0) gm/dL Hct (34.0-46.0) % MCV (80.0-100.0) fL MCH (25.0-35.0) pg MCHC (31.0-37.0) g/dL RDW (11.5-15.5) % Plt Count (150-450) k/uL MPV Neutrophils % % Lymphocytes % % Monocytes % % Eosinophils % % Basophils % % Neutrophils # (1.3-7.7) k/uL Lymphocytes # (1.0-4.8) k/uL Monocytes # (0-1.0) k/uL Eosinophils # (0-0.7) k/uL Basophils # (0-0.2) k/uL Sodium (137-145) mmol/L Potassium (3.5-5.1) mmol/L Chloride (98-107) mmol/L Carbon Dioxide (22-30) mmol/L Anion Gap mmol/L BUN (7-17) mg/dL Creatinine (0.52-1.04) mg/dL Est GFR (CKD-EPI)AfAm (>60 ml/min/1.73 sqM) Est GFR (CKD-EPI)NonAf (>60 ml/min/1.73 sqM) Glucose (74-99) mg/dL Calcium (8.4-10.2) mg/dL Phosphorus (2.5-4.5) mg/dL Magnesium (1.6-2.3) mg/dL Total Bilirubin (0.2-1.3) mg/dL AST (14-36) U/L ALT (4-34) U/L Alkaline Phosphatase (38-126) U/L Troponin I <0.012 (0.000-0.034) ng/mL Total Protein (6.3-8.2) g/dL Albumin (3.5-5.0) g/dL Lipase (23-300) U/L Urine Color Yellow Urine Appearance Clear (Clear) Urine pH 7.0 (5.0-8.0) Ur Specific Wirt 1.024 (1.001-1.035) Urine Protein Negative (Negative) Urine Glucose (UA) Negative (Negative) Urine Ketones Negative (Negative) Urine Blood Moderate H (Negative) Urine Nitrite Negative (Negative) Urine Bilirubin Negative (Negative) Urine Urobilinogen <2.0 (<2.0) mg/dL Ur Leukocyte Esterase Negative (Negative) Urine RBC 1 (0-5) /hpf Urine WBC 1 (0-5) /hpf Ur Squamous Epith Cells 3 (0-4) /hpf Urine Mucus Rare H (None) /hpf Influenza Type A RNA (Not Detectd) Influenza Type B (PCR) (Not Detectd) Disposition Clinical Impression: Colitis, Chronic abdominal pain, Dehydration, Gastroenteritis Disposition: HOME SELF-CARE Instructions (If sedation given, give patient instructions): Acute Nausea and Vomiting (ED) Is patient prescribed a controlled substance at d/c from ED?: No Referrals: None,Stated [Primary Care Provider] - 1-2 days Time of Disposition: 07:05
[2022-07-20] MEDS ORDERED: KETOROLAC 15 MG/ML 1 ML VIAL IVP STA (04:34)
[2022-07-20 05:53] LABS: Basophils % (A) 0 %; Eosinophils # (A) 0.1 k/uL (0-0.7); Eosinophils % (A) 1 %; HCT 35.1 % (34.0-46.0); HGB 12.2 gm/dL (11.4-16.0); Lymphocytes # (A) 0.6 k/uL (1.0-4.8); Lymphocytes % (A) 8 %; MCH 31.8 pg (25.0-35.0); MCHC 34.8 g/dL (31.0-37.0); MCV 91.5 fL (80.0-100.0); Mean Platelet Volume 7.7; Monocytes # (A) 0.4 k/uL (0-1.0); Monocytes % (A) 5 %; Neutrophils # (A) 5.6 k/uL (1.3-7.7); Neutrophils % (A) 84 %; Platelet Count 284 k/uL (150-450); RBC 3.84 m/uL (3.80-5.40); RDW 13.5 % (11.5-15.5); WBC 6.7 k/uL (3.8-10.6)
[2022-07-20 05:59] LABS: Appearance,Urine Clear (Clear); Bilirubin,Urine Negative (Negative); Blood,Urine Moderate (Negative); Color,Urine Yellow; Glucose,Urine (UA) Negative (Negative); Ketones,Urine Negative (Negative); Leukocyte Esterase,Urine Negative (Negative); Mucus,Urine Rare /hpf; Nitrite,Urine Negative (Negative); Protein,Urine Negative (Negative); RBC,Urine 1 /hpf (0-5); Specific Gravity,Urine 1.024 (1.001-1.035); Squamous Epithelial Cell,Urine 3 /hpf (0-4); Urobilinogen,Urine <2.0 mg/dL (<2.0); WBC,Urine 1 /hpf (0-5)
[2022-07-20 06:09] LABS: ALT 31 U/L (4-34); AST 30 U/L (14-36); African American GFR (CKD) >90 (>60 ml/min/1.73 sqM); Albumin 4.1 g/dL (3.5-5.0); Alkaline Phosphatase 67 U/L (38-126); Blood Urea Nitrogen 16 mg/dL (7-17); Calcium 8.5 mg/dL (8.4-10.2); Chloride 106 mmol/L (98-107); Glucose 98 mg/dL (74-99); Lipase 63 U/L (23-300); Magnesium 1.8 mg/dL (1.6-2.3); Non-African American GFR(CKD) 84 (>60 ml/min/1.73 sqM); Phosphorus 3.5 mg/dL (2.5-4.5); Potassium 4.1 mmol/L (3.5-5.1); Sodium 137 mmol/L (137-145); Total Bilirubin 0.4 mg/dL (0.2-1.3); Total Protein 6.9 g/dL (6.3-8.2)
[2022-07-20 06:32] LABS: Anion Gap 7 mmol/L; Carbon Dioxide 24 mmol/L (22-30)
[2022-07-20] MEDS ORDERED: ONDANSETRON 4 MG ODT STARTER PACK 2 TAB BTL PO STA (07:03)
[2022-07-20] MEDS ORDERED: IBUPROFEN 600 MG STARTER PACK 4 TAB BTL PO STA (07:03)
[2022-07-20] MEDS ORDERED: ACET/COD 300 MG/30 MG STARTER PACK 6 TAB BTL PO STA (07:03)
[2022-07-20 07:45] VITALS: BP 132/71; PULSE 71; TEMP 98
== END 2022-07-20 07:45 | disposition home or self-care (01) ==
LOC: EC 04:14
DX: K52.9 Noninfective gastroenteritis and colitis, unspecified (principal); E86.0 Dehydration; J45.909 Unspecified asthma, uncomplicated; F41.9 Anxiety disorder, unspecified; F31.9 Bipolar disorder, unspecified; F17.200 Nicotine dependence, unspecified, uncomplicated; F12.90 Cannabis use, unspecified, uncomplicated; Z91.09 Other allergy status, other than to drugs and biological substances; Z91.018 Allergy to other foods; Z88.5 Allergy status to narcotic agent; Z88.8 Allergy status to other drugs, medicaments and biological substances
CPT/HCPCS: 36415; 80053; 83690; 83735; 84100; 84484; 85025; 81001; 87502; 99284; 96374; 96375; 96361 ×3; J2405; J1885; S0119

== ENCOUNTER 2022-08-15 19:56 | Emergency (ER) | payer MEDICARE, OTHER ==
[2022-08-15 20:03] VITALS: RESP 16
[2022-08-15] MEDS ORDERED: KETOROLAC 15 MG/ML 1 ML VIAL IM STA (20:16)
[2022-08-15] MEDS ORDERED: ACETAMINOPHEN TAB 325 MG TAB PO STA (20:16)
[2022-08-15] MEDS ORDERED: CYCLOBENZAPRINE 10 MG TAB PO STA (20:16)
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
[2022-08-15 21:23] VITALS: BP 142/93; PULSE 68; TEMP 98.4
== END 2022-08-15 21:10 | disposition home or self-care (01) ==
LOC: EC 19:56
DX: S09.90XA Unspecified injury of head, initial encounter (principal); M70.812 Other soft tissue disorders related to use, overuse and pressure, left shoulder; J45.909 Unspecified asthma, uncomplicated; F41.9 Anxiety disorder, unspecified; F31.9 Bipolar disorder, unspecified; F17.290 Nicotine dependence, other tobacco product, uncomplicated; F12.90 Cannabis use, unspecified, uncomplicated; Z91.018 Allergy to other foods; Z91.011 Allergy to milk products; V89.2XXA Person injured in unspecified motor-vehicle accident, traffic, initial encounter
CPT/HCPCS: 99283; J1885

== ENCOUNTER 2022-10-25 14:51 | Emergency (ER) | payer MEDICARE, OTHER ==
--- NOTE | 2022-10-25 16:39 | ED ---
General Adult HPI - General Source: patient, RN notes reviewed Mode of arrival: ambulatory Limitations: no limitations <Naz Mata - Last Filed: 10/25/22 16:37> - General Source: patient, RN notes reviewed Mode of arrival: ambulatory Limitations: no limitations - History of Present Illness MD Complaint: Chest pain, headache, nausea, vomiting <Selena Melendez - Last Filed: 10/25/22 19:55> <Brenton Oshea - Last Filed: 10/25/22 21:54> - General Chief complaint: Urogenital Stated complaint: Chest Pain,Vomiting Time Seen by Provider: 10/25/22 16:37 - History of Present Illness Initial comments: 31-year-old female with a past medical history significant for seizures presents emergency Department with a chief complaint of abdominal pain, nausea, vomiting that started last night (Naz Mata) When I went to evaluate the patient, she reports finishing a course of Bactrim for a UTI about a week ago, however she continues to complain of dysuria, which she is treating with AZO. Feels like her UTI has not getting any better. Also reports feeling very fatigued and sleepy. Today, she started to experience nausea and vomiting. Also reports chest pain, generalized abdominal pain, and headaches. The headache is the most bothersome symptom at this time. She does have a history of headaches and would not describe this as the worst headache of her life. (Selena Melendez) - Related Data Home Medications Medication Instructions Recorded Confirmed Pantoprazole [Protonix] 40 mg PO DAILY 03/09/22 09/22/22 Fluocinolone 0.01% Oil 1 applic TOPICAL BID PRN 09/22/22 09/22/22 Previous Rx's Medication Instructions Recorded Nitrofurantoin Monohyd/M-Cryst 100 mg PO Q12HR #14 cap 09/25/22 [Macrobid] Allergies Allergy/AdvReac Type Severity Reaction Status Date / Time coconut Allergy Unknown Verified 10/25/22 14:57 morphine Allergy Rash/Hives Verified 10/25/22 14:57 apple AdvReac Intermediate Itching Verified 10/25/22 14:57 adhesive tape AdvReac Mild Itching Verified 10/25/22 14:57 Milk Containing Products AdvReac Nausea & Verified 10/25/22 14:57 [Dairy] Vomiting & Diarrhea sumatriptan [From Imitrex] AdvReac Makes Verified 10/25/22 14:57 Migraine Worse/Dizziness sumatriptan succinate AdvReac Makes Verified 10/25/22 14:57 [From Imitrex] Migraine Worse/Dizziness Review of Systems ROS Other: All systems not noted in ROS Statement are negative. <Naz Mata - Last Filed: 10/25/22 16:37> ROS Other: All systems not noted in ROS Statement are negative. <Selena Melendez - Last Filed: 10/25/22 19:55> ROS Other: All systems not noted in ROS Statement are negative. <Brenton Oshea - Last Filed: 10/25/22 21:54> ROS Statement: Those systems with pertinent positive or pertinent negative responses have been documented in the HPI. Past Medical History Past Medical History: Asthma, Eye Disorder, Liver Disease, Pneumonia, Renal Disease, Seizure Disorder Additional Past Medical History / Comment(s): Multiple UTIs, pyelonephritis, "spongy" kidney, nephrolithiasis-passed stone on her own, recently told she has a fatty liver, catatonic seizure/stress induced, bilateral astigmatism, murmur, pt states she alternates between diarrhea/constipation past 1.5 years, gestational diabetes/eclampsia.Gastroparesis History of Any Multi-Drug Resistant Organisms: None Reported Date of last positivie culture/infection: 2010 MDRO Source:: foot Past Surgical History: Section, Tubal Ligation Additional Past Surgical History / Comment(s): c sect x 4 Past Anesthesia/Blood Transfusion Reactions: No Reported Reaction Past Psychological History: Anxiety, Bipolar, Depression, Panic Disorder, PTSD Smoking Status: Current every day smoker, Vaper Past Alcohol Use History: Occasional Past Drug Use History: Marijuana - Past Family History Father Family Medical History: Cancer, COPD, Hypertension Additional Family Medical History / Comment(s): Lung cancer Mother Family Medical History: COPD, Renal Disease, Seizure Disorder Additional Family Medical History / Comment(s): bronchitis, back problems. Psych issues <Naz Mata - Last Filed: 10/25/22 16:37> General Exam Limitations: no limitations <Naz Mata - Last Filed: 10/25/22 16:37> Limitations: no limitations General appearance: alert, other (Sleepy) Head exam: Present: atraumatic, normocephalic, normal inspection Respiratory exam: Present: normal lung sounds bilaterally. Absent: respiratory distress, wheezes, rales, rhonchi, stridor Cardiovascular Exam: Present: regular rate, normal rhythm, normal heart sounds. Absent: systolic murmur, diastolic murmur, rubs, gallop, clicks GI/Abdominal exam: Present: soft, normal bowel sounds. Absent: distended, tenderness, guarding, rebound, rigid Back exam: Absent: CVA tenderness (R), CVA tenderness (L) Neurological exam: Present: alert, oriented X3, CN II-XII intact Psychiatric exam: Present: normal affect, normal mood Skin exam: Present: warm, dry, intact, normal color. Absent: rash <Selena Melendez - Last Filed: 10/25/22 19:55> General appearance: alert, in no apparent distress Head exam: Present: atraumatic, normocephalic, normal inspection Eye exam: Present: normal appearance, PERRL, EOMI. Absent: scleral icterus, conjunctival injection, periorbital swelling ENT exam: Present: normal exam, mucous membranes moist Neck exam: Present: normal inspection. Absent: tenderness, meningismus, lym phadenopathy Respiratory exam: Present: normal lung sounds bilaterally. Absent: respiratory distress, wheezes, rales, rhonchi, stridor Cardiovascular Exam: Present: regular rate, normal rhythm, normal heart sounds. Absent: systolic murmur, diastolic murmur, rubs, gallop, clicks GI/Abdominal exam: Present: soft, normal bowel sounds. Absent: distended, tenderness, guarding, rebound, rigid Extremities exam: Present: normal inspection, full ROM, normal capillary refill. Absent: tenderness, pedal edema, joint swelling, calf tenderness Back exam: Present: normal inspection Neurological exam: Present: alert, oriented X3, CN II-XII intact Psychiatric exam: Present: normal affect, normal mood Skin exam: Present: warm, dry, intact, normal color. Absent: rash <Brenton Oshea - Last Filed: 10/25/22 21:54> - General Exam Comments Initial Comments: Visual Physical Exam Vital signs reviewed General: Well-appearing, nontoxic, no acute distress. Head: Normocephalic, atraumatic Eyes: PERRLA, EOMI ENT: Airway patent Chest: Nonlabored breathing Skin: No visual rash, normal skin tone Neuro: Alert and oriented 3 Musculoskeletal: No gross abnormalities (Naz Mata) Course <Brenton Oshea - Last Filed: 10/25/22 21:54> Vital Signs 10/25/22 14:54 Temperature 97.9 F Pulse Rate 73 Respiratory 18 Rate Blood Pressure 146/99 O2 Sat by Pulse 99 Oximetry - Reevaluation(s) Reevaluation #1: 10/25/22 21:54 Medical record is reviewed (Brenton Oshea) Reevaluation #2: 10/25/22 21:54 Patient symptoms are improved here in the ER (Brenton Oshea) Medical Decision Making - Lab Data Result diagrams: 10/25/22 17:45 - Radiology Data Radiology results: report reviewed, image reviewed <Selena Melendez - Last Filed: 10/25/22 19:55> - Lab Data Result diagrams: 10/25/22 19:20 10/25/22 17:45 <Brenton Oshea - Last Filed: 10/25/22 21:54> - Medical Decision Making This is a 31-year-old female who presents to the emergency department for chest pain, headaches, nausea, and vomiting. Was pt. sent in by a medical professional or institution? @ -No Did you speak to anyone other than the patient for history? @ -No Did you review nursing and triage notes? @ -Yes, and I agree, it is accurate with regards to the patient's symptoms. Were old charts reviewed? @ -No Differential Diagnosis? @ -Differential Chest Pain: Stable Angina, Unstable Angina, STEMI, NSTEMI Aortic Dissection, Pneumothorax, Musculoskeletal, Esophageal Spasm GERD, Cholecystitis, Pancreatitis, Zoster, this is not meant to be an all-inclusive list. -Differential Headache: Migraine, tension, cluster, carbon monoxide, central venous thrombosis, pension karma temporal arteritis, acute closure glaucoma, intercranial hemorrhage, masto iditis, sinusitis, head injury, this is not meant to be an all-inclusive list. EKG interpreted by me (3pts min.)? @ -Sinus bradycardia. Ventricular rate 42 beats per minute, IA interval 156 ms, QRS duration 101 ms, QTC 397 ms. X-rays interpreted by me (1pt min.)? @ -Chest x-ray obtained, my interpretation identifies no localized consolidations or infiltrates. What testing was considered but not performed? (CT, X-rays, U/S, labs)? Why? @ -None What meds were considered but not given? Why? @ -None Did you discuss the management of the patient with other professionals? @ -No Did you reconcile home meds? @ -No Was smoking cessation discussed for >3mins.? @ -No Was critical care preformed (if so, how long)? @ -No Were there social determinants of health that impacted care today? How? (Homelessness, low income, unemployed, alcoholism, drug addiction, transportation, low edu. Level, literacy, decrease access to med. care, care home, rehab)? @ -No Was there de-escalation of care discussed even if they declined? (Discuss DNR or withdrawal of care, Hospice)? @ -No What co-morbidities impacted this encounter? (DM, HTN, Smoking, COPD, CAD, Cancer, CVA, Hep., AIDS, mental health diagnosis, sleep apnea, morbid obesity)? @ -Medullary sponge kidney, morbid obesity Was patient admitted / discharged? @ -Urinalysis is still positive for infection. Patient given a dose of ceftriaxone with blood and urine cultures obtained prior. She was given IV fluids, toradol, and zofran with no improvement in the headache and only minor improvement in the nausea. She was then given a cocktail of toradol, reglan and benadryl. Undiagnosed new problem with uncertain prognosis? @ -None Drug Therapy requiring intensive monitoring for toxicity (Heparin, Nitro, Insulin, Cardizem)? @ -None Were any procedures done? @ -None Diagnosis/symptom? @ -[default] Acute, or Chronic, or Acute on Chronic? @ -[default] Uncomplicated (without systemic symptoms) or Complicated (systemic symptoms)? @ -[default] Side effects of treatment? @ -[none] Exacerbation, Progression, or Severe Exacerbation] @ -Not applicable Poses a threat to life or bodily function? @ -[no] (Selena Melendez) 31 female DF for evaluation. Patient will have antibiotics changed for urinary tract infection continue outpatient treatment for UTI, headache is now improved (Brenton Oshea) - Lab Data Lab Results 10/25/22 10/25/22 10/25/22 Range/Units 17:45 17:45 17:45 WBC (3.8-10.6) k/uL RBC (3.80-5.40) m/uL Hgb (11.4-16.0) gm/dL Hct (34.0-46.0) % MCV (80.0-100.0) fL MCH (25.0-35.0) pg MCHC (31.0-37.0) g/dL RDW (11.5-15.5) % Plt Count (150-450) k/uL MPV Neutrophils % % Lymphocytes % % Monocytes % % Eosinophils % % Basophils % % Neutrophils # (1.3-7.7) k/uL Lymphocytes # (1.0-4.8) k/uL Monocytes # (0-1.0) k/uL Eosinophils # (0-0.7) k/uL Basophils # (0-0.2) k/uL Sodium 139 (137-145) mmol/L Potassium 4.3 (3.5-5.1) mmol/L Chloride 103 (98-107) mmol/L Carbon Dioxide 27 (22-30) mmol/L Anion Gap 9 mmol/L BUN 9 (7-17) mg/dL Creatinine 0.84 (0.52-1.04) mg/dL Est GFR (CKD-EPI)AfAm >90 (>60 ml/min/1.73 sqM) Est GFR (CKD-EPI)NonAf >90 (>60 ml/min/1.73 sqM) Glucose 107 H (74-99) mg/dL Plasma Lactic Acid Sergey (0.7-2.0) mmol/L Calcium 9.2 (8.4-10.2) mg/dL Total Bilirubin 0.4 (0.2-1.3) mg/dL AST 26 (14-36) U/L ALT 34 (4-34) U/L Alkaline Phosphatase 51 (38-126) U/L Troponin I <0.012 (0.000-0.034) ng/mL Total Protein 7.7 (6.3-8.2) g/dL Albumin 4.5 (3.5-5.0) g/dL Amylase 56 (30-110) U/L Lipase 80 (23-300) U/L Urine Color Urine Appearance (Clear) Urine pH (5.0-8.0) Ur Specific [place] (1.001-1.035) Urine Protein (Negative) Urine Glucose (UA) (Negative) Urine Ketones (Negative) Urine Blood (Negative) Urine Nitrite (Negative) Urine Bilirubin (Negative) Urine Urobilinogen (<2.0) mg/dL Ur Leukocyte Esterase (Negative) Urine RBC (0-5) /hpf Urine WBC (0-5) /hpf Ur Squamous Epith Cells (0-4) /hpf Calcium Oxalate Crystal (None) /hpf Amorphous Sediment (None) /hpf Urine Bacteria (None) /hpf Hyaline Casts (0-2) /lpf Urine Mucus (None) /hpf Urine HCG, Qual Not Detected (Not Detectd) Influenza Type A (PCR) (Not Detectd) Influenza Type B (PCR) (Not Detectd) RSV (PCR) (Not Detectd) SARS-CoV-2 (PCR) (Not Detectd) 10/25/22 10/25/22 10/25/22 Range/Units 17:45 17:45 17:45 WBC (3.8-10.6) k/uL RBC (3.80-5.40) m/uL Hgb (11.4-16.0) gm/dL Hct (34.0-46.0) % MCV (80.0-100.0) fL MCH (25.0-35.0) pg MCHC (31.0-37.0) g/dL RDW (11.5-15.5) % Plt Count (150-450) k/uL MPV Neutrophils % % Lymphocytes % % Monocytes % % Eosinophils % % Basophils % % Neutrophils # (1.3-7.7) k/uL Lymphocytes # (1.0-4.8) k/uL Monocytes # (0-1.0) k/uL Eosinophils # (0-0.7) k/uL Basophils # (0-0.2) k/uL Sodium (137-145) mmol/L Potassium (3.5-5.1) mmol/L Chloride (98-107) mmol/L Carbon Dioxide (22-30) mmol/L Anion Gap mmol/L BUN (7-17) mg/dL Creatinine (0.52-1.04) mg/dL Est GFR (CKD-EPI)AfAm (>60 ml/min/1.73 sqM) Est GFR (CKD-EPI)NonAf (>60 ml/min/1.73 sqM) Glucose (74-99) mg/dL Plasma Lactic Acid Sergey 1.2 (0.7-2.0) mmol/L Calcium (8.4-10.2) mg/dL Total Bilirubin (0.2-1.3) mg/dL AST (14-36) U/L ALT (4-34) U/L Alkaline Phosphatase (38-126) U/L Troponin I (0.000-0.034) ng/mL Total Protein (6.3-8.2) g/dL Albumin (3.5-5.0) g/dL Amylase (30-110) U/L Lipase (23-300) U/L Urine Color Yellow Urine Appearance Cloudy H (Clear) Urine pH 6.0 (5.0-8.0) Ur Specific [place] 1.023 (1.001-1.035) Urine Protein Trace H (Negative) Urine Glucose (UA) Negative (Negative) Urine Ketones Negative (Negative) Urine Blood Trace H (Negative) Urine Nitrite Negative (Negative) Urine Bilirubin Negative (Negative) Urine Urobilinogen <2.0 (<2.0) mg/dL Ur Leukocyte Esterase Moderate H (Negative) Urine RBC 5 (0-5) /hpf Urine WBC 61 H (0-5) /hpf Ur Squamous Epith Cells 4 (0-4) /hpf Calcium Oxalate Crystal Occasional H (None) /hpf Amorphous Sediment Rare H (None) /hpf Urine Bacteria Many H (None) /hpf Hyaline Casts 5 H (0-2) /lpf Urine Mucus Many H (None) /hpf Urine HCG, Qual (Not Detectd) Influenza Type A (PCR) Not Detected (Not Detectd) Influenza Type B (PCR) Not Detected (Not Detectd) RSV (PCR) Not Detected (Not Detectd) SARS-CoV-2 (PCR) Not Detected (Not Detectd) 10/25/22 Range/Units 19:20 WBC 7.9 (3.8-10.6) k/uL RBC 3.54 L (3.80-5.40) m/uL Hgb 11.1 L (11.4-16.0) gm/dL Hct 32.8 L (34.0-46.0) % MCV 92.6 (80.0-100.0) fL MCH 31.3 (25.0-35.0) pg MCHC 33.8 (31.0-37.0) g/dL RDW 13.0 (11.5-15.5) % Plt Count 375 (150-450) k/uL MPV 8.4 Neutrophils % 54 % Lymphocytes % 36 % Monocytes % 6 % Eosinophils % 2 % Basophils % 0 % Neutrophils # 4.3 (1.3-7.7) k/uL Lymphocytes # 2.8 (1.0-4.8) k/uL Monocytes # 0.4 (0-1.0) k/uL Eosinophils # 0.1 (0-0.7) k/uL Basophils # 0.0 (0-0.2) k/uL Sodium (137-145) mmol/L Potassium (3.5-5.1) mmol/L Chloride (98-107) mmol/L Carbon Dioxide (22-30) mmol/L Anion Gap mmol/L BUN (7-17) mg/dL Creatinine (0.52-1.04) mg/dL Est GFR (CKD-EPI)AfAm (>60 ml/min/1.73 sqM) Est GFR (CKD-EPI)NonAf (>60 ml/min/1.73 sqM) Glucose (74-99) mg/dL Plasma Lactic Acid Sergey (0.7-2.0) mmol/L Calcium (8.4-10.2) mg/dL Total Bilirubin (0.2-1.3) mg/dL AST (14-36) U/L ALT (4-34) U/L Alkaline Phosphatase (38-126) U/L Troponin I (0.000-0.034) ng/mL Total Protein (6.3-8.2) g/dL Albumin (3.5-5.0) g/dL Amylase (30-110) U/L Lipase (23-300) U/L Urine Color Urine Appearance (Clear) Urine pH (5.0-8.0) Ur Specific [place] (1.001-1.035) Urine Protein (Negative) Urine Glucose (UA) (Negative) Urine Ketones (Negative) Urine Blood (Negative) Urine Nitrite (Negative) Urine Bilirubin (Negative) Urine Urobilinogen (<2.0) mg/dL Ur Leukocyte Esterase (Negative) Urine RBC (0-5) /hpf Urine WBC (0-5) /hpf Ur Squamous Epith Cells (0-4) /hpf Calcium Oxalate Crystal (None) /hpf Amorphous Sediment (None) /hpf Urine Bacteria (None) /hpf Hyaline Casts (0-2) /lpf Urine Mucus (None) /hpf Urine HCG, Qual (Not Detectd) Influenza Type A (PCR) (Not Detectd) Influenza Type B (PCR) (Not Detectd) RSV (PCR) (Not Detectd) SARS-CoV-2 (PCR) (Not Detectd) Disposition <Naz Mata - Last Filed: 10/25/22 16:37> <Selena Melendez - Last Filed: 10/25/22 19:55> Is patient prescribed a controlled substance at d/c from ED?: No Time of Disposition: 22:00 <Brenton Oshea - Last Filed: 10/25/22 21:54> Clinical Impression: Headache, Chronic abdominal pain, Urinary tract infection Disposition: HOME SELF-CARE Condition: Good Instructions (If sedation given, give patient instructions): Urinary Tract Infection in Women (ED), Abdominal Pain (ED) Referrals: Kellen Renee MD [Primary Care Provider] - 1-2 days
[2022-10-25] MEDS ORDERED: KETOROLAC 15 MG/ML 1 ML VIAL IVP STA ×2 (17:12→19:54)
[2022-10-25] MEDS ORDERED: SODIUM CHLORIDE 0.9% 1,000 ML IV STA (17:12)
[2022-10-25 18:04] LABS: ALT 34 U/L (4-34); AST 26 U/L (14-36); African American GFR (CKD) >90 (>60 ml/min/1.73 sqM); Albumin 4.5 g/dL (3.5-5.0); Alkaline Phosphatase 51 U/L (38-126); Amylase 56 U/L (30-110); Anion Gap 9 mmol/L; Blood Urea Nitrogen 9 mg/dL (7-17); Calcium 9.2 mg/dL (8.4-10.2); Carbon Dioxide 27 mmol/L (22-30); Chloride 103 mmol/L (98-107); Glucose 107 mg/dL (74-99); Lipase 80 U/L (23-300); Non-African American GFR(CKD) >90 (>60 ml/min/1.73 sqM); Potassium 4.3 mmol/L (3.5-5.1); Sodium 139 mmol/L (137-145); Total Bilirubin 0.4 mg/dL (0.2-1.3); Total Protein 7.7 g/dL (6.3-8.2)
[2022-10-25 18:12] LABS: Amorphous Sediment,Urine Rare /hpf; Appearance,Urine Cloudy (Clear); Bacteria,Urine Many /hpf; Bilirubin,Urine Negative (Negative); Blood,Urine Trace (Negative); Calcium Oxalate Crystals,Urine Occasional /hpf; Color,Urine Yellow; Glucose,Urine (UA) Negative (Negative); Hyaline Casts,Urine 5 /lpf (0-2); Ketones,Urine Negative (Negative); Leukocyte Esterase,Urine Moderate (Negative); Mucus,Urine Many /hpf; Nitrite,Urine Negative (Negative); Protein,Urine Trace (Negative); RBC,Urine 5 /hpf (0-5); Specific Gravity,Urine 1.023 (1.001-1.035); Squamous Epithelial Cell,Urine 4 /hpf (0-4); Urobilinogen,Urine <2.0 mg/dL (<2.0); WBC,Urine 61 /hpf (0-5)
[2022-10-25] MEDS ORDERED: cefTRIAXone IN SWFI 1,000 MG/10 ML SYRINGE IVP STA (18:16)
--- NOTE | 2022-10-25 18:18 | XR ---
EXAMINATION TYPE: XR chest 2V DATE OF EXAM: 10/25/2022 COMPARISON: 323 INDICATION: Chest pain TECHNIQUE: Frontal and lateral views of the chest are obtained. FINDINGS: The heart size is normal. The pulmonary vasculature is normal. The lungs are clear. IMPRESSION: 1. No acute pulmonary process.
[2022-10-25] MEDS ORDERED: METOCLOPRAMIDE 5 MG/ML 2 ML VIAL IVP STA (19:54)
[2022-10-25] MEDS ORDERED: diphenhydrAMINE 50 MG/ML 1 ML VIAL IVP STA (19:54)
[2022-10-25 20:15] LABS: Basophils % (A) 0 %; Eosinophils # (A) 0.1 k/uL (0-0.7); Eosinophils % (A) 2 %; HCT 32.8 % (34.0-46.0); HGB 11.1 gm/dL (11.4-16.0); Lymphocytes # (A) 2.8 k/uL (1.0-4.8); Lymphocytes % (A) 36 %; MCH 31.3 pg (25.0-35.0); MCHC 33.8 g/dL (31.0-37.0); MCV 92.6 fL (80.0-100.0); Mean Platelet Volume 8.4; Monocytes # (A) 0.4 k/uL (0-1.0); Monocytes % (A) 6 %; Neutrophils # (A) 4.3 k/uL (1.3-7.7); Neutrophils % (A) 54 %; Platelet Count 375 k/uL (150-450); RBC 3.54 m/uL (3.80-5.40); WBC 7.9 k/uL (3.8-10.6)
[2022-10-25] MEDS ORDERED: AZITHROMYCIN 500 MG TAB PO STA (21:55)
[2022-10-25 22:14] VITALS: RESP 16
[2022-10-25 22:30] VITALS: BP 138/76; PULSE 47; TEMP 98.7
== END 2022-10-25 22:33 | disposition home or self-care (01) ==
LOC: EC 14:51
DX: G89.29 Other chronic pain (principal); R10.9 Unspecified abdominal pain; R51.9 Headache, unspecified; N39.0 Urinary tract infection, site not specified; J45.909 Unspecified asthma, uncomplicated; F17.290 Nicotine dependence, other tobacco product, uncomplicated; F12.90 Cannabis use, unspecified, uncomplicated; Z91.018 Allergy to other foods; Z91.011 Allergy to milk products; Z91.09 Other allergy status, other than to drugs and biological substances; Z88.8 Allergy status to other drugs, medicaments and biological substances; Z79.899 Other long term (current) drug therapy; Z20.822 Contact with and (suspected) exposure to COVID-19
CPT/HCPCS: 36415; 93005; 80053; 82150; 83605; 83690; 84484; 85025; 81001; 81025; 87040; 87086; 87077; 87186; 87636; 71046; 99285; 96374; 96375 ×3; 96376; 96361; J1200; J2765; J0696; J1885

== ENCOUNTER 2023-01-04 12:07 | Emergency (ER) | payer MEDICARE, OTHER ==
[2023-01-04 12:23] VITALS: TEMP 97.9
[2023-01-04] MEDS ORDERED: SODIUM CHLORIDE 0.9% 1,000 ML IV STA (13:04)
[2023-01-04] MEDS ORDERED: LORazepam 2 MG/ML INJ IV STA (13:05)
[2023-01-04] MEDS ORDERED: FAMOTIDINE 20 MG/2 ML VIAL IV STA (13:05)
[2023-01-04 13:36] LABS: Basophils % (A) 0 %; Eosinophils # (A) 0.1 k/uL (0-0.7); Eosinophils % (A) 1 %; HCT 45.3 % (34.0-46.0); HGB 15.2 gm/dL (11.4-16.0); Lymphocytes % (A) 30 %; MCH 31.4 pg (25.0-35.0); MCHC 33.4 g/dL (31.0-37.0); MCV 93.9 fL (80.0-100.0); Mean Platelet Volume 8.2; Monocytes # (A) 0.3 k/uL (0-1.0); Monocytes % (A) 5 %; Neutrophils # (A) 4.3 k/uL (1.3-7.7); Neutrophils % (A) 63 %; Platelet Count 336 k/uL (150-450); RBC 4.83 m/uL (3.80-5.40); RDW 13.4 % (11.5-15.5); WBC 6.8 k/uL (3.8-10.6)
[2023-01-04 13:39] LABS: Appearance,Urine Clear (Clear); Bilirubin,Urine Negative (Negative); Blood,Urine Negative (Negative); Color,Urine Colorless; Glucose,Urine (UA) Negative (Negative); Ketones,Urine Negative (Negative); Leukocyte Esterase,Urine Negative (Negative); Nitrite,Urine Negative (Negative); Protein,Urine Negative (Negative); Specific Gravity,Urine 1.005 (1.001-1.035); Urobilinogen,Urine <2.0 mg/dL (<2.0)
[2023-01-04 14:03] LABS: ALT 35 U/L (4-34); AST 30 U/L (14-36); African American GFR (CKD) >90 (>60 ml/min/1.73 sqM); Albumin 4.8 g/dL (3.5-5.0); Alkaline Phosphatase 97 U/L (38-126); Amylase 81 U/L (30-110); Anion Gap 8 mmol/L; Blood Urea Nitrogen 21 mg/dL (7-17); Calcium 9.1 mg/dL (8.4-10.2); Carbon Dioxide 28 mmol/L (22-30); Chloride 102 mmol/L (98-107); Glucose 90 mg/dL (74-99); Lipase 143 U/L (23-300); Non-African American GFR(CKD) 80 (>60 ml/min/1.73 sqM); Potassium 4.7 mmol/L (3.5-5.1); Sodium 138 mmol/L (137-145); Total Bilirubin 0.2 mg/dL (0.2-1.3); Total Protein 8.3 g/dL (6.3-8.2)
--- NOTE | 2023-01-04 14:18 | ED ---
Abdominal Pain HPI - General Chief Complaint: Abdominal Pain Stated Complaint: vomiting,dizziness Time Seen by Provider: 01/04/23 12:55 Source: patient, RN notes reviewed Mode of arrival: wheelchair Limitations: no limitations - History of Present Illness Initial Comments: This is a 32-year-old female who presents to the emergency department for multiple complaints. States that about 2 hours prior to arrival, she started to have intermittent sharp left-sided chest pain and generalized abdominal pain. Also states that she feels nauseous and is scared that she could have a seizure, causing her to have a panic attack. Denies any suicidal/homicidal ideations or auditory/visual hallucinations. Also denies any problems with urination or bowel movements. States that her seizures are triggered by elevated blood pressure. She has been compliant with her medications. Denies any fevers, chills, sore throat, cough, dyspnea, diarrhea, back pain, or headaches. MD Complaint: abdominal pain - Related Data Allergies Allergy/AdvReac Type Severity Reaction Status Date / Time coconut Allergy Unknown Verified 10/25/22 21:56 morphine Allergy Rash/Hives Verified 10/25/22 21:56 wheat Allergy Unknown Verified 01/04/23 12:24 apple AdvReac Intermediate Itching Verified 10/25/22 21:56 adhesive tape AdvReac Mild Itching Verified 10/25/22 21:56 Beef Containing Products AdvReac Unknown Verified 01/04/23 12:24 [Beef] Milk Containing Products AdvReac Nausea & Verified 10/25/22 21:56 [Dairy] Vomiting & Diarrhea Pork/Porcine Containing AdvReac Unknown Verified 01/04/23 12:24 Products [Pork] sumatriptan [From Imitrex] AdvReac Makes Verified 10/25/22 21:56 Migraine Worse/Dizziness sumatriptan succinate AdvReac Makes Verified 10/25/22 21:56 [From Imitrex] Migraine Worse/Dizziness Review of Systems ROS Statement: Those systems with pertinent positive or pertinent negative responses have been documented in the HPI. ROS Other: All systems not noted in ROS Statement are negative. Past Medical History Past Medical History: Asthma, Eye Disorder, Liver Disease, Pneumonia, Renal Disease, Seizure Disorder Additional Past Medical History / Comment(s): Multiple UTIs, pyelonephritis, "spongy" kidney, nephrolithiasis-passed stone on her own, recently told she has a fatty liver, catatonic seizure/stress induced, bilateral astigmatism, murmur, pt states she alternates between diarrhea/constipation past 1.5 years, gestational diabetes/eclampsia.Gastroparesis History of Any Multi-Drug Resistant Organisms: None Reported Date of last positivie culture/infection: 2010 MDRO Source:: foot Past Surgical History: Section, Tubal Ligation Additional Past Surgical History / Comment(s): c sect x 4 Past Anesthesia/Blood Transfusion Reactions: No Reported Reaction Past Psychological History: Anxiety, Bipolar, Depression, Panic Disorder, PTSD Smoking Status: Current every day smoker, Vaper Past Alcohol Use History: Occasional Past Drug Use History: Marijuana - Past Family History Father Family Medical History: Cancer, COPD, Hypertension Additional Family Medical History / Comment(s): Lung cancer Mother Family Medical History: COPD, Renal Disease, Seizure Disorder Additional Family Medical History / Comment(s): bronchitis, back problems. Psych issues General Exam Limitations: no limitations General appearance: alert, anxious Head exam: Present: atraumatic, normocephalic, normal inspection Respiratory exam: Present: normal lung sounds bilaterally. Absent: respiratory distress, wheezes, rales, rhonchi, stridor Cardiovascular Exam: Present: regular rate, normal rhythm, normal heart sounds. Absent: systolic murmur, diastolic murmur, rubs, gallop, clicks GI/Abdominal exam: Present: soft, tenderness (mild and diffuse), normal bowel sounds. Absent: distended Neurological exam: Present: alert, oriented X3, CN II-XII intact Psychiatric exam: Present: normal affect, normal mood Skin exam: Present: warm, dry, intact, normal color. Absent: rash Course Vital Signs 01/04/23 01/04/23 01/04/23 12:20 13:02 13:30 Temperature 97.9 F Pulse Rate 99 Respiratory 18 Rate Blood Pressure 138/94 142/127 O2 Sat by Pulse 99 99 Oximetry 01/04/23 01/04/23 01/04/23 14:00 14:30 15:00 Temperature Pulse Rate 76 57 L 66 Respiratory 15 13 Rate Blood Pressure 117/80 115/74 O2 Sat by Pulse 99 Oximetry Medical Decision Making - Medical Decision Making This is a 32-year-old female who presents to the emergency department for chest pain and anxiety. Was pt. sent in by a medical professional or institution? @ -No Did you speak to anyone other than the patient for history? @ -No Did you review nursing and triage notes? @ -Yes, and I agree, it is accurate with regards to the patient's symptoms. Were old charts reviewed? @ -No Differential Diagnosis? @ -Differential Chest Pain: Stable Angina, Unstable Angina, STEMI, NSTEMI Aortic Dissection, Pneumothorax, Musculoskeletal, Esophageal Spasm GERD, Cholecystitis, Pancreatitis, Zoster, this is not meant to be an all-inclusive list. EKG interpreted by me (3pts min.)? @ -EKG interpreted by me demonstrating the following: Sinus rhythm. Ventricular rate 84 beats for minute, OH interval X-rays interpreted by me (1pt min.)? @ -Chest x-ray obtained, my interpretation identifies no localized consolidations or infiltrates. CT interpreted by me (1pt min.)? @ -Not obtained U/S interpreted by me (1pt. min.)? @ -Not obtained What testing was considered but not performed? (CT, X-rays, U/S, labs)? Why? @ -None What meds were considered but not given? Why? @ -None Did you discuss the management of the patient with other professionals? @ -No Did you reconcile home meds? @ -No Was smoking cessation discussed for >3mins.? @ -No Was critical care preformed (if so, how long)? @ -No Were there social determinants of health that impacted care today? How? (Homelessness, low income, unemployed, alcoholism, drug addiction, transportation, low edu. Level, literacy, decrease access to med. care, group home, rehab)? @ -No Was there de-escalation of care discussed even if they declined? (Discuss DNR or withdrawal of care, Hospice)? @ -No What co-morbidities impacted this encounter? (DM, HTN, Smoking, COPD, CAD, Cancer, CVA, Hep., AIDS, mental health diagnosis, sleep apnea, morbid obesity)? @ -Asthma, seizure disorder, renal disease Was patient admitted / discharged? @ -Discharged. Lab work obtained and found to be nonactionable. Patient given Ativan, Pepcid, and IV fluids with significant relief in symptoms. Chest x-ray reveals no acute process. Patient has been here many times for similar complaints. Advised that the cause of her symptoms is not entirely clear, but from her workup at this point, there is nothing pointing to any specific pathologies. She is advised to have close follow-up with her primary care provider for reevaluation and to continue with supportive care. Undiagnosed new problem with uncertain prognosis? @ -None Drug Therapy requiring intensive monitoring for toxicity (Heparin, Nitro, Insulin, Cardizem)? @ -None Were any procedures done? @ -None Diagnosis/symptom? @ -Chest pain, abdominal pain Acute, or Chronic, or Acute on Chronic? @ -Acute Uncomplicated (without systemic symptoms) or Complicated (systemic symptoms)? @ -Uncomplicated Side effects of treatment? @ -None Exacerbation, Progression, or Severe Exacerbation] @ -Not applicable Poses a threat to life or bodily function? @ -No Return precautions reviewed in depth, the patient is instructed to return to the emergency department with any new, worsening, or concerning symptoms. Patient verbalized understanding. This case was discussed in detail with the attending ED physician, Dr. Ramirez. Presentation, findings, and treatment plan discussed in detail as well. - Lab Data Result diagrams: 01/04/23 13:13 01/04/23 13:13 Lab Results 01/04/23 01/04/23 01/04/23 Range/Units 13:13 13:13 13:13 WBC 6.8 (3.8-10.6) k/uL RBC 4.83 (3.80-5.40) m/uL Hgb 15.2 (11.4-16.0) gm/dL Hct 45.3 (34.0-46.0) % MCV 93.9 (80.0-100.0) fL MCH 31.4 (25.0-35.0) pg MCHC 33.4 (31.0-37.0) g/dL RDW 13.4 (11.5-15.5) % Plt Count 336 (150-450) k/uL MPV 8.2 Neutrophils % 63 % Lymphocytes % 30 % Monocytes % 5 % Eosinophils % 1 % Basophils % 0 % Neutrophils # 4.3 (1.3-7.7) k/uL Lymphocytes # 2.0 (1.0-4.8) k/uL Monocytes # 0.3 (0-1.0) k/uL Eosinophils # 0.1 (0-0.7) k/uL Basophils # 0.0 (0-0.2) k/uL Sodium (137-145) mmol/L Potassium (3.5-5.1) mmol/L Chloride (98-107) mmol/L Carbon Dioxide (22-30) mmol/L Anion Gap mmol/L BUN (7-17) mg/dL Creatinine (0.52-1.04) mg/dL Est GFR (CKD-EPI)AfAm (>60 ml/min/1.73 sqM) Est GFR (CKD-EPI)NonAf (>60 ml/min/1.73 sqM) Glucose (74-99) mg/dL Plasma Lactic Acid Sergey (0.7-2.0) mmol/L Calcium (8.4-10.2) mg/dL Total Bilirubin (0.2-1.3) mg/dL AST (14-36) U/L ALT (4-34) U/L Alkaline Phosphatase (38-126) U/L Troponin I (0.000-0.034) ng/mL Total Protein (6.3-8.2) g/dL Albumin (3.5-5.0) g/dL Amylase (30-110) U/L Lipase (23-300) U/L Urine Color Colorless Urine Appearance Clear (Clear) Urine pH 7.0 (5.0-8.0) Ur Specific [place] 1.005 (1.001-1.035) Urine Protein Negative (Negative) Urine Glucose (UA) Negative (Negative) Urine Ketones Negative (Negative) Urine Blood Negative (Negative) Urine Nitrite Negative (Negative) Urine Bilirubin Negative (Negative) Urine Urobilinogen <2.0 (<2.0) mg/dL Ur Leukocyte Esterase Negative (Negative) Urine HCG, Qual Not Detected (Not Detectd) 01/04/23 01/04/23 01/04/23 Range/Units 13:13 13:13 13:13 WBC (3.8-10.6) k/uL RBC (3.80-5.40) m/uL Hgb (11.4-16.0) gm/dL Hct (34.0-46.0) % MCV (80.0-100.0) fL MCH (25.0-35.0) pg MCHC (31.0-37.0) g/dL RDW (11.5-15.5) % Plt Count (150-450) k/uL MPV Neutrophils % % Lymphocytes % % Monocytes % % Eosinophils % % Basophils % % Neutrophils # (1.3-7.7) k/uL Lymphocytes # (1.0-4.8) k/uL Monocytes # (0-1.0) k/uL Eosinophils # (0-0.7) k/uL Basophils # (0-0.2) k/uL Sodium 138 (137-145) mmol/L Potassium 4.7 (3.5-5.1) mmol/L Chloride 102 (98-107) mmol/L Carbon Dioxide 28 (22-30) mmol/L Anion Gap 8 mmol/L BUN 21 H (7-17) mg/dL Creatinine 0.95 (0.52-1.04) mg/dL Est GFR (CKD-EPI)AfAm >90 (>60 ml/min/1.73 sqM) Est GFR (CKD-EPI)NonAf 80 (>60 ml/min/1.73 sqM) Glucose 90 (74-99) mg/dL Plasma Lactic Acid Sergey 1.1 (0.7-2.0) mmol/L Calcium 9.1 (8.4-10.2) mg/dL Total Bilirubin 0.2 (0.2-1.3) mg/dL AST 30 (14-36) U/L ALT 35 H (4-34) U/L Alkaline Phosphatase 97 (38-126) U/L Troponin I <0.012 (0.000-0.034) ng/mL Total Protein 8.3 H (6.3-8.2) g/dL Albumin 4.8 (3.5-5.0) g/dL Amylase 81 (30-110) U/L Lipase 143 (23-300) U/L Urine Color Urine Appearance (Clear) Urine pH (5.0-8.0) Ur Specific [place] (1.001-1.035) Urine Protein (Negative) Urine Glucose (UA) (Negative) Urine Ketones (Negative) Urine Blood (Negative) Urine Nitrite (Negative) Urine Bilirubin (Negative) Urine Urobilinogen (<2.0) mg/dL Ur Leukocyte Esterase (Negative) Urine HCG, Qual (Not Detectd) - Radiology Data Radiology results: report reviewed, image reviewed Disposition Clinical Impression: Chest pain, Abdominal pain Disposition: HOME SELF-CARE Instructions (If sedation given, give patient instructions): Abdominal Pain (ED) Additional Instructions: Return to the emergency department with any new, worsening, or concerning sy mptoms. Follow up with your primary care provider in 1-2 days. Is patient prescribed a controlled substance at d/c from ED?: No Referrals: Kellen Renee MD [Primary Care Provider] - 1-2 days
--- NOTE | 2023-01-04 14:26 | XR ---
EXAMINATION TYPE: XR chest 2V DATE OF EXAM: 01/04/2023 2:00 PM COMPARISON: Chest radiographs from 10/25/2022 TECHNIQUE: XR chest 2V Frontal and lateral views of the chest. CLINICAL INDICATION:Female, 32 years old with history of Chest pain; FINDINGS: Lungs/Pleura: There is no evidence of pleural effusion, focal consolidation, or pneumothorax. Pulmonary vascularity: Unremarkable. Heart/mediastinum: Cardiomediastinal silhouette is unremarkable. Musculoskeletal: No acute osseous pathology. IMPRESSION: No acute cardiopulmonary disease/process.
[2023-01-04] MEDS ORDERED: HYDROmorphone 1 MG/ML 1 ML SYRINGE IVP STA (14:39)
[2023-01-04 15:08] VITALS: BP 115/74; PULSE 66; RESP 13
== END 2023-01-04 15:49 | disposition home or self-care (01) ==
LOC: EC 12:07
DX: R07.89 Other chest pain (principal); R10.9 Unspecified abdominal pain; J45.909 Unspecified asthma, uncomplicated; G40.909 Epilepsy, unspecified, not intractable, without status epilepticus; F41.9 Anxiety disorder, unspecified; F31.9 Bipolar disorder, unspecified; F17.290 Nicotine dependence, other tobacco product, uncomplicated; F12.90 Cannabis use, unspecified, uncomplicated; Z88.8 Allergy status to other drugs, medicaments and biological substances; Z91.018 Allergy to other foods; Z91.011 Allergy to milk products; Z91.014 Allergy to mammalian meats
CPT/HCPCS: 99284 ×2; 96374 ×2; 96375 ×3; 36415; 93005; 80053; 82150; 83605; 83690; 84484; 85025; 81003; 81025; 71046; J2060; J1170

== ENCOUNTER → 2023-02-01 | Outpatient (CLI) | payer MEDICARE, OTHER ==
--- NOTE | 2023-02-02 12:21 | CT ---
EXAMINATION TYPE: CT urogram wo/w con DATE OF EXAM: 02/01/2023 COMPARISON: CT abdomen and pelvis 03/06/2020 HISTORY: flank pain CT DLP: 1986.2 mGycm Automated exposure control for dose reduction was used. Contrast: None Technique: Axial images 3 mm thick sections. Reconstructed images in coronal and sagittal plane. 3-D reconstruction images through the renal collecting system is performed FINDINGS: Limited CT sections are obtained from the lung bases which are clear CT ABDOMEN: Liver spleen adrenal glands and pancreas gallbladder and kidneys appear normal. There is a punctate renal stone in the lateral upper pole left kidney measuring 0.3 cm. Aorta and inferior mandi a cava appear normal Loops of bowel within the abdomen and pelvis appear unremarkable without contrast. Uterus appears nor mal. Adnexa are normal. Urinary bladder is unremarkable. No free fluid is pelvis. CT urogram: Following intravenous administration of contrast kidney collecting system ureters and kev dder are evaluated. Three-D reconstructed images are performed. Bilateral ureteral jets are evident. Urinary bladder fills normally without intraluminal or extramura l defects. There is prompt uptake and excretion of contrast bilaterally. No hydronephrosis is evident . Renal calyces infundibula and renal pelves appear normal. Distal segment of the left ureter is not identified. No hydronephrosis is evident. No proximal hydroureter is evident. No filling defects wit hin the opacified portions. IMPRESSION: 1. NORMAL-APPEARING CT UROGRAM. NO HYDRONEPHROSIS HYDROURETER OR ASYMMETRIC EXCRETION IS EVIDENT. THE DISTAL LEFT URETER IS INCOMPLETELY VISUALIZED DURING THIS EXAMINATION HOWEVER 2. NONOBSTRUCTING LEFT RENAL STONE
== END | disposition home or self-care (01) ==
LOC: RADCTMAIN 09:07
PROVIDERS: ATTEND Internal Medicine
DX: N20.0 Calculus of kidney (principal); N39.0 Urinary tract infection, site not specified
CPT/HCPCS: 74178; 74400; Q9967

== ENCOUNTER → 2023-02-24 | Outpatient (CLI) | payer MEDICARE, OTHER ==
--- NOTE | 2023-02-24 15:31 | US ---
EXAMINATION TYPE: US kidneys/renal and bladder DATE OF EXAM: 02/24/2023 COMPARISON: CT angiogram 02/01/2023, abdominal ultrasound 03/02/2020 CLINICAL INDICATION: Female, 32 years old with history of N39.0 UTI; UTI EXAM MEASUREMENTS: Right Kidney: 10.7 x 4.2 x 4.0 cm Left Kidney: 10.7 x 5.0 x 4.5 cm Right Kidney: Appears spongy in appearance. Left Kidney: No hydronephrosis or masses seen Bladder: wnl Bilateral Jets seen: Yes There is no evidence for hydronephrosis at this point in time. No nephrolithiasis is seen. Cortical medullary differentiation is maintained bilaterally. No masses are identified. No perinephric fluid c ollections. The urinary bladder is anechoic. Bilateral ureteral jets are seen. IMPRESSION: No hydronephrosis or nephrolithiasis.
== END | disposition home or self-care (01) ==
LOC: RADUSWWP 14:53
PROVIDERS: ATTEND Internal Medicine
DX: N39.0 Urinary tract infection, site not specified (principal)
CPT/HCPCS: 76770

== ENCOUNTER 2023-08-22 18:51 | Inpatient (IN) | payer MEDICARE, OTHER ==
--- NOTE | 2023-08-22 19:27 | ED ---
General Adult HPI - General Source: patient Mode of arrival: ambulatory Limitations: no limitations <Yariel Levine - Last Filed: 08/22/23 19:26> <Nicho River - Last Filed: 08/22/23 22:06> - General Stated complaint: syncope dizziness back pain Time Seen by Provider: 08/22/23 19:26 - History of Present Illness Initial comments: 32-year-old female presenting with chief complaint of dizziness. Has been ongoing for 2 weeks. She has now been having chest pain since last night. (Yariel Levine) Dictation was produced using [email or web address] dictation software. please excuse any grammatical, word or spelling errors. Chief Complaint: 32-year-old female with chest pain dizziness and back pain History of Present Illness: Patient is 32-year-old female she denies any significant comorbidities. States that she is here today for chest pain, dizziness and back pain. States that she has been having the symptoms ongoing. She reports that she is scheduled to have a outpatient tilt table test for syncopal symptoms. Patient also feels a pressure-like sensation to her substernal lower chest. Nonradiating but she does report association with dizziness and clamminess. The ROS documented in this emergency department record has been reviewed and confirmed by me. Those systems with pertinent positive or negative responses have been documented in the HPI. All other systems are other negative and/or noncontributory. (Nicho River) - Related Data Home Medications Medication Instructions Recorded Confirmed Amitriptyline HCl [Elavil] 25 mg PO HS 08/19/23 08/19/23 Buta/APAP/Caf/Cod [id number] 1 - 2 cap PO Q8H PRN 08/19/23 08/19/23 [Fioricet w/Cod [id number]] Cholecalciferol (Vitamin D3) 50 mcg PO DAILY 08/19/23 08/19/23 [Vitamin D3 (50 Mcg = 2000 Iu)] Dicyclomine [Bentyl] 20 mg PO QID PRN 08/19/23 08/19/23 Li-Zyme 50 mg PO BID 08/19/23 Mag Plus 100 mg PO DAILY 08/19/23 Multivitamin/Iron/Folic Acid 1 each PO DAILY 08/19/23 08/19/23 [Centrum Women Tablet] Ondansetron [Zofran] 4 mg PO Q12HR PRN 08/19/23 08/19/23 Pantoprazole [Protonix] 40 mg PO DAILY 08/19/23 08/19/23 Allergies Allergy/AdvReac Type Severity Reaction Status Date / Time coconut Allergy Rash/Hives Verified 08/22/23 19:27 morphine Allergy Rash/Hives Verified 08/22/23 19:27 wheat Allergy Rash/Hives Verified 08/22/23 19:27 apple AdvReac Intermediate Itching Verified 08/22/23 19:27 adhesive tape AdvReac Mild Itching Verified 08/22/23 19:27 Beef Containing Products AdvReac Rash/Hives Verified 08/22/23 19:27 [Beef] corn AdvReac Rash/Hives Verified 08/22/23 19:27 Milk Containing Products AdvReac Nausea & Verified 08/22/23 19:27 (Dairy) Vomiting & [Dairy] Diarrhea Pork/Porcine Containing AdvReac Rash/Hives Verified 08/22/23 19:27 Products [Pork] sumatriptan [From Imitrex] AdvReac Makes Verified 08/22/23 19:27 Migraine Worse/Dizziness sumatriptan succinate AdvReac Makes Verified 08/22/23 19:27 [From Imitrex] Migraine Worse/Dizziness Review of Systems ROS Other: All systems not noted in ROS Statement are negative. <Yariel Levine - Last Filed: 08/22/23 19:26> ROS Other: All systems not noted in ROS Statement are negative. <Nicho River - Last Filed: 08/22/23 22:06> ROS Statement: Those systems with pertinent positive or pertinent negative responses have been documented in the HPI. Past Medical History Past Medical History: Asthma, Eye Disorder, GERD/Reflux, Liver Disease, Pneumonia, Renal Disease, Seizure Disorder Additional Past Medical History / Comment(s): Multiple UTIs, pyelonephritis, "spongy" kidney, nephrolithiasis-passed stone on her own, recently told she has a fatty liver, catatonic seizure/stress induced, bilateral astigmatism, murmur, pt states she alternates between diarrhea/constipation past 1.5 years, gestational diabetes/eclampsia.Gastroparesis, PT STATES SEIZURES ARE MORE OF AN ALLERGIC REACTION--NOTHING EPILEPTIC History of Any Multi-Drug Resistant Organisms: None Reported Date of last positivie culture/infection: 2010 MDRO Source:: foot Past Surgical History: Section, Tubal Ligation Additional Past Surgical History / Comment(s): c sect x 4. COLONOSCOPY Past Anesthesia/Blood Transfusion Reactions: No Reported Reaction Smoking Status: Former smoker, Vaper - Past Family History Father Family Medical History: Cancer, COPD, Hypertension Additional Family Medical History / Comment(s): Lung AND BRAIN cancer Mother Family Medical History: COPD, Renal Disease, Seizure Disorder Additional Family Medical History / Comment(s): bronchitis, back problems. Psych issues <Yariel Levine - Last Filed: 08/22/23 19:26> General Exam <Yariel Levine - Last Filed: 08/22/23 19:26> <Nicho River - Last Filed: 08/22/23 22:06> - General Exam Comments Initial Comments: Visual Physical Exam Vital signs reviewed General: Well-appearing, nontoxic, no acute distress. Head: Normocephalic, atraumatic Eyes: PERRLA, EOMI ENT: Airway patent Chest: Nonlabored breathing Skin: No visual rash, normal skin tone Neuro: Alert and oriented 3 Musculoskeletal: No gross abnormalities (Yariel Levine) PHYSICAL EXAM: General Impression: Alert and oriented x3, not in acute distress HEENT: Normocephalic atraumatic, extra-ocular movements intact, pupils equal and reactive to light bilaterally, mucous membranes moist. Cardiovascular: Heart regular rate and rhythm Chest: Able to complete full sentences, no retractions, no tachypnea Abdomen: abdomen soft, non-tender, non-distended, no organomegaly Musculoskeletal: Pulses present and equal in all extremities, no peripheral edema Motor: no focal deficits noted Neurological: CN II-XII grossly intact, no focal motor or sensory deficits noted Skin: Intact with no visualized rashes Psych: Normal affect and mood (Nicho River) Course Vital Signs 08/22/23 08/22/23 19:25 20:27 Temperature 98.2 F Pulse Rate 57 L Respiratory 18 Rate Blood Pressure 108/79 110/66 O2 Sat by Pulse 100 Oximetry EKG Findings - EKG Comments: EKG Findings:: My EKG interpretation: Ventricular rate 67, sinus rhythm,. 152, cures 95, QTc 390. No LA prolongation, no QTC prolongation, no ST or T-wave changes noted. EKG compared to January 04, 2023 showing no changes. Overall, this EKG is unremarkable <Nicho River - Last Filed: 08/22/23 22:06> Medical Decision Making <Yariel Levine - Last Filed: 08/22/23 19:26> - Lab Data Result diagrams: 08/22/23 20:18 08/22/23 20:18 <Nicho River - Last Filed: 08/22/23 22:06> - Medical Decision Making I performed the quick note portion of this visit, electronically signed Yariel Levine PA-C (Yariel Levine) Was pt. sent in by a medical professional or institution (NELLY Mccoy, BANKING CONSULTANT, urgent care, hospital, or senior living...) When possible be specific @ -No Did you speak to anyone other than the patient for history (EMS, parent, family, police, friend...)? What history was obtained from this source @ -No Did you review nursing and triage notes (agree or disagree)? Why? @ -I reviewed and agree with nursing and triage notes Were old charts reviewed (outside hosp., previous admission, EMS record, old EKG, old radiological studies, urgent care reports/EKG's, senior living records)? Report findings @ -No old charts were reviewed Differential Diagnosis (chest pain, altered mental status, abdominal pain women, abdominal pain men, vaginal bleeding, musculoskeletal, weakness, fever, dyspnea, syncope, headache, dizziness, GI bleed, back pain, seizure, CVA, palpatations, mental health)? @ -Differential Chest Pain: Stable Angina, Unstable Angina, STEMI, NSTEMI Aortic Dissection, Pneumothorax, M usculoskeletal, Esophageal Spasm GERD, Cholecystitis, Pancreatitis, Zoster, this is not meant to be an all-inclusive list. EKG interpreted by me (3pts min.). @ -See above X-rays interpreted by me (1pt min.). @ -None done CT interpreted by me (1pt min.). @ -None done U/S interpreted by me (1pt. min.). @ -None done What testing was considered but not performed or refused? (CT, X-rays, U/S, lab s)? Why? @ -None What meds were considered but not given or refused? Why? @ -None Did you discuss the management of the patient with other professionals (professionals i.e. , PA, BANKING CONSULTANT, lab, RT, psych nurse, social problems specialist, immigration lawyer, teacher, chief growth officer, casework supervisor)? Give summary @ -Case discussed with hospitalist for admission Was smoking cessation discussed for >3mins.? @ -No Was critical care preformed (if so, how long)? @ -No Were there social determinants of health that impacted care today? How? (Homelessness, low income, unemployed, alcoholism, drug addiction, transportation, low edu. Level, literacy, decrease access to med. care, usp, rehab)? @ -No Was there de-escalation of care discussed even if they declined (Discuss DNR or withdrawal of care, Hospice)? DNR status @ -No What co-morbidities impacted this encounter? (DM, HTN, Smoking, COPD, CAD, Cancer, CVA, ARF, Chemo, Hep., AIDS, mental health diagnosis, sleep apnea, morbid obesity)? @ -None Was patient admitted / discharged? Hospital course, mention meds given and route, prescriptions, significant lab abnormalities, going to OR and other pertinent info. @ -32-year-old female presents emergency department for multiple complaints. Her main complaint is chest pain back pain and dizziness. Vital signs upon a rrival shows mild bradycardia. Laboratory evaluation is unremarkable. Troponin is negative. Urinalysis clear. Patient does have some features of atypical chest pain typical features. Will be admitted observation for cardiology consultation cardiac monitoring. Undiagnosed new problem with uncertain prognosis? @ -No Drug Therapy requiring intensive monitoring for toxicity (Heparin, Nitro, Insu ranulfo, Cardizem)? @ -No Were any procedures done? @ -No Diagnosis/symptom? Acute, or Chronic, or Acute on Chronic? Uncomplicated (without systemic symptoms) or Complicated (systemic symptoms)? @ -Chest pain Side effects of treatment? @ -No Exacerbation, Progression, or Severe Exacerbation? @ -No Poses a threat to life or bodily function? How? (Chest pain, [place], [place], pneumonia, PE, COPD, DKA, ARF, appy, cholecystitis, CVA, Diverticulitis, Homicidal, Suicidal, threat to staff... and all critical care pts) @ -No (Nicho River) - Lab Data Lab Results 08/22/23 08/22/23 08/22/23 Range/Units 20:18 20:18 20:18 WBC 7.0 (3.8-10.6) k/uL RBC 4.15 (3.80-5.40) m/uL Hgb 13.4 (11.4-16.0) gm/dL Hct 39.5 (34.0-46.0) % MCV 95.3 (80.0-100.0) fL MCH 32.4 (25.0-35.0) pg MCHC 34.0 (31.0-37.0) g/dL RDW 12.1 (11.5-15.5) % Plt Count 268 (150-450) k/uL MPV 8.0 Neutrophils % 56 % Lymphocytes % 34 % Monocytes % 6 % Eosinophils % 4 % Basophils % 0 % Neutrophils # 3.9 (1.3-7.7) k/uL Lymphocytes # 2.4 (1.0-4.8) k/uL Monocytes # 0.4 (0-1.0) k/uL Eosinophils # 0.3 (0-0.7) k/uL Basophils # 0.0 (0-0.2) k/uL PT 11.7 (10.0-12.5) sec INR 1.1 (<1.2) Sodium 137 (137-145) mmol/L Potassium 5.0 (3.5-5.1) mmol/L Chloride 108 H (98-107) mmol/L Carbon Dioxide 20 L (22-30) mmol/L Anion Gap 9 mmol/L BUN 12 (7-17) mg/dL Creatinine 0.90 (0.52-1.04) mg/dL Est GFR (CKD-EPI)AfAm >90 (>60 ml/min/1.73 sqM) Est GFR (CKD-EPI)NonAf 85 (>60 ml/min/1.73 sqM) Glucose 95 (74-99) mg/dL Plasma Lactic Acid Sergey (0.7-2.0) mmol/L Calcium 8.9 (8.4-10.2) mg/dL Total Bilirubin 0.4 (0.2-1.3) mg/dL AST 24 (14-36) U/L ALT 15 (4-34) U/L Alkaline Phosphatase 57 (38-126) U/L Troponin I (0.000-0.034) ng/mL Total Protein 7.2 (6.3-8.2) g/dL Albumin 4.1 (3.5-5.0) g/dL Urine Color Urine Appearance (Clear) Urine pH (5.0-8.0) Ur Specific [place] (1.001-1.035) Urine Protein (Negative) Urine Glucose (UA) (Negative) Urine Ketones (Negative) Urine Blood (Negative) Urine Nitrite (Negative) Urine Bilirubin (Negative) Urine Urobilinogen (<2.0) mg/dL Ur Leukocyte Esterase (Negative) Urine RBC (0-5) /hpf Urine WBC (0-5) /hpf Ur Squamous Epith Cells (0-4) /hpf Urine Bacteria (None) /hpf Urine Mucus (None) /hpf 08/22/23 08/22/23 08/22/23 Range/Units 20:18 20:18 20:28 WBC (3.8-10.6) k/uL RBC (3.80-5.40) m/uL Hgb (11.4-16.0) gm/dL Hct (34.0-46.0) % MCV (80.0-100.0) fL MCH (25.0-35.0) pg MCHC (31.0-37.0) g/dL RDW (11.5-15.5) % Plt Count (150-450) k/uL MPV Neutrophils % % Lymphocytes % % Monocytes % % Eosinophils % % Basophils % % Neutrophils # (1.3-7.7) k/uL Lymphocytes # (1.0-4.8) k/uL Monocytes # (0-1.0) k/uL Eosinophils # (0-0.7) k/uL Basophils # (0-0.2) k/uL PT (10.0-12.5) sec INR (<1.2) Sodium (137-145) mmol/L Potassium (3.5-5.1) mmol/L Chloride (98-107) mmol/L Carbon Dioxide (22-30) mmol/L Anion Gap mmol/L BUN (7-17) mg/dL Creatinine (0.52-1.04) mg/dL Est GFR (CKD-EPI)AfAm (>60 ml/min/1.73 sqM) Est GFR (CKD-EPI)NonAf (>60 ml/min/1.73 sqM) Glucose (74-99) mg/dL Plasma Lactic Acid Sergey 1.4 (0.7-2.0) mmol/L Calcium (8.4-10.2) mg/dL Total Bilirubin (0.2-1.3) mg/dL AST (14-36) U/L ALT (4-34) U/L Alkaline Phosphatase (38-126) U/L Troponin I <0.012 (0.000-0.034) ng/mL Total Protein (6.3-8.2) g/dL Albumin (3.5-5.0) g/dL Urine Color Light Yellow Urine Appearance Cloudy H (Clear) Urine pH 6.5 (5.0-8.0) Ur Specific [place] 1.024 (1.001-1.035) Urine Protein Trace H (Negative) Urine Glucose (UA) Negative (Negative) Urine Ketones Negative (Negative) Urine Blood Negative (Negative) Urine Nitrite Negative (Negative) Urine Bilirubin Negative (Negative) Urine Urobilinogen <2.0 (<2.0) mg/dL Ur Leukocyte Esterase Negative (Negative) Urine RBC 3 (0-5) /hpf Urine WBC 7 H (0-5) /hpf Ur Squamous Epith Cells 25 H (0-4) /hpf Urine Bacteria Rare H (None) /hpf Urine Mucus Rare H (None) /hpf Disposition <Yariel Levine - Last Filed: 08/22/23 19:26> Decision Time: 22:06 <Nicho River - Last Filed: 08/22/23 22:06> Clinical Impression: Chest pain Disposition: ADMITTED IP TO THIS [facility] Condition: Fair Referrals: Kellen Renee MD [Primary Care Provider] - 1-2 days
[2023-08-22 20:28] LABS: Basophils % (A) 0 %; Eosinophils # (A) 0.3 k/uL (0-0.7); Eosinophils % (A) 4 %; HCT 39.5 % (34.0-46.0); HGB 13.4 gm/dL (11.4-16.0); Lymphocytes # (A) 2.4 k/uL (1.0-4.8); Lymphocytes % (A) 34 %; MCH 32.4 pg (25.0-35.0); MCV 95.3 fL (80.0-100.0); Monocytes # (A) 0.4 k/uL (0-1.0); Monocytes % (A) 6 %; Neutrophils # (A) 3.9 k/uL (1.3-7.7); Neutrophils % (A) 56 %; Platelet Count 268 k/uL (150-450); RBC 4.15 m/uL (3.80-5.40); RDW 12.1 % (11.5-15.5)
[2023-08-22 20:35] LABS: Appearance,Urine Cloudy (Clear); Bacteria,Urine Rare /hpf; Bilirubin,Urine Negative (Negative); Blood,Urine Negative (Negative); Color,Urine Light Yellow; Glucose,Urine (UA) Negative (Negative); Ketones,Urine Negative (Negative); Leukocyte Esterase,Urine Negative (Negative); Mucus,Urine Rare /hpf; Nitrite,Urine Negative (Negative); PH, Urine 6.5 (5.0-8.0); Protein,Urine Trace (Negative); RBC,Urine 3 /hpf (0-5); Specific Gravity,Urine 1.024 (1.001-1.035); Squamous Epithelial Cell,Urine 25 /hpf (0-4); Urobilinogen,Urine <2.0 mg/dL (<2.0); WBC,Urine 7 /hpf (0-5)
[2023-08-22 20:42] LABS: INR 1.1 (<1.2); Prothrombin Time 11.7 sec (10.0-12.5)
[2023-08-22 21:24] LABS: ALT 15 U/L (4-34); AST 24 U/L (14-36); African American GFR (CKD) >90 (>60 ml/min/1.73 sqM); Albumin 4.1 g/dL (3.5-5.0); Alkaline Phosphatase 57 U/L (38-126); Anion Gap 9 mmol/L; Blood Urea Nitrogen 12 mg/dL (7-17); Calcium 8.9 mg/dL (8.4-10.2); Carbon Dioxide 20 mmol/L (22-30); Chloride 108 mmol/L (98-107); Glucose 95 mg/dL (74-99); Non-African American GFR(CKD) 85 (>60 ml/min/1.73 sqM); Sodium 137 mmol/L (137-145); Total Bilirubin 0.4 mg/dL (0.2-1.3); Total Protein 7.2 g/dL (6.3-8.2)
[2023-08-22] MEDS ORDERED: NALOXONE 0.4 MG/ML 1 ML VIAL IV PRN (21:59)
[2023-08-22] MEDS: HYDROmorphone 1 MG/ML 1 ML SYRINGE IM STA (22:03)
[2023-08-22] MEDS: ASPIRIN 81 MG PO STA (22:03)
[2023-08-22] MEDS: SODIUM CHLORIDE 0.9% 1,000 ML IV SCH (22:06)
[2023-08-22] MEDS: diphenhydrAMINE 50 MG/ML 1 ML VIAL IVP STA (23:54)
[2023-08-23] MEDS: diphenhydrAMINE 25 MG CAP PO PRN (01:11)
[2023-08-23] MEDS: HYDROmorphone 0.5 MG/0.5 ML SYRINGE IVP PRN (01:11)
[2023-08-23] MEDS: ONDANSETRON 4 MG/2 ML VIAL IVP PRN (01:11)
[2023-08-23] MEDS ORDERED: DOBUTamine DRIP for NUC MED 500 MG in DEXTROSE/WATER 1 250ML.BAG IV PRN (08:15)
--- NOTE | 2023-08-23 09:31 | P.CRDCN ---
History of Present Illness Consult date: 08/23/23 Consult reason: chest pain History of present illness: History of present illness: This is a 32-year-old female patient previously seen by Dr. Ayala with past medical history of syncope, hypertension, irritable bowel syndrome, vaping and marijuana use. We have been asked to evaluate the patient for chest pain. Patient states that for the past 2 weeks when she stands she passes out. This happened 2 times. She is also had a occur while she was sitting in a chair but usually when she stands it goes to a standing position. She feels that she is lost the consciousness for a couple of seconds. Just prior to the episodes she feels not well with hot and cold block. She also has nausea after episodes. She had a vomiting episode yesterday x 2. She denies having any shortness of breath. She has also had chest pain for the past 2 days prior to that she was having body aches and headaches the chest pain is a dull ache on the left side a nd also involves her back. The pain is worse with movement. Patient was seen in the office with Dr. Mariola Leone on 07/27 and echocardiogram, 24-hour Holter monitor and tilt table were ordered. Tilt table is scheduled for as an outpatient. EKG sinus rhythm. No acute ST changes. CBC INR normal. Chloride 108, CO2 20 otherwise CMP all within normal limits. Troponin negative x 1. Home cardiac medications: None Echocardiogram performed in the office on 08/01/2023 revealed EF of 55 to 60%. N o left ventricular hypertrophy. Mild mitral regurgitation, mild tricuspid regurgitation. 24-hour Holter monitor from 08/02/2023 performed in the office revealed primary rhythm sinus rhythm with average heart rate of 62 bpm. Minimum heart rate was 37 at 7:46 AM on day 2, maximum heart rate 113 at 2 PM on day 2. Patient recorded 2 events during the monitoring period. Treadmill exercise stress test performed on 06/28/2022 revealed fair exercise tolerance. No symptoms of angina. No dysrhythmias. Normal response to exercise with no evidence of stress induced ischemia. Review Of Systems: At the time of my exam: CONSTITUTIONAL: Denies fever or chills. HEENT: Denies blurred vision, vision changes, or eye pain. Denies hemoptysis. No dyspnea on exertion CARDIOVASCULAR: Dull chest pain/back pain. Denies orthopnea. Denies PND. Denies palpitations RESPIRATORY: Denies shortness of breath. GASTROINTESTINAL: Denies abdominal pain. Denies nausea or vomiting. HEMATOLOGIC: Denies bleeding disorders. GENITOURINARY: Denies any blood in urine. SKIN: Denies pruitis. Denies rash. Physical examination: Gen: This is a 32-year-old female in no acute distress VS: reviewed HEENT: Head is atraumatic, normocephalic. Pupils equal, round. Sclerae is anicteric. NECK: Supple. No JVD. LUNGS: Clear to auscultation. No wheezes or rhonchi. No intercostal retractions. HEART: Regular rate and rhythm. No murmur. ABDOMEN: Soft No tenderness. EXTREMITIES: No pedal edema. No calf tenderness. NEUROLOGICAL: Patient is awake, alert and oriented x3. Assessment: Atypical chest pain most likely musculoskeletal Syncope, noncardiac etiology HTN IBS Vaping and marijuana use Plan: Obtain dobutamine stress echo No need to repeat echocardiogram If dobutamine stress test is negative for ischemia, patient is cleared for discharge from cardiology May follow-up with plans for tilt table test on and follow-up with Dr. Mariola Leone as scheduled. Thank you kindly for this consultation. Nurse practitioner note has been reviewed, I agree with documented findings and plan of care. Patient was seen and examined. Past Medical History Past Medical History: Eye Disorder, GERD/Reflux, Pneumonia, Renal Disease, Seizure Disorder Additional Past Medical History / Comment(s): Multiple UTIs, pyelonephritis, "spongy" kidney, nephrolithiasis-passed stone on her own, recently told she has a fatty liver, catatonic seizure/stress induced, bilateral astigmatism, murmur, pt states she alternates between diarrhea/constipation past 1.5 years, gest ational diabetes/eclampsia.Gastroparesis, PT STATES SEIZURES ARE MORE OF AN ALLERGIC REACTION--NOTHING EPILEPTIC History of Any Multi-Drug Resistant Organisms: None Reported Date of last positivie culture/infection: 2010 MDRO Source:: foot Past Surgical History: Section, Tubal Ligation Additional Past Surgical History / Comment(s): c sect x 4. COLONOSCOPY Past Anesthesia/Blood Transfusion Reactions: No Reported Reaction Past Psychological History: Anxiety, Bipolar, Depression, Panic Disorder, PTSD Additional Psychological History / Comment(s): Her 4 children visit at times. Pt is independent. Smoking Status: Former smoker, Vaper Past Alcohol Use History: None Reported Additional Past Alcohol Use History / Comment(s): Pt started smoking in 2017 and quit in 2018-2 ppd, but now vapes NICOTINE DAILY Past Drug Use History: Marijuana Additional Drug Use History / Comment(s): USES MARIJUANA OCCASIONALLY-TO REFRAIN FROM USE FOR AT LEAST 24 HOURS PRIOR TO PROCEDURE - Past Family History Father Family Medical History: Cancer, COPD, Hypertension Additional Family Medical History / Comment(s): Lung AND BRAIN cancer Mother Family Medical History: COPD, Renal Disease, Seizure Disorder Additional Family Medical History / Comment(s): bronchitis, back problems. Psych issues Medications and Allergies Home Medications Medication Instructions Recorded Confirmed Type Amitriptyline HCl [Elavil] 25 mg PO HS 08/19/23 08/22/23 History Cholecalciferol (Vitamin D3) 50 mcg PO DAILY 08/19/23 08/22/23 History [Vitamin D3 (50 Mcg = 2000 Iu)] Dicyclomine [Bentyl] 20 mg PO QID PRN 08/19/23 08/22/23 History Li-Zyme 50 mg PO BID 08/19/23 08/22/23 History Mag Plus 100 mg PO DAILY 08/19/23 08/22/23 History Multivitamin/Iron/Folic Acid 1 tab PO DAILY 08/19/23 08/22/23 History [Centrum Women Tablet] Ondansetron [Zofran] 4 mg PO Q12HR PRN 08/19/23 08/22/23 History Pantoprazole [Protonix] 40 mg PO DAILY 08/19/23 08/22/23 History Fiorcet(Unknown Dose) 1 dose PO DIRECTED PRN 08/22/23 08/22/23 History Allergies Allergy/AdvReac Type Severity Reaction Status Date / Time apple Allergy Intermediate Itching Verified 08/22/23 22:48 adhesive tape Allergy Mild Itching Verified 08/22/23 22:48 Beef Containing Products Allergy Rash/Hives Verified 08/22/23 22:48 [Beef] coconut Allergy Rash/Hives Verified 08/22/23 22:47 corn Allergy Rash/Hives Verified 08/22/23 22:48 morphine Allergy Rash/Hives Verified 08/22/23 22:47 Pork/Porcine Containing Allergy Rash/Hives Verified 08/22/23 22:48 Products [Pork] wheat Allergy Rash/Hives Verified 08/22/23 22:47 Milk Containing Products AdvReac Nausea & Verified 08/22/23 22:47 (Dairy) Vomiting & [Dairy] Diarrhea sumatriptan [From Imitrex] AdvReac Makes Verified 08/22/23 22:47 Migraine Worse/Dizziness sumatriptan succinate AdvReac Makes Verified 08/22/23 22:47 [From Imitrex] Migraine Worse/Dizziness Physical Exam Vitals: Vital Signs Temp Pulse Pulse Resp BP BP Pulse Ox 08/23/23 02:00 51 L 16 112/70 98 08/22/23 20:27 110/66 08/22/23 19:25 98.2 F 57 L 18 108/79 100 Intake and Output 08/22/23 08/23/23 08/23/23 22:59 06:59 14:59 Other: # Voids 2 Weight 72.575 kg 72.575 kg Results 08/22/23 20:18 08/22/23 20:18 Cardiac Enzymes 08/22/23 08/22/23 Range/Units 20:18 20:18 AST 24 (14-36) U/L Troponin I <0.012 (0.000-0.034) ng/mL Coagulation 08/22/23 Range/Units 20:18 PT 11.7 (10.0-12.5) sec CBC 08/22/23 Range/Units 20:18 WBC 7.0 (3.8-10.6) k/uL RBC 4.15 (3.80-5.40) m/uL Hgb 13.4 (11.4-16.0) gm/dL Hct 39.5 (34.0-46.0) % Plt Count 268 (150-450) k/uL Comprehensive Metabolic Panel 08/22/23 Range/Units 20:18 Sodium 137 (137-145) mmol/L Potassium 5.0 (3.5-5.1) mmol/L Chloride 108 H (98-107) mmol/L Carbon Dioxide 20 L (22-30) mmol/L BUN 12 (7-17) mg/dL Creatinine 0.90 (0.52-1.04) mg/dL Glucose 95 (74-99) mg/dL Calcium 8.9 (8.4-10.2) mg/dL AST 24 (14-36) U/L ALT 15 (4-34) U/L Alkaline Phosphatase 57 (38-126) U/L Total Protein 7.2 (6.3-8.2) g/dL Albumin 4.1 (3.5-5.0) g/dL Current Medications Generic Name Dose Route Start Last Admin Trade Name Freq PRN Reason Stop Dose Admin Diphenhydramine HCl 25 mg 08/23/23 00:46 08/23/23 01:11 Diphenhydramine 25 Mg Cap PO 25 mg TID PRN Administration Itching Hydromorphone HCl 0.5 mg 08/23/23 00:45 08/23/23 01:11 Hydromorphone 0.5 Mg/0.5 Ml Syringe IVP 0.5 mg Q3HR PRN Administration Pain Sodium Chloride 1,000 mls @ 20 mls/hr 08/22/23 22:00 08/22/23 22:06 Saline 0.9% IV 20 mls/hr .Q24H ADELINA Administration Naloxone HCl 0.2 mg 08/22/23 21:59 Naloxone 0.4 Mg/Ml 1 Ml Vial IV Q2M PRN Opioid Reversal Ondansetron HCl 4 mg 08/23/23 00:41 08/23/23 01:11 Ondansetron 4 Mg/2 Ml Vial IVP 4 mg Q6HR PRN Administration Nausea And Vomiting Intake and Output 08/22/23 08/23/23 08/23/23 22:59 06:59 14:59 Other: # Voids 2 Weight 72.575 kg 72.575 kg 08/22/23 20:18 08/22/23 20:18
[2023-08-23] MEDS ORDERED: DICYCLOMINE 20 MG TAB PO PRN (11:37)
--- NOTE | 2023-08-23 11:37 | P.PN ---
Progress Note - Text Progress Note Date: 08/23/23 Patient has mobility limitation that significantly impairs ability to participate in MR ADLs in the home. Patient is able to safely use a walker. Patient's functional mobility deficit can be resolved by the use of a walker. Prescription provided to case management/social work for discharge planning.
[2023-08-23] MEDS ORDERED: BUTALB/APAP/CAFF 50-325-40MG TAB PO PRN (13:11)
--- NOTE | 2023-08-23 13:16 | CA ---
Dobutamine Stress Echocardiogram Report Nallely Viramontes Age: 32 Gender: F : 1990 Exam Date: 08/23/2023 12:01 Exam Location: [facility] Ordering Physician: Amisha Alvares Referring Physician: [id number] Boswell Bull Driver: Felix Rider Technologist: Ht (in): 64 Wt (lb): 160 Procedure CPT: Indication: Chest Pain ICD-9 Codes: Rhythm: Patient History: Cardiac Medications: SEE CHART Medications in past 24 hours: Contrast: N/A Total Dose (mL): NA Stress Results Protocol: Dobutamine Peak Dose (???g/kg/min): 40 Duration (min:sec): Atropine:(mg) 0.5 Target HR: 160 Double Product: 98352 Resting HR: 47 Resting BP: 100 / 71 Peak HR: 143 Peak BP: 129 / 58 Max Predicted HR: 188 76 % Max Predicted HR Stress Summary: The patient's target heart rate was not achieved. BP Response: Reason for Termination: Limiting side effects Cardiac Symptoms: NAUSEA ECG Analysis Resting EKG: Normal sinus rhythm, normal ECG Stress EKG: No abnormal ST/T wave changes with exercise Arrhythmia: None Echo Analysis Base Echo Analysis: Normal resting echocardiogram. Low Echo Anaylsis: Normal wall thickening and motion Peak Echo Analysis: No evidence of significant wall motion abnormality with normal augmentation Recovery Echo: Normal systolic function MEASUREMENTS (Male/Female) Normal Values CONCLUSIONS 1. Nondiagnostic electrocardiographic dobutamine stress test secondary to the inability to achieve 85% maximum predicted heart rate 2. At the rate achieved there was no evidence of stress induced ischemia at peak exercise on her echocardiogram Dr. Erika Rodriguez MD (Electronically Signed) Final Date: 23 August 2023 13:15
--- NOTE | 2023-08-23 13:43 | XR ---
EXAMINATION TYPE: XR chest 1V portable DATE OF EXAM: 08/23/2023 1:37 PM CLINICAL INDICATION:Female, 32 years old with history of shortness of breath; H COMPARISON: Chest radiographs from 01/04/2023 TECHNIQUE: XR chest 1V portable Frontal view of the chest. FINDINGS: Lungs/Pleura: There is no evidence of pleural effusion, focal consolidation, or pneumothorax. Pulmonary vascularity: Unremarkable. Heart/mediastinum: Cardiomediastinal silhouette is unremarkable. Musculoskeletal: No acute osseous pathology. IMPRESSION: No acute cardiopulmonary disease/process.
--- NOTE | 2023-08-23 14:29 | US ---
EXAMINATION TYPE: US abdomen limited DATE OF EXAM: 08/23/2023 COMPARISON: CT & US CLINICAL INDICATION: Female, 32 years old with history of N/V abd pain, assess gallbladder; N&V, ABD/ back pain TECHNIQUE: Multiple sonographic images of the right upper quadrant are obtained. FINDINGS: EXAM MEASUREMENTS: Liver Length: 18.4 cm Gallbladder Wall: 0.1 cm CBD: 0.2 cm Right Kidney: 9.3 x 3.7 x 4.8 cm WATER USE INSPECTOR NOTES: Pancreas: 2mm panc duct, tail obscured by overlying bowel gas Liver: wnl Gallbladder: wnl Evidence for sonographic Gomez's sign: No CBD: wnl Right Kidney: wnl, lower pole gassed out IMPRESSION: 1. No evidence for acute process. 2. No cholelithiasis identified.
[2023-08-23] MEDS: PANTOPRAZOLE 40 MG/10 ML VIAL IVP SCH (16:11)
[2023-08-23 17:13] LABS: Amphetamine Screen,Urine Not Detected (NotDetected); Barbiturate Screen,Urine Not Detected (NotDetected); Benzodiazepines Screen,Urine Not Detected (NotDetected); Cocaine Screen,Urine Not Detected (NotDetected); Methadone Screen, Urine Not Detected (NotDetected); Opiate Screen,Urine Detected (NotDetected); Oxycodone Screen, Urine Not Detected (NotDetected); Phencyclidine Screen,Urine Not Detected (NotDetected); Tricyclic Antidepressant,Urine Not Detected (NotDetected); Urn Cannabinoid Scrn Detected (NotDetected)
[2023-08-23] MEDS: AMITRIPTYLINE HCL 25 MG TAB PO SCH (19:52)
[2023-08-23] MEDS ORDERED: PANTOPRAZOLE 40 MG/10 ML VIAL IVP SCH (21:00)
[2023-08-23] MEDS ORDERED: [UNRECOGNIZED DRUG - OTHER] PO SCH (21:00)
[2023-08-23 22:47] VITALS: RESP 16
--- NOTE | 2023-08-23 23:45 | HP ---
HISTORY AND PHYSICAL CHIEF COMPLAINT: Chest pain, dizziness, weakness. HISTORY OF PRESENT ILLNESS: This is a 32-year-old woman with a past medical history of multiple medical problems including pneumonia, renal disease, seizure disorder, who presented with chest pain, dizziness ongoing for the last 2 weeks, aggravated since yesterday. The patient also had some chest pain, which radiated to the back also. Cardiology is following the patient closely. The patient has abnormal urine. EKG showed ST-T changes. There is no history of any fever, rigors, or chills at this time. The patient has some bradycardia. PAST MEDICAL HISTORY: History of seizure disorder. Rest of the history and rest of the chart is also reviewed. HOME MEDICATIONS: Reviewed include Protonix. Doses and rest of medications reviewed. ALLERGIES: Multiple allergies reviewed include apples. Rest of the allergies are reviewed. FAMILY HISTORY: Cancer, COPD, hypertension, lung and brain cancer. SOCIAL HISTORY: Previous history of smoking, vaping, THC. REVIEW OF SYSTEMS: A 14-point review is negative except as mentioned earlier. PHYSICAL EXAMINATION: VITAL SIGNS: Pulse is 44, blood pressure 97/60, respirations 15. CHEST: A few scattered rhonchi and crackles. Clear to auscultation. ABDOMEN: Soft, nontender. LEGS: No edema. No swelling. HEENT: Normal. NERVOUS SYSTEM: Nonfocal. SKIN: No ulcer, rash, bleeding. JOINTS: No active deforming arthropathy. LABORATORY DATA: Noted. CO2 is 20. ASSESSMENT: 1. Chest pain and back pain for evaluation, rule out coronary artery disease. 2. Dizziness for evaluation, possibly related to hypotension. 3. History of pneumonia. 4. History of renal disease. 5. History of seizure disorder. 6. Multiple medical issues. 7. Anxiety, bipolar, depression, posttraumatic stress disorder. RECOMMENDATIONS AND DISCUSSION: This is a 32-year-old woman, who presented with multiple complex medical issues. I recommend to continue the current medications, continue symptomatic treatment. Otherwise, at this time, I recommend resume the home medications, full cardiac workup. I would also recommend Neurology evaluation also. Orthostatic vitals. Otherwise, prognosis guarded because of multiple complex medical issues. Further recommendations to follow. Ultrasound of abdomen for gallbladder is also recommended. See orders for further details. MMODL / IJN: [id number] /
[2023-08-24 08:49] LABS: Basophils # (A) 0.02 X 10*3/uL (0.00-0.10); Basophils % (A) 0.3 %; Eosinophils # (A) 0.29 X 10*3/uL (0.04-0.35); Eosinophils % (A) 3.7 %; HCT 38.8 % (37.2-46.3); HGB 12.9 g/dL (12.0-15.0); Lymphocytes # (A) 3.35 X 10*3/uL (0.90-5.00); Lymphocytes % (A) 43.2 %; MCHC 33.2 g/dL (32.0-37.0); MCV 93.3 FL (80.0-97.0); Mean Platelet Volume 10.4 FL (9.5-12.2); Monocytes # (A) 0.68 X 10*3/uL (0.20-1.00); Monocytes % (A) 8.8 %; NRBC Per 100 WBC 0 X 10*3/uL (0.00-0.01); Neutrophils # (A) 3.39 X 10*3/uL (1.80-7.70); Neutrophils % (A) 43.7 %; Platelet Count 245 X 10*3/uL (140-440); RBC 4.16 X 10*6/uL (4.10-5.20); RDW 12.3 % (11.5-14.5); WBC 7.75 X 10*3/uL (4.50-10.00)
[2023-08-24 09:29] LABS: ALT 11 U/L (8-44); AST 13 U/L (13-35); Albumin 4.2 g/dL (3.8-4.9); Albumin/Globulin Ratio 1.75 Ratio (1.60-3.17); Alkaline Phosphatase 56 U/L (41-126); Blood Urea Nitrogen 8.8 mg/dL (9.0-27.0); Calcium 9.3 mg/dL (8.7-10.3); Carbon Dioxide 24.4 mmol/L (21.6-31.8); Chloride 103 mmol/L (96-109); Globulin 2.4 g/dL (1.6-3.3); Glucose 80 mg/dL (70-110); Potassium 4.1 mmol/L (3.5-5.5); Sodium 137 mmol/L (135-145); Total Bilirubin 0.5 mg/dL (0.3-1.2); Total Protein 6.6 g/dL (6.2-8.2)
--- NOTE | 2023-08-24 09:42 | P.PN ---
Subjective Progress Note Date: 08/24/23 Consult reason: chest pain History of present illness: History of present illness: This is a 32-year-old female patient previously seen by Dr. Ayala with past medical history of syncope, hypertension, irritable bowel syndrome, vaping and marijuana use. We have been asked to evaluate the patient for chest pain. Patient states that for the past 2 weeks when she stands she passes out. This happened 2 times. She is also had a occur while she was sitting in a chair but usually when she stands it goes to a standing position. She feels that she is lost the consciousness for a couple of seconds. Just prior to the episodes she feels not well with hot and cold block. She also has nausea after episodes. She had a vomiting episode yesterday x 2. She denies having any shortness of breath. She has also had chest pain for the past 2 days prior to that she was having body aches and headaches the chest pain is a dull ache on the left side and also involves her back. The pain is worse with movement. Patient was seen in the office with Dr. Mariola Leone on 07/27 and echocardiogram, 24-hour Holter monitor and tilt table were ordered. Tilt table is scheduled for as an outpatient. EKG sinus rhythm. No acute ST changes. CBC INR normal. Chloride 108, CO2 20 otherwise CMP all within normal limits. Troponin negative x 1. Home cardiac medications: None Echocardiogram performed in the office on 08/01/2023 revealed EF of 55 to 60%. No left ventricular hypertrophy. Mild mitral regurgitation, mild tricuspid regurgitation. 24-hour Holter monitor from 08/02/2023 performed in the office revealed primary rhythm sinus rhythm with average heart rate of 62 bpm. Minimum heart rate was 37 at 7:46 AM on day 2, maximum heart rate 113 at 2 PM on day 2. Patient recorded 2 events during the monitoring period. Treadmill exercise stress test performed on 06/28/2022 revealed fair exercise tolerance. No symptoms of angina. No dysrhythmias. Normal response to exercise with no evidence of stress induced ischemia. 08/24 Yesterday, patient underwent dobutamine stress echocardiogram that revealed nondiagnostic electrocardiographic dobutamine stress test secondary to inability to achieve 85% maximum predicted heart rate. At the rate achieved there was no evidence of stress-induced ischemia at peak exercise on her echocardiogram. Patient is complaining of back pain this morning. She states she has had some episodes of dizziness but no syncopal episodes since arrival. Orthostatic vital signs are negative. Electrolytes are normal, BUN 8.8 and creatinine 1. Physical examination: Gen: This is a 32-year-old female in no acute distress VS: reviewed HEENT: Head is atraumatic, normocephalic. Pupils equal, round. Sclerae is anicteric. NECK: Supple. No JVD. LUNGS: Clear to auscultation. No wheezes or rhonchi. No intercostal retractions. HEART: Regular rate and rhythm. No murmur. ABDOMEN: Soft No tenderness. EXTREMITIES: No pedal edema. No calf tenderness. NEUROLOGICAL: Patient is awake, alert and oriented x3. Assessment: Atypical chest pain most likely musculoskeletal Syncope, noncardiac etiology HTN IBS Vaping and marijuana use Back pain Plan: Patient is cleared for discharge from cardiology and may follow-up with plans for tilt table test on and follow-up with Dr. Mariola Leone as scheduled. Nurse practitioner note has been reviewed, I agree with documented findings and plan of care. Patient was seen and examined. Objective - Vital Signs Vital signs: Vital Signs Temp 98.6 F 08/24/23 07:00 Pulse 47 L 08/24/23 07:00 Resp 16 08/24/23 07:00 BP 100/52 08/24/23 07:00 Pulse Ox 99 08/24/23 07:00 FiO2 Intake & Output 08/23/23 08/24/23 08/24/23 18:59 06:59 18:59 Other: # Voids 1 1 - Labs CBC & Chem 7: 08/24/23 05:53 08/24/23 05:53 Labs: Abnormal Lab Results - Last 24 Hours (Table) 08/23/23 Range/Units 13:11 Urine Opiates Screen Detected H (NotDetected) U Marijuana (THC) Screen Detected H (NotDetected)
[2023-08-24] MEDS: HYDROcodone/APAP 5-325MG 1 EACH TAB PO PRN (09:47)
[2023-08-24] MEDS: MULTIVITAMINS, THERA 1 EACH TAB PO SCH (09:48)
[2023-08-24] MEDS: CHOLECALCIFEROL 25 MCG (1000 IU) TABLET PO SCH (09:48)
[2023-08-24] MEDS: MAGNESIUM OXIDE 400 MG TAB PO SCH (09:48)
[2023-08-24] MEDS: DOBUTamine DRIP for NUC MED 500 MG/250 ML BAG IV ONE (10:17)
[2023-08-24] MEDS: IOPAMIDOL CONTRAST (ORAL USE) VIAL PO PRN (10:45)
--- NOTE | 2023-08-24 12:31 | CT ---
EXAMINATION TYPE: CT abdomen pelvis wo con DATE OF EXAM: 08/24/2023 COMPARISON: None HISTORY: left flank pain CT DLP: 374.7 mGycm Examination of the solid and hollow viscera is limited given the lack of contrast. FINDINGS: LUNG BASES: No evidence for nodule. No evidence for infiltrate. LIVER/GB: The gallbladder is unremarkable. No space-occupying hepatic lesion. PANCREAS: No pancreatic mass identified. No inflammatory process seen. SPLEEN: No evidence for splenomegaly. No intrasplenic lesions seen. ADRENALS: No adrenal nodules identified. No evidence for thickening. KIDNEYS: No evidence for renal mass. No nephrolithiasis. No hydronephrosis. BOWEL: Appendix has a normal appearance. No evidence of bowel obstruction. No inflammatory process. Lymph nodes: No evidence for adenopathy greater than 1 cm. Abdominal aorta: Atheromatous changes seen. No evidence for aneurysm. Genital organs: No significant abnormality. Other: No significant abnormality. IMPRESSION: No significant abnormality seen to account for the patient's symptoms.
[2023-08-24 14:44] VITALS: BP 100/63; PULSE 58; TEMP 98.1
--- NOTE | 2023-08-25 04:49 | P.DS ---
Providers Date of admission: 08/24/23 11:07 Expected date of discharge: 08/24/23 Attending physician: Kaur Carias Consults: 08/22/23 21:59 Consult Physician Routine Consulting Provider: Severiano Ragsdale Consult Reason/Comments: chest pain Do you want consulting provider notified?: Yes 08/23/23 11:38 Consult Physician Urgent Consulting Provider: Minerva Wick Consult Reason/Comments: dizziness, unsteady gait Do you want consulting provider notified?: Yes Primary care physician: Kellen Renee Hospital Course: Final diagnosis Chest pain and back pain, ruled out coronary artery disease, likely musculoskeletal Dizziness, possibly related to hypotension, improved History of pneumonia History of renal disease History of seizure disorder History of gastroparesis History of anxiety, bipolar depression with posttraumatic stress disorder GI prophylaxis DVT prophylaxis Full code Discharge disposition Patient is being discharged in a stable condition with guarded prognosis to home. Patient will follow-up with Dr. Rafael Carias in the outpatient setting upon discharge. Patient is to continue with outpatient follow-up for tilt table testing as well as follow-up with endocrine as scheduled. Total time taken is greater than 35 minutes. Hospital course This is a 32-year-old Female who was recently admitted with chest pain having multiple complaints including dizziness, abdominal pain, back pain that is radiating. Patient was evaluated by cardiology underwent stress testing which was negative and patient is scheduled for outpatient tilt table test this . Patient has been cleared by cardiology for discharge recommending to continue with the appointment on and follow-up outpatient for results. Patient a.m. cortisol level mildly low and recommend following up with endocrine for further testing. Patient did have abdominal pain with CVA tenderness underwent CT abdomen which was negative for acute process. Patient has been cleared by consultations for discharge. Please refer to consultation note for further HPI. Currently no reports of chest pain, shortness of breath, or palpitations. Patient is afebrile. No reports of nausea or vomiting and patient is tolerating diet. Patient will be discharged home today. Guarded prognosis and high risk for readmission Physical exam: Gen: This is a 32-year-old female who is awake, alert and oriented x 3, well- developed, well-nourished HEENT: Head is atraumatic, normocephalic. Pupils equal, round. Sclerae is anicteric. NECK: Supple. No JVD. No lymphadenopathy. No thyromegaly. LUNGS: Clear to auscultation. No wheezes or rhonchi. No intercostal retractions. HEART: Regular rate and rhythm. No murmur. ABDOMEN: Soft. Bowel sounds are present. No masses. No tenderness. EXTREMITIES: No pedal edema. No calf tenderness. NEUROLOGICAL: Patient is awake, alert and oriented x3. Cranial nerves 2 through 12 are grossly intact. Please refer to medication reconciliation sheet for a list of medications. The impression and plan of care has been dictated by Genna Gillis, Nurse Practitioner as directed. Dr. Jv MD I have performed a history and examination and MDM of this patient, discussed the same with the dictator, and agree with the dictator's assessment and plan as written ,documented as a scribe. Based on total visit time, I have performed more than 50% of the visit. Patient Condition at Discharge: Fair Plan - Discharge Summary Discharge Rx Participant: No New Discharge Prescriptions: Continue Ondansetron [Zofran] 4 mg PO Q12HR PRN PRN Reason: Nausea Pantoprazole [Protonix] 40 mg PO DAILY Multivitamin/Iron/Folic Acid [Centrum Women Tablet] 1 tab PO DAILY Mag Plus 100 mg PO DAILY Cholecalciferol (Vitamin D3) [Vitamin D3 (50 Mcg = 2000 Iu)] 50 mcg PO DAILY Butalb/APAP/Caff 50-325-40Mg [Fioricet 50-325-40] 1 tab PO Q4H PRN PRN Reason: Migraine Headache Dicyclomine [Bentyl] 20 mg PO QID PRN PRN Reason: CRAMPING Amitriptyline HCl [Elavil] 25 mg PO HS Li-Zyme 50 mg PO BID Discharge Medication List Amitriptyline HCl [Elavil] 25 mg PO HS 08/19/23 [History] Cholecalciferol (Vitamin D3) [Vitamin D3 (50 Mcg = 2000 Iu)] 50 mcg PO DAILY 08/19/23 [History] Dicyclomine [Bentyl] 20 mg PO QID PRN 08/19/23 [History] Li-Zyme 50 mg PO BID 08/19/23 [History] Mag Plus 100 mg PO DAILY 08/19/23 [History] Multivitamin/Iron/Folic Acid [Centrum Women Tablet] 1 tab PO DAILY 08/19/23 [History] Ondansetron [Zofran] 4 mg PO Q12HR PRN 08/19/23 [History] Pantoprazole [Protonix] 40 mg PO DAILY 08/19/23 [History] Butalb/APAP/Caff 50-325-40Mg [Fioricet 50-325-40] 1 tab PO Q4H PRN 08/23/23 [History] Follow up Appointment(s)/Referral(s): Teofilo Oliveira MD [REFERRING] - 1 Week (Follow-up outpatient with endocrine regarding mildly low cortisol level) Kellen Renee MD [Primary Care Provider] - 1-2 days Sandeep Leone MD [STAFF PHYSICIAN] - 1 Week Patient Instructions/Handouts: Chest Pain (DC), Low Back Strain (DC) Activity/Diet/Wound Care/Special Instructions: Activity limited until follow-up Follow-up with primary care provider on discharge Follow-up with endocrine outpatient regarding low cortisol level Follow-up with cardiology outpatient as needed Continue taking medications as prescribed Discharge Disposition: HOME SELF-CARE
== END 2023-08-24 15:05 | disposition home or self-care (01) | DRG 556 ==
LOC: EC 18:51 → 6NMEDSUR 22:00 → OBSVTOIN 08-24 11:07
PROVIDERS: ADMIT Hospitalist; ATTEND Hospitalist
DX: M79.18 Myalgia, other site (principal); I95.9 Hypotension, unspecified; F31.9 Bipolar disorder, unspecified; I10 Essential (primary) hypertension; I08.1 Rheumatic disorders of both mitral and tricuspid valves; F17.290 Nicotine dependence, other tobacco product, uncomplicated; R00.1 Bradycardia, unspecified; F43.10 Post-traumatic stress disorder, unspecified; K58.9 Irritable bowel syndrome, unspecified; Z79.899 Other long term (current) drug therapy; Z91.018 Allergy to other foods; Z88.5 Allergy status to narcotic agent; Z91.048 Other nonmedicinal substance allergy status; Z91.014 Allergy to mammalian meats; Z91.011 Allergy to milk products; Z88.8 Allergy status to other drugs, medicaments and biological substances; Z28.311 Partially vaccinated for COVID-19
CPT/HCPCS: 36415; 71045; 74176; 76705; 80053; 80306; 81001; 82533; 83605; 84484; 85025; 85610; 85652; 86140; 93005; 93351; 96372; 96374; 96375; 99285

== ENCOUNTER 2023-10-20 11:32 | Emergency (ER) | payer MEDICARE, OTHER ==
[2023-10-20 11:40] VITALS: TEMP 98
--- NOTE | 2023-10-20 12:08 | ED ---
General Adult HPI - General Chief complaint: Recheck/Abnormal Lab/Rx Stated complaint: Cramping, dehydration Time Seen by Provider: 10/20/23 11:45 Source: patient, RN notes reviewed Mode of arrival: ambulatory Limitations: no limitations - History of Present Illness Initial comments: 32-year-old female with a history of adrenal insufficiency since emergency department chief complaint dizziness, fatigue, and diaphoresis. Patient is on daily hydrocortisone of 25 to 45 mg states that over the past 2 weeks she has been having feelings of palpitations, lightheaded dizziness, diaphoresis, and increased thirst. Also states that her blood pressure has been elevated with systolics in the 140s and diastolics in the high 80s. Of note, patient states that she has been supplementing with [place] in her diet with recommendation from her auto headlight mechanic. She denies nausea, vomiting, diarrhea, cough, congestion, runny nose. Patient's follow-up appointment with her gas technician is on October 23. - Related Data Home Medications Medication Instructions Recorded Confirmed Cholecalciferol (Vitamin D3) 50 mcg PO DAILY 08/19/23 08/22/23 [Vitamin D3 (50 Mcg = 2000 Iu)] Dicyclomine [Bentyl] 20 mg PO QID PRN 08/19/23 08/22/23 Li-Zyme 50 mg PO BID 08/19/23 08/22/23 Mag Plus 100 mg PO DAILY 08/19/23 08/22/23 Multivitamin/Iron/Folic Acid 1 tab PO DAILY 08/19/23 08/22/23 [Centrum Women Tablet] Ondansetron [Zofran] 4 mg PO Q12HR PRN 08/19/23 08/22/23 Pantoprazole [Protonix] 40 mg PO DAILY 08/19/23 08/22/23 Butalb/APAP/Caff 50-325-40Mg 1 tab PO Q4H PRN 08/23/23 08/23/23 [Fioricet 50-325-40] Hydrocortisone [Cortef] 2.5 - 5 mg PO BID PRN 10/20/23 10/20/23 Hydrocortisone [Cortef] 5 mg PO DAILY@2130 PRN 10/20/23 10/20/23 Hydrocortisone [Cortef] 10 mg PO TID@0730,12,17 10/20/23 10/20/23 Allergies Allergy/AdvReac Type Severity Reaction Status Date / Time apple Allergy Intermediate Itching, Verified 10/20/23 13:39 skin burning adhesive tape Allergy Mild Itching Verified 10/20/23 13:38 Beef Containing Products Allergy Rash/Hives, Verified 10/20/23 13:38 [Beef] IBS symptoms coconut Allergy Rash/Hives, Verified 10/20/23 13:38 IBS symptoms corn Allergy Rash/Hives, Verified 10/20/23 13:38 IBS symptoms morphine Allergy Rash/Hives Verified 10/20/23 13:38 Pork/Porcine Containing Allergy Rash/Hives, Verified 10/20/23 13:38 Products IBS [Pork] symptoms wheat Allergy Rash/Hives, Verified 10/20/23 13:38 IBS symptoms Milk Containing Products AdvReac Nausea & Verified 10/20/23 13:38 (Dairy) Vomiting & [Dairy] Diarrhea sumatriptan [From Imitrex] AdvReac Makes Verified 10/20/23 13:38 Migraine Worse/Dizziness sumatriptan succinate AdvReac Makes Verified 10/20/23 13:38 [From Imitrex] Migraine Worse/Dizziness Review of Systems ROS Statement: Those systems with pertinent positive or pertinent negative responses have been documented in the HPI. ROS Other: All systems not noted in ROS Statement are negative. Past Medical History Past Medical History: Eye Disorder, GERD/Reflux, Pneumonia, Renal Disease, Seizure Disorder Additional Past Medical History / Comment(s): Multiple UTIs, pyelonephritis, "spongy" kidney, nephrolithiasis-passed stone on her own, recently told she has a fatty liver, catatonic seizure/stress induced, bilateral astigmatism, murmur, pt states she alternates between diarrhea/constipation past 1.5 years, gestational diabetes/eclampsia.Gastroparesis, PT STATES SEIZURES ARE MORE OF AN ALLERGIC REACTION--NOTHING EPILEPTIC History of Any Multi-Drug Resistant Organisms: None Reported Date of last positivie culture/infection: 2010 MDRO Source:: foot Past Surgical History: Section, Tubal Ligation Additional Past Surgical History / Comment(s): c sect x 4. COLONOSCOPY Past Anesthesia/Blood Transfusion Reactions: No Reported Reaction Past Psychological History: Anxiety, Bipolar, Depression, Panic Disorder, PTSD Smoking Status: Former smoker, Vaper Past Alcohol Use History: None Reported Past Drug Use History: None Reported - Past Family History Father Family Medical History: Cancer, COPD, Hypertension Additional Family Medical History / Comment(s): Lung AND BRAIN cancer Mother Family Medical History: COPD, Renal Disease, Seizure Disorder Additional Family Medical History / Comment(s): bronchitis, back problems. Psych issues General Exam Limitations: no limitations General appearance: alert, other (diaphoretic) Head exam: Present: atraumatic, normocephalic, normal inspection Eye exam: Present: normal appearance, PERRL, EOMI. Absent: scleral icterus, conjunctival injection, periorbital swelling ENT exam: Present: normal exam, mucous membranes moist Neck exam: Present: normal inspection. Absent: tenderness, meningismus, lymphadenopathy Respiratory exam: Present: normal lung sounds bilaterally. Absent: respiratory distress, wheezes, rales, rhonchi, stridor Cardiovascular Exam: Present: regular rate, normal rhythm, bradycardia, normal h eart sounds. Absent: systolic murmur, diastolic murmur, rubs, gallop, clicks GI/Abdominal exam: Present: soft, normal bowel sounds. Absent: distended, tenderness, guarding, rebound, rigid Extremities exam: Present: normal inspection, full ROM, normal capillary refill. Absent: tenderness, pedal edema, joint swelling, calf tenderness Back exam: Present: normal inspection Neurological exam: Present: alert, oriented X3, CN II-XII intact Psychiatric exam: Present: normal affect, normal mood Skin exam: Present: warm, dry, intact, normal color. Absent: rash Course Vital Signs 10/20/23 10/20/23 11:34 13:00 Temperature 98 F Pulse Rate 78 60 Respiratory 20 12 Rate Blood Pressure 146/92 126/92 O2 Sat by Pulse 99 99 Oximetry Medical Decision Making - Medical Decision Making Was pt. sent in by a medical professional or institution (, PA, INSTRUMENT ASSEMBLER, urgent care, hospital, or half-way...) When possible be specific @ -No Did you speak to anyone other than the patient for history (EMS, parent, family, police, friend...)? What history was obtained from this source @ -No Did you review nursing and triage notes (agree or disagree)? Why? @ -I reviewed and agree with nursing and triage notes Were old charts reviewed (outside hosp., previous admission, EMS record, old EKG, old radiological studies, urgent care reports/EKG's, half-way records)? Report findings @ -No old charts were reviewed Differential Diagnosis (chest pain, altered mental status, abdominal pain women, abdominal pain men, vaginal bleeding, weakness, fever, dyspnea, syncope, headache, dizziness, GI bleed, back pain, seizure, CVA, palpatations, mental health, musculoskeletal)? @ -Differential Palpitations Ventricular arrhythmias, atrial arrhythmias, myocardial infarction, anemia, thyrotoxicosis, electrolyte imbalance, hypokalemia, pulmonary embolism, pulmonary disease, drugs, alcohol, anxiety, stress.... This is not meant to be an all-inclusive list. EKG interpreted by me (3pts min.). @ -1227, sinus bradycardia ventricular rate 47, MD interval 157, QTc 393. No acute evidence of ischemia. X-rays interpreted by me (1pt min.). @ - chest xray no acute cardiopulmonary process CT interpreted by me (1pt min.). @ -None done U/S interpreted by me (1pt. min.). @ -None done What testing was considered but not performed or refused? (CT, X-rays, U/S, labs)? Why? @ -None What meds were considered but not given or refused? Why? @ -None Did you discuss the management of the patient with other professionals (professionals i.e. , PA, INSTRUMENT ASSEMBLER, lab, RT, psych nurse, social services director, web consultant, teacher, air control/anti air warfare officer, registered nurse hh case manager)? Give summary @ -No Was smoking cessation discussed for >3mins.? @ -No Was critical care preformed (if so, how long)? @ -No Were there social determinants of health that impacted care today? How? (Homelessness, low income, unemployed, alcoholism, drug addiction, transportation, low edu. Level, literacy, decrease access to med. care, penitentiary, rehab)? @ -No Was there de-escalation of care discussed even if they declined (Discuss DNR or withdrawal of care, Hospice)? DNR status @ -No What co-morbidities impacted this encounter? (DM, HTN, Smoking, COPD, CAD, Cancer, CVA, ARF, Chemo, Hep., AIDS, mental health diagnosis, sleep apnea, morbid obesity)? @ -None Was patient admitted / discharged? Hospital course, mention meds given and route, prescriptions, significant lab abnormalities, going to OR and other pertinent info. @ -32-year-old female chief complaint of fatigue, palpitations, muscle cramping. On physical exam patient was found to be diaphoretic in acute distress, Started on IV 1 L fluid bolus. EKG no acute signs of ischemia. Patient CBC unremarkable. Urinalysis no acute signs of infection. Reviewed CMP with no acute electrolyte abnormalities, kidney and liver function within normal limits, Li level <0.2. Reexamination of the patient after fluid administration, patient states that she feels better. Thyroid function and coagulation profile WNL. I discussed these findings with patient, states that her symptoms likely be secondary to sensitivity with steroid supplementation. Recommend that patient continues with current prescribed regimen until she is able to follow-up with her gas technician on Tuesday. , Recommend patient discontinue use use of lithium supplementation due to potent ial toxicity due to consumption of heavy metal. I discussed this case with Dr. Ramirez, who is agreeable with plan and for discharge. Undiagnosed new problem with uncertain prognosis? @ -No Drug Therapy requiring intensive monitoring for toxicity (Heparin, Nitro, Insulin, Cardizem)? @ -No Were any procedures done? @ -No Diagnosis/symptom? @ -muscle aches, palpitations, weakness Acute, or Chronic, or Acute on Chronic? @ -acute Uncomplicated (without systemic symptoms) or Complicated (systemic symptoms)? @ -uncomplicated Side effects of treatment? @ -No Exacerbation, Progression, or Severe Exacerbation? @ -No Poses a threat to life or bodily function? How? (Chest pain, [place], [place], pneumonia, PE, COPD, DKA, ARF, appy, cholecystitis, CVA, Diverticulitis, Homicidal, Suicidal, threat to staff... and all critical care pts) @ -No - Lab Data Result diagrams: 10/20/23 12:08 10/20/23 12:08 Lab Results 10/20/23 10/20/23 10/20/23 Range/Units 12:08 12:08 12:08 WBC 7.2 (3.8-10.6) k/uL RBC 4.56 (3.80-5.40) m/uL Hgb 14.7 (11.4-16.0) gm/dL Hct 45.0 (34.0-46.0) % MCV 98.6 (80.0-100.0) fL MCH 32.1 (25.0-35.0) pg MCHC 32.6 (31.0-37.0) g/dL RDW 12.4 (11.5-15.5) % Plt Count 298 (150-450) k/uL MPV 8.5 Neutrophils % 66 % Lymphocytes % 24 % Monocytes % 7 % Eosinophils % 2 % Basophils % 1 % Neutrophils # 4.8 (1.3-7.7) k/uL Lymphocytes # 1.7 (1.0-4.8) k/uL Monocytes # 0.5 (0-1.0) k/uL Eosinophils # 0.2 (0-0.7) k/uL Basophils # 0.0 (0-0.2) k/uL Sodium 140 (137-145) mmol/L Potassium 4.7 (3.5-5.1) mmol/L Chloride 106 (98-107) mmol/L Carbon Dioxide 27 (22-30) mmol/L Anion Gap 7 mmol/L BUN 11 (7-17) mg/dL Creatinine 0.90 (0.52-1.04) mg/dL Est GFR (CKD-EPI)AfAm >90 (>60 ml/min/1.73 sqM) Est GFR (CKD-EPI)NonAf 85 (>60 ml/min/1.73 sqM) Glucose 79 (74-99) mg/dL Calcium 9.9 (8.4-10.2) mg/dL Magnesium 2.0 (1.6-2.3) mg/dL Total Bilirubin 0.5 (0.2-1.3) mg/dL AST 68 H (14-36) U/L ALT 30 (4-34) U/L Alkaline Phosphatase 65 (38-126) U/L Troponin I (0.000-0.034) ng/mL Total Protein 8.2 (6.3-8.2) g/dL Albumin 4.9 (3.5-5.0) g/dL TSH 2.110 (0.465-4.680) mIU/L Urine Color Colorless Urine Appearance Clear (Clear) Urine pH 7.0 (5.0-8.0) Ur Specific [place] 1.006 (1.001-1.035) Urine Protein Negative (Negative) Urine Glucose (UA) Negative (Negative) Urine Ketones Negative (Negative) Urine Blood Trace H (Negative) Urine Nitrite Negative (Negative) Urine Bilirubin Negative (Negative) Urine Urobilinogen <2.0 (<2.0) mg/dL Ur Leukocyte Esterase Negative (Negative) Urine WBC <1 (0-5) /hpf Ur Squamous Epith Cells 1 (0-4) /hpf [place] <0.2 mmol/L 10/20/23 Range/Units 12:16 WBC (3.8-10.6) k/uL RBC (3.80-5.40) m/uL Hgb (11.4-16.0) gm/dL Hct (34.0-46.0) % MCV (80.0-100.0) fL MCH (25.0-35.0) pg MCHC (31.0-37.0) g/dL RDW (11.5-15.5) % Plt Count (150-450) k/uL MPV Neutrophils % % Lymphocytes % % Monocytes % % Eosinophils % % Basophils % % Neutrophils # (1.3-7.7) k/uL Lymphocytes # (1.0-4.8) k/uL Monocytes # (0-1.0) k/uL Eosinophils # (0-0.7) k/uL Basophils # (0-0.2) k/uL Sodium (137-145) mmol/L Potassium (3.5-5.1) mmol/L Chloride (98-107) mmol/L Carbon Dioxide (22-30) mmol/L Anion Gap mmol/L BUN (7-17) mg/dL Creatinine (0.52-1.04) mg/dL Est GFR (CKD-EPI)AfAm (>60 ml/min/1.73 sqM) Est GFR (CKD-EPI)NonAf (>60 ml/min/1.73 sqM) Glucose (74-99) mg/dL Calcium (8.4-10.2) mg/dL Magnesium (1.6-2.3) mg/dL Total Bilirubin (0.2-1.3) mg/dL AST (14-36) U/L ALT (4-34) U/L Alkaline Phosphatase (38-126) U/L Troponin I <0.012 (0.000-0.034) ng/mL Total Protein (6.3-8.2) g/dL Albumin (3.5-5.0) g/dL TSH (0.465-4.680) mIU/L Urine Color Urine Appearance (Clear) Urine pH (5.0-8.0) Ur Specific [place] (1.001-1.035) Urine Protein (Negative) Urine Glucose (UA) (Negative) Urine Ketones (Negative) Urine Blood (Negative) Urine Nitrite (Negative) Urine Bilirubin (Negative) Urine Urobilinogen (<2.0) mg/dL Ur Leukocyte Esterase (Negative) Urine WBC (0-5) /hpf Ur Squamous Epith Cells (0-4) /hpf [place] mmol/L Disposition Clinical Impression: Muscle cramping, Fatigue Narrative: Please return to the Emergency Department if symptoms worsen or any other concerns. Follow-up with your gas technician as scheduled on Tuesday. Disposition: HOME SELF-CARE Condition: Good Instructions (If sedation given, give patient instructions): Muscle Cramp (ED) Is patient prescribed a controlled substance at d/c from ED?: No Referrals: Kellen Renee MD [Primary Care Provider] - 1-2 days Time of Disposition: 13:52
[2023-10-20 12:32] LABS: Basophils % (A) 1 %; Eosinophils # (A) 0.2 k/uL (0-0.7); Eosinophils % (A) 2 %; HGB 14.7 gm/dL (11.4-16.0); Lymphocytes # (A) 1.7 k/uL (1.0-4.8); Lymphocytes % (A) 24 %; MCH 32.1 pg (25.0-35.0); MCHC 32.6 g/dL (31.0-37.0); MCV 98.6 fL (80.0-100.0); Mean Platelet Volume 8.5; Monocytes # (A) 0.5 k/uL (0-1.0); Monocytes % (A) 7 %; Neutrophils # (A) 4.8 k/uL (1.3-7.7); Neutrophils % (A) 66 %; Platelet Count 298 k/uL (150-450); RBC 4.56 m/uL (3.80-5.40); RDW 12.4 % (11.5-15.5); WBC 7.2 k/uL (3.8-10.6)
[2023-10-20] MEDS: SODIUM CHLORIDE 0.9% 1,000 ML IV STA (12:33)
--- NOTE | 2023-10-20 12:33 | XR ---
EXAMINATION TYPE: XR chest 2V DATE OF EXAM: 10/20/2023 COMPARISON: To 01/05/2024 INDICATION: Chest pressure TECHNIQUE: Frontal and lateral views of the chest are obtained. FINDINGS: The heart size is normal. The pulmonary vasculature is normal. The lungs are clear. IMPRESSION: 1. No acute pulmonary process.
[2023-10-20 12:42] LABS: Appearance,Urine Clear (Clear); Bilirubin,Urine Negative (Negative); Blood,Urine Trace (Negative); Color,Urine Colorless; Glucose,Urine (UA) Negative (Negative); Ketones,Urine Negative (Negative); Leukocyte Esterase,Urine Negative (Negative); Nitrite,Urine Negative (Negative); Protein,Urine Negative (Negative); Specific Gravity,Urine 1.006 (1.001-1.035); Squamous Epithelial Cell,Urine 1 /hpf (0-4); Urobilinogen,Urine <2.0 mg/dL (<2.0); WBC,Urine <1 /hpf (0-5)
[2023-10-20 12:48] LABS: ALT 30 U/L (4-34); AST 68 U/L (14-36); African American GFR (CKD) >90 (>60 ml/min/1.73 sqM); Albumin 4.9 g/dL (3.5-5.0); Alkaline Phosphatase 65 U/L (38-126); Anion Gap 7 mmol/L; Blood Urea Nitrogen 11 mg/dL (7-17); Calcium 9.9 mg/dL (8.4-10.2); Carbon Dioxide 27 mmol/L (22-30); Chloride 106 mmol/L (98-107); Glucose 79 mg/dL (74-99); Lithium <0.2 mmol/L; Non-African American GFR(CKD) 85 (>60 ml/min/1.73 sqM); Potassium 4.7 mmol/L (3.5-5.1); Sodium 140 mmol/L (137-145); Total Bilirubin 0.5 mg/dL (0.2-1.3); Total Protein 8.2 g/dL (6.3-8.2)
[2023-10-20 14:10] LABS: Partial Thromboplastin Time 25.8 sec (22.0-30.0); Prothrombin Time 11.1 sec (10.0-12.5)
[2023-10-20 14:22] VITALS: BP 141/102; PULSE 62; RESP 14
== END 2023-10-20 14:11 | disposition home or self-care (01) ==
LOC: EC 11:32
DX: M62.838 Other muscle spasm (principal); R53.83 Other fatigue; R00.2 Palpitations; R53.1 Weakness; F17.290 Nicotine dependence, other tobacco product, uncomplicated; Z91.018 Allergy to other foods; Z91.011 Allergy to milk products; Z91.014 Allergy to mammalian meats; Z88.5 Allergy status to narcotic agent; Z88.8 Allergy status to other drugs, medicaments and biological substances
CPT/HCPCS: 36415; 71046; 80053; 80178; 81001; 83735; 84443; 84484; 85025; 85610; 85730; 93005; 96360; 99284

== ENCOUNTER 2023-10-28 08:15 | Emergency (ER) | payer MEDICARE, OTHER ==
[2023-10-28 08:42] VITALS: TEMP 98
--- NOTE | 2023-10-28 08:51 | ED ---
Neuro HPI - General Chief Complaint: Neuro Symptoms/Deficit Stated Complaint: vision loss Time Seen by Provider: 10/28/23 08:25 Source: patient, RN notes reviewed Mode of arrival: EMS Limitations: no limitations - History of Present Illness Is the patient presenting with stroke symptoms?: No Initial Comments: 32-year-old female with history of seizures and secondary adrenal insufficiency presenting with vision changes for 1 day. States she was taking her blood pressure at home and was concerned because she states it was " dropping too low and shortly afterwards it was spiking". States this began at 7 PM last night and patient continuously rechecked her blood pressure, reporting a high of 153/137 and a low of 70/50 this morning which is when she called 911. States she is also having blurry vision in both eyes which she has dealt with intermittently for several years. She was diagnosed with secondary adrenal insufficiency 3 days ago by her rural route carrier and was started on Hydrocort 10 mg 5 times daily. She states her last seizure was about 3 weeks ago but does not take any seizure medication. Has been cleared by neurologist and linen checker. Admits 1 episode of vomiting this morning and headache. Denies numbness/tingling - Related Data Home Medications: Home Medications Medication Instructions Recorded Confirmed Cholecalciferol (Vitamin D3) 50 mcg PO DAILY 08/19/23 10/20/23 [Vitamin D3 (50 Mcg = 2000 Iu)] Dicyclomine [Bentyl] 20 mg PO QID PRN 08/19/23 10/20/23 Mag Plus 100 mg PO HS 08/19/23 10/20/23 Multivitamin/Iron/Folic Acid 1 tab PO DAILY 08/19/23 10/20/23 [Centrum Women Tablet] Ondansetron [Zofran] 4 mg PO Q12HR PRN 08/19/23 10/20/23 Pantoprazole [Protonix] 40 mg PO DAILY 08/19/23 10/20/23 Butalb/APAP/Caff 50-325-40Mg 1 tab PO Q4H PRN 08/23/23 10/20/23 [Fioricet 50-325-40] Hydrocortisone [Cortef] 2.5 - 5 mg PO BID PRN 10/20/23 10/20/23 Hydrocortisone [Cortef] 5 mg PO DAILY@2130 PRN 10/20/23 10/20/23 Hydrocortisone [Cortef] 10 mg PO TID@0730,12,17 10/20/23 10/20/23 Allergies/Adverse Reactions: Allergies Allergy/AdvReac Type Severity Reaction Status Date / Time apple Allergy Intermediate Denies Verified 10/28/23 09:05 allergy - see comment adhesive tape Allergy Mild Itching Verified 10/28/23 09:05 Beef Containing Products Allergy Rash/Hives, Verified 10/28/23 09:05 [Beef] IBS symptoms coconut Allergy Rash/Hives, Verified 10/28/23 09:05 IBS symptoms corn Allergy Rash/Hives, Verified 10/28/23 09:05 IBS symptoms morphine Allergy Rash/Hives Verified 10/28/23 09:05 Pork/Porcine Containing Allergy Rash/Hives, Verified 10/28/23 09:05 Products IBS [Pork] symptoms wheat Allergy Rash/Hives, Verified 10/28/23 09:05 IBS symptoms Milk Containing Products AdvReac Nausea & Verified 10/28/23 09:05 (Dairy) Vomiting & [Dairy] Diarrhea sumatriptan [From Imitrex] AdvReac Makes Verified 10/28/23 09:05 Migraine Worse/Dizziness sumatriptan succinate AdvReac Makes Verified 10/28/23 09:05 [From Imitrex] Migraine Worse/Dizziness Review of Systems ROS Statement: Those systems with pertinent positive or pertinent negative responses have been documented in the HPI. ROS Other: All systems not noted in ROS Statement are negative. General Exam Limitations: no limitations General appearance: alert, in no apparent distress Eye exam: Present: normal appearance, PERRL, EOMI. Absent: scleral icterus, conjunctival injection, periorbital swelling Pupils: Present: normal accommodation ENT exam: Present: normal exam, mucous membranes moist Respiratory exam: Present: normal lung sounds bilaterally. Absent: respiratory distress, wheezes, rales, rhonchi, stridor Cardiovascular Exam: Present: regular rate, normal rhythm, normal heart sounds. Absent: systolic murmur, diastolic murmur, rubs, gallop, clicks GI/Abdominal exam: Present: soft, normal bowel sounds. Absent: distended, tenderness, guarding, rebound, rigid Neurological exam: Present: alert, oriented X3, CN II-XII intact Expanded Cranial nerves: EOM's Intact: Normal, Facial Sensation: Normal Sensory exam: Upper Extremity Light Touch: Normal, Lower Extremity Light Touch: Normal Motor strength exam: RUE: 5, LUE: 5, RLE: 5, LLE: 5 Psychiatric exam: Present: normal affect, normal mood Stroke MDM - Lab Data Result diagrams: 10/28/23 08:49 10/28/23 08:49 Lab Results 10/28/23 10/28/23 Range/Units 08:49 08:49 WBC 7.6 (3.8-10.6) k/uL RBC 4.16 (3.80-5.40) m/uL Hgb 13.4 (11.4-16.0) gm/dL Hct 40.4 (34.0-46.0) % MCV 97.1 (80.0-100.0) fL MCH 32.2 (25.0-35.0) pg MCHC 33.2 (31.0-37.0) g/dL RDW 12.6 (11.5-15.5) % Plt Count 264 (150-450) k/uL MPV 8.4 Neutrophils % 71 % Lymphocytes % 22 % Monocytes % 5 % Eosinophils % 1 % Basophils % 1 % Neutrophils # 5.4 (1.3-7.7) k/uL Lymphocytes # 1.7 (1.0-4.8) k/uL Monocytes # 0.4 (0-1.0) k/uL Eosinophils # 0.1 (0-0.7) k/uL Basophils # 0.0 (0-0.2) k/uL Sodium 138 (137-145) mmol/L Potassium 4.5 (3.5-5.1) mmol/L Chloride 105 (98-107) mmol/L Carbon Dioxide 27 (22-30) mmol/L Anion Gap 6 mmol/L BUN 12 (7-17) mg/dL Creatinine 0.87 (0.52-1.04) mg/dL Est GFR (CKD-EPI)AfAm >90 (>60 ml/min/1.73 sqM) Est GFR (CKD-EPI)NonAf 89 (>60 ml/min/1.73 sqM) Glucose 111 H (74-99) mg/dL Calcium 9.5 (8.4-10.2) mg/dL Magnesium 1.9 (1.6-2.3) mg/dL Total Bilirubin 0.3 (0.2-1.3) mg/dL AST 22 (14-36) U/L ALT 23 (4-34) U/L Alkaline Phosphatase 62 (38-126) U/L Total Protein 7.4 (6.3-8.2) g/dL Albumin 4.3 (3.5-5.0) g/dL - Medical Decision Making Was pt. sent in by a medical professional or institution (, NELLY, BEATER ENGINEER HELPER, urgent care, hospital, or penitentiary...) When possible be specific @ -No Did you speak to anyone other than the patient for history (EMS, parent, family, police, friend...)? What history was obtained from this source @ -No Did you review nursing and triage notes (agree or disagree)? Why? @ -I reviewed and agree with nursing and triage notes Were old charts reviewed (outside hosp., previous admission, EMS record, old EKG, old radiological studies, urgent care reports/EKG's, penitentiary records)? Report findings @ -Old EKG reviewed and no changes to current EKG Differential Diagnosis (chest pain, altered mental status, abdominal pain women, abdominal pain men, vaginal bleeding, weakness, fever, dyspnea, syncope, headache, dizziness, GI bleed, back pain, seizure, CVA, palpatations, mental health, musculoskeletal)? @ -Acute adrenal insufficiency, stroke, cardiac arrhythmia, electrolyte imbalance EKG interpreted by me (3pts min.). @ -Sinus bradycardia with no ST changes X-rays interpreted by me (1pt min.). @ -None done CT interpreted by me (1pt min.). @ -None done U/S interpreted by me (1pt. min.). @ -None done What testing was considered but not performed or refused? (CT, X-rays, U/S, labs)? Why? @ -None What meds were considered but not given or refused? Why? @ -None Did you discuss the management of the patient with other professionals (professionals i.e. NELLY Mccoy, BEATER ENGINEER HELPER, lab, RT, psych nurse, social media intern, bond trader, teacher, student officer, medical case manager)? Give summary @ -No Was smoking cessation discussed for >3mins.? @ -No Was critical care preformed (if so, how long)? @ -No Were there social determinants of health that impacted care today? How? (Ho melessness, low income, unemployed, alcoholism, drug addiction, transportation, low edu. Level, literacy, decrease access to med. care, [facility], rehab)? @ -No Was there de-escalation of care discussed even if they declined (Discuss DNR or withdrawal of care, Hospice)? DNR status @ -No What co-morbidities impacted this encounter? (DM, HTN, Smoking, COPD, CAD, Cancer, CVA, ARF, Chemo, Hep., AIDS, mental health diagnosis, sleep apnea, morbid obesity)? @ -None Was patient admitted / discharged? Hospital course, mention meds given and route, prescriptions, significant lab abnormalities, going to OR and other pertinent info. @ -Was discharged. Patient presented for concerns of fluctuating blood pressure readings at home. States she has had intermittent blurry vision for 3 years does not have any new symptoms. EKG revealed sinus bradycardia and was comparable to previous EKGs. Labs were unremarkable. Given Zofran for nausea and hydrocortisone for adrenal insufficiency. Symptoms discussed with patient in detail and advised to close follow-up with rural route carrier and neurologist. Case discussed with Dr. Fischer. Undiagnosed new problem with uncertain prognosis? @ -No Drug Therapy requiring intensive monitoring for toxicity (Heparin, Nitro, Insulin, Cardizem)? @ -No Were any procedures done? @ -No Diagnosis/symptom? @ -Acute adrenal insufficiency Acute, or Chronic, or Acute on Chronic? @ -Acute Uncomplicated (without systemic symptoms) or Complicated (systemic symptoms)? @ -Uncomplicated Side effects of treatment? @ -No Exacerbation, Progression, or Severe Exacerbation? @ -No Poses a threat to life or bodily function? How? (Chest pain, [place], [place], pneumonia, PE, COPD, DKA, ARF, appy, cholecystitis, CVA, Diverticulitis, Homicidal, Suicidal, threat to staff... and all critical care pts) @ -No - EKG Data -: EKG Interpreted by Me EKG shows normal: sinus rhythm Rate: bradycardia When compared to previous EKG there are: no significant change Interpretation: no acute changes 10/28/23 10:49 Vent rate 41 bpm, MD interval 162, QRS duration 95, QT/QTc 448/387 Past Medical History Past Medical History: Eye Disorder, GERD/Reflux, Pneumonia, Renal Disease, Seizure Disorder Additional Past Medical History / Comment(s): Multiple UTIs, pyelonephritis, "spongy" kidney, nephrolithiasis-passed stone on her own, recently told she has a fatty liver, catatonic seizure/stress induced, bilateral astigmatism, murmur, pt states she alternates between diarrhea/constipation past 1.5 years, g estational diabetes/eclampsia.Gastroparesis, PT STATES SEIZURES ARE MORE OF AN ALLERGIC REACTION--NOTHING EPILEPTIC. addisons disease History of Any Multi-Drug Resistant Organisms: None Reported Date of last positivie culture/infection: 2010 MDRO Source:: foot Past Surgical History: Section, Tubal Ligation Additional Past Surgical History / Comment(s): c sect x 4. COLONOSCOPY Past Anesthesia/Blood Transfusion Reactions: No Reported Reaction Past Psychological History: Anxiety, Bipolar, Depression, Panic Disorder, PTSD Smoking Status: Former smoker, Vaper Past Alcohol Use History: None Reported Past Drug Use History: None Reported - Past Family History Father Family Medical History: Cancer, COPD, Hypertension Additional Family Medical History / Comment(s): Lung AND BRAIN cancer Mother Family Medical History: COPD, Renal Disease, Seizure Disorder Additional Family Medical History / Comment(s): bronchitis, back problems. Psych issues Course Vital Signs 10/28/23 10/28/23 10/28/23 08:21 08:49 10:24 Temperature 98 F Pulse Rate 50 L 58 L 59 L Respiratory 16 16 20 Rate Blood Pressure 139/91 140/95 132/95 O2 Sat by Pulse 98 98 98 Oximetry Disposition Clinical Impression: Adrenal insufficiency Disposition: HOME SELF-CARE Condition: Stable Additional Instructions: Please return to the Emergency Department if symptoms worsen or any other concerns. Is patient prescribed a controlled substance at d/c from ED?: No Referrals: Kellen Renee MD [Primary Care Provider] - 1-2 days Time of Disposition: 11:20
[2023-10-28 09:23] LABS: Basophils % (A) 1 %; Eosinophils # (A) 0.1 k/uL (0-0.7); Eosinophils % (A) 1 %; HCT 40.4 % (34.0-46.0); HGB 13.4 gm/dL (11.4-16.0); Lymphocytes # (A) 1.7 k/uL (1.0-4.8); Lymphocytes % (A) 22 %; MCH 32.2 pg (25.0-35.0); MCHC 33.2 g/dL (31.0-37.0); MCV 97.1 fL (80.0-100.0); Mean Platelet Volume 8.4; Monocytes # (A) 0.4 k/uL (0-1.0); Monocytes % (A) 5 %; Neutrophils # (A) 5.4 k/uL (1.3-7.7); Neutrophils % (A) 71 %; Platelet Count 264 k/uL (150-450); RBC 4.16 m/uL (3.80-5.40); RDW 12.6 % (11.5-15.5); WBC 7.6 k/uL (3.8-10.6)
[2023-10-28 09:35] LABS: ALT 23 U/L (4-34); AST 22 U/L (14-36); African American GFR (CKD) >90 (>60 ml/min/1.73 sqM); Albumin 4.3 g/dL (3.5-5.0); Alkaline Phosphatase 62 U/L (38-126); Anion Gap 6 mmol/L; Blood Urea Nitrogen 12 mg/dL (7-17); Calcium 9.5 mg/dL (8.4-10.2); Carbon Dioxide 27 mmol/L (22-30); Chloride 105 mmol/L (98-107); Glucose 111 mg/dL (74-99); Magnesium 1.9 mg/dL (1.6-2.3); Non-African American GFR(CKD) 89 (>60 ml/min/1.73 sqM); Potassium 4.5 mmol/L (3.5-5.1); Sodium 138 mmol/L (137-145); Total Bilirubin 0.3 mg/dL (0.2-1.3); Total Protein 7.4 g/dL (6.3-8.2)
[2023-10-28] MEDS: ONDANSETRON 4 MG/2 ML VIAL IVP STA (10:39)
[2023-10-28 10:51] VITALS: RESP 20
[2023-10-28] MEDS: HYDROCORTISONE SUCCINATE 100 MG/2 ML VIAL IV STA (11:23)
[2023-10-28 12:15] VITALS: BP 135/95; PULSE 55
== END 2023-10-28 11:51 | disposition home or self-care (01) ==
LOC: EC 08:15
DX: E27.40 Unspecified adrenocortical insufficiency (principal); F17.290 Nicotine dependence, other tobacco product, uncomplicated; Z91.018 Allergy to other foods; Z91.09 Other allergy status, other than to drugs and biological substances; Z88.5 Allergy status to narcotic agent; Z91.011 Allergy to milk products; Z88.8 Allergy status to other drugs, medicaments and biological substances
CPT/HCPCS: 36415; 93005; 80053; 83735; 85025; 99285; 96374; 96375; J1720; J2405

== ENCOUNTER 2023-11-03 01:55 | Emergency (ER) | payer MEDICARE, OTHER ==
[2023-11-03] MEDS: HYDROCORTISONE SUCCINATE 100 MG/2 ML VIAL IV STA (03:45)
[2023-11-03] MEDS: SODIUM CHLORIDE 0.9% 500 ML 500 ML IV STA (03:45)
[2023-11-03 04:16] LABS: Basophils # (A) 0.1 k/uL (0-0.2); Basophils % (A) 0 %; Eosinophils # (A) 0.1 k/uL (0-0.7); Eosinophils % (A) 0 %; HCT 42.1 % (34.0-46.0); HGB 13.8 gm/dL (11.4-16.0); Lymphocytes # (A) 3.2 k/uL (1.0-4.8); Lymphocytes % (A) 24 %; MCH 31.9 pg (25.0-35.0); MCHC 32.9 g/dL (31.0-37.0); MCV 97.1 fL (80.0-100.0); Mean Platelet Volume 8.3; Monocytes # (A) 0.7 k/uL (0-1.0); Monocytes % (A) 5 %; Neutrophils # (A) 9.3 k/uL (1.3-7.7); Neutrophils % (A) 69 %; Platelet Count 328 k/uL (150-450); RBC 4.33 m/uL (3.80-5.40); RDW 12.6 % (11.5-15.5); WBC 13.5 k/uL (3.8-10.6)
[2023-11-03 04:17] LABS: ALT 58 U/L (4-34); AST 31 U/L (14-36); African American GFR (CKD) >90 (>60 ml/min/1.73 sqM); Albumin 4.3 g/dL (3.5-5.0); Alkaline Phosphatase 71 U/L (38-126); Anion Gap 6 mmol/L; Blood Urea Nitrogen 10 mg/dL (7-17); Calcium 9.1 mg/dL (8.4-10.2); Carbon Dioxide 28 mmol/L (22-30); Chloride 105 mmol/L (98-107); Glucose 93 mg/dL (74-99); Magnesium 2.2 mg/dL (1.6-2.3); Non-African American GFR(CKD) >90 (>60 ml/min/1.73 sqM); Phosphorus 4.5 mg/dL (2.5-4.5); Potassium 4.1 mmol/L (3.5-5.1); Sodium 139 mmol/L (137-145); Total Bilirubin 0.2 mg/dL (0.2-1.3); Total Protein 7.2 g/dL (6.3-8.2)
--- NOTE | 2023-11-03 05:54 | ED ---
Recheck HPI <Selena Melendez - Last Filed: 11/03/23 07:31> - General Source: patient, RN notes reviewed, old records reviewed Mode of arrival: ambulatory Limitations: no limitations, altered mental status - History of Present Illness MD Complaint: other (Concern for adrenal insufficiency) -: days(s) Returns Today for: Called Because of Abnormal Lab/Test, persistent/worsening pain related to initial visit Symptoms Since Prior Visit: no new symptoms Context: planned re-check Associated Symptoms: none Treatments Prior to Arrival: other (0) <Brenton Oshea - Last Filed: 11/13/23 19:04> - General Chief Complaint: Recheck/Abnormal Lab/Rx Stated Complaint: Hypertension, Seizure Time Seen by Provider: 11/03/23 03:13 - History of Present Illness Initial Comments: This is a 30-year-old female known to this emergency room today. Patient coming in for weakness generalized weakness has not been feeling weight and concern for cause of generalized weakness with possibility of adrenal insufficiency. No cody nge in medications no fevers no headache chest pain shortness of breath abdominal pain no other complaints (Brenton Oshea) - Related Data Home Medications Medication Instructions Recorded Confirmed Cholecalciferol (Vitamin D3) 50 mcg PO DAILY 08/19/23 10/28/23 [Vitamin D3 (50 Mcg = 2000 Iu)] Dicyclomine [Bentyl] 20 mg PO QID PRN 08/19/23 10/28/23 Mag Plus 100 mg PO HS 08/19/23 10/28/23 Multivitamin/Iron/Folic Acid 1 tab PO DAILY 08/19/23 10/28/23 [Centrum Women Tablet] Ondansetron [Zofran] 4 mg PO Q12HR PRN 08/19/23 10/28/23 Pantoprazole [Protonix] 40 mg PO DAILY 08/19/23 10/28/23 Butalb/APAP/Caff 50-325-40Mg 1 tab PO Q4H PRN 08/23/23 10/28/23 [Fioricet 50-325-40] Hydrocortisone [Cortef] 5 - 10 mg PO HS 10/20/23 10/28/23 Hydrocortisone [Cortef] 10 mg PO BID@1200,1600 10/20/23 10/28/23 Hydrocortisone [Cortef] 15 mg PO QAM 10/20/23 10/28/23 Previous Rx's Medication Instructions Recorded cloNIDine HCL 0.1 mg PO BID PRN #30 tablet 11/03/23 Allergies Allergy/AdvReac Type Severity Reaction Status Date / Time apple Allergy Intermediate Denies Verified 11/03/23 03:05 allergy - see comment adhesive tape Allergy Mild Itching Verified 11/03/23 03:05 Beef Containing Products Allergy Rash/Hives, Verified 11/03/23 03:05 [Beef] IBS symptoms coconut Allergy Rash/Hives, Verified 11/03/23 03:05 IBS symptoms corn Allergy Rash/Hives, Verified 11/03/23 03:05 IBS symptoms morphine Allergy Rash/Hives Verified 11/03/23 03:05 Pork/Porcine Containing Allergy Rash/Hives, Verified 11/03/23 03:05 Products IBS [Pork] symptoms wheat Allergy Rash/Hives, Verified 11/03/23 03:05 IBS symptoms Milk Containing Products AdvReac Nausea & Verified 11/03/23 03:05 (Dairy) Vomiting & [Dairy] Diarrhea sumatriptan [From Imitrex] AdvReac Makes Verified 11/03/23 03:05 Migraine Worse/Dizziness sumatriptan succinate AdvReac Makes Verified 11/03/23 03:05 [From Imitrex] Migraine Worse/Dizziness Review of Systems ROS Other: All systems not noted in ROS Statement are negative. <Selena Melendez - Last Filed: 11/03/23 07:31> ROS Other: All systems not noted in ROS Statement are negative. <Brenton Oshea - Last Filed: 11/13/23 19:04> ROS Statement: Those systems with pertinent positive or pertinent negative responses have been documented in the HPI. Past Medical History Past Medical History: Eye Disorder, GERD/Reflux, Pneumonia, Renal Disease, Seiz ure Disorder Additional Past Medical History / Comment(s): Multiple UTIs, pyelonephritis, "spongy" kidney, nephrolithiasis-passed stone on her own, recently told she has a fatty liver, catatonic seizure/stress induced, bilateral astigmatism, murmur, pt states she alternates between diarrhea/constipation past 1.5 years, gestational diabetes/eclampsia.Gastroparesis, PT STATES SEIZURES ARE MORE OF AN ALLERGIC REACTION--NOTHING EPILEPTIC. addisons disease, adrenal disease, vitamin D deficiency History of Any Multi-Drug Resistant Organisms: None Reported Date of last positivie culture/infection: 2010 MDRO Source:: foot Past Surgical History: Section, Tubal Ligation Additional Past Surgical History / Comment(s): c sect x 4. COLONOSCOPY Past Anesthesia/Blood Transfusion Reactions: No Reported Reaction Past Psychological History: Anxiety, Bipolar, Depression, Panic Disorder, PTSD Smoking Status: Former smoker, Vaper Past Alcohol Use History: None Reported Past Drug Use History: None Reported - Past Family History Father Family Medical History: Cancer, COPD, Hypertension Additional Family Medical History / Comment(s): Lung AND BRAIN cancer Mother Family Medical History: COPD, Renal Disease, Seizure Disorder Additional Family Medical History / Comment(s): bronchitis, back problems. Psych issues <Brenton Oshea Last Filed: 11/13/23 19:04> General Exam Limitations: no limitations, altered mental status General appearance: alert, in no apparent distress, anxious, lethargic Head exam: Present: atraumatic, normocephalic, normal inspection Eye exam: Present: normal appearance, PERRL, EOMI. Absent: scleral icterus, c onjunctival injection, periorbital swelling ENT exam: Present: normal exam, mucous membranes moist Neck exam: Present: normal inspection. Absent: tenderness, meningismus, lymphadenopathy Respiratory exam: Present: normal lung sounds bilaterally. Absent: respiratory distress, wheezes, rales, rhonchi, stridor Cardiovascular Exam: Present: regular rate, normal rhythm, normal heart sounds. Absent: systolic murmur, diastolic murmur, rubs, gallop, clicks GI/Abdominal exam: Present: soft, normal bowel sounds. Absent: distended, tenderness, guarding, rebound, rigid Extremities exam: Present: normal inspection, full ROM, normal capillary refill. Absent: tenderness, pedal edema, joint swelling, calf tenderness Back exam: Present: normal inspection Neurological exam: Present: alert, oriented X3, CN II-XII intact Psychiatric exam: Present: normal affect, normal mood Skin exam: Present: warm, dry, intact, normal color. Absent: rash <Brenton Oshea Last Filed: 11/13/23 19:04> Course <Brenton Oshea Last Filed: 11/13/23 19:04> Vital Signs 11/03/23 11/03/23 11/03/23 03:01 07:07 07:45 Temperature 97.9 F 98.6 F Pulse Rate 67 60 67 Respiratory 18 16 17 Rate Blood Pressure 165/125 114/73 153/94 O2 Sat by Pulse 98 99 95 Oximetry - Reevaluation(s) Reevaluation #1: Rec records reviewed (Brenton Oshea) Reevaluation #2: Symptoms improving (Brenton Oshea) Reevaluation #3: Patient informed of results and questions answered (Brenton Oshea) Reevaluation #4: Was pt. sent in by a medical professional or institution (NELLY Mccoy, BULL CHAIN OPERATOR, urgent care, hospital, or senior care...) When possible be specific @ -no Did you speak to anyone other than the patient for history (EMS, parent, family, police, friend...)? What history was obtained from this source @ -no Did you review nursing and triage notes (agree or disagree)? Why? @ -agree Are old charts reviewed (outside hosp., previous admission, EMS record, old EKG, old radiological studies, urgent care reports/EKG's, senior care records)? Report findings @ -yes Differential Diagnosis (chest pain, altered mental status, abdominal pain women, abdominal pain men, vaginal bleeding, weakness, fever, dyspnea, syncope, headache, dizziness, GI bleed, back pain, seizure, CVA, palpatations, mental health, musculoskeletal)? @ -prior EKG interpreted by me (3pts min.). @ -yes X-rays interpreted by me (1pt min.). @ -yes negative for acute disease CT interpreted by me (1pt min.). @ -no U/S interpreted by me (1pt. min.). @ -no What testing was considered but not performed or refused? (CT, X-rays, U/S, labs)? Why? @ -none What meds were considered but not given or refused? Why? @ -none Did you discuss the management of the patient with other professionals (professionals i.e. NELLY Mccoy, BULL CHAIN OPERATOR, lab, RT, psych nurse, social welfare research worker, b2b outside sales representative, teacher, combat systems officer, bottle caser)? Give summary @ -no Was smoking cessation discussed for >3mins.? @ -no Was critical care preformed (if so, how long)? @ -no Were there social determinants of health that impacted care today? How? (Homelessness, low income, unemployed, alcoholism, drug addiction, transportation, low edu. Level, literacy, decrease access to med. care, fdc, rehab)? @ -none Was there de-escalation of care discussed even if they declined (Discuss DNR or withdrawal of care, Hospice)? DNR status @ -no What co-morbidities impacted this encounter? (DM, HTN, Smoking, COPD, CAD, Cancer, CVA, ARF, Chemo, Hep., AIDS, mental health diagnosis, sleep apnea, morbid obesity)? @ -none Was patient admitted / discharged? Hospital course, mention meds given and route, prescriptions, significant lab abnormalities, going to OR and other pertinent info. @ - 32 female at this point deemed to not be in adrenal insufficiency here in the ER and feels well. Patient can be discharged home Discharge Undiagnosed new problem with uncertain prognosis? @ -no Drug Therapy requiring intensive monitoring for toxicity (Heparin, Nitro, Insu ranulfo, Cardizem)? @ -no Were any procedures done? @ -no Diagnosis/symptom? @ -Weakness Acute, or Chronic, or Acute on Chronic? @ -Acute Uncomplicated (without systemic symptoms) or Complicated (systemic symptoms)? @ -Complicated Side effects of treatment? @ -no Exacerbation, Progression, or Severe Exacerbation? @ -exacerbation Poses a threat to life or bodily function? How? (Chest pain, [place], [place], pneumonia, PE, COPD, DKA, ARF, appy, cholecystitis, CVA, Diverticulitis, Homicidal, Suicidal, threat to staff... and all critical care pts) @ -yes (Brenton Oshea) Reevaluation #5: Differential Weakness: Hypoglycemia, shock, sepsis, hyponatremia, anemia, infection, [place], ETOH, adverse medicine reaction, overdose, stroke, this is not meant to be an all-inclusive list. (Brenton Oshea) Medical Decision Making - Lab Data Result diagrams: 11/03/23 03:42 11/03/23 03:42 <Selena Melendez - Last Filed: 11/03/23 07:31> - Lab Data Result diagrams: 11/03/23 03:42 11/03/23 03:42 <Brenton Oshea - Last Filed: 11/13/23 19:04> - Medical Decision Making 32 female at this point deemed to not be in adrenal insufficiency here in the ER and feels well. Patient can be discharged home (Brenton Oshea) - Lab Data Lab Results 11/03/23 11/03/23 11/03/23 Range/Units 03:42 03:42 03:42 WBC 13.5 H (3.8-10.6) k/uL RBC 4.33 (3.80-5.40) m/uL Hgb 13.8 (11.4-16.0) gm/dL Hct 42.1 (34.0-46.0) % MCV 97.1 (80.0-100.0) fL MCH 31.9 (25.0-35.0) pg MCHC 32.9 (31.0-37.0) g/dL RDW 12.6 (11.5-15.5) % Plt Count 328 (150-450) k/uL MPV 8.3 Neutrophils % 69 % Lymphocytes % 24 % Monocytes % 5 % Eosinophils % 0 % Basophils % 0 % Neutrophils # 9.3 H (1.3-7.7) k/uL Lymphocytes # 3.2 (1.0-4.8) k/uL Monocytes # 0.7 (0-1.0) k/uL Eosinophils # 0.1 (0-0.7) k/uL Basophils # 0.1 (0-0.2) k/uL Sodium 139 (137-145) mmol/L Potassium 4.1 (3.5-5.1) mmol/L Chloride 105 (98-107) mmol/L Carbon Dioxide 28 (22-30) mmol/L Anion Gap 6 mmol/L BUN 10 (7-17) mg/dL Creatinine 0.69 (0.52-1.04) mg/dL Est GFR (CKD-EPI)AfAm >90 (>60 ml/min/1.73 sqM) Est GFR (CKD-EPI)NonAf >90 (>60 ml/min/1.73 sqM) Glucose 93 (74-99) mg/dL Calcium 9.1 (8.4-10.2) mg/dL Phosphorus 4.5 (2.5-4.5) mg/dL Magnesium 2.2 (1.6-2.3) mg/dL Total Bilirubin 0.2 (0.2-1.3) mg/dL AST 31 (14-36) U/L ALT 58 H (4-34) U/L Alkaline Phosphatase 71 (38-126) U/L Troponin I <0.012 (0.000-0.034) ng/mL Total Protein 7.2 (6.3-8.2) g/dL Albumin 4.3 (3.5-5.0) g/dL Disposition <Selena Melendez - Last Filed: 11/03/23 07:31> Is patient prescribed a controlled substance at d/c from ED?: No Time of Disposition: 07:00 <Brenton Oshea - Last Filed: 11/13/23 19:04> Clinical Impression: Weakness, Chronic abdominal pain, Generalized seizure, Headache, Fatigue Disposition: HOME SELF-CARE Condition: Fair Instructions (If sedation given, give patient instructions): Weakness (ED), Seizure/Epilepsy Discharge Instructions & Follow-Up Prescriptions: cloNIDine HCL 0.1 mg PO BID PRN #30 tablet PRN Reason: Hypertension Referrals: None,Stated [Primary Care Provider] - 1-2 days
[2023-11-03] MEDS: cloNIDine HCL 0.1 MG TAB PO STA (07:52)
[2023-11-03 08:27] VITALS: BP 153/94; PULSE 67; RESP 17; TEMP 98.6
== END 2023-11-03 08:00 | disposition home or self-care (01) ==
LOC: EC 01:55
DX: G40.409 Other generalized epilepsy and epileptic syndromes, not intractable, without status epilepticus (principal); R53.1 Weakness; R10.9 Unspecified abdominal pain; R51.9 Headache, unspecified; R53.83 Other fatigue; F17.290 Nicotine dependence, other tobacco product, uncomplicated; Z91.011 Allergy to milk products; Z88.5 Allergy status to narcotic agent; Z91.018 Allergy to other foods; Z88.8 Allergy status to other drugs, medicaments and biological substances
CPT/HCPCS: 36415; 80053; 83735; 84100; 84484; 85025; 99284; 96374; 96361 ×3; J1720

== ENCOUNTER 2023-12-01 14:41 | Emergency (ER) | payer MEDICARE, OTHER ==
[2023-12-01 15:07] VITALS: TEMP 98.4
--- NOTE | 2023-12-01 15:25 | ED ---
General Adult HPI - General Chief complaint: Syncope Stated complaint: passed out Source: patient Mode of arrival: ambulatory Limitations: no limitations - History of Present Illness Initial comments: Dictation was produced using Storyful dictation software. please excuse any grammatical, word or spelling errors. Chief Complaint: 33-year-old female with adrenal insufficiency complaining of weakness History of Present Illness: 33-year-old female presents to the emergency depar tment complaining of generalized weakness. Patient has history of adrenal insufficiency. Patient takes medications for adrenal insufficiency. She follows up with multiple specialist including stock car driver. For the last 2 and half weeks patient has had a cold. She has been trying to up dose her hydrocortisone. She states that she still feels significantly malaised. Patient passed out 2 or 3 days ago. Patient has a history of syncope. Patient requesting hydrocortisone shot and discharge. Patient Nuys any pain complaints. Denies any shortness of breath. Patient reports that she encounters these whenever she is under stress. Patient states she passed out a couple days ago. She knows this because she woke on the floor. Syncopal episode was not witnessed. The ROS documented in this emergency department record has been reviewed and confirmed by me. Those systems with pertinent positive or negative responses have been documented in the HPI. All other systems are other negative and/or noncontributory. - Related Data Home Medications Medication Instructions Recorded Confirmed Cholecalciferol (Vitamin D3) 50 mcg PO DAILY 08/19/23 10/28/23 [Vitamin D3 (50 Mcg = 2000 Iu)] Dicyclomine [Bentyl] 20 mg PO QID PRN 08/19/23 10/28/23 Mag Plus 100 mg PO HS 08/19/23 10/28/23 Multivitamin/Iron/Folic Acid 1 tab PO DAILY 08/19/23 10/28/23 [Centrum Women Tablet] Ondansetron [Zofran] 4 mg PO Q12HR PRN 08/19/23 10/28/23 Pantoprazole [Protonix] 40 mg PO DAILY 08/19/23 10/28/23 Butalb/APAP/Caff 50-325-40Mg 1 tab PO Q4H PRN 08/23/23 10/28/23 [Fioricet 50-325-40] Hydrocortisone [Cortef] 5 - 10 mg PO HS 10/20/23 10/28/23 Hydrocortisone [Cortef] 10 mg PO BID@1200,1600 10/20/23 10/28/23 Hydrocortisone [Cortef] 15 mg PO QAM 10/20/23 10/28/23 Previous Rx's Medication Instructions Recorded cloNIDine HCL 0.1 mg PO BID PRN #30 tablet 11/03/23 Allergies Allergy/AdvReac Type Severity Reaction Status Date / Time apple Allergy Intermediate Denies Verified 12/01/23 14:46 allergy - see comment adhesive tape Allergy Mild Itching Verified 12/01/23 14:46 Beef Containing Products Allergy Rash/Hives, Verified 12/01/23 14:46 [Beef] IBS symptoms coconut Allergy Rash/Hives, Verified 12/01/23 14:46 IBS symptoms corn Allergy Rash/Hives, Verified 12/01/23 14:46 IBS symptoms morphine Allergy Rash/Hives Verified 12/01/23 14:46 Pork/Porcine Containing Allergy Rash/Hives, Verified 12/01/23 14:46 Products IBS [Pork] symptoms wheat Allergy Rash/Hives, Verified 12/01/23 14:46 IBS symptoms Milk Containing Products AdvReac Nausea & Verified 12/01/23 14:46 (Dairy) Vomiting & [Dairy] Diarrhea sumatriptan [From Imitrex] AdvReac Makes Verified 12/01/23 14:46 Migraine Worse/Dizziness sumatriptan succinate AdvReac Makes Verified 12/01/23 14:46 [From Imitrex] Migraine Worse/Dizziness Review of Systems ROS Statement: Those systems with pertinent positive or pertinent negative responses have been documented in the HPI. ROS Other: All systems not noted in ROS Statement are negative. Past Medical History Past Medical History: Eye Disorder, GERD/Reflux, Pneumonia, Renal Disease, Seizure Disorder Additional Past Medical History / Comment(s): Multiple UTIs, pyelonephritis, "spongy" kidney, nephrolithiasis-passed stone on her own, recently told she has a fatty liver, catatonic seizure/stress induced, bilateral astigmatism, murmur, pt states she alternates between diarrhea/constipation past 1.5 years, gestational diabetes/eclampsia.Gastroparesis, PT STATES SEIZURES ARE MORE OF AN ALLERGIC REACTION--NOTHING EPILEPTIC. addisons disease, adrenal disease, vitamin D deficiency History of Any Multi-Drug Resistant Organisms: None Reported Date of last positivie culture/infection: 2010 MDRO Source:: foot Past Surgical History: Section, Tubal Ligation Additional Past Surgical History / Comment(s): c sect x 4. COLONOSCOPY Past Anesthesia/Blood Transfusion Reactions: No Reported Reaction Past Psychological History: Anxiety, Bipolar, Depression, Panic Disorder, PTSD Smoking Status: Former smoker, Vaper Past Alcohol Use History: None Reported Past Drug Use History: None Reported - Past Family History Father Family Medical History: Cancer, COPD, Hypertension Additional Family Medical History / Comment(s): Lung AND BRAIN cancer Mother Family Medical History: COPD, Renal Disease, Seizure Disorder Additional Family Medical History / Comment(s): bronchitis, back problems. Psych issues General Exam - General Exam Comments Initial Comments: PHYSICAL EXAM: General Impression: Alert and oriented x3, not in acute distress HEENT: Normocephalic atraumatic, extra-ocular movements intact, pupils equal and reactive to light bilaterally, mucous membranes moist. Cardiovascular: Heart regular rate and rhythm Chest: Able to complete full sentences, no retractions, no tachypnea Abdomen: abdomen soft, non-tender, non-distended, no organomegaly Musculoskeletal: Pulses present and equal in all extremities, no peripheral edema Motor: no focal deficits noted Neurological: CN II-XII grossly intact, no focal motor or sensory deficits noted Skin: Intact with no visualized rashes Psych: Normal affect and mood Limitations: no limitations Course Vital Signs 12/01/23 12/01/23 14:43 16:00 Temperature 98.4 F Pulse Rate 69 60 Respiratory 18 16 Rate Blood Pressure 129/90 112/73 O2 Sat by Pulse 99 99 Oximetry - Reevaluation(s) Reevaluation #1: 12/01/23 17:51 I was notified by nurse that wrong blood work was sent for the patient. Patient was notified that her blood should be drawn again however she became very upset that her blood work was taking long to result. I was told that patient wanted to sign out AGAINST MEDICAL ADVICE. Patient was given IV hydrocortisone. 12/01/23 18:19 I went to talk to the patient about risk and benefits however patient eloped according to nurse. EKG Findings - EKG Comments: EKG Findings:: My EKG interpretation: Ventricular rate 69, sinus rhythm,. 144, cures 93, QTc 3-7. No MN prolongation, no QTC prolongation, no ST or T-wave changes noted. EKG compared to October 28, 2023 showing no changes. Overall, this EKG is unremarkable Medical Decision Making - Medical Decision Making Was pt. sent in by a medical professional or institution (, NELLY, TECHNICAL INSTRUCTOR COURSE DEVELOPER, urgent care, hospital, or usp...) When possible be specific @ -No Did you speak to anyone other than the patient for history (EMS, parent, family, police, friend...)? What history was obtained from this source @ -No Did you review nursing and triage notes (agree or disagree)? Why? @ -I reviewed and agree with nursing and triage notes Were old charts reviewed (outside hosp., previous admission, EMS record, old EKG, old radiological studies, urgent care reports/EKG's, usp records)? Report findings @ -No old charts were reviewed Differential Diagnosis (chest pain, altered mental status, abdominal pain women, abdominal pain men, vaginal bleeding, musculoskeletal, weakness, fever, dyspnea, syncope, headache, dizziness, GI bleed, back pain, seizure, CVA, palpatations, mental health)? @ -Differential Syncope: Valvular disease, hypertrophic cardiomyopathy, pulmonary embolism, tamponade, tachycardia, bradycardia, SC, hypovolemia, hemorrhage, dissection, anemia, intracranial hemorrhage, seizure, hypoglycemia, carbon monoxide poisoning, this is not meant to be an all-inclusive list. EKG interpreted by me (3pts min.). @ -None done X-rays interpreted by me (1pt min.). @ -Chest x-ray is nonacute CT interpreted by me (1pt min.). @ -None done U/S interpreted by me (1pt. min.). @ -None done What testing was considered but not performed or refused? (CT, X-rays, U/S, labs)? Why? @ -None What meds were considered but not given or refused? Why? @ -None Did you discuss the management of the patient with other professionals (professionals i.e. , NELLY, TECHNICAL INSTRUCTOR COURSE DEVELOPER, lab, RT, psych nurse, older adult social work specialist, final installer inspector, t eacher, combat systems officer, director case)? Give summary @ -No Was smoking cessation discussed for >3mins.? @ -No Was critical care preformed (if so, how long)? @ -No Were there social determinants of health that impacted care today? How? (Homelessness, low income, unemployed, alcoholism, drug addiction, transportation, low edu. Level, literacy, decrease access to med. care, fpc, rehab)? @ -No Was there de-escalation of care discussed even if they declined (Discuss DNR or withdrawal of care, Hospice)? DNR status @ -No What co-morbidities impacted this encounter? (DM, HTN, Smoking, COPD, CAD, Cancer, CVA, ARF, Chemo, Hep., AIDS, mental health diagnosis, sleep apnea, morbid obesity)? @ -History of adrenal insufficiency Was patient admitted / discharged? Hospital course, mention meds given and route, prescriptions, significant lab abnormalities, going to OR and other pertinent info. @ -33-year-old female presents with weakness. She has history of secondary adrenal insufficiency. Vital signs stable. Patient at the bedside appears malaised however physical exam is nonfocal. There is an issue that caused delay in patient's blood work due to nursing error. Nurse was attempting to recollect patient's blood however she became upset and eloped. Patient did receive hydrocortisone prior to elopement Undiagnosed new problem with uncertain prognosis? @ -No Drug Therapy requiring intensive monitoring for toxicity (Heparin, Nitro, Insulin, Cardizem)? @ -No Were any procedures done? @ -No Diagnosis/symptom? Acute, or Chronic, or Acute on Chronic? Uncomplicated (without systemic symptoms) or Complicated (systemic symptoms)? @ -Malaise Side effects of treatment? @ -No Exacerbation, Progression, or Severe Exacerbation? @ -No Poses a threat to life or bodily function? How? (Chest pain, USA, SC, pneumonia, PE, COPD, DKA, ARF, appy, cholecystitis, CVA, Diverticulitis, Homicidal, Suicidal, threat to staff... and all critical care pts) @ -yes - Lab Data Result diagrams: 12/01/23 17:00 Lab Results 12/01/23 Range/Units 17:00 WBC TECHNICAL INSTRUCTOR COURSE DEVELOPER RBC TECHNICAL INSTRUCTOR COURSE DEVELOPER Hgb TECHNICAL INSTRUCTOR COURSE DEVELOPER Hct TECHNICAL INSTRUCTOR COURSE DEVELOPER MCV TECHNICAL INSTRUCTOR COURSE DEVELOPER MCH TECHNICAL INSTRUCTOR COURSE DEVELOPER MCHC TECHNICAL INSTRUCTOR COURSE DEVELOPER RDW TECHNICAL INSTRUCTOR COURSE DEVELOPER Plt Count TECHNICAL INSTRUCTOR COURSE DEVELOPER MPV TECHNICAL INSTRUCTOR COURSE DEVELOPER Neutrophils % TECHNICAL INSTRUCTOR COURSE DEVELOPER Lymphocytes % TECHNICAL INSTRUCTOR COURSE DEVELOPER Monocytes % TECHNICAL INSTRUCTOR COURSE DEVELOPER Eosinophils % TECHNICAL INSTRUCTOR COURSE DEVELOPER Basophils % TECHNICAL INSTRUCTOR COURSE DEVELOPER Neutrophils # TECHNICAL INSTRUCTOR COURSE DEVELOPER Lymphocytes # TECHNICAL INSTRUCTOR COURSE DEVELOPER Monocytes # TECHNICAL INSTRUCTOR COURSE DEVELOPER Eosinophils # TECHNICAL INSTRUCTOR COURSE DEVELOPER Basophils # TECHNICAL INSTRUCTOR COURSE DEVELOPER Disposition Clinical Impression: Malaise Disposition: LEFT AGAINST MEDICAL ADVICE Condition: Fair Referrals: Kellen Renee MD [Primary Care Provider] - 1-2 days Time of Disposition: 18:21
[2023-12-01] MEDS: HYDROCORTISONE SUCCINATE 100 MG/2 ML VIAL IV STA (15:39)
[2023-12-01] MEDS: SODIUM CHLORIDE 0.9% 500 ML 500 ML IV STA (15:48)
[2023-12-01] MEDS: MORPHINE SULFATE 4 MG/ML SYRINGE IVP PRN (15:49)
[2023-12-01] MEDS: HYDROCORTISONE SUCCINATE 100 MG/2 ML VIAL IM STA (15:49)
[2023-12-01 16:56] VITALS: BP 112/73; PULSE 60; RESP 16
--- NOTE | 2023-12-01 18:03 | XR ---
EXAMINATION: XR chest 2V: 12/01/2023 4:38 PM CLINICAL INDICATION: cold and flu like symptoms TECHNIQUE: Departmental protocol COMPARISON: 10/20/2023 FINDINGS: The lungs are clear. The pleural spaces are negative. The cardiac silhouette is not enlarged. The skeletal structures and soft tissues are negative for acute findings. IMPRESSION: No acute radiographic process.
== END 2023-12-01 17:30 | disposition left against medical advice (07) ==
LOC: EC 14:41
DX: R53.81 Other malaise (principal); F17.290 Nicotine dependence, other tobacco product, uncomplicated; Z91.011 Allergy to milk products; Z91.018 Allergy to other foods; Z88.8 Allergy status to other drugs, medicaments and biological substances; Z53.29 Procedure and treatment not carried out because of patient's decision for other reasons
CPT/HCPCS: 93005; 71046; 99284; 96374; 96375; J2270; J1720; 36415; 85025; 87636

== ENCOUNTER 2023-12-31 01:36 | Emergency (ER) | payer MEDICARE, OTHER ==
[2023-12-31 01:46] VITALS: RESP 18; TEMP 97.9
[2023-12-31 05:31] VITALS: BP 147/90; PULSE 65
[2023-12-31] MEDS: METOPROLOL TARTRATE 12.5 MG TAB PO STA (05:31)
--- NOTE | 2023-12-31 06:39 | ED ---
Psych HPI - General Chief Complaint: Psychiatric Symptoms Stated Complaint: Mental health Time Seen by Provider: 12/31/23 02:44 Source: patient, police Mode of arrival: ambulatory - History of Present Illness Initial Comments: Patient is a 33-year-old woman who presents to evaluation for worsening of her mood and now having suicidal ideation. Patient states that she does get these symptoms chronically. MD Complaint: suicidal ideation, feels depressed -: days(s) Associated Psychiatric Symptoms: depression, suicidal ideation History of same: Yes Quality: intermittent Improves With: none Worsens With: none Associated Symptoms: denies other symptoms - Related Data Home Medications Medication Instructions Recorded Confirmed Cholecalciferol (Vitamin D3) 50 mcg PO DAILY 08/19/23 10/28/23 [Vitamin D3 (50 Mcg = 2000 Iu)] Dicyclomine [Bentyl] 20 mg PO QID PRN 08/19/23 10/28/23 Mag Plus 100 mg PO HS 08/19/23 10/28/23 Multivitamin/Iron/Folic Acid 1 tab PO DAILY 08/19/23 10/28/23 [Centrum Women Tablet] Ondansetron [Zofran] 4 mg PO Q12HR PRN 08/19/23 10/28/23 Pantoprazole [Protonix] 40 mg PO DAILY 08/19/23 10/28/23 Butalb/APAP/Caff 50-325-40Mg 1 tab PO Q4H PRN 08/23/23 10/28/23 [Fioricet 50-325-40] Hydrocortisone [Cortef] 5 - 10 mg PO HS 10/20/23 10/28/23 Hydrocortisone [Cortef] 10 mg PO BID@1200,1600 10/20/23 10/28/23 Hydrocortisone [Cortef] 15 mg PO QAM 10/20/23 10/28/23 Previous Rx's Medication Instructions Recorded cloNIDine HCL 0.1 mg PO BID PRN #30 tablet 11/03/23 Allergies Allergy/AdvReac Type Severity Reaction Status Date / Time apple Allergy Intermediate Denies Verified 12/01/23 14:46 allergy - see comment adhesive tape Allergy Mild Itching Verified 12/31/23 01:42 Beef Containing Products Allergy Rash/Hives, Verified 12/31/23 01:42 [Beef] IBS symptoms coconut Allergy Rash/Hives, Verified 12/31/23 01:42 IBS symptoms corn Allergy Rash/Hives, Verified 12/31/23 01:42 IBS symptoms morphine Allergy Rash/Hives Verified 12/31/23 01:42 Pork/Porcine Containing Allergy Rash/Hives, Verified 12/31/23 01:42 Products IBS [Pork] symptoms wheat Allergy Rash/Hives, Verified 12/31/23 01:42 IBS symptoms Milk Containing Products AdvReac Nausea & Verified 12/31/23 01:42 (Dairy) Vomiting & [Dairy] Diarrhea sumatriptan [From Imitrex] AdvReac Makes Verified 12/31/23 01:42 Migraine Worse/Dizziness sumatriptan succinate AdvReac Makes Verified 12/31/23 01:42 [From Imitrex] Migraine Worse/Dizziness Review of Systems ROS Statement: Those systems with pertinent positive or pertinent negative responses have been documented in the HPI. ROS Other: All systems not noted in ROS Statement are negative. Constitutional: Denies: fever, chills Respiratory: Denies: cough, dyspnea Cardiovascular: Denies: chest pain, palpitations Gastrointestinal: Denies: abdominal pain, vomiting, diarrhea Genitourinary: Denies: dysuria, hematuria Musculoskeletal: Denies: back pain Skin: Denies: rash Neurological: Denies: headache, weakness Psychiatric: Reports: depression, suicidal thoughts. Denies: auditory hallucinations, visual hallucinations, homicidal thoughts Past Medical History Past Medical History: Eye Disorder, GERD/Reflux, Pneumonia, Renal Disease, Seizure Disorder Additional Past Medical History / Comment(s): Multiple UTIs, pyelonephritis, "spongy" kidney, nephrolithiasis-passed stone on her own, recently told she has a fatty liver, catatonic seizure/stress induced, bilateral astigmatism, murmur, pt states she alternates between diarrhea/constipation past 1.5 years, gestational diabetes/eclampsia.Gastroparesis, PT STATES SEIZURES ARE MORE OF AN ALLERGIC REACTION--NOTHING EPILEPTIC. addisons disease, adrenal disease, vitamin D deficiency History of Any Multi-Drug Resistant Organisms: None Reported Date of last positivie culture/infection: 2010 MDRO Source:: foot Past Surgical History: Section, Tubal Ligation Additional Past Surgical History / Comment(s): c sect x 4. COLONOSCOPY Past Anesthesia/Blood Transfusion Reactions: No Reported Reaction Past Psychological History: Anxiety, Bipolar, Depression, Panic Disorder, PTSD Smoking Status: Former smoker, Vaper Past Alcohol Use History: None Reported Past Drug Use History: None Reported - Past Family History Father Family Medical History: Cancer, COPD, Hypertension Additional Family Medical History / Comment(s): Lung AND BRAIN cancer Mother Family Medical History: COPD, Renal Disease, Seizure Disorder Additional Family Medical History / Comment(s): bronchitis, back problems. Psych issues General Exam Limitations: no limitations Course Vital Signs 12/31/23 12/31/23 01:42 05:29 Temperature 97.9 F Pulse Rate 79 65 Respiratory 18 18 Rate Blood Pressure 183/103 147/90 O2 Sat by Pulse 98 98 Oximetry Medical Decision Making - Medical Decision Making Was pt. sent in by a medical professional or institution (, PA, WASTEWATER ENGINEER, urgent care, hospital, or intermediate...) When possible be specific @ -[No] Did you speak to anyone other than the patient for history (EMS, parent, family, police, friend...)? What history was obtained from this source @ -[No] Did you review nursing and triage notes (agree or disagree)? Why? @ -[I reviewed and agree with nursing and triage notes] Were old charts reviewed (outside hosp., previous admission, EMS record, old EKG, old radiological studies, urgent care reports/EKG's, intermediate records)? Report findings @ -[No old charts were reviewed] Differential Diagnosis (chest pain, altered mental status, abdominal pain women, abdominal pain men, vaginal bleeding, weakness, fever, dyspnea, syncope, headache, dizziness, GI bleed, back pain, seizure, CVA, palpatations, mental health, musculoskeletal)? @ -[Differential Mental Health Depression, anxiety, bipolar, psychosis, schizophrenia, borderline personality, situational depression, adjustment disorder, behavioral disorder, brain tumor, malingering, substance abuse, encephalopathy, medication reaction, dementia, hypothyroidism, degenerative neurologic disorder, lupus.... This is not meant to be all-inclusive list EKG interpreted by me (3pts min.). @ -[As above] X-rays interpreted by me (1pt min.). @ -[None done] CT interpreted by me (1pt min.). @ -[None done] U/S interpreted by me (1pt. min.). @ -[None done] What testing was considered but not performed or refused? (CT, X-rays, U/S, labs)? Why? @ -[None] What meds were considered but not given or refused? Why? @ -[None] Did you discuss the management of the patient with other professionals (professionals i.e. , PA, WASTEWATER ENGINEER, lab, RT, psych nurse, pediatric social worker, story reader, teacher, transit authority police officer, major case detective)? Give summary @ -[Case discussed with EPS personnel who will see and evaluate the patient Was smoking cessation discussed for >3mins.? @ -[No] Was critical care preformed (if so, how long)? @ -[No] Were there social determinants of health that impacted care today? How? (Homelessness, low income, unemployed, alcoholism, drug addiction, transportation, low edu. Level, literacy, decrease access to med. care, care home, rehab)? @ -[No] Was there de-escalation of care discussed even if they declined (Discuss DNR or withdrawal of care, Hospice)? DNR status @ -[No] What co-morbidities impacted this encounter? (DM, HTN, Smoking, COPD, CAD, C ancer, CVA, ARF, Chemo, Hep., AIDS, mental health diagnosis, sleep apnea, morbid obesity)? @ -[None] Was patient admitted / discharged? Hospital course, mention meds given and route, prescriptions, significant lab abnormalities, going to OR and other pertinent info. @ -[Patient is a 33-year-old woman with depressed mood and suicidal ideation. She is seen by EPS and offered admission but the patient now wanting to pursue outpatient therapy. Safety plan developed Undiagnosed new problem with uncertain prognosis? @ -[No] Drug Therapy requiring intensive monitoring for toxicity (Heparin, Nitro, Insulin, Cardizem)? @ -[No] Were any procedures done? @ -[No] Diagnosis/symptom? @ - Acute on chronic mood disorder Acute suicidal ideation Acute, or Chronic, or Acute on Chronic? @ -[default] Uncomplicated (without systemic symptoms) or Complicated (systemic symptoms)? @ -[Uncomplicated Side effects of treatment? @ -[No] Exacerbation, Progression, or Severe Exacerbation? @ -[No] Poses a threat to life or bodily function? How? (Chest pain, USA, MS, pneumonia, PE, COPD, DKA, ARF, appy, cholecystitis, CVA, Diverticulitis, Homicidal, Suicidal, threat to staff... and all critical care pts) @ -[No] Disposition Clinical Impression: Mood disorder Disposition: HOME SELF-CARE Condition: Good Instructions (If sedation given, give patient instructions): Mood Disorders (ED) Is patient prescribed a controlled substance at d/c from ED?: No Referrals: Kellen Renee MD [Primary Care Provider] - 1-2 days
== END 2023-12-31 06:49 | disposition home or self-care (01) ==
LOC: EC 01:36
DX: F39 Unspecified mood [affective] disorder (principal); F17.290 Nicotine dependence, other tobacco product, uncomplicated; Z91.018 Allergy to other foods; Z91.09 Other allergy status, other than to drugs and biological substances; Z88.5 Allergy status to narcotic agent; Z91.011 Allergy to milk products; Z88.8 Allergy status to other drugs, medicaments and biological substances
CPT/HCPCS: 82075; 99285

== ENCOUNTER 2024-11-08 18:59 | Emergency (ER) | payer MEDICARE, OTHER ==
[2024-11-08 19:13] VITALS: RESP 18
[2024-11-08 20:33] LABS: Basophils # (A) 0.02 10*3/uL (0.00-0.10); Basophils % (A) 0.3 %; Eosinophils # (A) 0.04 10*3/uL (0.04-0.35); Eosinophils % (A) 0.5 %; HCT 36.8 % (37.2-46.3); HGB 12.8 g/dL (12.0-15.0); Lymphocytes # (A) 2.53 10*3/uL (0.90-5.00); Lymphocytes % (A) 31.9 %; MCH 32.3 pg (27.0-32.0); MCHC 34.8 g/dL (32.0-37.0); MCV 92.9 fL (80.0-97.0); Mean Platelet Volume 9.9 fL (9.5-12.2); Monocytes # (A) 0.53 10*3/uL (0.20-1.00); Monocytes % (A) 6.7 %; Neutrophils % (A) 60.3 %; Platelet Count 290 10*3/uL (140-440); RBC 3.96 10*6/uL (4.10-5.20); RDW 12.4 % (11.5-14.5); WBC 7.94 10*3/uL (4.50-10.00)
[2024-11-08 20:40] LABS: ALT 16 U/L (4-34); African American GFR (CKD) >90 (>60 ml/min/1.73 sqM); Albumin 4.7 g/dL (3.5-5.0); Anion Gap 11 mmol/L; Blood Urea Nitrogen 12 mg/dL (7-17); Calcium 9.3 mg/dL (8.4-10.2); Carbon Dioxide 22 mmol/L (22-30); Chloride 105 mmol/L (98-107); Glucose 126 mg/dL (74-99); Non-African American GFR(CKD) >90 (>60 ml/min/1.73 sqM); Sodium 138 mmol/L (137-145); Total Bilirubin 1.3 mg/dL (0.2-1.3); Total Protein 7.8 g/dL (6.3-8.2)
[2024-11-08] MEDS: SODIUM CHLORIDE 0.9% 1,000 ML IV STA (20:45)
[2024-11-08] MEDS: HYDROCORTISONE SUCCINATE 100 MG/2 ML VIAL IV STA (20:46)
[2024-11-08 20:54] LABS: AST 36 U/L (14-36); Alkaline Phosphatase 39 U/L (38-126); Potassium 4.8 mmol/L (3.5-5.1)
--- NOTE | 2024-11-08 21:03 | XR ---
EXAMINATION TYPE: XR chest 2V DATE OF EXAM: 11/08/2024 8:57 PM COMPARISON: 12/01/2023 CLINICAL INDICATION: Female, 33 years old with history of cough, dizziness, TECHNIQUE: XR chest 2V view(s) obtained. FINDINGS: The heart size is normal. The pulmonary vasculature is normal. The lungs are clear. IMPRESSION: 1. No acute pulmonary process. [facility], , 11/08/2024 9:00 PM
[2024-11-08 21:52] VITALS: BP 126/78
[2024-11-08 22:00] LABS: Appearance,Urine Clear (Clear); Bilirubin,Urine Negative (Negative); Blood,Urine Trace (Negative); Color,Urine Yellow; Glucose,Urine (UA) Negative (Negative); Ketones,Urine Negative (Negative); Leukocyte Esterase,Urine Negative (Negative); Mucus,Urine Moderate /hpf; Nitrite,Urine Negative (Negative); Protein,Urine Trace (Negative); RBC,Urine 10 /hpf (0-5); Specific Gravity,Urine 1.026 (1.001-1.035); Squamous Epithelial Cell,Urine 2 /hpf (0-4); Urobilinogen,Urine <2.0 mg/dL (<2.0); WBC,Urine 4 /hpf (0-5)
--- NOTE | 2024-11-08 22:51 | ED ---
General Adult HPI - General Chief complaint: Recheck/Abnormal Lab/Rx Stated complaint: Abn labs Time Seen by Provider: 11/08/24 19:53 Source: patient Mode of arrival: ambulatory Limitations: no limitations - History of Present Illness Initial comments: 33-year-old female presenting with chief complaint of dizziness. Patient has history of adrenal insufficiency. She reports that she was ill recently, patient was having cough congestion and diarrhea. Today she is feeling nauseous, has a headache, has some blurred vision, has some abdominal discomfort. States that she has been gradually feeling the symptoms but feels much worse today after riding her motorcycle. Feels similar to previous times when she has required a steroid injection. She has been taking hydrocortisone at home, she has been taking what sounds to be inconsistent amounts ranging from 5 to 30 mg. She does follow with endocrinology. No chest pain. She states that her breathing felt a bit labored earlier today. No fever. No vomiting. No urinary symptoms. - Related Data Home Medications Medication Instructions Recorded Confirmed Cholecalciferol (Vitamin D3) 50 mcg PO DAILY 08/19/23 10/28/23 [Vitamin D3 (50 Mcg = 2000 Iu)] Dicyclomine [Bentyl] 20 mg PO QID PRN 08/19/23 10/28/23 Mag Plus 100 mg PO HS 08/19/23 10/28/23 Multivitamin/Iron/Folic Acid 1 tab PO DAILY 08/19/23 10/28/23 [Centrum Women Tablet] Ondansetron [Zofran] 4 mg PO Q12HR PRN 08/19/23 10/28/23 Pantoprazole [Protonix] 40 mg PO DAILY 08/19/23 10/28/23 Butalb/APAP/Caff 50-325-40Mg 1 tab PO Q4H PRN 08/23/23 10/28/23 [Fioricet 50-325-40] Hydrocortisone [Cortef] 5 - 10 mg PO HS 10/20/23 10/28/23 Hydrocortisone [Cortef] 10 mg PO BID@1200,1600 10/20/23 10/28/23 Hydrocortisone [Cortef] 15 mg PO QAM 10/20/23 10/28/23 Previous Rx's Medication Instructions Recorded cloNIDine HCL 0.1 mg PO BID PRN #30 tablet 11/03/23 Allergies Allergy/AdvReac Type Severity Reaction Status Date / Time apple Allergy Intermediate Denies Verified 11/08/24 19:13 allergy - see comment adhesive tape Allergy Mild Itching Verified 11/08/24 19:13 Beef Containing Products Allergy Rash/Hives, Verified 11/08/24 19:13 [Beef] IBS symptoms coconut Allergy Rash/Hives, Verified 11/08/24 19:13 IBS symptoms corn Allergy Rash/Hives, Verified 11/08/24 19:13 IBS symptoms morphine Allergy Rash/Hives Verified 11/08/24 19:13 Pork/Porcine Containing Allergy Rash/Hives, Verified 11/08/24 19:13 Products IBS [Pork] symptoms wheat Allergy Rash/Hives, Verified 11/08/24 19:13 IBS symptoms Milk Containing Products AdvReac Nausea & Verified 11/08/24 19:13 (Dairy) Vomiting & [Dairy] Diarrhea sumatriptan [From Imitrex] AdvReac Makes Verified 11/08/24 19:13 Migraine Worse/Dizziness sumatriptan succinate AdvReac Makes Verified 11/08/24 19:13 [From Imitrex] Migraine Worse/Dizziness Review of Systems ROS Statement: Those systems with pertinent positive or pertinent negative responses have been documented in the HPI. ROS Other: All systems not noted in ROS Statement are negative. Past Medical History Past Medical History: Eye Disorder, GERD/Reflux, Pneumonia, Renal Disease, Seizure Disorder Additional Past Medical History / Comment(s): Multiple UTIs, pyelonephritis, "spongy" kidney, nephrolithiasis-passed stone on her own, recently told she has a fatty liver, catatonic seizure/stress induced, bilateral astigmatism, murmur, pt states she alternates between diarrhea/constipation past 1.5 years, gestational diabetes/eclampsia.Gastroparesis, PT STATES SEIZURES ARE MORE OF AN ALLERGIC REACTION--NOTHING EPILEPTIC. addisons disease, adrenal disease, vitamin D deficiency History of Any Multi-Drug Resistant Organisms: None Reported Date of last positivie culture/infection: 2010 MDRO Source:: foot Past Surgical History: Section, Tubal Ligation Additional Past Surgical History / Comment(s): c sect x 4. COLONOSCOPY Past Anesthesia/Blood Transfusion Reactions: No Reported Reaction Past Psychological History: Anxiety, Bipolar, Depression, Panic Disorder, PTSD Smoking Status: Former smoker, Vaper Past Alcohol Use History: None Reported Past Drug Use History: Marijuana - Past Family History Father Family Medical History: Cancer, COPD, Hypertension Additional Family Medical History / Comment(s): Lung AND BRAIN cancer Mother Family Medical History: COPD, Renal Disease, Seizure Disorder Additional Family Medical History / Comment(s): bronchitis, back problems. Psych issues General Exam Limitations: no limitations General appearance: alert, in no apparent distress Head exam: Present: atraumatic, normocephalic, normal inspection Eye exam: Present: normal appearance, EOMI Neck exam: Present: normal inspection. Absent: meningismus Respiratory exam: Present: normal lung sounds bilaterally. Absent: respiratory distress, wheezes, rales, rhonchi, stridor Cardiovascular Exam: Present: regular rate, normal rhythm, normal heart sounds. Absent: systolic murmur, diastolic murmur, rubs, gallop, clicks Neurological exam: Present: alert, oriented X3 Psychiatric exam: Present: normal affect, normal mood Skin exam: Present: warm, dry, normal color Course Vital Signs 11/08/24 11/08/24 11/08/24 19:10 20:49 21:51 Pulse Rate 67 80 65 Respiratory 18 18 18 Rate Blood Pressure 141/81 137/86 126/78 O2 Sat by Pulse 100 98 Oximetry Medical Decision Making - Medical Decision Making Was pt. sent in by a medical professional or institution (NELLY Mccoy, RESIDENTIAL DIRECT SUPPORT PROFESSIONAL, urgent care, hospital, or snf...) When possible be specific @ -No Did you speak to anyone other than the patient for history (EMS, parent, family, police, friend...)? What history was obtained from this source @ -No Did you review nursing and triage notes (agree or disagree)? Why? @ -I reviewed and agree with nursing and triage notes Were old charts reviewed (outside hosp., previous admission, EMS record, old EKG, old radiological studies, urgent care reports/EKG's, snf records)? Report findings @ -No old charts were reviewed Differential Diagnosis (chest pain, altered mental status, abdominal pain women, abdominal pain men, vaginal bleeding, weakness, fever, dyspnea, syncope, headache, dizziness, GI bleed, back pain, seizure, CVA, palpatations, mental health, musculoskeletal)? @ -MDM Differential Dizziness: Benign paroxysmal positional Vertigo, Meniere’s disease, otitis media, acoustic neuroma, vertebrobasilar insufficiency, cerebellar stroke, encephalitis, hypovolemic, arrhythmia, coronary artery syndrome, anemia… this is not meant to be an all-inclusive list EKG interpreted by me (3pts min.). @ -EKG shows sinus rhythm with sinus arrhythmia ventricular rate 63. SD interval 171. QRS 93. QT 394. QTc 401 X-rays interpreted by me (1pt min.). @ -Chest x-ray shows no acute process CT interpreted by me (1pt min.). @ -None done U/S interpreted by me (1pt. min.). @ -None done What testing was considered but not performed or refused? (CT, X-rays, U/S, labs)? Why? @ -None What meds were considered but not given or refused? Why? @ -None Did you discuss the management of the patient with other professionals (professionals i.e. , PA, RESIDENTIAL DIRECT SUPPORT PROFESSIONAL, lab, RT, psych nurse, social science research assistant, drawing kiln supervisor, teacher, housing management officer, residential case manager)? Give summary @ -No Was smoking cessation discussed for >3mins.? @ -No Was critical care preformed (if so, how long)? @ -No Were there social determinants of health that impacted care today? How? (Homelessness, low income, unemployed, alcoholism, drug addiction, transportation, low edu. Level, literacy, decrease access to med. care, long-term, rehab)? @ -No Was there de-escalation of care discussed even if they declined (Discuss DNR or withdrawal of care, Hospice)? DNR status @ -No What co-morbidities impacted this encounter? (DM, HTN, Smoking, COPD, CAD, Cancer, CVA, ARF, Chemo, Hep., AIDS, mental health diagnosis, sleep apnea, morbid obesity)? @ -None Was patient admitted / discharged? Hospital course, mention meds given and route, prescriptions, significant lab abnormalities, going to OR and other pertinent info. @ -33-year-old female presenting with chief complaint of dizziness fatigue headache. She reports that she was recently sick with a cough congestion and diarrhea. History of adrenal insufficiency and thinks she may have steroid injection. History and physical examination are conducted. No leukocytosis or anemia. Lactic acid 2.1, likely secondary to the diarrhea. EKG shows sinus rhythm with sinus arrhythmia and troponin is negative. No evidence of UTI. Negative hCG. On reassessment after receiving hydrocortisone 100 mg IV patient reports she feels much better. Patient will follow-up with her telegraph operator. Follow-up with PCP. Report back to ER with any new or worsening symptoms. Discussed return parameters and answered all questions. Patient conveyed verbal understanding and agreed to the plan. I discussed this case in detail with my attending Dr. Blackwood Undiagnosed new problem with uncertain prognosis? @ -No Drug Therapy requiring intensive monitoring for toxicity (Heparin, Nitro, Insulin, Cardizem)? @ -No Were any procedures done? @ -No Diagnosis/symptom? @ -Dizziness, fatigue Acute, or Chronic, or Acute on Chronic? @ -Acute Uncomplicated (without systemic symptoms) or Complicated (systemic symptoms)? @ -Uncomplicated Side effects of treatment? @ -No Exacerbation, Progression, or Severe Exacerbation? @ -No Poses a threat to life or bodily function? How? (Chest pain, [place], [place], pneumonia, PE, COPD, DKA, ARF, appy, cholecystitis, CVA, Diverticulitis, Homicidal, Suicidal, threat to staff... and all critical care pts) @ -Unlikely - Lab Data Result diagrams: 11/08/24 20:19 11/08/24 20:19 Lab Results 11/08/24 11/08/24 11/08/24 Range/Units 20:19 20:19 20:19 WBC 7.94 (4.50-10.00) 10*3/uL RBC 3.96 L (4.10-5.20) 10*6/uL Hgb 12.8 (12.0-15.0) g/dL Hct 36.8 L (37.2-46.3) % MCV 92.9 (80.0-97.0) fL MCH 32.3 H (27.0-32.0) pg MCHC 34.8 (32.0-37.0) g/dL Plt Count 290 (140-440) 10*3/uL MPV 9.9 (9.5-12.2) fL Immature Gran % (Auto) 0.3 % Neutrophils % 60.3 % Lymphocytes % 31.9 % Monocytes % 6.7 % Eosinophils % 0.5 % Basophils % 0.3 % Immature Gran # 0.02 (0.00-0.04) 10*3/uL Neutrophils # 4.80 (1.80-7.70) 10*3/uL Lymphocytes # 2.53 (0.90-5.00) 10*3/uL Monocytes # 0.53 (0.20-1.00) 10*3/uL Eosinophils # 0.04 (0.04-0.35) 10*3/uL Basophils # 0.02 (0.00-0.10) 10*3/uL Sodium 138 (137-145) mmol/L Potassium 4.8 (3.5-5.1) mmol/L Chloride 105 (98-107) mmol/L Carbon Dioxide 22 (22-30) mmol/L Anion Gap 11 mmol/L BUN 12 (7-17) mg/dL Creatinine 0.84 (0.52-1.04) mg/dL Est GFR (CKD-EPI)AfAm >90 (>60 ml/min/1.73 sqM) Est GFR (CKD-EPI)NonAf >90 (>60 ml/min/1.73 sqM) Glucose 126 H (74-99) mg/dL Plasma Lactic Acid Sergey 2.1 H* (0.7-2.0) mmol/L Calcium 9.3 (8.4-10.2) mg/dL Total Bilirubin 1.3 (0.2-1.3) mg/dL AST 36 (14-36) U/L ALT 16 (4-34) U/L Alkaline Phosphatase 39 (38-126) U/L Troponin I (0.000-0.034) ng/mL Total Protein 7.8 (6.3-8.2) g/dL Albumin 4.7 (3.5-5.0) g/dL Urine Color Urine Appearance (Clear) Urine pH (5.0-8.0) Ur Specific [place] (1.001-1.035) Urine Protein (Negative) Urine Glucose (UA) (Negative) Urine Ketones (Negative) Urine Blood (Negative) Urine Nitrite (Negative) Urine Bilirubin (Negative) Urine Urobilinogen (<2.0) mg/dL Ur Leukocyte Esterase (Negative) Urine RBC (0-5) /hpf Urine WBC (0-5) /hpf Ur Squamous Epith Cells (0-4) /hpf Urine Mucus (None) /hpf Urine HCG, Qual (Not Detectd) 04/24/25 04/24/25 04/24/25 Range/Units 20:19 21:51 21:51 WBC (4.50-10.00) 10*3/uL RBC (4.10-5.20) 10*6/uL Hgb (12.0-15.0) g/dL Hct (37.2-46.3) % MCV (80.0-97.0) fL MCH (27.0-32.0) pg MCHC (32.0-37.0) g/dL Plt Count (140-440) 10*3/uL MPV (9.5-12.2) fL Immature Gran % (Auto) % Neutrophils % % Lymphocytes % % Monocytes % % Eosinophils % % Basophils % % Immature Gran # (0.00-0.04) 10*3/uL Neutrophils # (1.80-7.70) 10*3/uL Lymphocytes # (0.90-5.00) 10*3/uL Monocytes # (0.20-1.00) 10*3/uL Eosinophils # (0.04-0.35) 10*3/uL Basophils # (0.00-0.10) 10*3/uL Sodium (137-145) mmol/L Potassium (3.5-5.1) mmol/L Chloride (98-107) mmol/L Carbon Dioxide (22-30) mmol/L Anion Gap mmol/L BUN (7-17) mg/dL Creatinine (0.52-1.04) mg/dL Est GFR (CKD-EPI)AfAm (>60 ml/min/1.73 sqM) Est GFR (CKD-EPI)NonAf (>60 ml/min/1.73 sqM) Glucose (74-99) mg/dL Plasma Lactic Acid Sergey (0.7-2.0) mmol/L Calcium (8.4-10.2) mg/dL Total Bilirubin (0.2-1.3) mg/dL AST (14-36) U/L ALT (4-34) U/L Alkaline Phosphatase (38-126) U/L Troponin I <0.012 (0.000-0.034) ng/mL Total Protein (6.3-8.2) g/dL Albumin (3.5-5.0) g/dL Urine Color Yellow Urine Appearance Clear (Clear) Urine pH 6.0 (5.0-8.0) Ur Specific [place] 1.026 (1.001-1.035) Urine Protein Trace H (Negative) Urine Glucose (UA) Negative (Negative) Urine Ketones Negative (Negative) Urine Blood Trace H (Negative) Urine Nitrite Negative (Negative) Urine Bilirubin Negative (Negative) Urine Urobilinogen <2.0 (<2.0) mg/dL Ur Leukocyte Esterase Negative (Negative) Urine RBC 10 H (0-5) /hpf Urine WBC 4 (0-5) /hpf Ur Squamous Epith Cells 2 (0-4) /hpf Urine Mucus Moderate H (None) /hpf Urine HCG, Qual Not Detected (Not Detectd) Disposition Clinical Impression: Dizziness, Fatigue Disposition: HOME SELF-CARE Condition: Good Instructions (If sedation given, give patient instructions): Dizziness (ED) Additional Instructions: Follow-up with PCP and telegraph operator. Report back to ER with any new or worsening symptoms. Is patient prescribed a controlled substance at d/c from ED?: No Referrals: Kellen Renee MD [Primary Care Provider] - 1-2 days Time of Disposition: 22:51
[2024-11-08 23:04] LABS: Amphetamine Screen,Urine Not Detected (NotDetected); Barbiturate Screen,Urine Not Detected (NotDetected); Benzodiazepines Screen,Urine Not Detected (NotDetected); Cocaine Screen,Urine Not Detected (NotDetected); Methadone Screen, Urine Not Detected (NotDetected); Opiate Screen,Urine Not Detected (NotDetected); Oxycodone Screen, Urine Not Detected (NotDetected); Phencyclidine Screen,Urine Not Detected (NotDetected); Tricyclic Antidepressant,Urine Not Detected (NotDetected); Urn Cannabinoid Scrn Detected (NotDetected)
[2024-11-08 23:41] VITALS: PULSE 57
== END 2024-11-08 23:44 | disposition home or self-care (01) ==
LOC: EC 18:59
DX: I49.8 Other specified cardiac arrhythmias (principal); F17.290 Nicotine dependence, other tobacco product, uncomplicated; Z88.8 Allergy status to other drugs, medicaments and biological substances; Z91.011 Allergy to milk products; Z91.09 Other allergy status, other than to drugs and biological substances; Z91.018 Allergy to other foods; Z88.5 Allergy status to narcotic agent
CPT/HCPCS: 36415; 93005; 80053; 83605; 84484; 85025; 81001; 81025; 80306; 71046; 99284; 96374; 96361; J1720